=== PATIENT | female | born 1935 | race Caucasian/White ===

== ENCOUNTER → 2019-06-02 13:03 | Outpatient (CLI) | payer MEDICARE, BC, SELFPAY ==
--- NOTE | ~2019-06-02 | XR_ITS ---
EXAMINATION: XR chest 2V DATE: 06/02/2019 13:31 INDICATION: Dyspnea. TECHNIQUE: Frontal and lateral views of the chest were obtained. COMPARISON: Chest 2 views 09/28/2017 FINDINGS: The chest demonstrates clear lungs without pneumonia, pleural effusion, or pneumothorax. Th e heart size is normal. IMPRESSION: 1. No acute cardiopulmonary disease. Reviewed, dictated and finalized at location A. ENT ART CURATOR
== END ==
PROVIDERS: PCP Internal Medicine; Visit Provider Internal Medicine
DX: R06.02 Shortness of breath (principal)
CPT/HCPCS: 71046

== ENCOUNTER 2021-03-09 13:28 | Emergency (ER) | payer MEDICARE, BC, SELFPAY ==
--- NOTE | ~2021-03-09 | XR_ITS ---
EXAMINATION: XR ankle LT min 3V DATE: 03/09/2021 14:04 INDICATION: Lateral sided left ankle pain post injury TECHNIQUE: Anteroposterior, oblique, mortise, and lateral views of the left ankle were obtained. COMPARISON: None. FINDINGS: Alignment is normal. Tiny calcific densities along the dorsal head of the talus which could represent enthesopathic ossicles or potentially tiny capsular avulsion fracture fragments. No other lesions barry spicious for fracture identified. Prominent left ankle joint effusion. Achilles and plantar calcaneal spurs with prominent enthesopathic consultation/ossification at the distal Achilles tendon. Mild ost eoarthritis at the ankle, talonavicular, first metatarsophalangeal and a few tarsal metatarsal joints . IMPRESSION: 1. Possible tiny capsular avulsion fracture fragments at the dorsal talar rim of the talonavicular patricia int versus chronic enthesopathic ossicles. No other lesions for fracture identified. 2. Prominent chronic distal Achilles enthesopathy. 3. Left ankle joint effusion. Reviewed, dictated and finalized at location B. R PILOT IMPRESSION: 1. Possible tiny capsular avulsion fracture fragments at the dorsal talar rim o f the talonavicular joint versus chronic enthesopathic ossicles. No other lesio ns for fracture identified. 2. Prominent chronic distal Achilles enthesopathy. 3. Left ankle joint effusion.
[2021-03-09 13:30] VITALS: BP 181/82; PULSE 65; RESP 16; TEMP 36.3; O2SAT 95
--- NOTE | 2021-03-09 15:08 | ED.LOWEXIN ---
HPI - Extremity Injury (Lower) General Chief Complaint: Extremity Injury, Lower <Destinee Sepulveda PA-C - Last Filed: 03/09/21 15:38> Stated Complaint: ankle injury <NICHOLAS Rodriguez Last Filed: 03/09/21 15:38> Time Seen by Provider: 03/09/21 14:24 <Destinee Sepulveda PA-C - Last Filed: 03/09/21 15:38> Source: patient <NICHOLAS Rodriguez Last Filed: 03/09/21 15:38> Mode of arrival: wheelchair <NICHOLAS Rodriguez Last Filed: 03/09/21 15:38> Limitations: no limitations <NICHOLAS Rodriguez Last Filed: 03/09/21 15:38> History of Present Illness HPI Narrative: This is a 85 year old female that presents to the ER for left ankle pain after an injury last night. Reports she tripped over a rug and twisted her left ankle. Denies hitting her head or loss of consciousness. Denies any other injuries. Reports that she has had swelling and pain in the left ankle. Worse with movement and relieved with rest. Denies decreased range of motion or numbness. <Destinee Sepulveda PA-C - Last Filed: 03/09/21 15:38> Related Data Home Medications: Home Medications Medication Instructions Recorded Confirmed acetaminophen [Tylenol Extra 500 mg PO Q4H PRN 02/17/19 02/17/19 Strength] aspirin [Aspir-81] 81 mg PO DAILY 02/17/19 02/17/19 carvedilol 12.5 mg PO BID 02/17/19 02/17/19 lisinopril 20 mg PO DAILY 02/17/19 02/17/19 omeprazole 20 mg PO BID 02/17/19 02/17/19 rosuvastatin 20 mg PO DAILY 02/17/19 02/17/19 apixaban [Eliquis] 5 mg PO BID 03/09/21 citalopram 20 mg PO DAILY 03/09/21 melatonin 3 mg PO HS PRN 03/09/21 <NICHOLAS Rodriguez Last Filed: 03/09/21 15:38> Allergies/Adverse Reactions: Allergies Allergy/AdvReac Type Severity Reaction Status Date / Time No Known Drug Allergies Allergy Unknown Verified 03/09/21 13:33 <Destinee Sepulveda PA-C - Last Filed: 03/09/21 15:38> Review of Systems Review of Systems: CONSTITUTIONAL: Denies fever MUSCULOSKELETAL: Reports joint pain, and myalgia. NEUROLOGIC: Denies numbness, or weakness. <Destinee Sepulveda PA-C - Last Filed: 03/09/21 15:38> All systems reviewed & are unremarkable except as noted in HPI and below <Destinee Sepulveda PA-C - Last Filed: 03/09/21 15:38> PMFSH Past Medical History Medical History: Medical History (Updated 03/09/21 @ 15:38 by Destinee Sepulveda PA-C) Arthritis Depression GERD (gastroesophageal reflux disease) Hypertension <Destinee Sepulveda PA-C - Last Filed: 03/09/21 15:38> Surgical History Surgical History: Surgical History (Updated 02/17/19 @ 14:48 by Derrick Cortez) No history of previous surgery <Destinee Sepulveda PA-C - Last Filed: 03/09/21 15:38> Social History Social History: Social History (Updated 03/09/21 @ 15:11 by Destinee Sepulveda PA-C) Smoking status: Former smoker Gender identity (if verbalized by the patient): Female <Destinee Sepulveda PA-C - Last Filed: 03/09/21 15:38> Exam Narrative: GENERAL: Well-appearing, well-nourished, and in no acute distress. HEAD: Normocephalic, atraumatic. EYES: EOMI. CHEST: No respiratory distress. HEART: Regular rate EXTREMITIES: Normal range of motion. Mild edema about the left ankle. Normal DP pulses, normal sensation SKIN: Warm, dry, no rash. NEURO: No focal deficits. Alert and oriented x3. PSYCH: Normal mood and affect <Destinee Sepulveda PA-C - Last Filed: 03/09/21 15:38> Course BEHAVIORAL TECHNICIAN/PA Physician Supervision I did not see this patient nor was the care plan discussed with me. I was available for evaluation and consultation, I agree with the documentation <Derrick Jorgensen MD - Last Filed: 03/09/21 17:43> Consultations Consultation #1: Spoke with Dr. Marquez about patient and work-up. Patient will be placed in Surinder wrap and is to follow-up in clinic. Weightbearing as tolerated. <Destinee Sepulveda PA-C - Last Filed: 03/09/21 15:38> Date: 03/09/21 <Destinee Sepulveda PA-C - Last Filed:
[2021-03-09] MEDS: ACETAMINOPHEN 500 MG TABLET 1000 MG PO (15:18)
== END 2021-03-09 16:00 | disposition home or self-care (01) ==
PROVIDERS: Emergency Provider Emergency Medicine; PCP Internal Medicine
DX: S82.892A Other fracture of left lower leg, initial encounter for closed fracture (principal); I10 Essential (primary) hypertension; W01.0XXA Fall on same level from slipping, tripping and stumbling without subsequent striking against object, initial encounter
CPT/HCPCS: 73610; 99283; A9270

== ENCOUNTER 2021-09-21 14:17 | Outpatient (CLI) | payer MEDICARE, BC, SELFPAY ==
[2021-09-21 14:45] LABS: Basophils Percent Auto 0.4 % (0.2-1.2); Eosinophils Absolute Auto 0.1 K/mm3 (0-0.3); Eosinophils Percent Auto 1.2 % (0-4.4); Hematocrit 34.7 % (37.0-47.0); Hemoglobin 10.9 g/dL (12.0-15.0); Immature Granulocyte Absolute 0.06 K/mm3 (0.00-0.031); Immature Granulocyte Percent A 0.8 % (0-0.5); Lymphocytes Absolute Auto 1.13 K/mm3 (0.9-3.2); Lymphocytes Percent Auto 15.1 % (18.3-44.2); Mean Corpuscular HGB Conc 31.4 g/dl (32-36); Mean Corpuscular Hemoglobin 29.9 pg (26-34); Mean Corpuscular Volume 95.3 fl (80-100); Mean Platelet Volume 9.4 fl (7.4-10.4); Monocytes Absolute Auto 0.7 K/mm3 (0.1-0.6); Monocytes Percent Auto 9.5 % (2.6-8.5); Neutrophils Absolute Auto 5.5 K/mm3 (1.3-6.7); Platelet Count Result 206 k/mm3 (150-375); Red Blood Count 3.64 M/mm3 (4.2-5.4); Red Cell Distribution Width 13.2 % (11.5-14.5); White Blood Count 7.5 K/mm3 (4.5-10.0)
[2021-09-21 14:54] LABS: Alanine Aminotransferase 14 U/L (6-35); Albumin Level 3.7 g/dL (3.5-5.1); Alkaline Phosphatase 73 U/L (38-126); Anion Gap 8 mmol/L (8-16); Aspartate Amino Transferase 17 U/L (14-36); Bilirubin,Total 0.4 mg/dL (0.2-1.3); Blood Urea Nitrogen 17 mg/dL (7-17); Calcium 8.6 mg/dL (8.4-10.2); Carbon Dioxide 28 mmol/L (22-30); Chloride 102 mmol/L (98-107); Estimated Glomerular Filt Rate > 60; Glucose 119 mg/dL (65-110); Potassium 3.7 mmol/L (3.4-5.0); Sodium 138 mmol/L (137-145)
== END 2021-09-21 14:18 | disposition home or self-care (01) ==
LOC: ANHLAB 14:21
PROVIDERS: PCP Internal Medicine; Visit Provider Internal Medicine
DX: R19.7 Diarrhea, unspecified (principal)
CPT/HCPCS: 36415; 80053; 85025

== ENCOUNTER 2021-09-23 09:15 | Outpatient (NON) | payer MEDICARE, BC, SELFPAY ==
[2021-09-23 11:13] LABS: Toxigenic C. Diff NEGATIVE (NEGATIVE)
== END 2021-09-23 09:16 | disposition home or self-care (01) ==
PROVIDERS: PCP Internal Medicine; Visit Provider Internal Medicine
DX: R19.7 Diarrhea, unspecified (principal)
CPT/HCPCS: 87045; 87427; 87493

== ENCOUNTER 2022-03-29 17:29 | Emergency (ER) | payer MEDICARE, BC, SELFPAY ==
--- NOTE | ~2022-03-29 | XR_ITS ---
EXAMINATION: XR chest 2V Exam Date/Time: 03/29/2022 18:20 ACADEMIC COUNSELOR HISTORY: cough,crackling Comparison: 06/02/2019. RESULT: Lines, tubes, and devices: None. Lungs and pleura: Senescent change, otherwise clear. Cardiomediastinal silhouette: Stable. Other: No acute osseous or upper abdominal finding. Chronic mild lower thoracic compression fracture . IMPRESSION: No acute cardiopulmonary process. Reviewed, dictated and finalized at location K. EMIC COUNSELOR
[2022-03-29 17:41] VITALS: BP 148/57; PULSE 71; RESP 16; TEMP 36.4; O2SAT 98
[2022-03-29 17:45] VITALS: BP 148/57; PULSE 71; RESP 16; TEMP 36.4; O2SAT 98
--- NOTE | 2022-03-29 18:04 | ED.URI ---
HPI - URI/Sore Throat General Chief Complaint: Upper Respiratory Infection Stated Complaint: cough,congestion Time Seen by Provider: 03/29/22 18:04 Source: patient Mode of arrival: ambulatory Limitations: no limitations History of Present Illness HPI Narrative: 86-year-old female who presents to [facility] with complaints of cough since the March with nasal congestion drainage denies any fever. Patient reports she did have pneumonia the 03 of October time frame of this year was hospitalized, concerned she could be having symptoms related to her lungs. Patient did have a long history of tobacco use states she quit about 5-6 years ago when her daughter came to live with her. Patient denies any known fevers or any acute respiratory difficulty. Patient reports cough is worse at night not resting well. Patient has taken Tylenol for her symptoms has not taken any OTC cough medicines or any current decongestants. Patient denies any shortness of breath this time. Patient reports she has had COVID vaccinations and also has not flu shot. MD elicited complaint: cough, rhinorrhea and nasal congestion Onset (ago): day(s) (8) Able to tolerate fluids by mouth: Yes Treatments prior to arrival: acetaminophen Related Data Home Medications Medication Instructions Recorded Confirmed acetaminophen 500 mg tablet 500 mg PO Q4H PRN Pain 02/17/19 03/29/22 (Tylenol Extra Strength) aspirin 81 mg tablet,delayed 81 mg PO DAILY 02/17/19 03/29/22 release (Aspir-) carvedilol 12.5 mg tablet 12.5 mg PO BID 02/17/19 03/29/22 lisinopril 40 mg tablet 20 mg PO DAILY 02/17/19 03/29/22 rosuvastatin 20 mg tablet 20 mg PO DAILY 02/17/19 03/29/22 apixaban 5 mg tablet (Eliquis) 5 mg PO BID 03/09/21 03/29/22 citalopram 20 mg tablet 20 mg PO DAILY 03/09/21 03/29/22 melatonin 3 mg capsule 3 mg PO HS PRN Insomnia 03/09/21 03/29/22 amlodipine 5 mg tablet 5 mg PO DAILY 03/29/22 03/29/22 cyanocobalamin (vitamin B-12) 1,000 mcg PO DAILY 03/29/22 03/29/22 1,000 mcg tablet pantoprazole 40 mg tablet,delayed mg PO 03/29/22 03/29/22 release Allergies Allergy/AdvReac Type Severity Reaction Status Date / Time No Known Drug Allergies Allergy Unknown Verified 03/29/22 17:42 Review of Systems Review of Systems: CONSTITUTIONAL: Denies malaise, chills, sweats, or fever. EYES: Denies visual changes, redness, or discharge. ENT: Reports rhinorrhea, congestion, no sinus pain, no otalgia and no sore throat. CARDIOVASCULAR: Denies chest pain, palpitations, or edema. RESPIRATORY: Reports acute cough.? Denies dyspnea. GASTROINTESTINAL: Denies abdominal pain, nausea, vomiting, diarrhea SKIN: Denies rash or itching. MUSCULOSKELETAL: Denies myalgia. NEUROLOGIC: Denies headache. All systems reviewed & are unremarkable except as noted in HPI and below PMFSH Past Medical History Medical History (Updated 03/29/22 @ 18:48 by Jody Powers NP) Arthritis Depression GERD (gastroesophageal reflux disease) Hypertension Right knee DJD Right knee pain Surgical History Surgical History (Updated 02/09/22 @ 13:28 by ROMMEL Shore) H/O: hysterectomy [address] Link Hx of left knee surgery 2018 No history of previous surgery Social History Social History (Updated 02/09/22 @ 13:29 by ROMMEL Shore) Smoking packs per day: 1 Smoking cigarettes per day: 20.0 Years smoked: 40 Smoking pack-years: 40.00 Smoking status: Former smoker Alcohol intake: never Gender identity (if verbalized by the patient): Female Comments At time of signature, agree with nursing past medical, surgical, social and family history. There is no relevant family history pertinent to the presenting complaint Exam Narrative: GENERAL: Well-appearing, well-nourished, and in no acute distress. HEAD: Normocephalic EYES: PERRLA, conjunctivae clear ENT: Nares clear, turbinates edematous and erythematous, clear discharge. Mucous membr
== END 2022-03-29 19:02 | disposition home or self-care (01) ==
PROVIDERS: Emergency Provider Registered Nurse; PCP Internal Medicine
DX: J06.9 Acute upper respiratory infection, unspecified (principal); R05.1 Acute cough; Z87.891 Personal history of nicotine dependence; K21.9 Gastro-esophageal reflux disease without esophagitis; I10 Essential (primary) hypertension
CPT/HCPCS: 71046; 99213; G0463

== ENCOUNTER 2022-04-07 11:28 | Emergency (ER) | payer MEDICARE, BC, SELFPAY ==
--- NOTE | ~2022-04-07 | CT_ITS ---
EXAMINATION: CT brain wo con DATE: 04/07/2022 17:50 INDICATION: Syncope. Status post fall. Patient on blood thinners. TECHNIQUE: Computed tomography (CT) of the head was performed without intravenous contrast. The dose- length product was 605.33 mGy-cm. Automated exposure control and iterative reconstruction technique w ere employed. COMPARISON: CT dated 12/14/2021 FINDINGS: Generalized atrophy. There is a chronic infarction of the left temporal parietal lobe. Ther e are scattered moderate periventricular and subcortical white matter changes, most likely related to small vessel ischemic disease (microangiopathy). No ventriculomegaly or midline shift. Basilar ciste rns are patent. No acute intracranial hemorrhage, infarction, mass or mass effect. Paranasal sinuses are unremarkable. Mastoids are pneumatized. There is intracranial atherosclerosis. No depressed skull fractures. IMPRESSION: 1. No acute intracranial abnormality. 2: Chronic left temporal-parietal infarction. 3: Chronic age-related findings. Reviewed, dictated and finalized at location A. ER COMPOUNDER MIXER
--- NOTE | ~2022-04-07 | XR_ITS ---
XR chest 2V 04/07/2022 17:40 Indication: Syncope. Procedure: 2 view chest Comparison: 03/29/2022 Findings: Heart size normal. There is atherosclerosis of the aorta. No focal air space disease, pulmo nary edema, pleural effusion or suspected pneumothorax. Mild chronic wedge compression deformity of a lower thoracic vertebra. Mild lumbar spondylosis. The lungs are hyperinflated which is consistent wi th, but not diagnostic of chronic obstructive pulmonary disease. Impression: 1: No acute cardiopulmonary disease. Reviewed, dictated and finalized at location A. OCHLORIC ACID OPERATOR Impression: 1: No acute cardiopulmonary disease.
--- NOTE | 2022-04-07 11:53 | ECG_ITS ---
Measurements Intervals [place] Rate: 59 P: 75 AL: 225 QRS: 26 QRSD: 82 T: 38 QT: 433 QTc: 431 Interpretive Statements SINUS BRADYCARDIA WITH MARKED SINUS ARRHYTHMIA WITH FIRST DEGREE AV BLOCK BASELINE ARTIFACT- I, II, III, AVR, AVL, AVF BORDERLINE ECG NO PREVIOUS ECG AVAILABLE FOR COMPARISON Electronically Signed On 04-07-2022 12:04:36 FREIGHT ADJUSTER by Abran Arauz D.O.
[2022-04-07 12:00] VITALS: BP 129/50; PULSE 90; RESP 16; TEMP 36.3; O2SAT 96
[2022-04-07 12:23] LABS: Basophils Percent Auto 0.5 % (0.2-1.2); Eosinophils Absolute Auto 0.2 K/mm3 (0-0.3); Eosinophils Percent Auto 2.9 % (0-4.4); Hematocrit 36.1 % (37.0-47.0); Hemoglobin 11.4 g/dL (12.0-15.0); Immature Granulocyte Absolute 0.02 K/mm3 (0.00-0.031); Immature Granulocyte Percent A 0.4 % (0-0.5); Lymphocytes Absolute Auto 1.24 K/mm3 (0.9-3.2); Lymphocytes Percent Auto 22.5 % (18.3-44.2); Mean Corpuscular HGB Conc 31.6 g/dl (32-36); Mean Corpuscular Volume 98.1 fl (80-100); Mean Platelet Volume 9.4 fl (7.4-10.4); Monocytes Absolute Auto 0.5 K/mm3 (0.1-0.6); Monocytes Percent Auto 9.6 % (2.6-8.5); Neutrophils Absolute Auto 3.5 K/mm3 (1.3-6.7); Neutrophils Percent Auto 64.1 % (45.5-73.1); Platelet Count Result 216 k/mm3 (150-375); Red Blood Count 3.68 M/mm3 (4.2-5.4); Red Cell Distribution Width 13.3 % (11.5-14.5); White Blood Count 5.5 K/mm3 (4.5-10.0)
[2022-04-07 12:27] LABS: Alanine Aminotransferase 21 U/L (6-35); Albumin Level 3.8 g/dL (3.5-5.1); Alkaline Phosphatase 47 U/L (38-126); Anion Gap 5 mmol/L (8-16); Aspartate Amino Transferase 26 U/L (14-36); Bilirubin,Total 0.5 mg/dL (0.2-1.3); Blood Urea Nitrogen 30 mg/dL (7-17); Calcium 8.5 mg/dL (8.4-10.2); Carbon Dioxide 32 mmol/L (22-30); Chloride 101 mmol/L (98-107); Estimated CRCL calculation 34 ml/min; Estimated Glomerular Filt Rate 53; Glucose 160 mg/dL (65-110); Potassium 4.1 mmol/L (3.4-5.0); Sodium 138 mmol/L (137-145)
[2022-04-07 16:27] VITALS: BP 130/58; PULSE 67; TEMP 36.7; O2SAT 98
--- NOTE | 2022-04-07 17:24 | ED.GENADULT ---
HPI - General Adult General Chief complaint: Dizziness Stated complaint: syncope, nausea, dizzy Time Seen by Provider: 04/07/22 17:10 History of Present Illness HPI narrative: Patient is an 86-year-old female with a history of A. fib on Eliquis, hypertension, hyperlipidemia, CVA presenting with syncope. Patient states that she was at the orthopedic office earlier today to get an injection for her chronic right knee pain. Patient states that after the injection, she felt lightheaded and nauseated. States that the clinic had her sit down and her symptoms improved. She was able to walk outside to wait for her granddaughter to come pick her up. While waiting she again felt lightheaded and was noted to have a syncopal episode. She awoke and quickly returned to baseline after having several episodes of emesis. She denies any chest pain or shortness of breath. No palpitations. No headache, numbness or weakness, speech difficulties. No recent cough, abdominal pain, diarrhea, dysuria, leg swelling. Related Data Home Medications Medication Instructions Recorded Confirmed acetaminophen 500 mg tablet 500 mg PO Q4H PRN Pain 02/17/19 03/29/22 (Tylenol Extra Strength) aspirin 81 mg tablet,delayed 81 mg PO DAILY 02/17/19 03/29/22 release (Aspir-) carvedilol 12.5 mg tablet 12.5 mg PO BID 02/17/19 03/29/22 lisinopril 40 mg tablet 20 mg PO DAILY 02/17/19 03/29/22 rosuvastatin 20 mg tablet 20 mg PO DAILY 02/17/19 03/29/22 apixaban 5 mg tablet (Eliquis) 5 mg PO BID 03/09/21 03/29/22 citalopram 20 mg tablet 20 mg PO DAILY 03/09/21 03/29/22 melatonin 3 mg capsule 3 mg PO HS PRN Insomnia 03/09/21 03/29/22 amlodipine 5 mg tablet 5 mg PO DAILY 03/29/22 03/29/22 cyanocobalamin (vitamin B-12) 1,000 mcg PO DAILY 03/29/22 03/29/22 1,000 mcg tablet pantoprazole 40 mg tablet,delayed mg PO 03/29/22 03/29/22 release Allergies Allergy/AdvReac Type Severity Reaction Status Date / Time No Known Drug Allergies Allergy Unknown Verified 03/29/22 17:42 Review of Systems Review of Systems: All systems reviewed & are unremarkable except as noted in HPI and below PMFSH Past Medical History Medical History Arthritis Depression GERD (gastroesophageal reflux disease) Hypertension Right knee DJD Right knee pain Surgical History Surgical History H/O: hysterectomy [address] Link Hx of left knee surgery 2018 No history of previous surgery Social History Social History Smoking packs per day: 1 Smoking cigarettes per day: 20.0 Years smoked: 40 Smoking pack-years: 40.00 Smoking status: Former smoker Alcohol intake: never Gender identity (if verbalized by the patient): Female Exam Narrative: GENERAL: Well-appearing, well-nourished, and in no acute distress. HEAD: Normocephalic, atraumatic. EYES: PERRLA and EOMI. ENT: Nares clear, no rhinorrhea or epistaxis. Mucous membranes moist. NECK: Supple. CHEST: Clear to auscultation. No respiratory distress. HEART: Regular rate and rhythm. No murmur heard. Normal peripheral pulses. ABDOMEN: Soft, nontender, nondistended, normal active bowel sounds. EXTREMITIES: Normal range of motion. No edema. SKIN: Warm, dry, no rash. NEURO: No focal deficits. Alert and oriented x3. PSYCH: Normal mood and affect. Course Vital Signs Vital signs: Vital Signs Temperature 97.4 F L 04/07/22 12:00 Pulse Rate 90 04/07/22 12:00 Respiratory Rate 16 04/07/22 12:00 Blood Pressure 129/50 L 04/07/22 12:00 Pulse Oximetry 96 04/07/22 12:00 Oxygen Delivery Room Air 04/07/22 12:00 Temperature 98.0 F 04/07/22 16:27 Pulse Rate 65 04/07/22 19:05 Respiratory Rate 16 04/07/22 19:05 Blood Pressure 144/60 H 04/07/22 19:05 Pulse Oximetry 98 04/07/22 19:05 Oxygen Delivery Room Air 04/07/22 12:00
[2022-04-07] MEDS: SODIUM CHLORIDE 0.9% IV 1,000 ML 999 ML IV CONT (17:51)
[2022-04-07 17:55] VITALS: BP 133/55; PULSE 65
[2022-04-07 17:57] VITALS: BP 105/91; PULSE 67
[2022-04-07 17:59] VITALS: BP 125/61; PULSE 73
[2022-04-07 18:05] LABS: Troponin I < 0.012 ng/mL (0.000-0.034)
[2022-04-07 18:16] LABS: Add Urine Microscopic? YES; Appearance Urine Clear (Clear); Bilirubin Urine Negative (Negative); Blood Urine Trace-Intact (Negative); Color Urine Yellow (Yellow); Glucose Urine UA Negative (Negative); Ketones Urine Negative (Negative); Leukocyte Esterase Ur Trace LEU/UL (Negative); Nitrate Urine Negative (Negative); Protein Urine Negative (Negative); Specific Grav Ur 1.025 (1.001-1.035); Urobilinogen Urine 0.2 mg/dL (<2.0); pH Urine 5.5 (5.0-9.0)
[2022-04-07 18:21] LABS: Bacteria Urine Trace /hpf; Mucus Urine Rare /lpf; Squamous Epithelial Cell Urine Rare /hpf (Few)
[2022-04-07 18:37] LABS: Troponin I < 0.012 ng/mL (0.000-0.034)
[2022-04-07 19:05] VITALS: BP 144/60; PULSE 65; RESP 16; O2SAT 98
[2022-04-07] MEDS: CEPHALEXIN 500 MG CAPSULE PO (19:34)
== END 2022-04-07 19:42 | disposition home or self-care (01) ==
PROVIDERS: Emergency Medicine; Emergency Provider Emergency Medicine; PCP Internal Medicine
DX: N39.0 Urinary tract infection, site not specified (principal); R55 Syncope and collapse; I48.91 Unspecified atrial fibrillation; I10 Essential (primary) hypertension; E78.5 Hyperlipidemia, unspecified; K21.9 Gastro-esophageal reflux disease without esophagitis; M17.11 Unilateral primary osteoarthritis, right knee; F32.A Depression, unspecified; Z90.710 Acquired absence of both cervix and uterus; Z86.73 Personal history of transient ischemic attack (TIA), and cerebral infarction without residual deficits; Z87.891 Personal history of nicotine dependence; Z79.01 Long term (current) use of anticoagulants; Z79.82 Long term (current) use of aspirin
CPT/HCPCS: 36415; 70450; 71046; 80053; 81001; 84484; 85025; 93005; 96360; 96361; 99284; A9270; J7030

== ENCOUNTER 2023-02-26 12:58 | Emergency (ER) | payer MEDICARE, BC, SELFPAY ==
[2023-02-26] VITALS (10 sets, daily range): BP systolic 154–186; BP diastolic 54–82; PULSE 54–69; RESP 16–24; TEMP 36.4–36.6; O2SAT 96–98
--- NOTE | ~2023-02-26 | CT_ITS ---
EXAMINATION: CT cervical spine wo con DATE: 02/26/2023 16:35 INDICATION: Head injury. Syncope. TECHNIQUE: Computed tomography (CT) of the cervical spine was performed without intravenous contrast. Automated exposure control and iterative reconstruction technique were employed. The dose-length pro duct was 247.40 mGy-cm. COMPARISON: None FINDINGS: There is 4 degrees dextrocurvature of cervical spine. Vertebral body heights are normal. In tervertebral disc heights are normal. The following disc levels are specifically discussed: C2-C3: There is moderate left uncovertebral joint osteoarthritis. There is mild bilateral facet joint osteoarthritis. There is no neural foraminal stenosis. There is no central canal stenosis. C3-C4: There is mild bilateral uncovertebral joint osteoarthritis. There is moderate bilateral facet joint osteoarthritis. There is no neural foraminal stenosis. There is no central canal stenosis. C4-C5: There is no uncovertebral joint osteoarthritis. There is moderate bilateral facet joint osteoa rthritis. There is no neural foraminal stenosis. There is no central canal stenosis. C5-C6: There is no uncovertebral joint osteoarthritis. There is no facet joint osteoarthritis. There is no neural foraminal stenosis. There is no central canal stenosis. C6-C7: There is mild bilateral uncovertebral joint osteoarthritis. There is mild bilateral facet join t osteoarthritis. There is no neural foraminal stenosis. There is no central canal stenosis. C7-T1: There is no uncovertebral joint osteoarthritis. There is moderate right and severe left facet joint osteoarthritis. There is mild left neural foraminal stenosis. There is no central canal stenosi s. IMPRESSION: 1. No fracture. 2. Mild cervical spondylosis. Reviewed, dictated and finalized at location A. T SUPERINTENDENT CAUSTIC CRESYLATE
--- NOTE | ~2023-02-26 | CT_ITS ---
EXAMINATION: CT brain wo con DATE: 02/26/2023 16:33 INDICATION: Syncope. TECHNIQUE: Computed tomography (CT) of the head was performed without intravenous contrast. The mA wa s adjusted according to patient size. Iterative reconstruction technique was employed. The dose-lengt h product was 605.33 mGy-cm. COMPARISON: Head CT 04/07/22 FINDINGS: There are scattered areas of low attenuation in the cerebral white matter and bilateral bas al ganglia and thalami. There is an old infarct in left temporal lobe. There is no intracranial hemor rhage, acute infarction, or abnormal intracranial mass lesion. The ventricles are normal in size. The re is a frontal scalp hematoma. There are likely changes of ocular lens replacement surgeries. There is mild mucosal thickening in the paranasal sinuses. The mastoid air cells are normal. IMPRESSION: 1. 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 2. Stable extensive nonspecific cerebral white matter disease and disease of the bilateral deep martinez nuclei, which likely represents chronic small vessel ischemic disease. Reviewed, dictated and finalized at location A. ERING PLANT SUPERVISOR IMPRESSION: 1. 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 2. Stable extensive nonspecific cerebral white matter disease and disease of th e bilateral deep martinez nuclei, which likely represents chronic small vessel isch emic disease.
--- NOTE | 2023-02-26 16:19 | ECG_ITS ---
Measurements Intervals [place] Rate: 60 P: 55 SD: 211 QRS: 12 QRSD: 84 T: 35 QT: 419 QTc: 419 Interpretive Statements SINUS RHYTHM WITH SINUS ARRHYTHMIA WITH FIRST DEGREE AV BLOCK NONSPECIFIC ST-T WAVE ABNORMALITY- INF/LAT LEADS BASELINE ARTIFACT- I, II, III, AVR, AVL, AVF, V5 BORDERLINE ECG COMPARED TO ECG 04/07/2022 11:57:40 SINUS RHYTHM NOW PRESENT ST-T WAVE ABNORMALITY NOW PRESENT Electronically Signed On 02-26-2023 19:13:51 SENIOR SOFTWARE DEVELOPMENT ENGINEER by Abran Arauz D.O.
[2023-02-26 17:02] LABS: Basophils Percent Auto 0.3 % (0.2-1.2); Eosinophils Percent Auto 0.4 % (0-4.4); Hematocrit 38.6 % (37.0-47.0); Immature Granulocyte Absolute 0.01 K/mm3 (0.00-0.031); Immature Granulocyte Percent A 0.1 % (0-0.5); Lymphocytes Absolute Auto 0.87 K/mm3 (0.9-3.2); Lymphocytes Percent Auto 12.3 % (18.3-44.2); Mean Corpuscular HGB Conc 31.1 g/dl (32-36); Mean Corpuscular Hemoglobin 30.8 pg (26-34); Mean Platelet Volume 9.8 fl (7.4-10.4); Monocytes Absolute Auto 0.3 K/mm3 (0.1-0.6); Monocytes Percent Auto 4.8 % (2.6-8.5); Neutrophils Absolute Auto 5.8 K/mm3 (1.3-6.7); Neutrophils Percent Auto 82.1 % (45.5-73.1); Platelet Count Result 146 k/mm3 (150-375); Red Cell Distribution Width 12.7 % (11.5-14.5); White Blood Count 7.1 K/mm3 (4.5-10.0)
[2023-02-26 17:14] LABS: INR 1.4; Prothrombin Time 17.6 Seconds (11.1-14.7)
[2023-02-26 17:15] LABS: Partial Thromboplastin Time 30.3 SECONDS (22.3-36.8)
[2023-02-26 17:18] LABS: Alanine Aminotransferase 14 U/L (6-35); Albumin Level 4.5 g/dL (3.5-5.1); Alkaline Phosphatase 44 U/L (38-126); Anion Gap 10 mmol/L (8-16); Aspartate Amino Transferase 22 U/L (14-36); Bilirubin,Total 0.8 mg/dL (0.2-1.3); Blood Urea Nitrogen 20 mg/dL (7-17); Calcium 9.4 mg/dL (8.4-10.2); Carbon Dioxide 27 mmol/L (22-30); Chloride 100 mmol/L (98-107); Estimated CRCL calculation 42 ml/min; Estimated Glomerular Filt Rate > 60; Glucose 195 mg/dL (65-110); Magnesium 1.6 mg/dL (1.6-2.3); Potassium 3.8 mmol/L (3.4-5.0); Sodium 137 mmol/L (137-145)
[2023-02-26 17:38] LABS: Influenza A QL RT-PCR Negative (Negative); Influenza B QL RT-PCR Negative (Negative); RSV RNA, RT-PCR Negative (Negative); SARS-CoV-2 RNA PCR Negative (Negative)
[2023-02-26 17:56] LABS: Appearance Urine Clear (Clear); Bacteria Urine None Seen /hpf; Bilirubin Urine Negative (Negative); Blood Urine Negative (Negative); Color Urine Yellow (Yellow); Glucose Urine UA Negative (Negative); Ketones Urine Negative (Negative); Leukocyte Esterase Ur Negative LEU/UL (Negative); Nitrate Urine Negative (Negative); Non Pathogenic Casts 0-2; Protein Urine Trace mg/dL (Negative); Specific Grav Ur 1.025 (1.001-1.035); Squamous Epithelial Cell Urine None seen /hpf (Few); Urobilinogen Urine 0.2 mg/dL (<2.0); WBC Urine 0-5 /hpf
[2023-02-26 17:59] LABS: Troponin I < 0.012 ng/mL (0.000-0.034)
[2023-02-26] MEDS: SODIUM CHLORIDE 0.9% IV 1,000 ML 999 ML IV CONT (18:01)
[2023-02-26] MEDS: MAGNESIUM SULF 1 GM/D5W 100 ML 1 GM/100 ML BAG IVPB (18:01)
[2023-02-26 18:04] LABS: Add Urine Microscopic? YES
--- NOTE | 2023-02-26 18:09 | ED.SYNCOPE ---
HPI - Syncope General Chief Complaint: Syncope Stated Complaint: syncopy, struck her face Time Seen by Provider: 02/26/23 16:52 Source: patient Mode of arrival: EMS Limitations: no limitations History of Present Illness HPI narrative: Patient is an 87-year-old female who presents to the ED via EMS with report of syncope. Patient reports she had finished eating lunch today and was standing up filling up her [employer] when she began feeling lightheaded and nauseous. She felt like she needed to have a bowel movement. She went to the bathroom and had diarrhea at that time, then began vomiting. The next thing she knew she was being woken up on the floor by her granddaughter. She did fully lose consciousness. She hit her head and sustained a hematoma to her forehead. Had difficulty getting off the ground so EMS was called. She is on Eliquis. Patient denies any acute complaints upon my evaluation. Denies pain, headache, dizziness, lightheadedness, nausea, vomiting, vision changes, abdominal pain, current nausea, rectal bleeding, melena, chest pain, shortness of breath. Patient reports multiple previous vasovagal episodes. She states it is often related to dehydration. She has not been drinking as much the last couple of days. She states she fell yesterday as well, but did not injure herself. Related Data Home Medications Medication Instructions Recorded Confirmed acetaminophen 500 mg tablet 500 mg PO Q4H PRN Pain 02/17/19 04/28/22 (Tylenol Extra Strength) aspirin 81 mg tablet,delayed 81 mg PO DAILY 02/17/19 04/28/22 release (Aspir-) carvedilol 12.5 mg tablet 12.5 mg PO BID 02/17/19 04/28/22 lisinopril 40 mg tablet 20 mg PO DAILY 02/17/19 04/28/22 rosuvastatin 20 mg tablet 20 mg PO DAILY 02/17/19 04/28/22 apixaban 5 mg tablet (Eliquis) 5 mg PO BID 03/09/21 04/28/22 citalopram 20 mg tablet 20 mg PO DAILY 03/09/21 04/28/22 melatonin 3 mg capsule 3 mg PO HS PRN Insomnia 03/09/21 04/28/22 amlodipine 5 mg tablet 5 mg PO DAILY 03/29/22 04/28/22 cyanocobalamin (vitamin B-12) 1,000 mcg PO DAILY 03/29/22 04/28/22 1,000 mcg tablet pantoprazole 40 mg tablet,delayed mg PO 03/29/22 04/28/22 release Allergies Allergy/AdvReac Type Severity Reaction Status Date / Time No Known Drug Allergies Allergy Unknown Verified 02/26/23 13:28 Review of Systems Review of Systems: CONSTITUTIONAL: Denies fever, chills, or sweats. EENT: Denies vision changes, rhinorrhea, congestion, sore throat. CARDIOVASCULAR: Denies chest pain. RESPIRATORY: Denies dyspnea. GASTROINTESTINAL: See HPI. GENITOURINARY: Denies dysuria or hematuria. SKIN: Denies rash or itching. MUSCULOSKELETAL: Denies back pain, joint pain, or myalgia. NEUROLOGIC: See HPI. All systems reviewed & are unremarkable except as noted in HPI and below PMFSH Past Medical History Medical History Arthritis Depression GERD (gastroesophageal reflux disease) Hypertension Right knee DJD Right knee pain Surgical History Surgical History H/O: hysterectomy [address] Link Hx of left knee surgery 2018 No history of previous surgery Social History Social History Smoking packs per day: 1 Smoking cigarettes per day: 20.0 Years smoked: 40 Smoking pack-years: 40.00 Smoking status: Former smoker Alcohol intake: never Gender identity (if verbalized by the patient): Female Exam Narrative: GENERAL: Elderly, well-nourished, non-toxic, in no acute distress. HEAD: Normocephalic. Large hematoma to forehead with overlying ecchymosis, no wounds. EYES: PERRL/EOMI, conjunctivae clear bilaterally. No nystagmus. Ecchymosis to tone medial eyes and bridge of nose. NOSE: Normal, no drainage. No epistaxis. No septal hematoma. EARS: TMS clear, with good light reflex. No erythema or bulging.
--- NOTE | 2023-02-26 18:24 | PC.NURSE ---
Noted raised bruised area to forehead. Pt denies any c/o pain
--- NOTE | 2023-02-26 19:20 | PC.NURSE ---
Assumed care of pt at this time. Pt A&Ox4, able to ambulate with steady gait to restroom.
== END 2023-02-26 20:15 | disposition home or self-care (01) ==
PROVIDERS: Emergency Medicine; Emergency Provider Physician Assistant; PCP Internal Medicine
DX: I95.1 Orthostatic hypotension (principal); I10 Essential (primary) hypertension; S00.83XA Contusion of other part of head, initial encounter; Z20.822 Contact with and (suspected) exposure to COVID-19; K21.9 Gastro-esophageal reflux disease without esophagitis; M17.11 Unilateral primary osteoarthritis, right knee; Z87.891 Personal history of nicotine dependence; Z90.710 Acquired absence of both cervix and uterus; Z79.82 Long term (current) use of aspirin; M47.812 Spondylosis without myelopathy or radiculopathy, cervical region; R90.82 White matter disease, unspecified; R94.31 Abnormal electrocardiogram [ECG] [EKG]; W18.39XA Other fall on same level, initial encounter
CPT/HCPCS: 36415; 70450; 72125; 80053; 81001; 83735; 84484; 85025; 85610; 85730; 87637; 93005; 96361; 96365; 99284; J3475; J7030

== ENCOUNTER 2023-03-05 15:30 | Outpatient (CLI) | payer MEDICARE, BC, SELFPAY ==
--- NOTE | ~2023-03-05 | CT_ITS ---
EXAMINATION: CT brain wo con DATE: 03/05/2023 15:51 INDICATION: Head injury. TECHNIQUE: Computed tomography (CT) of the head was performed without intravenous contrast. The mA wa s adjusted according to patient size. Iterative reconstruction technique was employed. The dose-lengt h product was 605.33 mGy-cm. COMPARISON: Head CT 02/26/2023 FINDINGS: There is old infarct in left temporal lobe. There are scattered areas of low attenuation in the cerebral white matter and the bilateral deep martinez-white matter. There is no intracranial hemorrh age, acute infarction, or abnormal intracranial mass lesion. The ventricles are normal in size. There is a right frontal scalp hematoma. There is mild mucosal thickening in the ethmoid sinuses. There ar e likely changes of ocular lens replacement surgeries. The mastoid air cells are normal. IMPRESSION: 1. 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 2. Stable extensive nonspecific cerebral white matter disease and disease of bilateral deep martinez nucl ei, which likely represents chronic small vessel ischemic disease. Reviewed, dictated and finalized at location E. ORM CAP OPERATOR IMPRESSION: 1. 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 2. Stable extensive nonspecific cerebral white matter disease and disease of bi lateral deep martinez nuclei, which likely represents chronic small vessel ischemic disease.
== END 2023-03-05 15:31 | disposition home or self-care (01) ==
PROVIDERS: PCP Internal Medicine; Visit Provider Internal Medicine
DX: S00.83XA Contusion of other part of head, initial encounter (principal); R90.82 White matter disease, unspecified; Z86.73 Personal history of transient ischemic attack (TIA), and cerebral infarction without residual deficits
CPT/HCPCS: 70450

== ENCOUNTER 2023-06-16 12:29 | Outpatient (CLI) | payer MEDICARE, BC, SELFPAY ==
--- NOTE | ~2023-06-16 | CT_ITS ---
CT Scan of the Chest without Contrast: Clinical Indication: Solitary pulmonary nodule Technique: Contiguous sections were acquired throughout the chest without intravenous contrast. Dose reduction technique was used on this scan by utilizing automated exposure control and iterative recon struction technique. The dose-length product (DLP) was 60.69 mGy-cm. Findings: There is no evidence of any significant mediastinal, hilar or axillary lymphadenopathy. There are ext ensive atherosclerotic calcifications of the aorta and coronary arteries. There is no evidence of pleural or pericardial effusion. There is a 7 mm groundglass opacities in the right lower lobe (axial image 57). There is a 13 mm grou ndglass opacity in the left lower lobe (axial image 54). There is atelectasis or scarring at the ling orquidea. Images through the upper abdomen reveal also nodular contour of the liver, with pneumobilia. Mild com pression fracture of T11 noted. Impression: Focal bilateral lower lobe groundglass opacity/nodules, as detailed above. According to Fleischner [facility] criteria, one year follow-up advised. Possible cirrhotic change of the liver. Correlate clinically. Mild compression deformity of T11, likely chronic. Reviewed, dictated and finalized at location . Impression: Focal bilateral lower lobe groundglass opacity/nodules, as detailed above. Acco rding to Fleischner Society criteria, one year follow-up advised. Possible cirrhotic change of the liver. Correlate clinically. Mild compression deformity of T11, likely chronic.
== END 2023-06-16 12:30 | disposition home or self-care (01) ==
LOC: ANHIMG 12:39
PROVIDERS: PCP Internal Medicine; Visit Provider Internal Medicine
DX: S22.080A Wedge compression fracture of T11-T12 vertebra, initial encounter for closed fracture (principal); R91.8 Other nonspecific abnormal finding of lung field; Z12.31 Encounter for screening mammogram for malignant neoplasm of breast; X58.XXXA Exposure to other specified factors, initial encounter
CPT/HCPCS: 71250

== ENCOUNTER 2023-06-30 09:37 | Outpatient (CLI) | payer MEDICARE, BC, SELFPAY ==
--- NOTE | ~2023-06-30 | US_ITS ---
EXAMINATION: US right upper quadrant DATE: 06/30/2023 10:26 INDICATION: Cirrhosis of the liver. TECHNIQUE: Multiple grayscale and Doppler ultrasound images of the abdomen were obtained. COMPARISON: Ultrasound abdomen 02/10/2019 FINDINGS: The visualized portions of the head, body, and tail of the pancreas are normal. The liver i s normal without focal lesion. There is normal flow in main portal vein. The gallbladder is not visua lized. The common duct is normal and measures 3 mm . IMPRESSION: 1. Normal liver. 2. Gallbladder not visualized. Reviewed, dictated and finalized at location A.
== END 2023-06-30 09:38 | disposition home or self-care (01) ==
PROVIDERS: PCP Internal Medicine; Visit Provider Internal Medicine
DX: R91.1 Solitary pulmonary nodule (principal); S22.000A Wedge compression fracture of unspecified thoracic vertebra, initial encounter for closed fracture; K74.60 Unspecified cirrhosis of liver
CPT/HCPCS: 76705

== ENCOUNTER 2023-08-18 10:41 | Outpatient (CLI) | payer MEDICARE, BC, SELFPAY ==
--- NOTE | ~2023-08-18 | XR_ITS ---
EXAMINATION: XR thoracic spine 3V DATE: 08/18/2023 11:15 INDICATION: Compression fracture of thoracic spine. TECHNIQUE: 3 views of thoracic spine were obtained. COMPARISON: Chest 2 views 04/07/2022, chest CT 06/16/2023 FINDINGS: There is kyphosis and 4 degrees levocurvature of thoracic spine. There is a chronic burst f racture of T11 with 1/5 loss of height. There is moderately decreased disc height at T5-T6, severely decreased disc height at T6-T7 and T7-T8, moderately decreased disc height at T8-T9, and severely dec reased disc height at T9-T10. There is mildly decreased disc height at multiple levels. There is mult ilevel facet joint osteoarthritis. IMPRESSION: 1. Chronic T11 burst fracture, stable from 04/07/2022. 2. Severe thoracic spondylosis. 3. Thoracic kyphosis. Reviewed, dictated and finalized at location A.
== END 2023-08-18 10:42 | disposition home or self-care (01) ==
LOC: ANHIMG 10:44
PROVIDERS: PCP Internal Medicine; Visit Provider Internal Medicine
DX: S22.081D Stable burst fracture of T11-T12 vertebra, subsequent encounter for fracture with routine healing (principal); M40.294 Other kyphosis, thoracic region; M43.04 Spondylolysis, thoracic region; X58.XXXD Exposure to other specified factors, subsequent encounter
CPT/HCPCS: 72072

== ENCOUNTER 2023-11-12 15:34 | Emergency (ER) | payer MEDICARE, BC, SELFPAY ==
--- NOTE | ~2023-11-12 | XR_ITS ---
EXAM: XR ankle RT min 3V, XR foot RT min 3V DATE: 11/12/2023 16:07 HISTORY: right ankle swelling NO INJURY NO PAIN . COMPARISON: None available. FINDINGS: Decreased mineralization. Irregular trabecular pattern over the posterior calcaneus. No ly tic or blastic lesion. Mild scattered degenerative change in the ankle and foot. Achilles and plantar enthesopathy. No erosion or periosteal change. Scattered vascular calcification. IMPRESSION: Osteopenia. Irregular trabecular pattern over the posterior calcaneus as can be seen with stress fracture, correlate for pain/tenderness. Reviewed, dictated and finalized at location K. IMPRESSION: Osteopenia. Irregular trabecular pattern over the posterior calcane us as can be seen with stress fracture, correlate for pain/tenderness.
--- NOTE | 2023-11-12 15:37 | ED.EXTPRO ---
HPI - Extremity Problem General Chief complaint: Extremity Injury, Lower Stated complaint: Swollen Right Ankle Time Seen by Provider: 11/12/23 15:36 Source: patient Mode of arrival: ambulatory Limitations: no limitations History of Present Illness HPI Narrative: Martina is an 87-year-old female patient presenting to the clinic today with complaints of right ankle/foot swelling over the past day or 2. Has a small bruised area over the right lateral foot. She reports she has been doing a lot of walking. Pain radiates up into the medial knee. Is on Eliquis. Has pain with bearing weight. Related Data Home Medications Medication Instructions Recorded Confirmed acetaminophen 500 mg tablet 500 mg PO Q4H PRN Pain 02/17/19 04/28/22 (Tylenol Extra Strength) aspirin 81 mg tablet,delayed 81 mg PO DAILY 02/17/19 04/28/22 release (Aspir-) carvedilol 12.5 mg tablet 12.5 mg PO BID 02/17/19 04/28/22 lisinopril 40 mg tablet 20 mg PO DAILY 02/17/19 04/28/22 rosuvastatin 20 mg tablet 20 mg PO DAILY 02/17/19 04/28/22 apixaban 5 mg tablet (Eliquis) 5 mg PO BID 03/09/21 04/28/22 citalopram 20 mg tablet 20 mg PO DAILY 03/09/21 04/28/22 melatonin 3 mg capsule 3 mg PO HS PRN Insomnia 03/09/21 04/28/22 amlodipine 5 mg tablet 5 mg PO DAILY 03/29/22 04/28/22 cyanocobalamin (vitamin B-12) 1,000 mcg PO DAILY 03/29/22 04/28/22 1,000 mcg tablet pantoprazole 40 mg tablet,delayed mg PO 03/29/22 04/28/22 release Allergies Allergy/AdvReac Type Severity Reaction Status Date / Time No Known Drug Allergies Allergy Unknown Verified 11/12/23 15:47 Review of Systems Review of Systems: Pertinent positives per HPI. Patient denies any fever, chills, rash, headache, visual changes, dizziness, cough, runny nose, sore throat, shortness of breath, chest pain, palpitations, nausea, vomiting, diarrhea, constipation, abdominal pain, or any urinary issues. [facility] Past Medical History Medical History Arthritis Depression GERD (gastroesophageal reflux disease) Hypertension Right knee DJD Right knee pain Surgical History Surgical History H/O: hysterectomy [address] Link Hx of left knee surgery 2018 No history of previous surgery Social History Social History Smoking packs per day: 1 Smoking cigarettes per day: 20.0 Years smoked: 40 Smoking pack-years: 40.00 Smoking status: Former smoker Alcohol intake: never Gender identity (if verbalized by the patient): Female Comments At the time of my signature, I reviewed and agree with the nursing past medical, surgical, social, and family history. There is no relevant family history pertinent to the patient complaint. Exam Narrative: General: Well-developed, well nourished, in no apparent distress Head: Normocephalic, atraumatic. Cardio: Regular rate and rhythm, s1 and s2 normal, no murmur appreciated. Resp: Clear to auscultation bilaterally, no rhonchi, rales, wheezing or rubs. Musculoskeletal: No deformity, non-tender to palpation, mild pain to the medial ankle with vagus/varus testing, mild swelling, no erythema, grossly normal range of motion, muscle strength strong and equal, peripheral pulse strong, no edema, no cyanosis, normal gait and station Course Course Emergency Course: Portions of this record may have been created with voice recognition software. Level of Care: Express Care Visit Vital Signs Vital signs: Vital signs reviewed MDM - Extremity (Nontraumatic) MDM Narrative Medical decision making narrative: At the time of visit patient is resting comfortably on the exam table. Patient appears to be nontoxic. Diagnostics: X-ray of the right ankle and foot were performed and shows osteopenia and a possible stress fracture to the posterior calcaneus. Patient does not have any
[2023-11-12 15:55] VITALS: BP 160/68; PULSE 64; RESP 16; TEMP 36.2; O2SAT 98
== END 2023-11-12 16:52 | disposition home or self-care (01) ==
PROVIDERS: Emergency Provider Nurse Practitioner Family
DX: R22.41 Localized swelling, mass and lump, right lower limb (principal); Z87.891 Personal history of nicotine dependence; M19.90 Unspecified osteoarthritis, unspecified site; K21.9 Gastro-esophageal reflux disease without esophagitis; I10 Essential (primary) hypertension; M17.11 Unilateral primary osteoarthritis, right knee; Z79.82 Long term (current) use of aspirin
CPT/HCPCS: 73610; 73630; 99213; G0463

== ENCOUNTER 2024-02-16 10:50 | Outpatient (CLI) | payer MEDICARE, BC, SELFPAY ==
--- NOTE | ~2024-02-16 | XR_ITS ---
EXAM: XR thoracic spine 2V DATE: 02/16/2024 11:18 HISTORY: Compression fracture of thoracic spine, PAIN 2 + MONTHS NKI . COMPARISON: 08/18/2023. FINDINGS: Decreased mineralization. Vertebral body alignment intact. Mild scoliosis. Stable mild ant erior wedge deformity at T7. Stable mild burst fracture at T11. Exaggerated thoracic kyphosis. Multil evel moderate disc space narrowing and marginal osteophytosis. Multilevel facet hypertrophy and scler osis. No traumatic malalignment or fracture. Visualized lung parenchyma is clear. IMPRESSION: Osteopenia. No acute fracture or traumatic malalignment detected in the thoracic spine. M ultilevel moderate degenerative disc disease. Multilevel facet arthropathy Reviewed, dictated and finalized at location K. /R SERVICE TECHNICIAN IMPRESSION: Osteopenia. No acute fracture or traumatic malalignment detected in the thoracic spine. Multilevel moderate degenerative disc disease. Multilevel facet arthropathy
== END 2024-02-16 10:51 | disposition home or self-care (01) ==
PROVIDERS: PCP Internal Medicine; Visit Provider Internal Medicine
DX: S22.000A Wedge compression fracture of unspecified thoracic vertebra, initial encounter for closed fracture (principal); X58.XXXA Exposure to other specified factors, initial encounter; M85.88 Other specified disorders of bone density and structure, other site
CPT/HCPCS: 72070

== ENCOUNTER 2024-03-09 09:10 | Emergency (ER) | payer MEDICARE, BC, SELFPAY ==
--- NOTE | ~2024-03-09 | XR_ITS ---
EXAMINATION: XR chest 2V DATE: 03/09/2024 09:57 INDICATION: Cough. TECHNIQUE: Frontal and lateral views of the chest were obtained. COMPARISON: Chest 2 views 04/07/22 FINDINGS: Micha B-lines are noted, consistent with mild pulmonary edema. No pleural effusion or pneu mothorax. Cardiomegaly is noted. There is a closure device in the heart. There is a chronic compressi on fracture in lower thoracic spine. IMPRESSION: 1. Mild pulmonary edema. 2. Cardiomegaly. Reviewed, dictated and finalized at location A. NG UNIT FELTING MACHINE OPERATOR
[2024-03-09 09:22] VITALS: BP 123/67; PULSE 72; RESP 16; TEMP 36.4; O2SAT 97
--- NOTE | 2024-03-09 09:46 | ED.URI ---
HPI - URI/Sore Throat General Chief Complaint: Upper Respiratory Infection Stated Complaint: pneumonia Time Seen by Provider: 03/09/24 09:23 Source: patient and RN notes reviewed Mode of arrival: ambulatory (with walker) Limitations: no limitations History of Present Illness HPI Narrative: Patient presents today complaining of a 6 day history of cough that is occasionally productive, nasal congestion, rhinorrhea. Denies fever, sore throat, shortness of breath. States she did start to feel better yesterday. She has tried NyQuil and Tylenol. Denies history of asthma or COPD. She is a former smoker. Related Data Home Medications Medication Instructions Recorded Confirmed acetaminophen 500 mg tablet 500 mg PO Q4H PRN Pain 02/17/19 11/12/23 (Tylenol Extra Strength) carvedilol 12.5 mg tablet 12.5 mg PO BID 02/17/19 11/12/23 lisinopril 40 mg tablet 20 mg PO DAILY 02/17/19 11/12/23 rosuvastatin 20 mg tablet 20 mg PO DAILY 02/17/19 11/12/23 citalopram 20 mg tablet 20 mg PO DAILY 03/09/21 11/12/23 cyanocobalamin (vitamin B-12) 1,000 mcg PO DAILY 03/29/22 11/12/23 1,000 mcg tablet pantoprazole 40 mg tablet,delayed 40 mg PO DAILY 03/29/22 11/12/23 release albuterol sulfate 90 mcg/actuation 2 puff inhalation Q8H PRN 11/12/23 11/12/23 aerosol inhaler Shortness Of Breath Or Wheezing cholecalciferol (vitamin D3) 50 50 mcg PO DAILY 11/12/23 11/12/23 mcg (2,000 unit) capsule (Vitamin D3) nifedipine 30 mg tablet,extended 30 mg PO DAILY 11/12/23 11/12/23 release 24 hr polysaccharide iron complex 150 mg 150 mg PO USEASDIRECTD 11/12/23 11/12/23 iron capsule (Ferrex) aspirin 81 mg tablet,delayed mg 03/09/24 release (Adult Low Dose Aspirin) clopidogrel 75 mg tablet (Plavix) 75 mg PO DAILY 03/09/24 03/09/24 [id number] oil 120 cap PO 03/09/24 mg-180 mg-60 mg-1,[address] (Fish Oil) Allergies Allergy/AdvReac Type Severity Reaction Status Date / Time No Known Drug Allergies Allergy Unknown Verified 03/09/24 09:28 Review of Systems Review of Systems: CONSTITUTIONAL: Denies body aches, fever, chills, or sweats. EYES: Denies visual changes, redness, or discharge. ENT: Denies sore throat, or otalgia.+ congestion, rhinorrhea CARDIOVASCULAR: Denies chest pain, palpitations, or edema. RESPIRATORY: Denies dyspnea.+ cough GASTROINTESTINAL: Denies abdominal pain, nausea, vomiting, or diarrhea. GENITOURINARY: Denies dysuria or hematuria. SKIN: Denies rash, itching, or wounds. MUSCULOSKELETAL: Denies back pain, joint pain, or myalgia. NEUROLOGIC: Denies headache, numbness, tingling, or weakness. PSYCH: Denies depression or anxiety. [facility] Past Medical History Medical History (Reviewed 03/09/24 @ 09:47 by Deneen Lopez, [facility], ) Arthritis Depression GERD (gastroesophageal reflux disease) Hypertension Right knee DJD Right knee pain Surgical History Surgical History (Reviewed 03/09/24 @ 09:47 by Deneen Lopez, [facility], ) H/O: hysterectomy [address] Link Hx of left knee surgery 2018 No history of previous surgery Social History Social History (Reviewed 03/09/24 @ 09:47 by Deneen Lopez, [facility], ) Smoking packs per day: 1 Smoking cigarettes per day: 20.0 Years smoked: 40 Smoking pack-years: 40.00 Smoking status: Former smoker Alcohol intake: never Gender identity (if verbalized by the patient): Female Comments At time of signature, I have reviewed and agree with nursing past medical, surgical, social and family history unless otherwise noted. Please see nursing chart for further information. There is no relevant family history pertinent to the presenting complaint Exam Narrative: GENERAL: Well-appearing, well-nourished, and in no acute distress. HEAD: Normocephalic, atraumatic. EYES: EOMI. No redness or drainage. Conjunctivae normal. ENT: Mucous membranes pink and moist. Nares clear. No rhinorrhea. TMs normal bilaterally. Throat normal. Uvula midline. NECK: Normal AROM. Supple. No lymphadenopathy. CHEST: No respiratory distress. Clear to auscultation. HEART: Regular rate and rhythm. No murmur appreciated. EXTREMITIES: Normal range of motion. No edema. SKIN: Warm, dry, no rash. Capillary refill normal. Normal skin turgor. NEURO: No focal deficits. Alert and oriented x3. Gait steady. PSYCH: Normal affect. No signs of depression or anxiety. Course Course Level of Care: Express Care Visit Vital Signs Vital signs: Vital Signs Temperature 97.5 F L 03/09/24 09:22 Pulse Rate 72 03/09/24 09:22 Respiratory Rate 16 03/09/24 09:22 Blood Pressure 123/67 03/09/24 09:22 Pulse Oximetry 97 03/09/24 09:22 Oxygen Delivery Room Air 03/09/24 09:22 Temperature 97.5 F L 03/09/24 09:22 Pulse Rate 72 03/09/24 09:22 Respiratory Rate 16 03/09/24 09:22 Blood Pressure 123/67 03/09/24 09:22 Pulse Oximetry 97 03/09/24 09:22 Oxygen Delivery Room Air 03/09/24 09:22 Reviewed MDM - URI/Sore Throat MDM Narrative Medical decision making narrative: Chest x-ray shows mild pulmonary edema and cardiomegaly. Patient states she does have a history of pulmonary edema in the past and will follow-up with her primary. Recommend Mucinex as symptoms are likely viral. Anticipatory guidance given. ED precautions given. Differential Diagnosis Differential diagnosis: Likely upper respiratory infection, viral infection, bronchitis and other (Pneumonia) Imaging Data Radiologist's impression: ITS Impressions Chest X-Ray 03/09/24 10:13 IMPRESSION: 1. Mild pulmonary edema. 2. Cardiomegaly. Critical Care Time Critical Care Time Critical Care Time: No Discharge Plan Discharge Clinical Impression: Upper respiratory infection Qualifiers: URI type: unspecified URI Qualified Code(s): J06.9 - Acute upper respiratory infection, unspecified Patient Disposition: Home, Self-Care Condition: Stable Instructions: Upper Respiratory Infection (DC) Additional Instructions: Your chest x-ray is negative for pneumonia, however, it does show some mild pulmonary edema as discussed. Please follow-up with your PCP this week regarding this finding. Take Mucinex to help with your cough as it is likely due to a virus. Please go to the ER immediately if symptoms worsen to include shortness of breath, chest pain, or development of a new fever. Your blood pressure was elevated above 120/80 today at Urgent Care. This puts you above the threshold for follow up. Please schedule a followup visit with your personal physician as soon as possible, for further evaluation and treatment. Even blood pressure exceeding 120/80 may indicate pre-hypertension. Prescriptions: No Action cyanocobalamin (vitamin B-12) 1,000 mcg Tablet 1,000 mcg PO DAILY pantoprazole 40 mg tablet,delayed release (DR/EC) 40 mg PO DAILY clopidogrel [Plavix] 75 mg Tablet 75 mg PO DAILY aspirin [Adult Low Dose Aspirin] 81 mg Tablet,Delayed Release (Dr/Ec) Fish Oil 120 mg-180 mg- 60 mg-1,200 mg Capsule,Delayed Release(Dr/Ec) PO nifedipine 30 mg tablet extended release 24hr 30 mg PO DAILY polysaccharide iron complex [Ferrex 150] 150 mg iron Capsule 150 mg PO USEASDIRECTD albuterol sulfate 90 mcg/actuation HFA aerosol inhaler 2 puff INHALATION Q8H PRN (Reason: Shortness Of Breath Or Wheezing) cholecalciferol (vitamin D3) [Vitamin D3] 50 mcg (2,000 unit) Capsule 50 mcg PO DAILY carvedilol 12.5 mg Tablet 12.5 mg PO BID acetaminophen [Tylenol Extra Strength] 500 mg Tablet 500 mg PO Q4H PRN (Reason: Pain) lisinopril 40 mg Tablet 20 mg PO DAILY rosuvastatin 20 mg Tablet 20 mg PO DAILY citalopram 20 mg Tablet 20 mg PO DAILY Follow-up/Referrals: Indigo,MD Israel [Primary Care Provider] - Time of Disposition: 10:29
== END 2024-03-09 10:33 | disposition home or self-care (01) ==
PROVIDERS: Emergency Provider Nurse Practitioner; PCP Internal Medicine
DX: J06.9 Acute upper respiratory infection, unspecified (principal); Z87.891 Personal history of nicotine dependence; M19.90 Unspecified osteoarthritis, unspecified site; K21.9 Gastro-esophageal reflux disease without esophagitis; I10 Essential (primary) hypertension; M17.11 Unilateral primary osteoarthritis, right knee
CPT/HCPCS: 71046; 99213; G0463

== ENCOUNTER 2024-08-02 10:14 | Outpatient (CLI) | payer MEDICARE, BC, SELFPAY ==
--- NOTE | ~2024-08-02 | XR_ITS ---
XR abdomen/kub 1V 08/02/2024 10:40 Indication: Kidney stone Procedure: KUB Comparison: No prior studies for comparison. Findings: Bowel gas pattern nonobstructive. Moderate colonic fecal loading. No renal stones are ident ified. There are calcifications right upper abdomen, compatible with gallstones. There are pelvic phl eboliths. Severe lumbar spondylosis. Impression: 1: Cholelithiasis. Reviewed, dictated and finalized at location A. Impression: 1: Cholelithiasis.
--- NOTE | ~2024-08-02 | CT_ITS ---
CT Scan of the Chest without Contrast: Clinical Indication: Pulmonary nodule Technique: Contiguous sections were acquired throughout the chest without intravenous contrast. Dose reduction technique was used on this scan by utilizing automated exposure control and iterative recon struction technique. The dose-length product (DLP) was 131.53 mGy-cm. COMPARISON: 06/16/2023 Findings: There is no evidence of any significant mediastinal, hilar or axillary lymphadenopathy. There are ext ensive atherosclerotic calcifications of the aorta and coronary arteries. Left atrial appendage closu re device present.. There is no evidence of pleural or pericardial effusion. Stable focal scarring posterior right upper lobe. There is chronic scarring or atelectasis at the adenike gula/left upper lobe. Previously noted groundglass opacities are resolved. Images through the upper abdomen reveal probable nodular contour of liver with pneumobilia. Normal co ntracted gallbladder with gallstones. Impression: Previously noted groundglass opacities are resolved. Chronic scarring or atelectasis at the lingula. Suspected cirrhotic change of the liver. Reviewed, dictated and finalized at location . Impression: Previously noted groundglass opacities are resolved. Chronic scarring or atelectasis at the lingula. Suspected cirrhotic change of the liver.
--- OUTSIDE RECORDS SUMMARY | 2024-08-02 16:17 | XMS_ITS | Clinical Summary ---
Author Organization [facility] Address [address] [place] [address] Care Team Providers Care Audio Production Engineer Name Role Phone Israel Sood MD Primary Care Provider [phone] Allergies Active Allergy Reactions Criticality Noted Date Comments Gemfibrozil Joint Pain,Myalgias Medium 06/27/2018 Medications acetaminophen 500 MG tablet Take 1,000 mg by mouth every 6 (six) hours as needed for Pain. Active albuterol sulfate HFA 108 (90 Base) MCG/ACT inhaler Inhale 2 puffs into the lungs every 4 (four) hours as needed for Wheezing or Shortness of breath. Active Cholecalciferol (VITAMIN D) 50 MCG (2000 UT) Tab Take 2,000 Units by mouth 2 (two) times daily. Active citalopram 20 MG tablet Take 20 mg by mouth daily. Active Ferrous Fumarate 325 (106 Fe) MG Tab Take 325 mg by mouth every other day. Active lisinopril 40 MG tablet Take 40 mg by mouth daily. Active melatonin 3 MG tablet Take 3 mg by mouth nightly at bedtime. Active fish oil 1000 MG Cap capsule Take 1,000 mg by mouth 2 (two) times daily. Active Psyllium 95 % Powder Take 1 packet by mouth every other day. Active rosuvastatin 20 MG tablet Take 20 mg by mouth nightly. Active norethindrone 5 MG tablet 0 Active ondansetron 4 MG tablet 9 Active pantoprazole EC 40 MG tablet Take 1 tablet (40 mg total) by mouth daily. 30 tablet 1 0 Active ELIQUIS 5 MG tablet Take 5 mg by mouth 2 (two) times a day. 2 Active cholestyramine 4 G packet Take 4 g by mouth daily. 2 Active carvedilol 25 MG tablet Take 25 mg by mouth 2 (two) times daily with meals. 2 Active Melatonin-Pyrid oxine 5-10 MG Tab CR Take 5 mg by mouth nightly. Active amLODIPine 5 MG tablet Take 2 tablets (10 mg total) by mouth daily. 30 tablet 1 2 Active HYDROcodone-micki taminophen 5-325 MG tabletIndicatio ns:Acute Pain < 7 Day Supply Take 1 tablet by mouth every 4 (four) hours as needed. Indications: Acute Pain < 7 Day Supply 15 tablet 2 Active diclofenac sodium (VOLTAREN) 1 % gel Apply 4 g topically 4 (four) times daily. 150 g 3 Active Active Problems Problem Noted Date Diagnosed Date Atrial septal aneurysm 09/30/2021 Lung mass 09/28/2021 Hypomagnesemia 03/08/2021 Macrocytosis 03/03/2021 Choledocholithiasis 10/08/2019 Pulmonary hypertension ([facility]) 020 Syncope 10/05/2019 Elevated liver enzymes 09/10/2019 Endometrial cancer ([facility]) 09/03/2019 Overview (10/05/2019): Added automatically from request for surgery [id number] Osteopenia 09/02/2019 Carotid artery stenosis 09/02/2019 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 Ex-smoker 09/02/2019 Menopause present 09/02/2019 Osteoarthrosis 09/02/2019 Peripheral vascular disease 09/02/2019 Gallstone 02/11/2019 Anemia 12/27/2018 Left ventricular hypertrophy 06/27/2018 Overweight with body mass index (BMI) 25.0-29.9 06/27/2018 Paroxysmal atrial fibrillation ([facility]) 03/14/2018 Compression fracture of pelvis with routine heal ing 01/01/2018 History of transient ischemic attack 09/27/2016 Vitamin D deficiency 09/27/2016 Gastroesophageal reflux disease without esophagi tis 03/29/2016 Mixed anxiety and depressive disorder 03/29/2016 Two-vessel coronary artery disease 07/27/2015 Temporary cerebral vascular dysfunction 05/05/19 15 Knee pain 11/21/2013 Patent foramen ovale ([facility]) 07/30/2012 Essential hypertension 07/30/2012 Hyperlipidemia 07/30/2012 Hematuria 06/13/2012 Immunizations Immunization Administration Dates Next Due Fluzone High Dose - >Age 65 (Prefilled Syringe) 01/10/2019,01/27/2018 Pneumococcal (Pneumovax 23) 01/27/2018 Pneumococcal (Prevnar 13) 09/27/2015 Tdap (Boostrix) 01/07/2019,09/27/2015 Social History Tobacco Use Types Packs/Day Years Used Date Smoking Tobacco: Former Cigarettes 1 40 1 977 - 2017 Smokeless Tobacco: Never Tobacco Cessation:Counseling Given: Yes Alcohol Use Standard Drinks/Week Comments Not Currently 0 (1 standard drink = 0.6 oz pur e alcohol) AUDIT-C Answer Date Recorded Frequency of Alcohol Consumption Never 10/04/2019 Average Number of Drinks Not on file 020 Frequency of Binge Drinking Not on file 07/2019 PHQ-2 Answer Date Recorded Patient Health Questionnaire-2 Score 0 03/17/2022 Comments No Sex and Gender Information Value Date Recorded Sex Assigned at Not on file Legal Sex Female 9:08 PM CDT Gender Identity Not on file Sexual Orientation Not on file Last Filed Vital Signs Vital Sign Reading Time Taken Comments Blood Pressure 158/60 01/15/2024 11:12 PM CDT Pulse 62 01/15/2024 11:12 PM CDT Temperature 36.3 C (97.3 F) 01/15/2024 11:12 PM CDT Respiratory Rate 18 01/15/2024 11:12 PM CDT Oxygen Saturation 98% 01/15/2024 11:12 PM CDT Inhaled Oxygen Concentration - - Weight 68 kg (150 lb) 01/15/2024 6:35 PM CDT Height 157.5 cm (5' 2 ) 01/15/2024 6:35 PM CDT Body Mass Index 27.44 01/15/2024 6:35 PM CDT Plan of Treatment Health Maintenance Due Date Last Done Comments ASCVD LDL 1936 ASCVD Statin 1935 Zoster Vaccines (1 of 2) 1986 Annual Medicare Wellness Visit 2001 RSV Immunization or 60+ Years (1 - 1-dose 75+ series) 11/25/2011 COVID-19 Vaccine (2023-2 5 season) 2023 01/20/2021, 06/20/2020, 05/30/2020 PHQ-2 (Physician [place]) 04/02/2024 DTaP, Tdap and Td Vaccines ( 3 - Td or Tdap) 01/07/2029 01/07/2019, 09/27/2015 Pneumococcal Vaccine: 50+ Years Completed 03/27/2018, 01/27/2018, 09/27/2015 Meningococcal B Vaccine Aged Out No l onger eligible based on patient's age to complete this topic Meningococcal Vaccine Aged Out No zackary lelia eligible based on patient's age to complete this topic RSV Immunizations Under 20 Months Aged Out No longer eligible b ased on patient's age to complete this topic Goals Goal Patient Goal Type Associated Problems Recent Progress Patient-Stated? Author Patient will return to prior living situation and remain independent in ADLs upon discharge from hospital General No Deneen Minaya RN Insurance [place] [id number] MEDICARE [facility] MEDICARE [facility] Advance Directives * Full Code (Latest Code Status on File) Date Activated Date Inactivated Comments 09/28/2021 3:13 AM 10/05/2021 9:07 PM * Full Code Date Activated Date Inactivated Comments 10/05/2019 4:36 AM 10/08/2019 9:37 PM Care Teams Audio Production Engineer Relationship Specialty Start Date End Date Israel Sood MD PCP - General INTERNAL MEDICINE 10/04/19
--- OUTSIDE RECORDS SUMMARY | 2024-08-02 16:17 | XMS_ITS | Referral Summary ---
Author Organization [facility] Address [address] [place] [address] Care Team Providers Care Chain Mender Name Role Phone Israel Sood MD Primary Care Provider [phone] Britney Bolton MD Unavailable [phone] Aniket Link MD Unavailable [phone] Michele Link MD Unavailable [phone] Encounters Date Type Department Care Team Description 06/20/2024 Orders Only [facility] Mateusz Knight MD PhD 06/17/2024 Telephone [facility] [address] [facility] 8[address] [place] [address] [place] [address] Mateusz Knight MD PhD inquiry re: blood thinner 06/16/2024 11:45 AM CDT Office Visit [facility] [address] [facility] [address] [place] [address] Jim Costa MD Two-vessel coronary artery disease (Primary Dx) from Last 3 Months Allergies Active Allergy Reactions Criticality Noted Date Comments Amlodipine Dizziness Low 02/05/2024 Felodipine Dizziness Low 02/05/2024 Gemfibrozil Muscle pain,Joint pain Medium 06/27/2018 Magnesium Oxide Diarrhea Low 06/19/2023 Medications omega-3 fatty acids 1,000 mg capsule Take 1,000 mg by mouth 2 (two) times a day Active rosuvastatin (CRESTOR) 20 mg tablet Take 1 tablet (20 mg total) by mouth nightly Active cholecalciferol (VITAMIN D-3) 2,000 unit tablet Take 1 tablet (2,000 Units total) by mouth 2 (two) times a day Active citalopram (CeleXA) 20 mg tablet Take 1 tablet (20 mg total) by mouth nightly Active lisinopriL (PRINIVIL,ZESTR IL) 40 mg tablet Take 1 tablet (40 mg total) by mouth nightly Active pantoprazole DR (PROTONIX) 40 mg EC tablet Take 1 tablet (40 mg total) by mouth boat rental clerk before breakfast 1 Active cyanocobalamin (Vitamin B-12) 1,000 mcg sublingual tablet Take 1 tablet (1,000 mcg total) by mouth every 12 hours Active albuterol HFA (PROVENTIL HFA,VENTOLIN HFA,PROAIR HFA) 90 mcg/actuation inhaler Inhale 1 puff every 6 (six) hours as needed for wheezing or shortness of breath 4 Active carvediloL (COREG) 25 mg tablet TAKE 1 TABLET(25 MG) BY MOUTH TWICE DAILY WITH MEALS 180 tablet 3 4 Active meclizine (ANTIVERT) 25 mg tablet Take 1 tablet (25 mg total) by mouth 3 (three) times a day as needed for dizziness 4 Active polysaccharide iron complex (Ferrex 150) 150 mg iron capsule Take 1 capsule (150 mg total) by mouth every other day 4 Active clopidogreL (PLAVIX) 75 mg tabletIndicatio ns:coronary artery disease Take 1 tablet (75 mg total) by mouth daily 90 tablet 1 5 10/13/19 25 Active aspirin 81 mg chewable tabletIndicatio ns:coronary artery disease Take 1 tablet (81 mg total) by mouth daily 90 tablet 3 5 04/10/19 26 Active Active Problems Problem Noted Date Diagnosed Date Presence of Amulet left atrial appendage closure device 02/19/2024 Grade I hemorrhoids 12/01/2021 Kidney stone 10/14/2021 Lung mass 09/28/2021 Hypomagnesemia 03/08/2021 Macrocytosis 03/03/2021 Choledocholithiasis 10/08/2019 Pulmonary hypertension 10/06/2019 Elevated liver enzymes 09/10/2019 Endometrial cancer (CMS/HCC) 09/03/2019 Overview (11/03/2020): Added automatically from request for surgery [id number] Added automatically from request for surgery [id number] Menopause 09/02/2019 Atrial septal aneurysm 09/02/2019 Benign hypertension 09/02/2019 Carotid artery stenosis 09/02/2019 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 Ex-smoker 09/02/2019 Osteoarthritis 09/02/2019 Osteopenia 09/02/2019 Peripheral vascular disease 09/02/2019 Gallstone 02/11/2019 Anemia 12/27/2018 Body mass index (BMI) of 25.0 to 29.9 06/27/2018 Left ventricular hypertrophy 06/27/2018 Paroxysmal atrial fibrillation 03/14/2018 Compression fracture of pelvis with routine heal ing 01/01/2018 Blood glucose abnormal 03/29/2017 History of transient ischemic attack 09/27/2016 Vitamin D deficiency 09/27/2016 Gastroesophageal reflux disease without esophagi tis 03/29/2016 Mixed anxiety and depressive disorder 03/29/2016 Syncope 12/30/2015 Two-vessel coronary artery disease 07/27/2015 Temporary cerebral vascular dysfunction 05/05/19 15 Knee pain 11/21/2013 Arteriosclerotic vascular disease 09/25/2013 Chest pain, precordial 04/03/2013 Patent foramen ovale 07/30/2012 Essential hypertension 07/30/2012 Carotid bruit 07/30/2012 Hyperlipidemia 07/30/2012 Hematuria 06/13/2012 Immunizations Immunization Administration Dates Next Due Influenza, Quad, Adjuvantate d, Intramuscular 01/19/2021,01/15/2020 Influenza, Quadrivalent, Hig h Dose, Preservative Free, Intrr 01/10/2019,01/27/2018 Influenza, Quadrivalent, Spl it, Intramuscular 01/15/2020,01/10/2019,12/31/2017,12/25 Influenza, Trivalent, High D ose, Split, Preservative Free, Intramuscular 01/10/2019,01/27/2018 Influenza, Trivalent, IM (MDV) 12/29/2015 Influenza, Unspecified 03/02/2022 Pfizer SARS-CoV-2 Monovalent Vaccination (12+ Yrs) PURPLE 01/20/2021 Pneumococcal Conjugate PCV 13 09/28/2015, 016 Pneumococcal Polysaccharide PPV23 03/27/2018, Sars-CoV-2, Unspecified 06/20/2020,06/20,05/30/2020,05/30 Tdap 01/07/2019,09/28/2015,09/27/2015 Social History Tobacco Use Types Packs/Day Years Used Date Smoking Tobacco: Former Cigarettes 1 42 1 972 - 2014 Passive Smoke Exposure: Past Smokeless Tobacco: Never Tobacco Cessation:Counseling Given: Not Answered Alcohol Use Standard Drinks/Week Comments Never 0 (1 standard drink = 0.6 oz pur e alcohol) [facility] [employer] Answer Date Recorded In the past 12 months has e electric, gas, oil, or water company threatened to shut off services in your home? No 02/22/2024 Social Connection and Isolat ion Panel [NHANES] Answer Date Recorded In a typical week, how many times do you talk on the phone with family, friends, or neighbors? More than three times a week 02/22/2024 How often do you get togethe r with friends or relatives? More than three times a week 02/22/2024 How often do you attend chur ch or sikh services? More than 4 times per year 02/22/2024 Do you belong to any clubs o r organizations such as mandaeism groups, unions, fraternal or athletic groups, or school groups? No 02/22/2024 How often do you attend meet ings of the clubs or organizations you belong to? Never 02/22/2024 Are you , , di vorced, , never , or living with a partner? 02/22/2024 AUDIT-C Answer Date Recorded Q1: How often do you have a drink containing alcohol? Never 02/19/2024 Q2: How many drinks containi ng alcohol do you have on a typical day when you are drinking? Patient does not drink Q3: How often do you have si x or more drinks on one occasion? Never 02/19/2024 Overall Financial Resource Strain (CARDIA) Answe r Date Recorded How hard is it for you to pa y for the very basics like food, housing, medical care, and heating? Not hard at all 02/22/2024 Hunger Vital Sign Answer Date Recorded Within the past 12 months, y ou worried that your food would run out before you got the money to buy more. Never true 02/22/20 24 Within the past 12 months, t he food you bought just didn't last and you didn't have money to get more. Never true 02/22/2024 PRAPARE - Transportation Answer Date Re corded In the past 12 months, has l ack of transportation kept you from medical appointments or from getting medications? No 02/01 In the past 12 months, has l ack of transportation kept you from meetings, work, or from getting things needed for daily living? No 02/22/2024 Housing Stability Vital Sign Answer Domo e Recorded In the last 12 months, was t here a time when you were not able to pay the mortgage or rent on time? No 02/22/2024 In the past 12 months, how m any times have you moved where you were living? 0 02/22/2024 At any time in the past 12 m [facility], were you homeless or living in a intermediate (including now)? No 02/22/2024 Personal Safety Answer Date Recorded Have you ever been in or are you currently in a harmful physical or emotional relationship or is someone making you feel afraid or unsafe? 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7 06/16/2024 12:00 PM CDT Plan of Treatment Not on file Medical Devices Implanted Type Area Cattle Rancher Device Identifier Shelf Expiration Date Model / Serial / Lot [employer] Occluder Cvasc Cyndi Flexible Braided Amplatzer Amulet 25mm Nitinol [id number] - [id number] - [id number] Implanted:Qty: 1 on 02/19/2024 by Mateusz Knight MD PhD at [facility] Left Atrial Appendage Occluder N/A: Atrial Appendage [employer] 08/30/2028 [id number] / [id number] / [id number] [employer] System Closure Repair Femoral Artery Suture Mediated Perclose Prostyle 38852-69 - [id number] - [id number] Implanted:Qty: 1 on 02/19/2024 by Mateusz Knight MD PhD at [facility] Vascular Closure Device Right: Femoral Vein [employer] 11/30/2025 [id number] / [id number] / [id number] [employer] System Closure Repair Femoral Artery Suture Mediated Perclose Prostyle 25068-76 - [id number] - [id number] Implanted:Qty: 1 on 02/19/2024 by Mateusz Knight MD PhD at [facility] Vascular Closure Device Left: Femoral Vein [employer] 11/30/2025 [id number] / [id number] / [id number] L Knee Replacement Left: Knee Procedures Procedure Name Priority Date/Time Associated Diagnosis Comments CARDIOLOGY DOCUMENT SCAN 06/20/2024 3:17 PM CDT from Last 3 Months Results * Cardiology Document Scan (06/20/2024 3:17 PM CDT) Anatomical Region Laterality Modality Other Mateusz Knight MD PhD CV CARDIAC SERVICES CT OCEDURES Final Result from Last 3 Months Insurance MEDICARE [facility] [place] [address] MEDICARE [facility] MEDICARE [facility] MEDICARE [facility] * Guarantor: Cynthia Campa Account Type Relation to Patient Date of Phone Billing Address [employer] Liability Self [address] [place] [address] Advance Directives For more information, please contact: [phone] * Full Code (Latest Code Status on File) Date Activated Date Inactivated Comments 02/19/2024 3:13 PM 02/20/2024 9:18 PM * Full Code Date Activated Date Inactivated Comments 09/05/2017 4:09 PM 09/22/2019 5:42 AM Care Teams Chain Mender Relationship Specialty Start Date End Date Israel Sood MD [address] [place] [address] PCP - General 09/08/16 Britney Bolton MD [address] [place] [address] Dairy Helper Obstetrics and Gynecology 09/02/19 Aniket Link MD [address] [facility] [id number] [place] [address] Surgeon Colon and Rectal Surgery 12/01/21 Michele Link MD [address] [facility] [id number] [place] [address] Consulting Physician Gynecologic Oncology 12/01/21
--- OUTSIDE RECORDS SUMMARY | 2024-08-02 16:17 | XMS_ITS ---
Author Organization [facility] Address [address] [place] [address] Care Team Providers Care Advanced Nursing Professor Name Role Phone Israel Sood MD Primary Care Provider [phone] Britney Bolton MD Unavailable [phone] Aniket Link MD Unavailable [phone] Michele Link MD Unavailable [phone] Active Problems Problem Noted Date Diagnosed Date Presence of Amulet left atrial appendage closure device 02/19/2024 Grade I hemorrhoids 12/01/2021 Kidney stone 10/14/2021 Lung mass 09/28/2021 Hypomagnesemia 03/08/2021 Macrocytosis 03/03/2021 Choledocholithiasis 10/08/2019 Pulmonary hypertension 10/06/2019 Elevated liver enzymes 09/10/2019 Endometrial cancer (CMS/HCC) 09/03/2019 Overview (11/03/2020): Added automatically from request for surgery [id number] Added automatically from request for surgery [id number] Menopause 09/02/2019 Atrial septal aneurysm 09/02/2019 Benign [...] Carotid bruit 07/30/2012 Hyperlipidemia 07/30/2012 Hematuria 06/13/2012 Current Treatment and Therapy Plans No current plan information found. Past Treatment and Therapy Plans No past plan information found. Lifetime Dose Tracking * Chemical Lifetime Dose Automatic Entry Manual Entr y Air kerma at the reference point (Ka,r) 108 mGy 0 mGy 108 mGy DLP 1,611 mGycm 1,611 mGycm 0 mGycm
--- OUTSIDE RECORDS SUMMARY | 2024-08-02 16:17 | XMS_ITS | Encounter Summary ---
Author Organization [facility] Address [address] [place] [address] Phone Care Team Providers Care Account Development Executive Name Role Phone Israel Sood MD Primary Care Provider [phone] Britney Bolton MD Unavailable [phone] Aniket Link MD Unavailable [phone] Michele Link MD Unavailable [phone] Andreea Raphael RN Unavailable [phone] Encounter Details Date Type Department Care Team (Latest Contact Info) Description 05/17/2023 Orders Only [facility] Evon Calvillo, DINA [address] [facility] [address] [facility] [address] [place] [address] Social History Tobacco Use Types Packs/Day Years Used Date Smoking Tobacco: Former Cigarettes 1 42 1 972 - 2013 Smokeless Tobacco: Never Alcohol Use Standard Drinks/Week Comments Never 0 (1 standard drink = 0.6 oz pur e alcohol) AUDIT-C Answer Date Recorded Q1: How often do you have a drink containing alc ohol? 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 Gender Identity Not on file Sexual Orientation Not on file Occupation Industry Job Start Date Job End Date Retired Not on file Not on file Not on file documented as of this encounter Plan of Treatment Not on file documented as of this encounter Procedures Procedure Name Priority Date/Time Associated Diagnosis Comments SCAN - LABS 05/17/2023 documented in this encounter Results * SCAN - LABS (05/17/2023) us Evon Calvillo RN Final Result documented in this encounter Visit Diagnoses Not on filedocumented in this encounter Care Teams Account Development Executive Relationship Specialty Start Date End Date Israel Sood MD [address] [place] [address] PCP - General 09/08/16 Britney Bolton MD [address] [place] [address] Item Processing Clerk Obstetrics and Gynecology 09/02/19 Aniket Link MD [phone] [place] [address] Surgeon Colon and Rectal Surgery 12/01/21 Michele Link MD [id number] [place] [address] Consulting Physician Gynecologic Oncology 12/01/21 Andreea Raphael, RN [address] [place] [address] [facility] Outpatient Advanced Nursing Professor 02/21/24 03/19/24 documented as of this encounter
--- OUTSIDE RECORDS SUMMARY | 2024-08-02 16:17 | XMS_ITS | Encounter Summary ---
Author Organization [facility] Address [address] [place] [address] Phone Care Team Providers Care Sheet Rocker Name Role Phone Israel Sood MD Primary Care Provider [phone] Britney Bolton MD Unavailable [phone] Aniket Link MD Unavailable [phone] Michele Link MD Unavailable [phone] Andreea Raphael RN Unavailable [phone] Encounter Details Date Type Department Care Team (Latest Contact Info) Description 11/19/2019 Orders Only [facility] Scanning, Provider Social History Tobacco Use Types Packs/Day Years [...] of Binge Drinking Not on file 08/31 Comments No Sex and Gender Information Value Date Recorded Sex Assigned at Not on file Legal Sex Female 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 Gender Identity Not on file Sexual Orientation Not on file Occupation Industry Job Start Date Job End Date Retired Not on file Not on file Not on file documented as of this encounter Plan of Treatment Not on file documented as of this encounter Procedures Procedure Name Priority Date/Time Associated Diagnosis Comments CARDIOLOGY DOCUMENT SCAN 11/19/2019 documented in this encounter Results * SCAN - CARDIOLOGY (11/19/2019) Anatomical Region Laterality Modality Other us Provider Scanning [facility] CARDIAC SERVICES PROCEDURES Final Result documented in this encounter Visit Diagnoses Not on filedocumented in this encounter Care Teams Sheet Rocker Relationship Specialty Start Date End Date Israel Sood MD [address] [place] [address] PCP - General 09/08/16 Britney Bolton MD [address] [place] [address] Turpentine Farmer Obstetrics and Gynecology 09/02/19 Aniket Link MD [id number] [place] [address] Surgeon Colon and Rectal Surgery 12/01/21 Michele Link MD [id number] [place] [address] Consulting Physician Gynecologic Oncology 12/01/21 Andreea Raphael, RN [address] [facility] [facility] [address] [place] [address] SHOP Outpatient Satellite Manager 02/21/24 03/19/24 documented as of this encounter
--- OUTSIDE RECORDS SUMMARY | 2024-08-02 16:17 | XMS_ITS | Clinical Summary ---
Author Organization [facility] Address [address] [place] [address] Care Team Providers Care Laborer Vineyard Name Role Phone Israel Sood MD Primary Care Provider [phone] Britney Bolton MD Unavailable [phone] Aniket Link MD Unavailable [phone] Michele Link MD Unavailable [phone] Allergies Active Allergy Reactions Criticality Noted Date [...] 1 tablet (40 mg total) by mouth management and budget analyst before breakfast 1 Active cyanocobalamin (Vitamin B-12) [...] (11/03/2020): Added automatically from request for surgery [id number] Added automatically from request for surgery [id number] Menopause 09/02/2019 Atrial septal aneurysm 09/02/2019 Benign [...] Carotid bruit 07/30/2012 Hyperlipidemia 07/30/2012 Hematuria 06/13/2012 Encounters Date Type Department Care Team Description 06/20/2024 Orders Only [facility] Mateusz Knight MD PhD 06/17/2024 Telephone [facility] Cardiology [address] [place] [address] [place] [address] Mateusz Knight MD PhD inquiry re: blood thinner 06/16/2024 11:45 AM CDT Office Visit [facility] Cardiology [address] [place] [address] Jim Costa MD Two-vessel coronary artery disease (Primary Dx) from Last 3 Months Immunizations Immunization Administration Dates Next Due Influenza, [...] PPV23 03/27/2018, Sars-CoV-2, Unspecified 06/20/2020,06/20,05/30/2020,05/30 Tdap 01/07/2019,09/28/2015,09/27/2015 Surgical History Surgery Date Site/Laterality Comments TOTAL KNEE ARTHROPLASTY 08/29/2017 Left CARDIAC CATHETERIZATION 09/28/2013 [facility] 09/28/2013-- Mild two vessel coronary artery disease (25% LAD, 25-30% RCA) ENDOMETRIAL BIOPSY 09/01/2019 - 09/30/2019 Focal endometrioid adenocarcinoma, FIOG grade 1, arising in complex endometrial hyperplasia HYSTERECTOMY W/ BILATERAL SALPINGOOPHORECTOMY 09/22/2019 Bilateral US GUIDED THORACENTESIS 09/29/2021 N/A UPPER GASTROINTESTINAL ENDOSCOPY 12/14/2023 COLONOSCOPY Multiple-- Last 2016 ERCP 04/02/2019 - 04/01/2020 +Gallstones Medical History Medical History Date Comments Osteoarthritis Hypercholesteremia Treated with statin Hypertension DXD ~1999 Depression Gastric reflux PFO (patent foramen ovale) Anemia GERD (gastroesophageal reflux disease) Atrial fibrillation (HCC) TIA (transient ischemic attack) 2010 Constipation Colon polyp Atrial septal aneurysm Diverticulosis Macrocytosis History of endometrial cancer En dometrial CA dxd 09/2019 s/p hysterectomy Syncope Coronary artery disease [facility] 09/28-- Mild two vessel coronary artery disease (25% LAD, 25-30% RCA) Lung mass Cholelithiasis Peripheral vascular disease Carotid artery stenosis < 50% st enosis bilaterally; Right ICA/CCA ratio 1.7 and Left ICA/CCA ratio 1.9 per duplex 01/18/2016 Family History Medical History Relation Name Comments Diabetes Father Heart disease Father Family history of cardiac disorder - (Added by TW Conv) Mental illness Father Chronic menta l illness - (Added by TW Conv) Heart failure Mother Arthritis Paternal Grandfather Family history of arthritis - (Added by TW Conv) Hypertension Paternal Grandfather Family history of hypertension - (Added by TW Conv) Anesthesia problems Neg Hx Relation Name Status Comments Father (Age 80 y/o) Heart trouble--? type Mother Alive Paternal Grandfather Social History Tobacco Use Types Packs/Day Years Used Date Smoking Tobacco: Former Cigarettes 1 42 1 972 - 2014 Passive Smoke Exposure: Past Smokeless Tobacco: Never Tobacco Cessation:Counseling Given: Not Answered Alcohol Use Standard Drinks/Week Comments Never 0 (1 standard drink = 0.6 oz pur e alcohol) [facility] Utilities Answer Date Recorded In the past 12 [...] often do you attend chur ch or pentecostalism services? More than 4 times per year 02/22/2024 Do you belong to any clubs o r organizations such as gnosticist groups, unions, fraternal or athletic groups, or [...] any time in the past [address] [facility] [place], were you homeless or living in a chcf (including now)? No 02/22/2024 Personal Safety Answer Date Recorded Have you ever been in or are you currently in a harmful physical or emotional relationship or is someone making you feel afraid or unsafe? 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 Gender Identity Not on file Sexual Orientation Not on file Occupation Industry Job Start Date Job End Date Retired Not on file Not on file Not on file Obstetrics History Para Term AB IAB SAB Ectopic Multiple Livin g Live Births 6 5 5 5 Date Outcome GA Total Labor Labor/2nd/3rd Weight Sex Type Anes PTL Pascale A1 A5 Name Clin Term Term Term Term Term Comments S/p Menopause Last Filed Vital Signs Vital Sign Reading Time Taken Comments Blood Pressure 120/80 06/16/2024 12:00 PM CDT Pulse 72 06/16/2024 12:00 PM CDT Temperature 36.7 C (98.1 F) 06/16/2024 12:00 PM CDT Respiratory Rate 17 04/04/2024 11:55 AM MARKETING RECRUITER Oxygen Saturation 95% 06/16/2024 12:00 PM CDT Inhaled Oxygen Concentration - - Weight 66.2 kg (146 lb) 06/16/2024 12:00 PM CDT Height 157.5 cm (5' 2 ) 06/16/2024 12:00 PM CDT Body Mass Index 26.7 06/16/2024 12:00 PM CDT Plan of Treatment Health Maintenance Due Date Last Done Comments Depression Screening 1935 Hepatitis B Screening 1953 Zoster Vaccine (1 of 2) 1986 Well Visit 65+ 2001 Covid-19 Vaccine (6 - 2023-2 5 season) 2023 01/20/2021, 06/20/2020, 06/20/2020, Additional history exists Influenza Vaccine (Season Ended) 2024 12/31/2022, 03/02/2022, 01/19/2021, Additional history exists Fall Risk Assessment 04/04/2025 04/04/2024 DTaP/Tdap/Td Vaccine (4 - Td or Tdap) 01/07/2029 01/07/2019, 09/28/2015, 09/27/2015 Pneumococcal vaccine 65+ Completed 018, 01/27/2018, 09/28/2015, Additional history exists Medical Devices Implanted Type Area Edm Operator Device Identifier Shelf Expiration Date Model / Serial / Lot [employer] Occluder Cvasc Cyndi Flexible Braided Amplatzer Amulet 25mm Nitinol [id number] - [id number] - [id number] Implanted:Qty: 1 on 02/19/2024 by Mateusz Knight MD PhD at [facility] Left Atrial Appendage Occluder N/A: Atrial Appendage [employer] 08/30/2028 [id number] / [id number] / [id number] [employer] System Closure Repair Femoral Artery Suture Mediated Perclose Prostyle 38574-86 - [id number] - [id number] Implanted:Qty: 1 on 02/19/2024 by Mateusz Knight MD PhD at [facility] Vascular Closure Device Right: Femoral Vein [employer] 11/30/2025 75610-11 / [id number] / [id number] [employer] System Closure Repair Femoral Artery Suture Mediated Perclose Prostyle 59266-82 - [id number] - [id number] Implanted:Qty: 1 on 02/19/2024 by Mateusz Knight MD PhD at [facility] Vascular Closure Device Left: Femoral Vein [employer] 11/30/2025 [id number] / [id number] / [id number] Knee Replacement Left: Knee Procedures Procedure Name Priority Date/Time Associated Diagnosis Comments CARDIOLOGY DOCUMENT SCAN 06/20/2024 3:17 PM CDT from Last 3 Months Results * Cardiology Document Scan (06/20/2024 3:17 PM CDT) Anatomical Region Laterality Modality Other Mateusz Knight MD PhD [facility] CARDIAC SERVICES CO OCEDURES Final Result from Last 3 Months Insurance MEDICARE [facility] Address: [address] [place] [address] MEDICARE ANTHEM ACCESS MEDICARE ANTHEM ACCESS MEDICARE [facility] Address: [address] [place] [address] * Guarantor: Cynthia Campa Account Type Relation to Patient Date of Phone Billing Address Third Democrat Liability Self 1935 [address] [place] [address] [place] [address] Advance Directives For more information, please contact: [phone] * Full Code (Latest Code Status on File) Date Activated Date Inactivated Comments 02/19/2024 3:13 PM 02/20/2024 9:18 PM * Full Code Date Activated Date Inactivated Comments 09/05/2017 4:09 PM 09/22/2019 5:42 AM Care Teams Laborer Vineyard Relationship Specialty Start Date End Date Israel Sood MD [address] [place] [address] PCP - General 09/08/16 Britney Bolton MD [address] [place] [address] Glass Scullion Obstetrics and Gynecology 09/02/19 Aniket Link MD [address] [facility] [phone] [place] [address] Surgeon Colon and Rectal Surgery 12/01/21 Michele Link MD [phone] [place] [address] Consulting Physician Gynecologic Oncology 12/01/21
--- OUTSIDE RECORDS SUMMARY | 2024-08-02 16:17 | XMS_ITS | Clinical Summary ---
Author Organization [facility] Address [address], [facility] [address] [place] [address] Phone Care Team Providers Care Assembly Line Supervisor Name Role Phone Israel Sood MD Primary Care Provider [phone] Bharath Jones MD Unavailable [phone] Allergies Active Allergy Reactions Criticality Noted Date Comments Amlodipine Other (see Comments) Low 02/05/2024 Magnesium Oxide Diarrhea Low 06/19/2023 Medications albuterol 108 (90 Base) MCG/ACT Aerosol Solution take 1 Puff by inhalation. 4 Active aspirin 81 MG Chewable Tablet Take 81 mg by mouth daily. 5 026 Active carvedilol (COREG) 25 MG Tablet Take 25 mg by mouth 2 times daily. 2 Active cholestyramine (QUESTRAN) 4 GM Pack Take 4 g by mouth. 2 Active citalopram (CeleXA) 20 MG Tablet Take 20 mg by mouth nightly. Active clopidogrel (PLAVIX) 75 MG Tablet Take 75 mg by mouth daily. 5 025 Active Cyanocobalamin 1000 MCG SL Tablet Take 1,000 mcg by mouth every 12 hours. Active lisinopril (PRINIVIL, ZESTRIL) 40 MG Tablet Take 40 mg by mouth nightly. Active pantoprazole (PROTONIX) 40 MG Tablet Delayed Response Take 40 mg by mouth daily. 0 Active rosuvastatin (CRESTOR) 20 MG Tablet Take 20 mg by mouth nightly. Active iron polysaccharides (NIFEREX) 150 MG Capsule Take 150 mg by mouth every other day. 4 Active Cholecalciferol (Vitamin D) 2000 UNIT Tablet Take 2,000 Units by mouth 2 times daily. Active fluticasone (FLONASE) 50 MCG/ACT Suspension 1 [place] by Nasal route daily. Use in each nostril as directed. Active isosorbide mononitrate (IMDUR) 30 MG TABLET SR 24 HR Take 30 mg by mouth every morning. Active Multiple Vitamins-Minerals (Super C-Wvwm-Weqljbxr-Sewing Machine Operator Semiautomatic per) Tablet Take 1 Tablet by mouth daily. 30 Tablet 5 Active Copper Gluconate 2 MG TabletIndications:P ancytopenia,Iron deficiency anemia, unspecified iron deficiency anemia type,Anemia due to unknown mechanism Take 2 mg by mouth daily for 60 days. 60 Tablet 5 025 Active Copper Gluconate 2 MG Tablet Take 2 mg by mouth daily for 60 days. 60 Tablet 5 025 Discontin ued(Reord er) Active Problems Problem Noted Date Diagnosed Date Iron deficiency 07/15/2024 Iron adverse reaction 07/15/2024 Anemia due to unknown mechanism 06/23/2024 Pancytopenia 06/23/2024 Iron deficiency anemia, unspecified 06/23/2024 Encounters Date Type Department Care Team Description 07/18/2024 Telephone [facility] [address] [phone] Bharath Jones MD Canopy Call / Copper prescription; canopy call/copper prescription 07/17/2024 Telephone [facility] [address] [phone] Bharath Jones MD Canopy Call / black/ blood noted with stool 07/09/2024 Telephone [facility] [address] [phone] Bharath Jones MD Canopy Call / Copper script 07/07/2024 1:30 PM CDT Clinical Support [facility] [address] [phone] Nurse, [facility] Iron deficiency anemia, unspecified iron deficiency anemia type (Primary Dx) 07/07/2024 1:15 PM CDT Office Visit [facility] [address] [phone] Olinda Franco, ADVERTISING DISPATCH CLERKS SUPERVISOR, HOUSEHOLD MANAGER Pancytopenia (Primary Dx); Anemia due to unknown mechanism 07/07/2024 Travel 06/23/2024 1:35 PM CDT Lab [facility] [address] [phone] Lab, Cc [facility] Anemia due to unknown mechanism; Pancytopenia (HCC) 06/23/2024 1:00 PM CDT Office Visit [facility] [address] [phone] Bharath Jones MD Anemia due to unknown mechanism (Primary Dx); Pancytopenia (HCC) 06/23/2024 Results Follow-Up [facility] [address] [phone] Bharath Jones MD IRON W/ IRON BINDING CAPACITY [place], RETICULOCYTE COUNT (RETIC), LACTATE DEHYDROGENASE (LD), CMP (COMPREHENSIVE METABOLIC PANEL) 06/23/2024 Travel from Last 3 Months Family History Medical History Relation Name Comments Diabetes Child 1 Relation Name Status Comments Child 1 Alive Child 2 Alive Child 3 Alive Child 4 Alive Child 5 Alive Father Mother Sister Alive Social History Tobacco Use Types Packs/Day Years Used Date Smoking Tobacco: Former Cigarettes Smokeless Tobacco: Never Tobacco Cessation:Counseling Given: Not Answered Alcohol Use Standard Drinks/Week Comments Not Currently 0 (1 standard drink = 0.6 oz pur e alcohol) Comments Unknown Sex and Gender Information Value Date Recorded Sex Assigned at Not on file Legal Sex Female 2:53 PM CDT Gender Identity Not on file Sexual Orientation Not on file Last Filed Vital Signs Vital Sign Reading Time Taken Comments Blood Pressure 140/62 07/07/2024 12:51 PM CDT Pulse 66 07/07/2024 12:51 PM CDT Temperature 36.6 C (97.8 F) 07/07/2024 12:51 PM CDT Respiratory Rate 18 07/07/2024 12:51 PM CDT Oxygen Saturation 96% 07/07/2024 12:51 PM CDT Inhaled Oxygen Concentration - - Weight 65.5 kg (144 lb 6.4 oz) 07/07/2024 12:51 PM CDT Height 159.4 cm (5' 2.75 ) 07/07/2024 12:51 PM C DT Body Mass Index 25.78 07/07/2024 12:51 PM CDT Plan of Treatment Upcoming Encounters Date Type Department Care Team (Late st Contact Info) Description 08/04/2024 1:15 PM CDT Lab [facility] [address] [phone] Lab, Cc [facility] 08/04/2024 1:30 PM CDT Office Visit [facility] [address] [phone] Bharath Jones MD [facility] [place] [address] [place] [phone] Health Maintenance Due Date Last Done Comments Hepatitis C Virus (HCV) Screening 1935 Zoster Immunization (1 of 2) 1986 SARS-COV-2 Immunization ( season) 2023 01/20/2021, 06/20/2020, 05/30/2020 DEXA Bone Density 01/20/2026 01/21/2024 Pneumococcal Immunization (50+ years) Completed 03/27/2018, 01/27/2018, 09/27/2015 TdaP Immunization Completed 01/07/2019, , 09/27/2015 Respiratory Syncytial Virus (RSV) Immunization (Adult) Completed 02/18/2023 Influenza Immunization Completed , 02/18/2023, 03/04/2022, Additional history exists Hepatitis B Immunization Aged Out No longer eligible based on patient's age to complete this topic Human Papillomavirus (HPV) Immunization Aged Out No longer eligible based on patient's age to complete this topic Meningococcal Immunization (ACWY) Aged Out No longer eligible based on patient's age to complete this topic Rotavirus Immunization Aged Out No lo nger eligible based on patient's age to complete this topic Procedures Procedure Name Priority Date/Time Associated Diagnosis Comments SERUM FREE LIGHT CHAINS, [place] Routine 06/23/2024 1:36 PM CDT COMPLETE BLOOD COUNT (CBC) WITH DIFF Routine 06/23/2024 1:36 PM CDT Anemia due to unknown mechanism Pancytopenia (HCC) CMP (COMPREHENSIVE METABOLIC PANEL) Routine 06/23/2024 1:36 PM CDT Anemia due to unknown mechanism Pancytopenia (HCC) LACTATE DEHYDROGENASE (LD) Routine 06/23/2024 1:36 PM CDT Anemia due to unknown mechanism Pancytopenia (HCC) FOLIC ACID (FOLATE) Routine 06/23/2024 1 :36 PM CDT Anemia due to unknown mechanism Pancytopenia (HCC) FERRITIN Routine 06/23/2024 1:36 PM CDT Anemia due to unknown mechanism Pancytopenia (HCC) RETICULOCYTE COUNT (RETIC) Routine 06/23/2024 1:36 PM CDT Anemia due to unknown mechanism Pancytopenia (HCC) IRON W/ IRON BINDING CAPACITY [place] Routine 06/23/2024 1:36 PM CDT Anemia due to unknown mechanism Pancytopenia (HCC) VITAMIN B12 Routine 06/23/2024 1:36 PM CDT Anemia due to unknown mechanism Pancytopenia (HCC) HAPTOGLOBIN Routine 06/23/2024 1:36 PM CDT Anemia due to unknown mechanism Pancytopenia (HCC) ELECTROPHORESIS W/ TOTAL PROTEIN SERUM Routine 06/23/2024 1:36 PM CDT Anemia due to unknown mechanism Pancytopenia (HCC) IMMUNOGLOBULIN IGA, IGG & IGM QUANT Routine 06/23/2024 1:36 PM CDT Anemia due to unknown mechanism Pancytopenia (HCC) COPPER, SERUM [place] 1586 Routine 06/23/2024 1:36 PM CDT Anemia due to unknown mechanism Pancytopenia (HCC) from Last 3 Months Results * (ABNORMAL) SERUM FREE LIGHT CHAINS, [place] (06/23/2024 1:36 PM CDT) FREE KAPPA LT CHAINS 39.2(H) 2.9 - 20.7 mg/L [facility] FREE LAMBDA LT CHAINS 17.0 4.2 - 27.6 mg/L [facility] KAPPA/LAMBDA RATIO 2.31(H) 0.22 - 1.74 [facility] ORGANIC PREPARATION TECHNICIAN [facility] 06/23/2024 1:36 PM CDT Bharath Jones MD LAB SEND OUTS Final Result Performing Organization Address [facility] de Phone Number [facility] [place] [place] [address], [place] [phone] * (ABNORMAL) IRON W/ IRON BINDING CAPACITY [place] (06/23/2024 1:36 PM CDT) IRON 27(L) 50 - 212 ug/dL [facility] UIBC 400(H) 155 - 355 ug/dL [facility] TIBC 427 261 - 478 ug/dl [facility] % Saturation 6(L) 20 - 50 % [facility] 06/23/2024 1:36 PM CDT Narrative [facility] - 06/23/2024 2:22 PM CDT Release to patient->Immediate us Bharath Jones MD LAB SEND OUTS Final Result Performing Organization Address [facility] Co de Phone Number [facility] [place] [place] [address], [place] [phone] * (ABNORMAL) COPPER, SERUM [place] 1586 (06/23/2024 1:36 PM CDT) COPPER, SERUM 73(L) 80 - 158 UG/DL [facility] Comment:DETECTION LIMIT = 5 06/23/2024 1:36 PM CDT [facility] - 06/27/2024 3:06 AM CDT TESTING PERFORMED AT: [BN] LAB[address], [address], PHONE: [phone], SLUBBER MACHINE OPERATOR: FAREED WIGGINS MD TEST(S) [id number], SERUM OR PLASMA WAS DEVELOPED AND ITS PERFORMANCE CHARACTERISTICS DETERMINED BY [facility]. IT HAS NOT BEEN CLEARED OR APPROVED BY THE FOOD AND DRUG ADMINISTRATION. Release to patient->Immediate us Bharath Jones MD LAB SEND OUTS Final Result Performing Organization Address [facility]/ZIP Co de Phone Number [facility] [place] [place] [address], * VITAMIN B12 (06/23/2024 1:36 PM CDT) Pathologist [facility] Vitamin B12 >1,500 180 - 914 pg/mL [facility] Blood 06/23/2024 1:36 PM CDT [facility] - 06/26/2024 9:53 AM CDT Release to patient->Immediate us Bharath Jones MD CHEMISTRY ORDERABLES Final R esult Performing Organization Address City/[facility]/ZIP Co de Phone Number [facility] [place] [address], * (ABNORMAL) RETICULOCYTE COUNT (RETIC) (06/23/2024 1:36 PM CDT) Reticulocyte count 1.14 0.50 - 1.70 % [facility] RET-He 25.50(L) 28.20 - 36.60 pg [facility] ORGANIC PREPARATION TECHNICIAN [facility] Comment: RET-He is a direct assessment of incorporation of iron into erythrocyte hemoglobin. It provides an indirect measure of the iron available for new erythropoiesis over past 2-4 days. Blood 06/23/2024 1:36 PM CDT [facility] - 06/23/2024 1:59 PM CDT Release to patient->Immediate us Bharath Jones MD HEMATOLOGY ORDERABLES Final Result Performing Organization Address City/[facility] Co de Phone Number CANCER ORGANIC PREPARATION TECHNICIAN [facility] [place] [address], [place] [phone] * LACTATE DEHYDROGENASE (LD) (06/23/2024 1:36 PM CDT) LDH 144 140 - 271 U/L [facility] Blood 06/23/2024 1:36 PM CDT [facility] - 06/23/2024 2:22 PM CDT Release to patient->Immediate us Bharath Jones MD CHEMISTRY ORDERABLES Final R esult Performing Organization Address [facility] Co de Phone Number [facility] [place] [place] [address], [place] [phone] * IMMUNOGLOBULIN IGA, IGG & IGM QUANT (06/23/2024 1:36 PM CDT) IGG 1,099 635 - 1,741 mg/dL [facility] IGA 321 66 - 433 mg/dL [facility] IGM 78 45 - 281 mg/dL [facility] Blood 06/23/2024 1:36 PM CDT [facility] - 06/24/2024 2:14 PM CDT Release to patient->Immediate us Bharath Jones MD CHEMISTRY ORDERABLES Final R esult Performing Organization Address City/[facility]/ZIP Co de Phone Number [facility]ER ORGANIC PREPARATION TECHNICIAN [facility] [place] [address] [place] [address], * HAPTOGLOBIN (06/23/2024 1:36 PM CDT) HAPTO 121 44 - 215 mg/dL [facility] ORGANIC PREPARATION TECHNICIAN [facility] Blood 06/23/2024 1:36 PM CDT Narrative [facility] ORGANIC PREPARATION TECHNICIAN [facility] - 06/24/2024 2:14 PM CDT Release to patient->Immediate Bharath Jones MD CHEMISTRY ORDERABLES Final R esult Performing Organization Address City/[facility]/ZIP Co de Phone Number [facility] ORGANIC PREPARATION TECHNICIAN [facility] [address] [place] [address], [place] [phone] * FOLIC ACID (FOLATE) (06/23/2024 1:36 PM CDT) Folate >20.00 >=5.90 ng/mL [facility] ORGANIC PREPARATION TECHNICIAN [facility] Blood 06/23/2024 1:36 PM CDT [facility] - 06/26/2024 9:53 AM CDT Release to patient->Immediate IS THE PATIENT REQUIRED TO BE FASTING FOR 12 HOURS?->No Bharath Jones MD CHEMISTRY ORDERABLES Final R esult Performing Organization Address City/[facility]/ZIP Co de Phone Number CANCER ORGANIC PREPARATION TECHNICIAN [facility] [place] [address] [place] [address], [place] [phone] * FERRITIN (06/23/2024 1:36 PM CDT) Ferritin 25 11 - 307 ng/mL [facility] OR[facility]IC PREPARATION TECHNICIAN [facility] Blood 06/23/2024 1:36 PM CDT Narrative [facility] - 06/26/2024 9:53 AM CDT Release to patient->Immediate Bharath Jones MD CHEMISTRY ORDERABLES Final R esult [facility] ORGANIC PREPARATION TECHNICIAN [facility] [place] [address] [place] [address], [place] [phone] * ELECTROPHORESIS W/ TOTAL PROTEIN SERUM (06/23/2024 1:36 PM CDT) PROTEIN, TOTAL, SERUM 6.7 6.0 - 8.5 G/DL [facility] ORGANIC PREPARATION TECHNICIAN [facility] ALBUMIN 3.5 2.9 - 4.4 G/DL [facility] [id number] 0.3 0.0 - 0.4 G/DL [facility] [id number] 0.8 0.4 - 1.0 G/DL [facility] BETA GLOBULIN 1.0 0.7 - 1.3 G/DL [facility] GAMMA GLOBULIN 1.1 0.4 - 1.8 G/DL [facility] M-SPIKE NOT OBSERVED NOT OBSERVED G/DL [facility] ORGANIC PREPARATION TECHNICIAN [facility] GLOBULIN, TOTAL 3.2 2.2 - 3.9 G/DL [facility] A/G RATIO 1.1 0.7 - 1.7 [facility] PLEASE NOTE: COMMENT [facility] ORGANIC PREPARATION TECHNICIAN [facility] Comment: PROTEIN ELECTROPHORESIS SCAN WILL FOLLOW VIA COMPUTER, MAIL, OR JAVA ORACLE DEVELOPER DELIVERY. PDF . [facility] Blood 06/23/2024 1:36 PM CDT Narrative [facility] - 06/24/2024 3:08 PM CDT TESTING PERFORMED AT: [] [facility], [address] [place] [address], [place], [address], PHONE: [phone], SLUBBER MACHINE OPERATOR: CHRISTIE GARCIA, PHD Release to patient->Immediate Bharath Jones MD CHEMISTRY ORDERABLES Final R esult [facility] ORGANIC PREPARATION TECHNICIAN [facility] [place] [address] [address] [place], [place] [address] [phone] * (ABNORMAL) CMP (COMPREHENSIVE METABOLIC PANEL) (06/23/2024 1:36 PM CDT) Glucose 128(H) 70 - 105 mg/dL [facility] Blood Urea Nitrogen 20 7 - 25 mg/dL [facility] Creatinine 0.7 0.6 - 1.2 mg/dL [facility] Sodium 141 136 - 145 mEq/L [facility] Potassium 4.3 3.5 - 5.1 mEq/L [facility] Chloride 103 98 - 107 mEq/L [facility] Bicarbonate 31 21 - 31 mEq/L [facility] Total Bilirubin 0.4 0.3 - 1.0 mg/dL [facility] Alk. Phosphatase 40 34 - 104 U/L [facility] Aspartate Aminotransferase 13 13 - 39 U/L [facility] Alanine Aminotransferase 7 7 - 52 U/L [facility] Total Protein 6.6 6.4 - 8.9 g/dL [facility] Albumin 4.1 3.5 - 5.7 g/dL [facility] Calcium 9.3 8.6 - 10.3 mg/dL [facility] Anion Gap 11.3 7.0 - 15.0 mEq/L [facility] Globulin 2.5 2.0 - 3.5 g/dL [facility] EGFR 83 >60 ml/min/1. 73m2 [facility] Comment: This eGFR is calculated using 2020 CKD-EPI Creatinine equation without race modifier based on the NKF-ASN task force recommendations Equation: hNPU=806*min(SCr/k,1)a*max(SCr/k,1)-1.200*0.9938Age*1.012 (if female), where SCr is serum creatinine, k is 0.7 for females and 0.9 for males, and a is -0.241 for females and -0.302 for males Blood 06/23/2024 1:36 PM CDT [facility] - 06/23/2024 2:22 PM CDT Release to patient->Immediate IS THE PATIENT REQUIRED TO BE FASTING FOR 8 HOURS?->No us Bharath Jones MD CHEMISTRY ORDERABLES Final R esult [facility] ORGANIC PREPARATION TECHNICIAN [facility] [place] [address], [place] [phone] * (ABNORMAL) COMPLETE BLOOD COUNT (CBC) WITH DIFF (06/23/2024 1:36 PM CDT) WBC 2.4(L) 4.0 - 10.0 10*3/uL [facility] ORGANIC PREPARATION TECHNICIAN [facility] HGB 8.8(L) 11.2 - 15.7 g/dL [facility] ORGANIC PREPARATION TECHNICIAN [facility] HCT 30.0(L) 34.1 - 44.9 % [facility] ORGANIC PREPARATION TECHNICIAN [facility] PLT 119(L) 163 - 369 10*3/uL [facility] ORGANIC PREPARATION TECHNICIAN [facility] MPV 9.1(L) 9.4 - 12.4 fL [facility] ORGANIC PREPARATION TECHNICIAN [facility] RBC 3.58(L) 3.93 - 5.22 10*6/uL [facility] ORGANIC PREPARATION TECHNICIAN [facility] MCV 84 79 - 95 fL [facility] ORGANIC PREPARATION TECHNICIAN [facility] MCH 24.6(L) 25.6 - 32.2 pg [facility] ORGANIC PREPARATION TECHNICIAN [facility] MCHC 29.3(L) 32.2 - 36.5 g/dL [facility] ORGANIC PREPARATION TECHNICIAN [facility] RDW 16.5(H) 11.6 - 14.4 % [facility] ORGANIC PREPARATION TECHNICIAN [facility] Absolute Neutrophil Count 1,109 cells/uL [facility] Absolute Seg Count 1,109(L) 1,440 - 6,600 cells/uL [facility] ORGANIC PREPARATION TECHNICIAN [facility] Absolute Lymph Count 897 760 - 4,000 cells/uL [facility] ORGANIC PREPARATION TECHNICIAN [facility] Absolute [place] Count 236 160 - 1,200 cells/uL [facility] ORGANIC PREPARATION TECHNICIAN [facility] Absolute Eos Count 118 0 - 300 cells/uL [facility] ORGANIC PREPARATION TECHNICIAN [facility] Segmented Neutrophils 47 36 - 66 % [facility] ORGANIC PREPARATION TECHNICIAN [facility] Lymphocytes 38 19 - 40 % [facility] Monocytes 10 4 - 12 % [facility] RADU [facility] Eosinophils 5(H) 0 - 3 % [facility] C [facility] WBC Estimate Low [facility] ORGANIC PREPARATION TECHNICIAN [facility] Platelet Estimate Low CANCER ORGANIC PREPARATION TECHNICIAN OF [facility] RBC Morphology Abnormal CANCE R ORGANIC PREPARATION TECHNICIAN [facility] Anisocytosis 1+ CANCER ORGANIC PREPARATION TECHNICIAN OF [facility] Blood 06/23/2024 1:36 PM CDT Narrative CANCER ORGANIC PREPARATION TECHNICIAN OF [facility] - 06/23/2024 3:55 PM CDT Release to patient->Immediate Bharath Jones MD HEMATOLOGY ORDERABLES Final Result [facility]CER ORGANIC PREPARATION TECHNICIAN OF [facility] [place] [address], [place] [phone] from Last 3 Months Insurance MEDICARE [facility] Care Teams Assembly Line Supervisor Relationship Specialty Start Date End Date Israel Sood MD [address] [place] [id number] PCP - General Internal Medicine 06/13/24 Bharath Jones MD [address] [place] [id number] Consulting Physician Oncology 07/07/24
--- OUTSIDE RECORDS SUMMARY | 2024-08-02 16:17 | XMS_ITS | Encounter Summary ---
Author Organization [facility] Address [address] [place] [address] Phone Care Team Providers Care Char House Supervisor Name Role Phone Israel Sood MD Primary Care Provider [phone] Britney Bolton MD Unavailable [phone] Aniket Link MD Unavailable [phone] Michele Link MD Unavailable [phone] Andreea Raphael RN Unavailable [phone] Encounter Details Date Type Department Care Team (Latest Contact Info) Description 05/20/2023 Orders Only [facility] Evon Calvillo, DINA [address] [facility] [address] [facility] [address] [place] [address] Social History Tobacco Use Types [...] on file Legal 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 Gender Identity Not on file Sexual Orientation Not on file Occupation Industry Job Start Date Job End Date Retired Not on file Not on file Not on file documented as of this encounter Plan of Treatment Not on file documented as of this encounter Procedures Procedure Name Priority Date/Time Associated Diagnosis Comments SCAN - LABS 05/20/2023 documented in this encounter Results * SCAN - LABS (05/20/2023) us Evon Calvillo RN Final Result documented in this encounter Visit Diagnoses Not on filedocumented in this encounter Care Teams Char House Supervisor Relationship Specialty Start Date End Date Israel Sood MD [address] [place] [address] PCP - General 09/08/16 Britney Bolton MD [address] [place] [address] Yard Loader Operator Obstetrics and Gynecology 09/02/19 Aniket Link MD [phone] [place] [address] Surgeon Colon and Rectal Surgery 12/01/21 Michele Link MD [phone] [place] [address] Consulting Physician Gynecologic Oncology 12/01/21 Andreea Raphael, RN [address] [place] [address] [employer] Outpatient Construction Supervisor 02/21/24 03/19/24 documented as of this encounter
--- OUTSIDE RECORDS SUMMARY | 2024-08-02 16:17 | XMS_ITS | Data Portability ---
Author Organization [facility] Address [address] [place] [address] Assessment No assessment recorded. Plan of Treatment Reminders Order Date Submit Date Provider Last Modified By Organization Details Last Modified Time Details Appointments None record ed. Lab None record ed. Referral None record ed. Procedures None record ed. Surgeries None record ed. Imaging None record ed. Medication Orders None record ed. Patient TargetsNo targets recorded. Patient InstructionsNo instructions recorded. Reason for Referral None Reported. 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 Maeve mejia MD elect carmel gray zain d 08/12 08:05 AM Gross Descr iptio n: Recei [place] in forma adenike label ed Virgi ashutosh Bueck er, per requi sitio n endom etriu m are multi ple piece s of carrizales-b rown and hemor rhagi c tissu e with assoc iated mucoi d mater ial that in aggre gate are 3 x 1.3 x 0.3 cm. The speci men is filte red throu gh a teaba g and total ly submi tted in a singl e casse tte 1A, M/1. (HMR) (WG2, prc) Micro scopi c Descr iptio n: Micro scopi c evalu ation is perfo rmed. Proce dure: Endom etria l biops y Clini shantal Histo ry: Postm enopa usal bleed ing (N95. 0) Speci men List: Endom etria l biops y End of Repor t Techn ical servi deepa provi ded by [email or web address], d/b/a [facility], [address] [facility] , [place] [address] Derrick Pelletier MD, [facility]. Case revie wed and diagn osis rende red at [email or web address], d/b/a [facility], [address], [place] [address] Jus Luis MD, [facility]. CONFI DENTI AL Not Available [facility] ([facility]) [address], [place], [address], 08/13/2019 09:06:07 Result Notes None recorded. Problems Name Problem SNOMED Code Status Onset Date Resolution Date Notes Provider Name and Address Organization Details Recorded Time Postmenop ausal bleeding 47907426 Active 2019 Postmenopa usal bleeding;R ecorded Elsewhere: No Locatio n: [facility]any rce: EHR Chroni c: N Practice ID: [id number] Billa ble Time: 09:15:00 AM Not Available [facility] 0 18:46:33 Evaluatio n finding Active 2018 Hematuria, unspecifie d;Recorded Elsewhere: No Locatio n: [facility] rce: EHR Chroni c: N Practice ID: [id number] Billa ble Time: 03:30:00 PM Not Available [facility] 0 18:46:33 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 Procedures Surgical History Date Name Laterality Status Provider Name and Address Organization Details Recorded Time 0 Endometrial Biopsy completed S [facility] 08/11/2019 11:20:37 Imaging Results None recorded. Procedure Notes None recorded. Medical Equipment None Reported. Allergies No known drug allergies Medications Name Sig Start Date Stop Date Status Note LastModified by Organization Details LastModified Time carvedilo l 12.5 mg tablet active Not Available Not Available Not Available citalopra m 10 mg/5 mL oral solution take 10 millilit er by oral route every day active Prescrib ed Elsewher e: Yes Loca tion: [facility] odify By: macie jamil DateTime : 04/03/19 11:37:05 AM Not Available Not Available Not Available ondansetr on HCl 4 mg tablet active Not Available Not Available No t Available amlodipin e 2.5 mg tablet take 1 tablet by oral route every day active Prescrib ed Elsewher e: Yes Loca tion: [facility] odify By: macie jamil DateTime : 04/03/19 11:37:05 AM Not Available Not Available Not Available Aygestin 5 mg tablet take 2 tablet by oral route daily for 3 months 2019 active Prescrib ed Elsewher e: No Locat ion: [facility] odify By: vahid blackman DateTime : 05/05/19 08:15:00 AM Not Available Not Available Not Available sulfameth oxazole 800 mg-trimet hoprim 160 mg tablet active Not Available Not Available Not Available carvedilo l 3.125 mg tablet take 1 tablet by oral route 2 times every day with food active Prescrib ed Elsewher e: Yes Loca tion: [facility] odify By: macie Guido ter DateTime : 04/03/19 11:37:05 AM Not Available Not Available Not Available citalopra m 20 mg tablet active Not Available Not Available Not Available omeprazol e 10 mg capsule,d elayed release take 2 capsule by oral route every day before a meal active Prescrib ed Elsewher e: Yes Loca tion: [facility] odify By: macie Guido ter DateTime : 04/03/19 11:37:05 AM Not Available Not Available Not Available omeprazol e 20 mg capsule,d elayed release active Not Available Not Available Not Available aspirin 81 mg chewable tablet chew 1 tablet by oral route every day active Prescrib ed Elsewher e: Yes Loca tion: [facility] odify By: macie Guido ter DateTime : 04/03/19 11:37:05 AM Not Available Not Available Not Available lisinopri l 10 mg-hydroc hlorothia zide 12.5 mg tablet take 1 tablet by oral route every day active Prescrib ed Elsewher e: Yes Loca tion: [facility] odify By: macie Guido ter DateTime : 04/03/19 11:37:05 AM Not Available Not Available Not Available albuterol sulfate HFA 90 mcg/actua tion aerosol inhaler active Not Available Not Available Not Available lisinopri l 40 mg tablet active Not Available Not Available Not Available rosuvasta tin 20 mg tablet active Not Available Not Available Not Available nitrofura ntoin monohydra te/macroc rystals 100 mg capsule take 1 capsule by oral route every 12 hours with food 08/10 completed Not Available Not Available Not Available Boostrix Tdap 2.5 Lf unit-8 mcg-5 Lf/0.5 mL intramusc ular syringe active Not Available Not Available Not Available Organ-3 active Prescrib ed Elsewher e: Yes Loca tion: Jonathon luisa [facility] odify By: macie jamil DateTime : 04/03/19 11:37:05 AM Not Available Not Available Not Available Vitamin D3 10 mcg (400 unit) capsule active Prescrib ed Elsewher e: Yes [facility] By: macie Guido ter DateTime : 04/03/19 11:37:05 AM Not Available Not Available Not Available Eliquis 5 mg tablet active Not Available Not Available No t Available Eliquis 2.5 mg tablet take 1 tablet by oral route 2 times every day active Prescrib ed Elsewher e: Yes Loca tion: Mona moran [facility] odify By: macie Guido ter DateTime : 04/03/19 11:37:05 AM Not Available Not Available Not Available Tylenol 325 mg capsule take 2 capsule by oral route every 4 hours active Prescrib ed Elsewher e: Yes Loca tion: [facility] odify By: macie Guido ter DateTime : 04/03/19 11:37:05 AM Not Available Not Available Not Available Ezallor Sprinkle 5 mg capsule 04/14 completed Prescrib ed Elsewher e: Yes Loca tion: [facility] odify By: [email or web address] Encount er DateTime : 04/03/19 11:37:05 AM Not Available Not Available Not Available Fluzone High-Dose (PF) 180 mcg/0.5 mL intramusc ular syringe active Not Available Not Available Not Available Vitals Date Recorded Body weight Body mass index (BMI) Body height Systolic blood pressure Diastolic blood pressure Provider Name and Address Organization Details Last Updated DateTime 08/11/2019 26636.15 g 0.3 kg/m2 1645.92 cm 131 mm[Hg] 75 mm[Hg] Anayeli Jaquez [facility] 0 10:47:31 Social History None recorded. Functional Status None recorded. Mental Status None recorded. Family History Relationship Description Onset Age of this Age Resolved Age Notes LastModified by Organization Details LastModified Time Father Diabetes mellitus [email or web address] Not available 08/06 10:15:55 Sister Acute hepatitis [email or web address] Not available 08/06 10:17:55 Notes:Father: Diabetes sharda jesus Sister: Hepatitis Medical History Condition Response Anemia Y Hypertension Y High Cholesterol Y Gynecological HistoryNo gynecological history recorded. Obstetrics History GPAL:G 0 P 0 0 0 0 Past Encounters Encounter ID Performer Location Encounter Start Date Encounter Closed Date Diagnosis/Indication Diagnosis SNOMED-CT Code Diagnosis ICD10 Code Diagnosis Note [id number] Britney Bolton MD [place] [address] [address] 08/11/2019 10:38:50 08/11/2019 11:27:34 Postmenopausal bleeding 35148651 N95.0 Endoemtria l biopsy done. Endometria l hyperplasia 458775175 N85.00 If hyperplasi a not resolved, hysterecto my may be next step. If malignancy , will need referral to typewriter assembler oncology. If resolved, may watch and wait. We briefly discussed all those possibilit ies, and she agrees to be called with results. May resume blood thinner with next scheduled dose Health Concerns Section Related Observation LastModified by Organization Detai ls LastModified Time None Recorded Concern Status LastModified by Organization Details LastModified Time None Recorded Advance Directives Directive None Recorded Payers Encounter Date Sequence Insurance Name Policy Number Policy Healy Covered Member ID Healy Member ID Guarantor Name 08/11/2019 2 [employer] [employer] (PPO) [id number] Anai Campa [id number] 08/11/2019 1 [place] Martina Campa [id number] Notes Date Note Type Note Provider Name and Address Organization Details Recorded Time 08/11/2019 text/html She has been taking Aygestin the last 3 months. She had about 1 day of moderate bleeding per week and occasional spotting in between. No pain. No new complaints Clinton webber [place] [facility] 08/11/2019 12:36:49 OBGyn Episode No OBEpisode recorded.
--- OUTSIDE RECORDS SUMMARY | 2024-08-02 16:17 | XMS_ITS | Encounter Summary ---
Author Organization [facility] Address [address] [place] [address] Phone Care Team Providers Care Grip Assembler Name Role Phone Israel Sood MD Primary Care Provider [phone] Andreea Raphael RN Unavailable [phone] Britney Bolton MD Unavailable [phone] Aniket Link MD Unavailable [phone] Michele Link MD Unavailable [phone] Andreea Raphael RN Unavailable [phone] Encounter Details Date Type Department Care Team (Late st Contact Info) Description 05/15/2017 Orders Only [facility] [phone] Scanning, Provider Social History Tobacco Use Types Packs/Day Years Used Date Smoking Tobacco: Every Day Comments Unknown Sex and Gender Information Value Date Recorded Sex Assigned at Not on file Legal Sex Female 2:57 AM LEASE OUT MAN Gender Identity Not on file Sexual Orientation Not on file documented as of this encounter Plan of Treatment Not on file documented as of this encounter Procedures Procedure Name Priority Date/Time Associated Diagnosis Comments SCAN - RADIOLOGY/IMAGING 05/15/2017 documented in this encounter Results * SCAN - RADIOLOGY/IMAGING (05/15/2017) Anatomical Region Laterality Modality Other us Provider Scanning Final Result documented in this encounter Visit Diagnoses Not on filedocumented in this encounter Care Teams Grip Assembler Relationship Specialty Start Date End Date Israel Sood MD [address] [place] [address] PCP - General 09/08/16 Andreea Raphael RN [address] [place] [address] [facility] Outpatient Fried Cake Maker 09/06/17 11/28/17 Britney Bolton MD [address] [place] [address] Process Design Engineer Obstetrics and Gynecology 09/02/19 Aniket Link MD [phone] [place] [address] Surgeon Colon and Rectal Surgery 12/01/21 Michele Link MD [phone] [place] [address] Consulting Physician Gynecologic Oncology 12/01/21 Andreea Raphael RN [address] [place], [place] [id number] [facility] Outpatient Fried Cake Maker 02/21/24 03/19/24 documented as of this encounter
--- OUTSIDE RECORDS SUMMARY | 2024-08-02 16:18 | XMS_ITS | Data Portability ---
Author Organization [facility] [employer] [facility], [employer] Address [address] [address] Care Team Providers Care Senior Materials Planner Name Role Phone ISRAEL DODD Primary Care Provider ISAI HURTADO Superintendent Renting Managing [phone] SHAD NAPIER Fact Checker Assessment Encounter Date Assessment Date Assessment LastModified by Organization Details LastModified Time 04/25/2023 04/25/2023 Patient presented for follow up. Studies ordered as below. Discussed plan with patient/careg iver, who expressed understanding . Follow up as noted below. Not available 04/25/2023 18:59:39 08/03/2023 08/03/2023 Patient presented for follow up. Studies ordered as below. Discussed plan with patient/careg iver, who expressed understanding . Follow up as noted below. [email or web address] Not available 08/03/2023 12:01:42 11/07/2023 11/07/2023 Patient presented for follow up. Studies ordered as below. Discussed plan with patient/careg iver, who expressed understanding . Follow up as noted below. Not available 11/07/2023 14:43:46 02/04/2024 02/04/2024 Patient presented for follow up. Studies ordered as below. Discussed plan with patient/careg iver, who expressed understanding . Follow up as noted below. Not available 02/04/2024 16:48:38 06/11/2024 06/11/2024 Patient presented for follow up. Studies ordered as below. Discussed plan with patient/careg iver, who expressed understanding . Follow up as noted below. Not available 06/11/2024 17:11:46 Plan of Treatment Reminders Order Date Submit Date Provider Last Modified By Organization Details Last Modified Time Details Appointments ANNMARIE 2024 03:00P M US CAROTID ARTERY Not available Not available Not available US CAROTID ARTERY 2024 03:30P M US CAROTID ARTERY Not available Not available Not available ESTABLISH ED PATIENT 15 2024 03:00P M Israel Dodd MD Not available Not available Not available Lab magnesium , QN, serum or plasma 2024 025 [facility] [employer] [facility], [address], [place], [address], 06/11/2024 18:10:57 vitamin B12 + folate, serum or blood 2024 025 [facility] [employer] [facility], [address] [facility], [place], [address], 06/11/2024 18:10:57 CMP, serum or plasma 2024 025 [facility] [employer] [facility], [address], [place], [address], 06/12/2024 13:04:43 CBC w/ auto diff 2024 025 [facility] [employer] [facility], [address], [place], [address], 06/12/2024 13:04:42 lipid panel w/ direct LDL, serum 2024 025 [facility] [employer] [facility], [address], [place], [address], 07/01/2024 16:55:10 CMP, serum or plasma 2023 024 [facility] [employer] [facility], [address], [place], [address], 02/05/2024 13:00:07 CBC 2023 024 [facility] [employer] [facility], [address], [place], [address], 02/11/2024 04:03:36 hemoglobi n A1c, QN, blood 2023 024 [facility], [address] [facility], [place], [address], 02/11/2024 04:03:36 CBC w/ auto diff - 8 weeks from 11/07/232023 024 [facility], [address] [facility], [place], [address], 02/05/2024 13:00:06 iron panel, serum or plasma - 8 weeks 11/07/232023 024 [facility], [address] [facility], [place], [address], 02/05/2024 04:11:57 CMP, serum or plasma 2023 024 [facility], [address] [facility], [place], [address], 10/04/2023 10:36:11 CBC 2023 024 [facility], [address] [facility], [place], [address], 08/10/2023 04:13:34 lipid panel w/ direct LDL, serum 2023 024 [facility], [address] [facility], [place], [address], 08/10/2023 04:13:33 magnesium , QN, serum or plasma 2023 024 [facility] Not available 07/24/2023 04:06:26 vitamin B12 + folate, serum or blood 2023 024 [facility] Not available 07/24/2023 04:06:26 CMP, serum or plasma 2023 024 [facility] Not available 05/20/2023 15:09:43 CBC 2023 024 [facility] Not available 05/02/2023 04:13:28 hemoglobi n A1c, QN, blood 2023 024 [facility] Not available 05/02/2023 04:13:27 C-peptide , serum 2023 024 [facility] Not available 05/20/2023 15:09:45 vitamin D, 25-hydrox y, total, serum 2023 024 [facility] Not available 05/02/2023 04:13:[address] referral 2023 024 [facility]ier[facility], [address], [place], [address], 03/03/2024 04:07:[address] referral 2023 024 [facility], [address], [place], [address], 12/05/2023 04:11:[address] referral 2023 024 [facility], [address], [place], [address], 05/23/2023 04:11:54 Procedures None recorded. Surgeries None recorded. Imaging XR, kidney + ureter + bladder [facility], [address], [place], [address], 07/01/2024 15:49:53 US, duplex, carotid artery 2024 025 [facility], [facility], [address], [place], [address], 06/11/2024 20:29:28 CT, chest, w/o contrast 2024 025 [facility], [address], [place], [address], 07/01/2024 15:49:53 XR, thoracic spine, 2 view 2023 024 [facility], [address], [place], [address], 02/17/2024 13:49:29 electroca rdiogram 2023 024 [facility], [facility], [address], [place], [address], 11/07/2023 16:11:33 XR, thoracic spine, 4 or more view 2023 024 [facility], [address], [place], [address], 08/19/2023 13:06:45 bone density 2023 024 [facility], [address], [place], [address], 08/17/2023 04:03:54 MAMMO, screening , digital, bilateral 2023 024 [facility], [address], [place], [address], 05/02/2023 04:13:28 US, duplex, carotid artery 2023 024 [facility], [facility], [address], [place], [address], 04/25/2023 22:42:12 CT, chest, w/o contrast 2023 024 [facility], [address], [place], [address], 06/19/2023 10:10:09 Medication Orders ProAir HFA 90 mcg/actua tion aerosol inhaler 2023 024 [id number], [address] [facility], [place], [place], [id number], 08/03/2023 12:44:08 doxazosin 1 mg tablet 2023 024 [facility] #[id number], [address] [facility], [place], [place], [id number], 05/30/2023 19:50:53 buspirone 10 mg tablet 2023 024 [id number], [address] [facility], [place], [place], [id number], 04/25/2023 19:38:01 Patient TargetsNo targets recorded. Patient Instructions Encounter Date Encounter Id Patient Instructions Last Modified By Organization Details Last Modified Time 04/25/2023 [id number] Peripheral Arter ial Disease (PAD): Care Instructions mshenouda Not available 04/25/2023 19:37:52 (ANNMARIE) ankle brachial index* [facility] Not available 04/25/2023 22:42:06 mammogram: about this test mshenouda Not available 04/25/2023 19:37:52 arthritis: care instructions mshenouda Not available 04/25/2023 19:37:53 osteoarthritis: care instructions mshenouda Not available 04/25/2023 19:37:53 fainting: care instructions mshenouda Not available 04/25/2023 19:37:53 lightheadedness or faintness: care instructions mshenouda Not available 04/25/2023 19:37:52 kidney stone: ca re instructions mshenouda Not available 04/25/2023 19:37:52 learning about d iet for kidney stone prevention mshenouda Not available 04/25/2023 19:37:52 high cholesterol : care instructions mshenouda Not available 04/25/2023 19:37:53 carotid stenosis : care instructions mshenouda Not available 04/25/2023 19:37:52 learning about healthy weight mshenouda Not available 04/25/2023 19:37:52 living will mshenouda Not available 04/03 19:35:39 08/03/2023 [id number] Peripheral Arter ial Disease (PAD): Care Instructions mshenouda Not available 08/03/2023 12:38:06 mammogram: about this test mshenouda Not available 08/03/2023 12:38:06 spirometry testing* [facility] Not availa ble 08/06/2023 08:41:51 learning about healthy weight mshenouda Not available 08/03/2023 12:38:05 high cholesterol : care instructions mshenouda Not available 08/03/2023 12:38:06 carotid stenosis : care instructions mshenouda Not available 08/03/2023 12:38:05 11/07/2023 [id number] Peripheral Arter ial Disease (PAD): Care Instructions mshenouda Not available 11/07/2023 15:14:01 arthritis: care instructions mshenouda Not available 11/07/2023 15:14:01 mammogram: about this test mshenouda Not available 11/07/2023 15:14:00 cirrhosis: care instructions mshenouda Not available 11/07/2023 15:14:00 liver disease di et: care instructions mshenouda Not available 11/07/2023 15:14:00 anemia: care instructions mshenouda Not available 11/07/2023 15:14:01 high cholesterol : care instructions mshenouda Not available 11/07/2023 15:14:00 carotid stenosis : care instructions mshenouda Not available 11/07/2023 15:14:00 learning about healthy weight mshenouda Not available 11/07/2023 15:14:01 02/04/2024 [id number] Peripheral Arter ial Disease (PAD): Care Instructions mshenouda Not available 02/04/2024 17:21:11 06/11/2024 [id number] Peripheral Arter ial Disease (PAD): Care Instructions mshenouda Not available 06/11/2024 18:10:31 (ANNMARIE) ankle brachial index* [facility] Not available 06/11/2024 20:29:53 mammogram: about this test mshenouda Not available 06/11/2024 18:10:32 arthritis: care instructions mshenouda Not available 06/11/2024 18:10:31 diverticulosis: care instructions mshenouda Not available 06/11/2024 18:10:32 learning about diverticulosis and diverticulitis mshenouda Not available 06/11/2024 18:10:31 kidney stone: ca re instructions mshenouda Not available 06/11/2024 18:10:32 learning about d iet for kidney stone prevention mshenouda Not available 06/11/2024 18:10:32 cirrhosis: care instructions mshenouda Not available 06/11/2024 18:10:31 liver disease di et: care instructions mshenouda Not available 06/11/2024 18:10:31 high cholesterol : care instructions mshenouda Not available 06/11/2024 18:10:32 anemia: care instructions mshenouda Not available 06/11/2024 18:10:32 carotid stenosis : care instructions mshenouda Not available 06/11/2024 18:10:31 learning about healthy weight mshenouda Not available 06/11/2024 18:10:31 living will mshenouda Not available 05/31 18:10:45 Reason for Referral Bricklayer Tender Referral for Juanito ign hypertension Referring Physician: Israel Dodd, Internal Medicine, Encounter Date: 04/25/2023 Bricklayer Tender Referral for Juanito ign hypertension Referring Physician: Israel Dodd, Internal Medicine, Encounter Date: 11/07/2023 Bricklayer Tender Referral for Juanito ign hypertension Referring Physician: Israel Dodd, Internal Medicine, Encounter Date: 02/04/2024 Results Created Date Observation Date Name Description Value Unit Range Abnormal Flag Note LastModifiedBy Organization Detail LastModifiedTime 05/17/19 24 05/17/2023 HEMOG LOBIN A1C hemoglobin A1C 5.5 % 4.8-5. 6 ELISABETH L RANGE BASED ON CYNTHIA COL 2 (DCCT /NGSP ): Non-D iabet ic: < 5.7% Pre-D iabet es: 5.7 - 6.4% Diabe kana: => 6.5% GLYCE SOL CONTR OL: < 7.0% Not Available [facility] [address], [place], [address], 05/20/2023 15:09:42 05/17/19 24 05/17/2023 HEMOG LOBIN A1C estimated average glucose 112 Not Available [facility] [address], [place], [address], 05/20/2023 15:09:42 05/17/19 24 05/17/2023 CBC WITH AUTO- DIFFE RENTI AL WBC 3.2 10*3/ uL 3.4-10 .8 low Not Available [facility] [address], [place], [address], 05/20/2023 15:09:42 05/17/19 24 05/17/2023 CBC WITH AUTO- DIFFE RENTI AL RBC 3.68 10*6/ uL 3.80-5 .30 low Not Available [facility] [address] [facility] [address], [place], [address], 05/20/2023 15:09:42 05/17/19 24 05/17/2023 CBC WITH AUTO- DIFFE RENTI AL HGB 11.5 g/dL 11.1-1 5.9 Not Available [facility] [address], [place], [address], 05/20/2023 15:09:42 05/17/19 24 05/17/2023 CBC WITH AUTO- DIFFE RENTI AL HCT 35.4 % 34.0-4 6.6 Not Available [facility] [address], [place], [address], 05/20/2023 15:09:42 05/17/19 24 05/17/2023 CBC WITH AUTO- DIFFE RENTI AL MCV 96 fL 79-97 Not Available [facility] [address] [facility] [address], [place], [address], 05/20/2023 15:09:42 05/17/19 24 05/17/2023 CBC WITH AUTO- DIFFE RENTI AL MCH 31.3 pg 26.6-3 3.0 Not Available [facility] [address], [place], [address], 05/20/2023 15:09:42 05/17/19 24 05/17/2023 CBC WITH AUTO- DIFFE RENTI AL MCHC 32.5 g/dL 31.5-3 5.7 Not Available [facility] [address] [facility] [address], [place], [address], 05/20/2023 15:09:42 05/17/19 24 05/17/2023 CBC WITH AUTO- DIFFE RENTI AL RDW 13.2 % 11.5-1 4.5 Not Available [facility] [address] [facility] [address], [place], [address], 05/20/2023 15:09:42 05/17/19 24 05/17/2023 CBC WITH AUTO- DIFFE RENTI AL platelets 129 10*3/ uL 150-40 0 low sampl e check ed for clots Not Available [facility] [address] [facility] [address], [place], [address], 05/20/2023 15:09:42 05/17/19 24 05/17/2023 CBC WITH AUTO- DIFFE RENTI AL MPV 11 fL 9-13 Not Available [facility] [address] [facility] [address], [place], [address], 05/20/2023 15:09:42 05/17/19 24 05/17/2023 CBC WITH AUTO- DIFFE RENTI AL neutrophils 47.6 % 40.0-7 4.0 Not Available [facility] [address] [facility] [address], [place], [address], 05/20/2023 15:09:42 05/17/19 24 05/17/2023 CBC WITH AUTO- DIFFE RENTI AL absolute neutrophils 1.50 10*3/ uL 1.40-7 .00 Not Available [facility] [address] [facility] [address], [place], [address], 05/20/2023 15:09:42 05/17/19 24 05/17/2023 CBC WITH AUTO- DIFFE RENTI AL lymphocytes 33.2 % 14.0-4 6.0 Not Available [facility] [address] [facility] [address], [place], [address], 05/20/2023 15:09:42 05/17/19 24 05/17/2023 CBC WITH AUTO- DIFFE RENTI AL absolute lymphocytes 1.05 10*3/ uL 0.70-3 .10 Not Available [facility] [address] [facility] [address], [place], [address], 05/20/2023 15:09:42 05/17/19 24 05/17/2023 CBC WITH AUTO- DIFFE RENTI AL monocytes 14.2 % 4.0-12 .0 high Not Available [facility] [address] [facility] [address], [place], [address], 05/20/2023 15:09:42 05/17/19 24 05/17/2023 CBC WITH AUTO- DIFFE RENTI AL absolute monocytes 0.45 10*3/ uL 0.10-0 .90 Not Available [facility] [address] [facility] [address], [place], [address], 05/20/2023 15:09:42 05/17/19 24 05/17/2023 CBC WITH AUTO- DIFFE RENTI AL eosinophils 3.8 % 0.0-5. 0 Not Available [facility] [address] [facility] [address], [place], [address], 05/20/2023 15:09:42 05/17/19 24 05/17/2023 CBC WITH AUTO- DIFFE RENTI AL absolute eosinophils 0.12 10*3/ uL 0.00-0 .40 Not Available [facility] [address] [facility] [address], [place], [address], 05/20/2023 15:09:42 05/17/19 24 05/17/2023 CBC WITH AUTO- DIFFE RENTI AL basophils 0.9 % 0.0-3. 0 Not Available [facility] [address] [facility] [address], [place], [address], 05/20/2023 15:09:42 05/17/19 24 05/17/2023 CBC WITH AUTO- DIFFE RENTI AL absolute basophils 0.03 10*3/ uL 0.00-0 .20 Not Available [facility] [address] [facility] [address], [place], [address], 05/20/2023 15:09:42 05/17/19 24 05/17/2023 CBC WITH AUTO- DIFFE RENTI AL imm. gran. 0.3 % 0.0-2. 0 Not Available [facility] [address] [facility] [address], [place], [address], 05/20/2023 15:09:42 05/17/19 24 05/17/2023 CBC WITH AUTO- DIFFE RENTI AL abs. imm. gran. 0.01 10*3/ uL 0.00-0 .10 Not Available [facility] [address] [facility] [address], [place], [address], 05/20/2023 15:09:42 05/17/19 24 05/17/2023 COMPR EHENS JAMEEL METAB OLIC PANEL sodium 143 mmol/ L 134-14 4 Not Available [facility] [address] [facility] [address], [place], [address], 05/20/2023 15:09:42 05/17/19 24 05/17/2023 COMPR EHENS JAMEEL METAB OLIC PANEL potassium 4.4 mmol/ L 3.5-5. 2 Not Available [facility] [address] [facility] [address], [place], [address], 05/20/2023 15:09:42 05/17/19 24 05/17/2023 COMPR EHENS JAMEEL METAB OLIC PANEL chloride 105 mmol/ L 97-108 Not Available [facility] [address] [facility] [address], [place], [address], 05/20/2023 15:09:42 05/17/19 24 05/17/2023 COMPR EHENS JAMEEL METAB OLIC PANEL carbon dioxide (co2) 31.0 mmol/ L 18.0-2 9.0 high Not Available [facility] [address] [facility] [address], [place], [address], 05/20/2023 15:09:42 05/17/19 24 05/17/2023 COMPR EHENS JAMEEL METAB OLIC PANEL glucose 87 mg/dL 65-99 Elisabeth l Fasti ng: < 100 mg/dL Impai red Fasti n - 125 mg/dL Diagn ostic of Diabe kana: => 126 mg/dL Ameri can Diabe kana [facility] i[facility] n, 2008 Not Available [facility] [address] [facility] [address], [place], [address], 05/20/2023 15:09:42 05/17/19 24 05/17/2023 COMPR EHENS JAMEEL METAB OLIC PANEL urea nitrogen (BUN) 20 mg/dL 8-23 Not Available [facility] [address] [facility] [address], [place], [address], 05/20/2023 15:09:42 05/17/19 24 05/17/2023 COMPR EHENS JAMEEL METAB OLIC PANEL creatinine 1.03 mg/dL 0.57-1 .00 high Not Available [facility] [address] [facility] [address], [place], [address], 05/20/2023 15:09:42 05/17/19 24 05/17/2023 COMPR EHENS JAMEEL METAB OLIC PANEL eGFR for nonafrican AM 51 mL/mi nute/ 1.73_ m2 >59 low Not Available [facility] [address] [facility] [address], [place], [address], 05/20/2023 15:09:42 05/17/19 24 05/17/2023 COMPR EHENS JAMEEL METAB OLIC PANEL eGFR for AM 62 mL/mi nute/ 1.73_ m2 >59 MDRD Study Equat ion: The calcu lated GFR is NOT appli cable for pedia tric (< 18 years old) and > 70 year old patie nts and patie nts that are NOT of stead [place] . Not Available [facility] [address] [facility] [address], [place], [address], 05/20/2023 15:09:42 05/17/19 24 05/17/2023 COMPR EHENS JAMEEL METAB OLIC PANEL calcium 9.6 mg/dL 8.7-10 .3 Not Available [facility] [address] [facility] [address], [place], [address], 05/20/2023 15:09:42 05/17/19 24 05/17/2023 COMPR EHENS JAMEEL METAB OLIC PANEL protein, total 6.6 gm/dL 6.4-8. 3 Not Available [facility] [address] [facility] [address], [place], [address], 05/20/2023 15:09:42 05/17/19 24 05/17/2023 COMPR EHENS JAMEEL METAB OLIC PANEL albumin 4.3 gm/dL 3.5-5. 2 Not Available [facility] [address] [facility] [address], [place], [address], 05/20/2023 15:09:42 05/17/19 24 05/17/2023 COMPR EHENS JAMEEL METAB OLIC PANEL bilirubin, total 0.40 mg/dL 0.00-1 .20 Not Available [facility] [address] [facility] [address], [place], [address], 05/20/2023 15:09:42 05/17/19 24 05/17/2023 COMPR EHENS JAMEEL METAB OLIC PANEL alkaline phosphatase (ALP) 50 U/L 39-117 Not Available [facility] [address] [facility] [address], [place], [address], 05/20/2023 15:09:42 05/17/19 24 05/17/2023 COMPR EHENS JAMEEL METAB OLIC PANEL aspartate aminotransfe rase (AST) 14 U/L 0-32 Not Available [facility] [address] [facility] [address], [place], [address], 05/20/2023 15:09:42 05/17/19 24 05/17/2023 COMPR EHENS JAMEEL METAB OLIC PANEL alanine aminotransfe rase (ALT) 8 U/L 0-33 Not Available [facility] [address] [facility] [address], [place], [address], 05/20/2023 15:09:42 05/17/19 24 05/17/2023 COMPR EHENS JAMEEL METAB OLIC PANEL A/G ratio (calculated) 1.9 ratio 1.0-2. 7 Not Available [facility] [address] [facility] [address], [place], [address], 05/20/2023 15:09:42 05/17/19 24 05/17/2023 COMPR EHENS JAMEEL METAB OLIC PANEL globulin (calculated) 2.3 gm/dL 1.5-3. 8 Not Available [facility] [address] [facility] [address], [place], [address], 05/20/2023 15:09:42 05/17/19 24 05/17/2023 COMPR EHENS JAMEEL METAB OLIC PANEL BUN/creatini ne ratio (calculated) 19.4 ratio 8.0-20 .0 Not Available [facility] [address] [facility] [address], [place], [address], 05/20/2023 15:09:42 05/17/19 24 05/17/2023 COMPR EHENS JAMEEL METAB OLIC PANEL serum hemolysis index NORMAL index normal Not Available [facility] [address] [facility] [address], [place], [address], 05/20/2023 15:09:42 05/17/19 24 05/17/2023 FOLAT E, SERUM folate 20.0 NG/mL 20 REFER ENCE RANGE : Elisabeth l: > 3.0 ng/mL Inter media te: 2.2 - 3.0 ng/mL Defic ient: < 2.2 ng/mL Not Available [facility] [address] [facility] [address], [place], [address], 05/20/2023 15:09:43 05/17/19 24 05/17/2023 MAGNE SIUM magnesium 1.7 mg/dL 1.6-2. 6 Not Available [facility] [address] [facility] [address], [place], [address], 05/20/2023 15:09:44 05/17/19 24 05/17/2023 VITAM IN B12 vitamin B12 2000 pg/mL 232-12 45 high Not Available [facility] [address] [facility] [address], [place], [address], 05/20/2023 15:09:44 05/17/19 24 05/17/2023 VITAM IN D, 25-HY DROXY TOTAL vitamin D, total 50.0 NG/mL 30.0-1 00.0 The Vitam in D Assay formu latio n has been updat ed to offer direc t trace abili ty to ID-LC -MS/M S Refer ence Measu remen t Proce dure along with a reduc tion in bioti n inter feren ce. Defic ient: < 20 ng/mL Insuf ficie nt: 21 - 29 ng/mL Suffi cient : 30 - 100 ng/mL Poten tial Intox icati on: > 100 ng/mL Not Available [facility] [address] [facility] [address], [place], [address], 05/20/2023 15:09:44 05/17/19 24 05/20/2023 C-PEP TIDE SERUM C-peptide, serum 7.8 NG/mL 1.1-4. 4 high C-Pep tide refer ence inter horacio is for fasti ng patie nts. Not Available [facility] [address] [facility] [address], [place], [address], 05/20/2023 15:09:45 08/06/19 24 08/06/2023 toro metry testi ng* Spirometry Not Available [facility], [facility] [address], [place], [place], [id number], 08/03/2023 12:42:25 10/03/19 24 10/03/2023 CBC WITH AUTO- DIFFE RENTI AL WBC 2.8 10*3/ uL 3.4-10 .8 low Not Available [facility] [address], [place], [address], 10/04/2023 10:36:10 10/03/19 24 10/03/2023 CBC WITH AUTO- DIFFE RENTI AL RBC 3.11 10*6/ uL 3.80-5 .30 low Not Available [facility] [address] [facility] [address] [address], [place], [address], 10/04/2023 10:36:10 10/03/19 24 10/03/2023 CBC WITH AUTO- DIFFE RENTI AL HGB 9.6 g/dL 11.1-1 5.9 low Not Available [facility] [address] [facility] [address], [place], [address], 10/04/2023 10:36:10 10/03/19 24 10/03/2023 CBC WITH AUTO- DIFFE RENTI AL HCT 30.5 % 34.0-4 6.6 low Not Available [facility] [address] [facility] [address], [place], [address], 10/04/2023 10:36:10 10/03/19 24 10/03/2023 CBC WITH AUTO- DIFFE RENTI AL MCV 98 fL 79-97 high Not Available [facility] [address], [place], [address], 10/04/2023 10:36:10 10/03/19 24 10/03/2023 CBC WITH AUTO- DIFFE RENTI AL MCH 30.9 pg 26.6-3 3.0 Not Available [facility] [address], [place], [address], 10/04/2023 10:36:10 10/03/19 24 10/03/2023 CBC WITH AUTO- DIFFE RENTI AL MCHC 31.5 g/dL 31.5-3 5.7 Not Available [facility] [address], [place], [address], 10/04/2023 10:36:10 10/03/19 24 10/03/2023 CBC WITH AUTO- DIFFE RENTI AL RDW 13.0 % 11.5-1 4.5 Not Available [facility] [address], [place], [address], 10/04/2023 10:36:10 10/03/19 24 10/03/2023 CBC WITH AUTO- DIFFE RENTI AL platelets 142 10*3/ uL 150-40 0 low Not Available [facility] [address], [place], [address], 10/04/2023 10:36:10 10/03/19 24 10/03/2023 CBC WITH AUTO- DIFFE RENTI AL MPV 11 fL 9-13 Not Available [facility] [address], [place], [address], 10/04/2023 10:36:10 10/03/19 24 10/03/2023 CBC WITH AUTO- DIFFE RENTI AL neutrophils 52.9 % 40.0-7 4.0 Not Available [facility] [address] [facility] [address], [place], [address], 10/04/2023 10:36:10 10/03/19 24 10/03/2023 CBC WITH AUTO- DIFFE RENTI AL absolute neutrophils 1.48 10*3/ uL 1.40-7 .00 Not Available [facility] [address] [facility] [address], [place], [address], 10/04/2023 10:36:10 10/03/19 24 10/03/2023 CBC WITH AUTO- DIFFE RENTI AL lymphocytes 32.1 % 14.0-4 6.0 Not Available [facility] [address] [facility] [address], [place], [address], 10/04/2023 10:36:10 10/03/19 24 10/03/2023 CBC WITH AUTO- DIFFE RENTI AL absolute lymphocytes 0.90 10*3/ uL 0.70-3 .10 Not Available [facility] [address] [facility] [address], [place], [address], 10/04/2023 10:36:10 10/03/19 24 10/03/2023 CBC WITH AUTO- DIFFE RENTI AL monocytes 11.1 % 4.0-12 .0 Not Available [facility] [address] [facility] [address], [place], [address], 10/04/2023 10:36:10 10/03/19 24 10/03/2023 CBC WITH AUTO- DIFFE RENTI AL absolute monocytes 0.31 10*3/ uL 0.10-0 .90 Not Available [facility] [address] [facility] [address], [place], [address], 10/04/2023 10:36:10 10/03/19 24 10/03/2023 CBC WITH AUTO- DIFFE RENTI AL eosinophils 3.2 % 0.0-5. 0 Not Available [address], [place], [address], 10/04/2023 10:36:10 10/03/19 24 10/03/2023 CBC WITH AUTO- DIFFE RENTI AL absolute eosinophils 0.09 10*3/ uL 0.00-0 .40 Not Available [facility] [address] [facility] [address], [place], [address], 10/04/2023 10:36:10 10/03/19 24 10/03/2023 CBC WITH AUTO- DIFFE RENTI AL basophils 0.7 % 0.0-3. 0 Not Available [facility] [address] [facility] [address], [place], [address], 10/04/2023 10:36:10 10/03/19 24 10/03/2023 CBC WITH AUTO- DIFFE RENTI AL absolute basophils 0.02 10*3/ uL 0.00-0 .20 Not Available [facility] [address] [facility] [address], [place], [address], 10/04/2023 10:36:10 10/03/19 24 10/03/2023 CBC WITH AUTO- DIFFE RENTI AL imm. gran. 0.0 % 0.0-2. 0 Not Available [facility] [address] [facility] [address], [place], [address], 10/04/2023 10:36:10 10/03/19 24 10/03/2023 CBC WITH AUTO- DIFFE RENTI AL abs. imm. gran. 0.00 10*3/ uL 0.00-0 .10 Not Available [facility] [address] [facility] [address], [place], [address], 10/04/2023 10:36:10 10/03/19 24 10/03/2023 COMPR EHENS JAMEEL METAB OLIC PANEL sodium 141 mmol/ L 134-14 4 Not Available [facility] [address] [facility] [address], [place], [address], 10/04/2023 10:36:11 10/03/19 24 10/03/2023 COMPR EHENS JAMEEL METAB OLIC PANEL potassium 4.1 mmol/ L 3.5-5. 2 Not Available [facility] [address] [facility] [address], [place], [address], 10/04/2023 10:36:11 10/03/19 24 10/03/2023 COMPR EHENS JAMEEL METAB OLIC PANEL chloride 103 mmol/ L 97-108 Not Available [facility] [address] [facility] [address], [place], [address], 10/04/2023 10:36:11 10/03/19 24 10/03/2023 COMPR EHENS JAMEEL METAB OLIC PANEL carbon dioxide (co2) 27.0 mmol/ L 18.0-2 9.0 Not Available [facility] [address] [facility] [address], [place], [address], 10/04/2023 10:36:11 10/03/19 24 10/03/2023 COMPR EHENS JAMEEL METAB OLIC PANEL glucose 154 mg/dL 65-99 high Elisabeth l Fasti ng: < 100 mg/dL Impai red Fasti n - 125 mg/dL Diagn ostic of Diabe kana: => 126 mg/dL Ameri can [facility], 2007 Not Available [facility] [address] [facility] [address], [place], [address], 10/04/2023 10:36:11 10/03/19 24 10/03/2023 COMPR EHENS JAMEEL METAB OLIC PANEL urea nitrogen (BUN) 19 mg/dL 8-23 Not Available [facility] [address] [facility] [address], [place], [address], 10/04/2023 10:36:11 10/03/19 24 10/03/2023 COMPR EHENS JAMEEL METAB OLIC PANEL creatinine 0.89 mg/dL 0.57-1 .00 Not Available [facility] [address] [facility] [address], [place], [address], 10/04/2023 10:36:11 10/03/19 24 10/03/2023 COMPR EHENS JAMEEL METAB OLIC PANEL eGFR 63 mL/mi nute/ 1.73_ m2 >59 MDRD Study Equat ion: The calcu lated GFR is NOT appli cable for pedia tric (< 18 years old) and > 70 year old patie nts and patie nts that are NOT of [place] . Not Available [facility] [address] [facility] [address], [place], [address], 10/04/2023 10:36:11 10/03/19 24 10/03/2023 COMPR EHENS JAMEEL METAB OLIC PANEL calcium 9.1 mg/dL 8.7-10 .3 Not Available [facility] [address] [facility] [address], [place], [address], 10/04/2023 10:36:11 10/03/19 24 10/03/2023 COMPR EHENS JAMEEL METAB OLIC PANEL protein, total 6.3 gm/dL 6.4-8. 3 low Not Available [facility] [address] [facility] [address], [place], [address], 10/04/2023 10:36:11 10/03/19 24 10/03/2023 COMPR EHENS JAMEEL METAB OLIC PANEL albumin 4.2 gm/dL 3.5-5. 2 Not Available [facility] [address] [facility] [address], [place], [address], 10/04/2023 10:36:11 10/03/19 24 10/03/2023 COMPR EHENS JAMEEL METAB OLIC PANEL bilirubin, total 0.50 mg/dL 0.00-1 .20 Not Available [facility] [address] [facility] [address], [place], [address], 10/04/2023 10:36:11 10/03/19 24 10/03/2023 COMPR EHENS JAMEEL METAB OLIC PANEL alkaline phosphatase (ALP) 45 U/L 39-117 Not Available [facility] [address] [facility] [address], [place], [address], 10/04/2023 10:36:11 10/03/19 24 10/03/2023 COMPR EHENS JAMEEL METAB OLIC PANEL aspartate aminotransfe rase (AST) 13 U/L 0-32 Not Available [facility] [address] [facility] [address], [place], [address], 10/04/2023 10:36:11 10/03/19 24 10/03/2023 COMPR EHENS JAMEEL METAB OLIC PANEL alanine aminotransfe rase (ALT) 7 U/L 0-33 Not Available [facility] [address] [facility] [address], [place], [address], 10/04/2023 10:36:11 10/03/19 24 10/03/2023 COMPR EHENS JAMEEL METAB OLIC PANEL A/G ratio (calculated) 2.0 ratio 1.0-2. 7 Not Available [facility] [address] [facility] [address], [place], [address], 10/04/2023 10:36:11 10/03/19 24 10/03/2023 COMPR EHENS JAMEEL METAB OLIC PANEL globulin (calculated) 2.1 gm/dL 1.5-3. 8 Not Available [facility] [address] [facility] [address], [place], [address], 10/04/2023 10:36:11 10/03/19 24 10/03/2023 COMPR EHENS JAMEEL METAB OLIC PANEL BUN/creatini ne ratio (calculated) 21.3 ratio 8.0-20 .0 high Not Available [facility] [address] [facility] [address], [place], [address], 10/04/2023 10:36:11 10/03/19 24 10/03/2023 COMPR EHENS JAMEEL METAB OLIC PANEL serum hemolysis index NORMAL index normal Not Available [facility] [address], [place], [address], 10/04/2023 10:36:11 10/03/19 24 10/03/2023 LIPID PANEL W/ CALC. LDL cholesterol, total 106 mg/dL 100-19 9 Not Available [facility] [address] [facility] [address], [place], [address], 10/04/2023 10:36:12 10/03/19 24 10/03/2023 LIPID PANEL W/ CALC. LDL HDL cholesterol 59 mg/dL =>40 Not Available [facility] [address] [facility] [address], [place], [address], 10/04/2023 10:36:12 10/03/19 24 10/03/2023 LIPID PANEL W/ CALC. LDL LDL cholesterol (calculated) 31 mg/dL 0-99 Not Available [facility] [address] [facility] [address], [place], [address], 10/04/2023 10:36:12 10/03/19 24 10/03/2023 LIPID PANEL W/ CALC. LDL triglyceride s 80 mg/dL 50-149 Not Available [facility] [address] [facility] [address], [place], [address], 10/04/2023 10:36:12 10/03/19 24 10/03/2023 LIPID PANEL W/ CALC. LDL chol/HDL ratio (calculated) 1.80 ratio 0.00-5 .00 Not Available [facility] [address] [facility] [address], [place], [address], 10/04/2023 10:36:12 10/03/19 24 10/03/2023 LIPID PANEL W/ CALC. LDL VLDL cholesterol (calculated) 16 mg/dL 5-40 Not Available [facility] [address] [facility] [address], [place], [address], 10/04/2023 10:36:12 10/15/19 24 10/15/2023 IRON PANEL iron 30 mcg/d L 27-139 Not Available [facility] [address] [facility] [address], [place], [address], 10/16/2023 14:37:25 10/15/19 24 10/15/2023 IRON PANEL UIBC 327 ug/dL 111-34 3 Not Available [facility] [address] [facility] [address], [place], [address], 10/16/2023 14:37:25 10/15/19 24 10/15/2023 IRON PANEL total iron binding capacity 357.0 mcg/d L 250.0- 450.0 Not Available [facility] [address] [facility] [address], [place], [address], 10/16/2023 14:37:25 10/15/19 24 10/15/2023 IRON PANEL iron saturation (calculated) 8.4 % 15.0-5 5.0 low Not Available [facility] [address] [facility] [address], [place], [address], 10/16/2023 14:37:25 10/15/19 24 10/15/2023 VITAM IN B12 vitamin B12 2000 pg/mL 232-12 45 high Not Available [facility] [address] [facility] [address], [place], [address], 10/16/2023 14:37:26 10/23/19 24 10/23/2023 OCCUL T BLOOD , FECAL , IA occult blood POSITI VE negati ve abnormal Not Available [facility] [address] [facility] [address], [place], [address], 10/24/2023 15:08:12 01/15/20 24 01/15/2024 Magne sium [Mass /volu me] in Serum or Plasm a magnesium [mass/volume ] in serum or plasma 1.6 text: 1.8 - 2.4 mg/dL low MAGNE SIUM 1.6 (L) 1.8 - 2.4 MG/DL 01/14 8:33 PM CDT [facility] Not Available Not Available 07/17/2024 13:29:31 01/15/20 24 01/15/2024 Magne sium [Mass /volu me] in Serum or Plasm a interpretati on and review of laboratory results Abnorm al Not Available Not Available 13:29:31 01/15/20 24 01/15/2024 Natri ureti c pepti de.B proho rmone N-Ter abena [Mass /volu me] in Serum or Plasm a natriuretic peptide.B prohormone N-terminal [mass/volume ] in serum or plasma 774 pg/mL high: 450pg/ mL high PRO-B TYPE NATRI URETI C PEPTI DE 774 (H) <450 PG/ML 01/14 8:33 PM CDT [facility] Not Available Not Available 07/17/2024 13:29:30 01/15/20 24 01/15/2024 Natri ureti c pepti de.B proho rmone N-Ter abena [Mass /volu me] in Serum or Plasm a interpretati on and review of laboratory results Abnorm al Not Available Not Available 13:29:30 01/15/20 24 01/15/2024 Compr ehens jameel metab olic 1999 panel - Serum or Plasm a glucose [mass/volume ] in serum or plasma 86 text: 70 - 99 mg/dL GLUCO SE 86 70 - 99 MG/DL 01/14 8:33 PM CDT [facility] Not Available Not Available 07/17/2024 13:29:30 01/15/20 24 01/15/2024 Compr ehens jameel metab olic 1999 panel - Serum or Plasm a urea nitrogen [mass/volume ] in serum or plasma 18 text: 7 - 18 mg/dL BUN 18 7 - 18 MG/DL 01/14 8:33 PM CDT [facility] Not Available Not Available 07/17/2024 13:29:30 01/15/20 24 01/15/2024 Compr ehens jameel metab olic 1999 panel - Serum or Plasm a creatinine [mass/volume ] in serum or plasma 1.06 text: 0.55 - 1.02 mg/dL high CREAT ININE S/P/B 1.06 (H) 0.55 - 1.02 MG/DL 01/14 8:33 PM CDT [facility] Not Available Not Available 07/17/2024 13:29:30 01/15/20 24 01/15/2024 Compr ehens jameel metab olic 1999 panel - Serum or Plasm a sodium [moles/volum e] in serum or plasma 137 text: 136 - 145 mmol/L SODIU M S/P/B 137 136 - 145 MMOL/ L 01/14 8:33 PM CDT [facility] Not Available Not Available 07/17/2024 13:29:30 01/15/20 24 01/15/2024 Compr ehens jameel metab olic 2000 panel - Serum or Plasm a potassium [moles/volum e] in serum or plasma 4.2 text: 3.5 - 5.1 mmol/L POTAS SIUM S/P/B 4.2 3.5 - 5.1 MMOL/ L 01/14 8:33 PM CDT [facility] Not Available Not Available 07/17/2024 13:29:30 01/15/20 24 01/15/2024 Compr ehens jameel metab olic 2000 panel - Serum or Plasm a chloride [moles/volum e] in serum or plasma 103 text: 97 - 115 mmol/L CHLOR RENZO S/P/B 103 97 - 115 MMOL/ L 01/14 8:33 PM CDT [facility] Not Available Not Available 07/17/2024 13:29:30 01/15/20 24 01/15/2024 Compr ehens jameel metab olic 2000 panel - Serum or Plasm a carbon dioxide, total [moles/volum e] in serum or plasma 29.8 text: 21 - 32 mmol/L CO2 29.8 21 - 32 MMOL/ L 01/14 8:33 PM CDT [facility] Not Available Not Available 07/17/2024 13:29:30 01/15/20 24 01/15/2024 Compr ens jameel metab olic 1999 panel - Serum or Plasm a calcium [mass/volume ] in serum or plasma 8.9 text: 8.5 - 10.1 mg/dL CALCI UM S/P/B 8.9 8.5 - 10.1 MG/DL 01/14 8:33 PM CDT [facility] Not Available Not Available 07/17/2024 13:29:30 01/15/20 24 01/15/2024 Compr ehens jameel metab olic 2000 panel - Serum or Plasm a bilirubin.to chente [mass/volume ] in serum or plasma 0.4 text: 0.2 - 1.2 mg/dL BILIR UBIN TOTAL S/P/B 0.4 0.2 - 1.2 MG/DL 01/14 8:33 PM CDT [facility] Not Available Not Available 07/17/2024 13:29:30 01/15/20 24 01/15/2024 Compr ehens jameel metab olic 1999 panel - Serum or Plasm a protein [mass/volume ] in serum or plasma 7.4 text: 6.4 - 8.2 g/dL TOTAL PROTE IN S/P/B 7.4 6.4 - 8.2 G/DL 01/14 8:33 PM CDT [facility] Not Available Not Available 07/17/2024 13:29:30 01/15/20 24 01/15/2024 Compr ehens jameel metab olic 2000 panel - Serum or Plasm a albumin [mass/volume ] in serum or plasma 3.5 text: 3.4 - 5.0 g/dL ALBUM IN S/P/B 3.5 3.4 - 5.0 G/DL 01/14 8:33 PM CDT [facility] Not Available Not Available 07/17/2024 13:29:30 01/15/20 24 01/15/2024 Compr ehens jameel metab olic 1999 panel - Serum or Plasm a aspartate aminotransfe rase [enzymatic activity/vol ume] in serum or plasma 15 U/L low: 15U/Lh igh: 37U/L AST 15 15 - 37 U/L 01/14 8:33 PM CDT [facility] Not Available Not Available 07/17/2024 13:29:30 01/15/20 24 01/15/2024 Compr ehens jameel metab olic 1999 panel - Serum or Plasm a alanine aminotransfe rase [enzymatic activity/vol ume] in serum or plasma 15 U/L low: 14U/Lh igh: 55U/L ALT 15 14 - 55 U/L 01/14 8:33 PM CDT [facility] Not Available Not Available 07/17/2024 13:29:30 01/15/20 24 01/15/2024 Compr ehens jameel metab olic 2000 panel - Serum or Plasm a alkaline phosphatase [enzymatic activity/vol ume] in serum or plasma 50 U/L low: 50U/Lh igh: 136U/L ALKAL INE PHOSP HATAS E S/P/B 50 50 - 136 U/L 01/14 8:33 PM CDT [facility] Not Available Not Available 07/17/2024 13:29:30 01/15/20 24 01/15/2024 Compr ehens jameel metab olic 1999 panel - Serum or Plasm a anion gap in serum or plasma by calculation 4.2 text: 2 - 10 mmol/L ANION GAP 4.2 2 - 10 MMOL/ L 01/14 8:33 PM CDT [facility] Not Available Not Available 07/17/2024 13:29:30 01/15/20 24 01/15/2024 Compr ehens jameel metab olic 2000 panel - Serum or Plasm a urea nitrogen/cre atinine [mass ratio] in serum or plasma 17 low: 6high: 26 BUN CREAT ININE RATIO 17.0 6 - 26 01/14 8:33 PM CDT [facility] Not Available Not Available 07/17/2024 13:29:30 01/15/20 24 01/15/2024 Compr ens jameel metab olic 1999 panel - Serum or Plasm a albumin/glob ulin [mass ratio] in serum or plasma 0.9 text: 1.0 - 2.0 ratio low A/G RATIO 0.9 (L) 1.0 - 2.0 RATIO 01/14 8:33 PM CDT [facility] Not Available Not Available 07/17/2024 13:29:30 01/15/20 24 01/15/2024 Compr ehens jameel metab olic 1999 panel - Serum or Plasm a glomerular filtration rate [volume rate/area] in serum, plasma or blood by creatinine-b ased formula (CKD-epi 2020)/1.73 sq M 51 text: >90 mL/min /1.73 M2 low GFR ESTIM ATE 51 (L) >90 ML/AL N/1.7 3 M2 01/14 8:33 PM CDT [facility] Not Available Not Available 07/17/2024 13:29:30 01/15/20 24 01/15/2024 Compr ens jameel [employer] olic 2000 panel - Serum or Plasm a interpretati on and review of laboratory results Abnorm al Not Available Not Available 13:29:30 01/15/20 24 01/15/2024 Proth rombi n time (PT) prothrombin time (PT) 12.7 text: 10.2 - 12.9 sec PROTI ME 12.7 10.2 - 12.9 SEC 01/14 8:18 PM CDT [facility] Not Available Not Available 07/17/2024 13:29:30 01/15/20 24 01/15/2024 Proth rombi n time (PT) INR in platelet poor plasma by coagulation assay 1.1 INR 1.1 01/14 8:18 PM CDT [facility] Not Available Not Available 07/17/2024 13:29:30 01/15/20 24 01/15/2024 CBC W Auto Diffe renti al panel - Blood leukocytes [#/volume] in blood by automated count 3.73 text: 4.5 - 11.0 x10'3/ uL low WBC 3.73 (L) 4.5 - 11.0 x10'3 /uL 01/14 8:05 PM CDT [facility] Not Available Not Available 07/17/2024 13:29:30 01/15/20 24 01/15/2024 CBC W Auto Diffe renti al panel - Blood erythrocytes [#/volume] in blood by automated count 3.53 text: 4.20 - 5.40 x10'6/ uL low RBC 3.53 (L) 4.20 - 5.40 x10'6 /uL 01/14 8:05 PM CDT [facility] Not Available Not Available 07/17/2024 13:29:30 01/15/20 24 01/15/2024 CBC W Auto Diffe renti al panel - Blood hemoglobin [mass/volume ] in blood 8.6 text: 12.0 - 16.0 g/dL low HGB 8.6 (L) 12.0 - 16.0 G/DL 01/14 8:05 PM CDT [facility] Not Available Not Available 07/17/2024 13:29:30 01/15/20 24 01/15/2024 CBC W Auto Diffe renti al panel - Blood hematocrit [volume fraction] of blood by calculation 29.5 % low: 38%hig h: 48% low HCT 29.5 (L) 38.0 - 48.0 % 01/14 8:05 PM CDT [facility] Not Available Not Available 07/17/2024 13:29:30 01/15/20 24 01/15/2024 CBC W Auto Diffe renti al panel - Blood MCV [entitic mean volume] in red blood cells 83.6 text: 81.0 - 99.0 fL MCV 83.6 81.0 - 99.0 FL 01/14 8:05 PM CDT [facility] Not Available Not Available 07/17/2024 13:29:30 01/15/20 24 01/15/2024 CBC W Auto Diffe renti al panel - Blood MCH [entitic mass] 24.4 pg low: 27pghi gh: 31pg low MCH 24.4 (L) 27.0 - 31.0 PG 01/14 8:05 PM CDT [facility] Not Available Not Available 07/17/2024 13:29:30 01/15/20 24 01/15/2024 CBC W Auto Diffe renti al panel - Blood MCHC [entitic mass/volume] in red blood cells 29.2 text: 32.0 - 36.0 g/dL low MCHC 29.2 (L) 32.0 - 36.0 G/DL 01/14 8:05 PM CDT [facility] Not Available Not Available 07/17/2024 13:29:30 01/15/20 24 01/15/2024 CBC W Auto Diffe renti al panel - Blood RDW 14.4 % low: 11.5%h igh: 14.5% RDW 14.4 11.5 - 14.5 % 01/14 8:05 PM CDT [facility] Not Available Not Available 07/17/2024 13:29:30 01/15/20 24 01/15/2024 CBC W Auto Diffe renti al panel - Blood platelets [#/volume] in blood 157 text: 130 - 400 x10'3/ uL PLT 157 130 - 400 x10'3 /uL 01/14 8:05 PM CDT [facility] Not Available Not Available 07/17/2024 13:29:30 01/15/20 24 01/15/2024 CBC W Auto Diffe renti al panel - Blood platelet [entitic mean volume] in blood 10.5 text: 9.3 - 12.2 fL MPV 10.5 9.3 - 12.2 FL 01/14 8:05 PM CDT [facility] Not Available Not Available 07/17/2024 13:29:30 01/15/20 24 01/15/2024 CBC W Auto Diffe renti al panel - Blood differential cell count method - blood AUTOMA ARLETH DIFFER ENTIAL DIFFE RENTI AL TYPE AUTOM ATED DIFFE RENTI AL 01/14 8:05 PM CDT [facility] Not Available Not Available 07/17/2024 13:29:30 01/15/20 24 01/15/2024 CBC W Auto Diffe renti al panel - Blood neutrophils/ leukocytes in blood by automated count 47.7 % NEUTR OPHIL S % 47.7 % 01/14 8:05 PM CDT [facility] Not Available Not Available 07/17/2024 13:29:30 01/15/20 24 01/15/2024 CBC W Auto Diffe renti al panel - Blood lymphocytes/ leukocytes in blood by automated count 34.9 % LYMPH OCYTE S % 34.9 % 01/14 8:05 PM CDT [facility] Not Available Not Available 07/17/2024 13:29:30 01/15/20 24 01/15/2024 CBC W Auto Diffe renti al panel - Blood monocytes/le ukocytes in blood by automated count 13.1 % MONOC YTES % 13.1 % 01/14 8:05 PM CDT [facility] Not Available Not Available 07/17/2024 13:29:30 01/15/20 24 01/15/2024 CBC W Auto Diffe renti al panel - Blood eosinophils/ leukocytes in blood by automated count 3.2 % EOSIN OPHIL S 3.2 % 01/14 8:05 PM CDT [facility] Not Available Not Available 07/17/2024 13:29:30 01/15/20 24 01/15/2024 CBC W Auto Diffe renti al panel - Blood basophils/le ukocytes in blood by automated count 0.8 % BASOP HILS 0.8 % 01/14 8:05 PM CDT [facility] Not Available Not Available 07/17/2024 13:29:30 01/15/20 24 01/15/2024 CBC W Auto Diffe renti al panel - Blood immature granulocytes /leukocytes in blood by automated count 0.3 % IMMAT URE GRANS % 0.3 % 01/14 8:05 PM CDT [facility] Not Available Not Available 07/17/2024 13:29:30 01/15/20 24 01/15/2024 CBC W Auto Diffe renti al panel - Blood neutrophils [#/volume] in blood 1.78 text: 1.80 - 7.70 x10'3/ uL low ABS. NEUTR OPHIL S 1.78 (L) 1.80 - 7.70 x10'3 /uL 01/14 8:05 PM CDT [facility] Not Available Not Available 07/17/2024 13:29:30 01/15/20 24 01/15/2024 CBC W Auto Diffe renti al panel - Blood lymphocytes [#/volume] in blood 1.3 text: 1.00 - 4.80 x10'3/ uL ABS. LYMPH OCYTE S 1.30 1.00 - 4.80 x10'3 /uL 01/14 8:05 PM CDT [facility] Not Available Not Available 07/17/2024 13:29:30 01/15/20 24 01/15/2024 CBC W Auto Diffe renti al panel - Blood monocytes [#/volume] in blood 0.49 text: 0.24 - 0.86 x10'3/ uL ABS. MONOC YTES 0.49 0.24 - 0.86 x10'3 /uL 10/15 /2024 8:05 PM CDT [facility] Not Available Not Available 07/17/2024 13:29:30 01/15/20 24 01/15/2024 CBC W Auto Diffe renti al panel - Blood eosinophils [#/volume] in blood 0.12 text: 0.04 - 0.36 x10'3/ uL ABS. EOSIN OPHIL S 0.12 0.04 - 0.36 x10'3 /uL 01/14 8:05 PM CDT [facility] Not Available Not Available 07/17/2024 13:29:30 01/15/20 24 01/15/2024 CBC W Auto Diffe renti al panel - Blood basophils [#/volume] in blood 0.03 text: 0.01 - 0.08 x10'3/ uL ABS. BASOP HILS 0.03 0.01 - 0.08 x10'3 /uL 01/14 8:05 PM CDT [facility] Not Available Not Available 07/17/2024 13:29:30 01/15/20 24 01/15/2024 CBC W Auto Diffe renti al panel - Blood immature granulocytes [#/volume] in blood 0.01 text: 0.00 - 0.49 x10'3/ uL ABS. IMMAT URE GRANU LOCYT ES 0.01 0.00 - 0.49 x10'3 /uL 01/14 8:05 PM CDT [facility] Not Available Not Available 07/17/2024 13:29:30 01/15/20 24 01/15/2024 CBC W Auto Diffe renti al panel - Blood interpretati on and review of laboratory results Abnorm al Not Available Not Available 13:29:30 02/04/20 24 02/04/2024 HEMOG LOBIN A1C hemoglobin A1C 5.5 % 4.8-5. 6 ELISABETH L RANGE BASED ON CYNTHIA COL 2 (DCCT /NGSP ): Non-D iabet ic: < 5.7% Pre-D iabet es: 5.7 - 6.4% Diabe kana: => 6.5% GLYCE SOL CONTR OL: < 7.0% Not Available [facility] [address], [place], [address], 02/05/2024 13:00:05 02/04/20 24 02/04/2024 HEMOG LOBIN A1C estimated average glucose 110 Not Available [facility] [address], [place], [address], 02/05/2024 13:00:05 02/04/20 24 02/04/2024 CBC WITH AUTO- DIFFE RENTI AL WBC 3.1 10*3/ uL 3.4-10 .8 low Not Available [facility] [address], [place], [address], 02/05/2024 13:00:06 02/04/20 24 02/04/2024 CBC WITH AUTO- DIFFE RENTI AL RBC 3.46 10*6/ uL 3.80-5 .30 low Not Available [facility] [address], [place], [address], 02/05/2024 13:00:06 02/04/20 24 02/04/2024 CBC WITH AUTO- DIFFE RENTI AL HGB 8.3 g/dL 11.1-1 5.9 low Not Available [facility] [address] [facility] [address] [address], [place], [address], 02/05/2024 13:00:06 02/04/20 24 02/04/2024 CBC WITH AUTO- DIFFE RENTI AL HCT 28.4 % 34.0-4 6.6 low Not Available [facility] [address], [place], [address], 02/05/2024 13:00:06 02/04/20 24 02/04/2024 CBC WITH AUTO- DIFFE RENTI AL MCV 82 fL 79-97 Not Available [facility] [address], [place], [address], 02/05/2024 13:00:06 02/04/20 24 02/04/2024 CBC WITH AUTO- DIFFE RENTI AL MCH 24.0 pg 26.6-3 3.0 low Not Available [facility] [address] [facility] [address], [place], [address], 02/05/2024 13:00:06 02/04/20 24 02/04/2024 CBC WITH AUTO- DIFFE RENTI AL MCHC 29.2 g/dL 31.5-3 5.7 low Not Available [facility] [address], [place], [address], 02/05/2024 13:00:06 02/04/20 24 02/04/2024 CBC WITH AUTO- DIFFE RENTI AL RDW 15.5 % 11.5-1 4.5 high Not Available [facility] [address], [place], [address], 02/05/2024 13:00:06 02/04/20 24 02/04/2024 CBC WITH AUTO- DIFFE RENTI AL platelets 148 10*3/ uL 150-40 0 low Not Available [facility] [address], [place], [address], 02/05/2024 13:00:06 02/04/20 24 02/04/2024 CBC WITH AUTO- DIFFE RENTI AL MPV 11 fL 9-13 Not Available [facility] [address], [place], [address], 02/05/2024 13:00:06 02/04/20 24 02/04/2024 CBC WITH AUTO- DIFFE RENTI AL neutrophils 44.6 % 40.0-7 4.0 Not Available [facility] [address], [place], [address], 02/05/2024 13:00:06 11/04/20 24 02/04/2024 CBC WITH AUTO- DIFFE RENTI AL absolute neutrophils 1.40 10*3/ uL 1.40-7 .00 Not Available [facility] [address] [facility], [place], [address], 02/05/2024 13:00:06 02/04/20 24 02/04/2024 CBC WITH AUTO- DIFFE RENTI AL lymphocytes 38.5 % 14.0-4 6.0 Not Available [facility] [address] [facility] [address], [place], [address], 02/05/2024 13:00:06 02/04/2002/04/2024 CBC WITH AUTO- DIFFE RENTI AL absolute lymphocytes 1.21 10*3/ uL 0.70-3 .10 Not Available [facility] [address] [facility] [address], [place], [address], 02/05/2024 13:00:06 02/04/2002/04/2024 CBC WITH AUTO- DIFFE RENTI AL monocytes 12.1 % 4.0-12 .0 high Not Available [facility] [address] [facility] [address], [place], [address], 02/05/2024 13:00:06 02/04/20 24 02/04/2024 CBC WITH AUTO- DIFFE RENTI AL absolute monocytes 0.38 10*3/ uL 0.10-0 .90 Not Available [facility] [address] [facility] [address], [place], [address], 02/05/2024 13:00:06 02/04/20 24 02/04/2024 CBC WITH AUTO- DIFFE RENTI AL eosinophils 3.5 % 0.0-5. 0 Not Available [facility] [address] [facility] [address], [place], [address], 02/05/2024 13:00:06 02/04/20 24 02/04/2024 CBC WITH AUTO- DIFFE RENTI AL absolute eosinophils 0.11 10*3/ uL 0.00-0 .40 Not Available [facility] [address] [facility] [address], [place], [address], 02/05/2024 13:00:06 02/04/20 24 02/04/2024 CBC WITH AUTO- DIFFE RENTI AL basophils 1.0 % 0.0-3. 0 Not Available [facility] [address] [facility] [address], [place], [address], 02/05/2024 13:00:06 02/04/20 24 02/04/2024 CBC WITH AUTO- DIFFE RENTI AL absolute basophils 0.03 10*3/ uL 0.00-0 .20 Not Available [facility] [address] [facility] [address], [place], [address], 02/05/2024 13:00:06 02/04/20 24 02/04/2024 CBC WITH AUTO- DIFFE RENTI AL imm. gran. 0.3 % 0.0-2. 0 Not Available [facility] [address] [facility] [address], [place], [address], 02/05/2024 13:00:06 02/04/20 24 02/04/2024 CBC WITH AUTO- DIFFE RENTI AL abs. imm. gran. 0.01 10*3/ uL 0.00-0 .10 Not Available [facility] [address] [facility] [address], [place], [address], 02/05/2024 13:00:06 02/04/20 24 02/04/2024 COMPR EHENS JAMEEL METAB OLIC PANEL sodium 141 mmol/ L 134-14 4 Not Available [facility] [address] [facility] [address], [place], [address], 02/05/2024 13:00:07 02/04/20 24 02/04/2024 COMPR EHENS JAMEEL METAB OLIC PANEL potassium 4.4 mmol/ L 3.5-5. 2 Not Available [facility] [address] [facility] [address], [place], [address], 02/05/2024 13:00:07 02/04/20 24 02/04/2024 COMPR EHENS JAMEEL METAB OLIC PANEL chloride 103 mmol/ L 98-107 Not Available [facility] [address] [facility] [address], [place], [address], 02/05/2024 13:00:07 02/04/20 24 02/04/2024 COMPR EHENS JAMEEL METAB OLIC PANEL carbon dioxide (co2) 27.0 mmol/ L 18.0-2 9.0 Not Available [facility] [address] [facility] [address], [place], [address], 02/05/2024 13:00:07 02/04/20 24 02/04/2024 COMPR EHENS JAMEEL METAB OLIC PANEL glucose 106 mg/dL 65-99 high Elisabeth l Fasti n - 99 mg/dL Impai red Fasti n - 125 mg/dL Diagn ostic of Diabe kana: => 126 mg/dL Ameri can [facility] kana [employer] iatio n, 2007 Not Available [facility] [address] [facility] [address], [place], [address], 02/05/2024 13:00:07 02/04/20 24 02/04/2024 COMPR EHENS JAMEEL METAB OLIC PANEL urea nitrogen (BUN) 17 mg/dL 8-23 Not Available [facility] [address] [facility] [address], [place], [address], 02/05/2024 13:00:07 02/04/20 24 02/04/2024 COMPR EHENS JAMEEL METAB OLIC PANEL creatinine 0.83 mg/dL 0.57-1 .00 Not Available [facility] [address] [facility] [address], [place], [address], 02/05/2024 13:00:07 02/04/20 24 02/04/2024 COMPR EHENS JAMEEL METAB OLIC PANEL eGFR 68 mL/mi nute/ 1.73_ m2 >59 MDRD Study Equat ion: The calcu lated GFR is NOT appli cable for pedia tric (< 18 years old) and > 70 year old patie nts and patie nts that are NOT of [place] . Not Available [facility] [address] [facility] [address], [place], [address], 02/05/2024 13:00:07 02/04/20 24 02/04/2024 COMPR EHENS JAMEEL METAB OLIC PANEL calcium 8.9 mg/dL 8.7-10 .3 Not Available [facility] [address] [facility] [address], [place], [address], 02/05/2024 13:00:07 02/04/20 24 02/04/2024 COMPR EHENS JAMEEL METAB OLIC PANEL protein, total 6.6 gm/dL 6.4-8. 3 Not Available [facility] [address] [facility] [address], [place], [address], 02/05/2024 13:00:07 02/04/20 24 02/04/2024 COMPR EHENS JAMEEL METAB OLIC PANEL albumin 4.1 gm/dL 3.5-5. 2 Not Available [facility] [address] [facility] [address], [place], [address], 02/05/2024 13:00:07 02/04/20 24 02/04/2024 COMPR EHENS JAMEEL METAB OLIC PANEL bilirubin, total 0.30 mg/dL 0.00-1 .20 Not Available [facility] [address] [facility] [address], [place], [address], 02/05/2024 13:00:07 02/04/20 24 02/04/2024 COMPR EHENS JAMEEL METAB OLIC PANEL alkaline phosphatase (ALP) 48 U/L 39-117 Not Available [facility] [address] [facility] [address], [place], [address], 02/05/2024 13:00:07 02/04/20 24 02/04/2024 COMPR EHENS JAMEEL METAB OLIC PANEL aspartate aminotransfe rase (AST) 13 U/L 0-32 Not Available [facility] [address] [facility] [address], [place], [address], 02/05/2024 13:00:07 02/04/20 24 02/04/2024 COMPR EHENS JAMEEL METAB OLIC PANEL alanine aminotransfe rase (ALT) 6 U/L 0-33 Not Available [facility] [address] [facility] [address], [place], [address], 02/05/2024 13:00:07 02/04/20 24 02/04/2024 COMPR EHENS JAMEEL METAB OLIC PANEL A/G ratio (calculated) 1.6 ratio 1.0-2. 7 Not Available [facility] [address] [facility] [address], [place], [address], 02/05/2024 13:00:07 02/04/20 24 02/04/2024 COMPR EHENS JAMEEL METAB OLIC PANEL globulin (calculated) 2.5 gm/dL 1.5-3. 8 Not Available [facility] [address] [facility] [address], [place], [address], 02/05/2024 13:00:07 02/04/20 24 02/04/2024 COMPR EHENS JAMEEL METAB OLIC PANEL BUN/creatini ne ratio (calculated) 20.5 ratio 8.0-20 .0 high Not Available [facility] [address] [facility] [address], [place], [address], 02/05/2024 13:00:07 02/04/20 24 02/04/2024 COMPR EHENS JAMEEL METAB OLIC PANEL serum hemolysis index NORMAL index normal Not Available [facility] [address], [place], [address], 02/05/2024 13:00:07 06/12/19 25 06/11/2024 CBC WITH AUTO- DIFFE RENTI AL WBC 3.1 10*3/ uL 3.4-10 .8 low Not Available [facility] [address] [facility] [address], [place], [address], 06/12/2024 13:04:42 06/12/19 25 06/11/2024 CBC WITH AUTO- DIFFE RENTI AL RBC 3.53 10*6/ uL 3.80-5 .30 low Not Available [facility] [address], [place], [address], 06/12/2024 13:04:42 06/12/19 25 06/11/2024 CBC WITH AUTO- DIFFE RENTI AL HGB 8.7 g/dL 11.1-1 5.9 low Not Available [facility] [address] [facility], [place], [address], 06/12/2024 13:04:42 06/12/19 25 06/11/2024 CBC WITH AUTO- DIFFE RENTI AL HCT 29.3 % 34.0-4 6.6 low Not Available [facility] [address] [facility] [address], [place], [address], 06/12/2024 13:04:42 06/12/19 25 06/11/2024 CBC WITH AUTO- DIFFE RENTI AL MCV 83 fL 79-97 Not Available [facility] [address] [facility], [place], [address], 06/12/2024 13:04:42 06/12/19 25 06/11/2024 CBC WITH AUTO- DIFFE RENTI AL MCH 24.6 pg 26.6-3 3.0 low Not Available [facility] [address] [facility], [place], [address], 06/12/2024 13:04:42 06/12/19 25 06/11/2024 CBC WITH AUTO- DIFFE RENTI AL MCHC 29.7 g/dL 31.5-3 5.7 low Not Available [facility] [address], [place], [address], 06/12/2024 13:04:42 06/12/19 25 06/11/2024 CBC WITH AUTO- DIFFE RENTI AL RDW 16.8 % 11.5-1 4.5 high Not Available [facility] [address] [facility] [address], [place], [address], 06/12/2024 13:04:42 06/12/19 25 06/11/2024 CBC WITH AUTO- DIFFE RENTI AL platelets 136 10*3/ uL 150-40 0 low Not Available [facility] [address] [facility], [place], [address], 06/12/2024 13:04:42 06/12/19 25 06/11/2024 CBC WITH AUTO- DIFFE RENTI AL MPV 11 fL 9-13 Not Available [facility] [address] [facility] [address], [place], [address], 06/12/2024 13:04:42 06/12/19 25 06/11/2024 CBC WITH AUTO- DIFFE RENTI AL neutrophils 43.2 % 40.0-7 4.0 Not Available [facility] [address] [facility], [place], [address], 06/12/2024 13:04:42 06/12/19 25 06/11/2024 CBC WITH AUTO- DIFFE RENTI AL absolute neutrophils 1.33 10*3/ uL 1.40-7 .00 low Not Available [facility] [address] [facility], [place], [address], 06/12/2024 13:04:42 06/12/19 25 06/11/2024 CBC WITH AUTO- DIFFE RENTI AL lymphocytes 36.4 % 14.0-4 6.0 Not Available [facility] [address] [facility] [address], [place], [address], 06/12/2024 13:04:42 06/12/19 25 06/11/2024 CBC WITH AUTO- DIFFE RENTI AL absolute lymphocytes 1.12 10*3/ uL 0.70-3 .10 Not Available [facility] [address] [facility] [address], [place], [address], 06/12/2024 13:04:42 06/12/19 25 06/11/2024 CBC WITH AUTO- DIFFE RENTI AL monocytes 14.9 % 4.0-12 .0 high Not Available [facility] [address] [facility] [address], [place], [address], 06/12/2024 13:04:42 06/12/19 25 06/11/2024 CBC WITH AUTO- DIFFE RENTI AL absolute monocytes 0.46 10*3/ uL 0.10-0 .90 Not Available [facility] [address] [facility] [address], [place], [address], 06/12/2024 13:04:42 06/12/19 25 06/11/2024 CBC WITH AUTO- DIFFE RENTI AL eosinophils 4.2 % 0.0-5. 0 Not Available [facility] [address] [facility] [address], [place], [address], 06/12/2024 13:04:42 06/12/19 25 06/11/2024 CBC WITH AUTO- DIFFE RENTI AL absolute eosinophils 0.13 10*3/ uL 0.00-0 .40 Not Available [facility] [address] [facility] [address], [place], [address], 06/12/2024 13:04:42 06/12/19 25 06/11/2024 CBC WITH AUTO- DIFFE RENTI AL basophils 1.0 % 0.0-3. 0 Not Available [facility] [address] [facility] [address], [place], [address], 06/12/2024 13:04:42 06/12/19 25 06/11/2024 CBC WITH AUTO- DIFFE RENTI AL absolute basophils 0.03 10*3/ uL 0.00-0 .20 Not Available [facility] [address] [facility] [address], [place], [address], 06/12/2024 13:04:42 06/12/19 25 06/11/2024 CBC WITH AUTO- DIFFE RENTI AL imm. gran. 0.3 % 0.0-2. 0 Not Available [facility] [address] [facility] [address], [place], [address], 06/12/2024 13:04:42 06/12/19 25 06/11/2024 CBC WITH AUTO- DIFFE RENTI AL abs. imm. gran. 0.01 10*3/ uL 0.00-0 .10 Not Available [facility] [address] [facility] [address], [place], [address], 06/12/2024 13:04:42 06/12/19 25 06/11/2024 COMPR EHENS JAMEEL METAB OLIC PANEL sodium 140 mmol/ L 134-14 4 Not Available [facility] [address] [facility] [address], [place], [address], 06/12/2024 13:04:43 06/12/19 25 06/11/2024 COMPR EHENS JAMEEL METAB OLIC PANEL potassium 4.2 mmol/ L 3.5-5. 2 Not Available [facility] [address] [facility] [address], [place], [address], 06/12/2024 13:04:43 06/12/19 25 06/11/2024 COMPR EHENS JAMEEL METAB OLIC PANEL chloride 101 mmol/ L 98-107 Not Available [facility] [address] [facility] [address], [place], [address], 06/12/2024 13:04:43 06/12/19 25 06/11/2024 COMPR EHENS JAMEEL METAB OLIC PANEL carbon dioxide (co2) 31.0 mmol/ L 18.0-2 9.0 high Not Available [facility] [address] [facility] [address], [place], [address], 06/12/2024 13:04:43 06/12/19 25 06/11/2024 COMPR EHENS JAMEEL METAB OLIC PANEL glucose 117 mg/dL 65-99 high Elisabeth l Fasti n - 99 mg/dL Impai red Fasti n - 125 mg/dL Diagn ostic of Diabe kana: => 126 mg/dL Ameri can [employer] kana [employer] iatio n, 2007 Not Available [facility] [address] [facility] [address], [place], [address], 06/12/2024 13:04:43 06/12/19 25 06/11/2024 COMPR EHENS JAMEEL METAB OLIC PANEL urea nitrogen (BUN) 24 mg/dL 8-23 high Not Available [facility] [address] [facility] [address], [place], [address], 06/12/2024 13:04:43 06/12/19 25 06/11/2024 COMPR EHENS JAMEEL METAB OLIC PANEL creatinine 0.89 mg/dL 0.57-1 .00 Not Available [facility] [address] [facility] [address], [place], [address], 06/12/2024 13:04:43 06/12/19 25 06/11/2024 COMPR EHENS JAMEEL METAB OLIC PANEL eGFR 62 mL/mi nute/ 1.73_ m2 >59 MDRD Study Equat ion: The calcu lated GFR is NOT appli cable for pedia tric (< 18 years old) and > 70 year old patie nts and patie nts that are NOT of [place] . Not Available [facility] [address] [facility] [address], [place], [address], 06/12/2024 13:04:43 06/12/19 25 06/11/2024 COMPR EHENS JAMEEL METAB OLIC PANEL calcium 8.7 mg/dL 8.7-10 .3 Not Available [facility] [address] [facility] [address], [place], [address], 06/12/2024 13:04:43 06/12/19 25 06/11/2024 COMPR EHENS JAMEEL METAB OLIC PANEL protein, total 6.9 gm/dL 6.4-8. 3 Not Available [facility] [address] [facility] [address], [place], [address], 06/12/2024 13:04:43 06/12/19 25 06/11/2024 COMPR EHENS JAMEEL METAB OLIC PANEL albumin 4.2 gm/dL 3.5-5. 2 Not Available [facility] [address] [facility] [address], [place], [address], 06/12/2024 13:04:43 06/12/19 25 06/11/2024 COMPR EHENS JAMEEL METAB OLIC PANEL bilirubin, total 0.30 mg/dL 0.00-1 .20 Not Available [facility] [address] [facility] [address], [place], [address], 06/12/2024 13:04:43 06/12/19 25 06/11/2024 COMPR EHENS JAMEEL METAB OLIC PANEL alkaline phosphatase (ALP) 48 U/L 39-117 Not Available [facility] [address] [facility] [address], [place], [address], 06/12/2024 13:04:43 06/12/19 25 06/11/2024 COMPR EHENS JAMEEL METAB OLIC PANEL aspartate aminotransfe rase (AST) 13 U/L 0-32 Not Available [facility] [address] [facility] [address], [place], [address], 06/12/2024 13:04:43 06/12/19 25 06/11/2024 COMPR EHENS JAMEEL METAB OLIC PANEL alanine aminotransfe rase (ALT) 6 U/L 0-33 Not Available [facility] [address] [facility] [address], [place], [address], 06/12/2024 13:04:43 06/12/19 25 06/11/2024 COMPR EHENS JAMEEL METAB OLIC PANEL A/G ratio (calculated) 1.6 ratio 1.0-2. 7 Not Available [facility] [address] [facility] [address], [place], [address], 06/12/2024 13:04:43 06/12/19 25 06/11/2024 COMPR EHENS JAMEEL METAB OLIC PANEL globulin (calculated) 2.7 gm/dL 1.5-3. 8 Not Available [facility] [address] [facility] [address], [place], [address], 06/12/2024 13:04:43 06/12/19 25 06/11/2024 COMPR EHENS JAMEEL METAB OLIC PANEL BUN/creatini ne ratio (calculated) 27.0 ratio 8.0-20 .0 high Not Available [facility] [address] [facility] [address], [place], [address], 06/12/2024 13:04:43 06/12/19 25 06/11/2024 COMPR EHENS JAMEEL METAB OLIC PANEL serum index hemolysis Normal index normal Not Available [facility] [address] [facility] [address], [place], [address], 06/12/2024 13:04:43 06/12/19 25 06/11/2024 FOLAT E, SERUM folate 20.0 NG/mL 3.1-20 .0 REFER ENCE RANGE : Elisabeth l: > 3.0 ng/mL Inter media te: 2.2 - 3.0 ng/mL Defic ient: < 2.2 ng/mL Not Available [facility] [address] [facility] [address], [place], [address], 06/12/2024 13:04:43 06/12/19 25 06/11/2024 LIPID PANEL W/ LDL MARIBELL STERO L DIREC T cholesterol, total 111 mg/dL 100-19 9 Not Available [facility] [address] [facility] [address], [place], [address], 06/12/2024 13:04:44 06/12/19 25 06/11/2024 LIPID PANEL W/ LDL MARIBELL STERO L DIREC T HDL cholesterol 63 mg/dL =>40 Not Available [facility] [address] [facility] [address], [place], [address], 06/12/2024 13:04:44 06/12/19 25 06/11/2024 LIPID PANEL W/ LDL MARIBELL STERO L DIREC T LDL cholesterol (direct) 33 mg/dL 0-99 Not Available [facility] [address] [facility] [address], [place], [address], 06/12/2024 13:04:44 06/12/19 25 06/11/2024 LIPID PANEL W/ LDL MARIBELL STERO L DIREC T triglyceride s 86 mg/dL 50-149 Not Available [facility] [address] [facility] [address], [place], [address], 06/12/2024 13:04:44 06/12/19 25 06/11/2024 LIPID PANEL W/ LDL MARIBELL STERO L DIREC T VLDL cholesterol (calculated) 17 mg/dL 5-40 Not Available [facility] [address], [place], [address], 06/12/2024 13:04:44 06/12/19 25 06/11/2024 LIPID PANEL W/ LDL [facility] T chol/HDL ratio (calculated) 1.76 ratio 0.00-5 .00 Not Available [facility] [address], [place], [address], 06/12/2024 13:04:44 06/12/19 25 06/11/2024 LIPID PANEL W/ LDL [facility] T LDL/HDL ratio (calculated) 0.52 ratio 0.00-3 .60 LDL/H DL Ratio Male Femal e 1/2 Avg. Risk 1.0 1.5 Avg. Risk 3.6 3.2 2x Avg. Risk 6.2 5.0 3x Avg. Risk 8.0 6.1 Not Available [facility] [facility] [address], [place], [address], 06/12/2024 13:04:44 06/12/19 25 06/11/2024 MAGNE SIUM magnesium 1.6 mg/dL 1.6-2. 6 Not Available [facility] [address] [address], [place], [address], 06/12/2024 13:04:44 06/12/19 25 06/11/2024 VITAM IN B12 vitamin B12 >2000 pg/mL 232-12 45 high Not Available [facility] [address], [place], [address], 06/12/2024 13:04:45 04/25/19 24 04/25/2023 US, nelda sharma, marcot id arter y No observ ation record ed. [email or web address] [facility], [facility] [address], [place], [address], 08/03/2023 12:30:36 06/14/19 24 05/17/2023 US, nelda sharma carot id arter y No observ ation record ed. [email or web address] [facility], [facility] [address], [place], [address], 07/29/2024 16:50:48 06/19/19 24 06/16/2023 CT, chest , w/o contr ast No observ ation record ed. [address], [place], [address], 08/03/2023 12:30:35 07/03/19 24 06/30/2023 US, liver No observ ation record ed. [address], [place], [address], 08/03/2023 12:31:14 07/06/19 24 06/30/2023 US, liver No observ ation record ed. [address], [place], [address], 07/29/2024 16:48:46 07/09/19 24 05/17/2023 (ANNMARIE) ankle brach ial index * No observ ation record ed. [address], [facility] [address], [place], [address], 07/29/2024 16:48:11 08/06/19 24 08/03/2023 toro metry testi ng* No observ ation record ed. [facility], [facility] [address], [place], [address], 11/07/2023 15:02:05 08/06/19 24 07/09/2023 US, echoc ardio gram No observ ation record ed. [facility] [address], [place], [address], 11/07/2023 15:02:05 08/19/19 24 08/18/2023 XR, thora cic spine , 4 or more view No observ ation record ed. [address], [place], [address], 11/07/2023 15:02:04 11/07/19 24 11/07/2023 elect laura duarte am No observ ation record ed. [facility], [facility] [address], [place], [address], 02/04/2024 17:04:22 11/07/19 24 11/07/2023 nuvia duarte am No observ ation record ed. [facility], [facility] [address], [place], [address], 02/04/2024 17:04:22 01/15/20 24 XR, [facility] [place] [address] Orderi ng Provid er: YESENIA [facility] [place] [address] [facility] [address] [place] [address] Examin ation: Chest 1 view portab le Histor y: Dizzin ess DATE/T ADRIA: 2023 7:22 PM Compar danielle: September 27, 2021 Techni que: AP uprigh t portab le view of the chest was obtain ed. Findin gs: Heart size, medias tinal contou rs and pulmon jayesh vascul ature are within normal limits . No pulmon jayesh consol idatio n, pleura l effusi on or pneumo thorax . Bilate ral neck calcif icatio ns, probab ly caroti d athero sclero tic diseas e. No acute osseou s abnorm ality. Impres rosalia: No acute findin gs. Referr ed By: Electr onical ly Signed By: Bruce Weber MD on 2023 7:37 PM Interp reted By: Bruce Weber MD, 2023 7:[address] [facility] [address] [facility], [place], [address], 02/04/2024 17:04:22 01/21/20 24 bone densi ty/de xa [facility] [address] [place] [address] Orderi ng Provid er: ISRAEL WORRELL DA [facility] [facility] [place] [address] [phone] EXAMIN ATION: Bone Densit y Axial ACCESS ION: [id number] EXAM DATE/T ADRIA: 2023 12:48 PM REASON FOR EXAM: Postme nopaus al status COMPAR DANIELLE: None FINDIN GS: DEXA bone densit ometry The bone minera l densit y (BMD) was determ ined by dual-e nergy x-ray absorp tiomet ry, the result s are as follow s: AP Lumbar Spine L1 throug h L4 BMD Patien t (GM/SQ CM): 1.303 T-Scor e (Stand edson deviat ions from young adult peak bone densit y): 2.3 and a Z-Scor e of 5.2. Scolio sis and osteoa rthrit is may falsel y increa se bone minera l densit y measur ed in the lumbar spine. Left femora l neck: BMD Patien t (GM/SQ CM): 0.585 T-Scor e (Stand edson deviat ions from young adult peak bone densit y): -2.4 and a Z-Scor e of 0.1. Total left hip: BMD Patien t (GM/SQ CM): 0.829 T-Scor e (Stand edson deviat ions from young adult peak bone densit y): -0.9 and a Z-Scor e of 1.4. 10 year fractu re risk using FRAX, fractu re risk assess ment tool: Major osteop orotic fractu re: 16 % Hip fractu re: 5.6 % ===== IMPRES ROSALIA:= ==== The patien t bone minera l densit y is osteop enic accord ing to the World Health Organi zation (WHO) criter ia. Recomm endati ons: All patien ts should ensure an adequa te intake of dietar y calciu m and vitami n D. The NOF recomm end adults under the age of 50 need 1000 mg of calciu m and 400-80 0 IU of vitami n D daily. Effect jameel therap y for the preven tion and treatm ent of osteop orosis includ e biphos phonat es. Follow -up: People with diagno sed cases of osteop orosis or at high risk for fractu re should have regula r bone minera l densit y test. For patien ts eligib le for Medica re, routin e testin g is allowe d once every 2 years. Testin g freque ncy can be increa sed to one year for patien ts who have rapidl y progre ssing diseas e, those who are receiv ing or discon tinuin g medica l therap y to restor e bone mass, or have additi onal risk factor s. Referr ed By: ISRAEL FRANCIS Electr onical ly Signed By: Christina Hilario MD on 2023 9:19 PM Interp reted By: Christina Hilario MD, 2023 9:17 PM [email or web address] [facility] 1 [place], [address], 07/23/2024 11:49:17 01/21/20 24 01/21/2024 bone densi ty No observ ation record ed. [facility] 1 [facility], [place], [address], 02/04/2024 17:04:22 01/25/20 24 bone densi ty/de xa [facility] [place] [place] [address] Orderi ng Provid er: ISRAEL WORRELL DA Addend by: CHRISTINA HILARIO on SunJan 25, 2024 6:00:3 8 PM CDT [facility] [place] [address] [id number] Due to increa sed densit y in the lumbar spine, x-ray is recomm ended to assess for possib le etiolo gies of osteoa rthrit is. Referr ed By: ISRAEL FRANCIS Electr onical ly Signed By: Christina Hilario MD on 2023 5:59 PM Interp reted By: Christina Hilario MD, 2023 5:59 PM [facility] [facility] [place] [address] [phone]- EXAMIN ATION: Bone Densit y Axial ACCESS ION: [id number] EXAM DATE/T ADRIA: 2023 12:48 PM REASON FOR EXAM: Postme nopaus al status COMPAR DANIELLE: None FINDIN GS: DEXA bone densit ometry The bone minera l densit y (BMD) was determ ined by dual-e nergy x-ray absorp tiomet ry, the result s are as follow s: AP Lumbar Spine L1 throug h L4 BMD Patien t (GM/SQ CM): 1.303 T-Scor e (Stand edson deviat ions from young adult peak bone densit y): 2.3 and a Z-Scor e of 5.2. Scolio sis and osteoa rthrit is may falsel y increa se bone minera l densit y measur ed in the lumbar spine. Left femora l neck: BMD Patien t (GM/SQ CM): 0.585 T-Scor e (Stand edson deviat ions from young adult peak bone densit y): -2.4 and a Z-Scor e of 0.1. Total left hip: BMD Patien t (GM/SQ CM): 0.829 T-Scor e (Stand edson deviat ions from young adult peak bone densit y): -0.9 and a Z-Scor e of 1.4. 10 year fractu re risk using FRAX, fractu re risk assess ment tool: Major osteop orotic fractu re: 16 % Hip fractu re: 5.6 % ===== IMPRES ROSALIA:= ==== The patien t bone minera l densit y is osteop enic accord ing to the World Health Organi zation (WHO) criter ia. Recomm endati ons: All patien ts should ensure an adequa te intake of dietar y calciu m and vitami n D. The NOF recomm end adults under the age of 50 need 1000 mg of calciu m and 400-80 0 IU of vitami n D daily. Effect jameel therap y for the preven tion and treatm ent of osteop orosis includ e biphos phonat es. Follow -up: People with diagno sed cases of osteop orosis or at high risk for fractu re should have regula r bone minera l densit y test. For patien ts eligib le for Medica re, routin e testin g is allowe d once every 2 years. Testin g freque ncy can be increa sed to one year for patien ts who have rapidl y progre ssing diseas e, those who are receiv ing or discon tinuin g medica l therap y to restor e bone mass, or have additi onal risk factor s. Referr ed By: ISRAEL WORRELL DA Electr onical ly Signed By: Christina Hilario MD on 2023 9:19 PM Interp reted By: Christina Hilario MD, 2023 9:[address] [facility] 1 [place], [address], 02/04/2024 17:04:21 01/25/20 24 01/21/2024 bone densi ty No observ ation record ed. [address] Scheduling 1 [place], [address], 07/23/2024 11:48:05 02/17/20 24 02/16/2024 XR, thora cic spine , 2 view No observ ation record ed. [address], [place], [address], 07/23/2024 11:45:28 03/10/20 24 03/09/2024 XR, chest No observ ation record ed. [facility] [address], [place], [address], 06/11/2024 17:59:10 03/12/20 24 03/09/2024 XR, chest , 2 view No observ ation record ed. [facility] [address], [place], [address], 06/11/2024 17:59:10 06/12/19 25 06/11/2024 US, duple x, carot id arter y No observ ation record ed. [facility], [facility] [address], [place], [address], 06/11/2024 20:29:28 Result Notes None recorded. Problems Name Problem SNOMED Code Status Onset Date Resolution Date Notes Provider Name and Address Organization Details Recorded Time Iron deficien cy anemia 98810174 Active 2023 Israel Dodd MD [address], [place], [address] , [facility] 4 21:46:24 Long-ter m drug therapy Active 2023 Israel Dodd MD [address], [place], [address] , [facility] 4 17:10:25 Atrial septal aneurysm 45880103 Active Not Available [facility] 13:59:13 Carotid artery stenosis 48727510 Active Not Available [facility] 13:59:13 Divertic ular disease of colon 654378195 Active Not Available [facility] 13:59:13 Depressi ve disorder 90671995 Completed 03/02/2020 Israel Dodd MD [address], [place], [address] , [facility] 0 16:09:53 Benign hyperten rosalia 79445439 Active Not Available [facility] 13:59:13 Ex-smoke r 4183313 Active Not Available [facility] 13:59:13 Gastroes ophageal reflux disease 707876833 Completed 12/28/2016 Israel Dodd MD [address], [place], [address] , [facility] 7 10:03:00 Hyperlip idemia 76505299 Active Not Available [facility] 13:59:13 Osteoart hritis 833304893 Active Not Available [facility] 13:59:13 Osteopen ia 731295000 Active Not Available [facility] 13:59:13 Peripher al vascular disease 403296211 Active Not Available [facility] 13:59:13 Menopaus e Active Not Available [facility] 13:59:13 Mixed anxiety and depressi ve disorder 141884810 Active 2015 Not Available [facility] 13:59:13 Gastroes ophageal reflux disease without esophagi tis 521844948 Active 2015 Not Available [facility] 13:59:13 History of transien t ischemic attack 599358236 Active 2016 Not Available [facility] 13:59:13 Vitamin D deficien cy 34728242 Active 2016 Not Available [facility] 1 13:59:13 Blood glucose outside referenc e range 436015128 Active 2016 glucose intol 12/2016 Not Available [facility] 1 13:59:13 Compress ion fracture Active 2017 T12 , on X ray 12/31/17 Not Available [facility] 13:59:13 Paroxysm al atrial fibrilla tion 689889080 Active 2017 per cardiolo gy note 03/19/17 Had Watchman implanta tion 02/19/20 24 Israel Dodd MD [address], [place], [address] , [place] [facility] 4 19:08:17 Body mass index 25-29 - overweig ht 747178089 Active 2018 Not Available [facility] 1 13:59:13 Left ventricu lar hypertro phy 81501691 Active 2018 Not Available [facility] 13:59:13 Anemia 282841352 Active 2018 Not Available [facility] 13:59:13 Gallnayeli e 198935430 Completed 201803/02/2020 Israel Dodd MD [address], [place], [address] , [facility] 0 16:09:56 Liver enzymes level above referenc e range 042214257 Active 2019 Not Available [facility] 13:59:13 Pulmonar y hyperten rosalia 92249859 Active 2019 on ECHO 10/06/19 Not Available [facility] 1 13:59:13 Cholelit hiasis without obstruct ion 19796270 Active 2019 Not Available [facility] 1 13:59:13 Macrocyt osis 136239618 Active 2020 Israel Dodd MD [address], [place], [address] , [facility] 1 14:29:46 Hypomagn esemia 747398377 Active 2020 Israel Dodd MD [address], [place], [address] , [facility] 1 19:10:38 Kidney stone 04981225 Active 2021 Israel Dodd MD [address], [place], [address] , [place] [facility] 2 11:30:02 Pneumoni a 091217052 Active 2021 Israel Dodd MD [address], [place], [address] , [facility] 2 22:44:15 Solitary nodule of lung 321204801 [address] chest 03/13/22 Israel Dodd MD [address], [place], [address] , [place] [facility] 2 23:05:44 Diarrhea 21469192 Active 2022 Israel Dodd MD [address], [place], [address] , [place] [facility] 3 15:23:52 Compress ion fracture of thoracic spine 398325330 Active 2023 Israel Dodd MD [address], [place], [address] , [place] [facility] 4 21:28:54 Cirrhosi s of liver 09241646 Active 2023 Israel Dodd MD [address], [place], [address] , [facility] 4 21:29:12 Restrict jameel lung disease 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 Procedures Surgical History Date Name Laterality Status Provider Name and Address Organization Details Recorded Time 0 Most Recent Bone Density completed BRYCE PATINO [facility] 05/31/2020 16:02:06 9 Date of Last Colonoscopy completed BRYCE PATINO [facility] 05/31/2020 16:02:19 9 Colonoscopy completed Israel Dodd MD [address], [place], [address], [place] [facility] 11/07/2018 12:45:27 8 Colonoscopy completed Renetta Blandon [facility] 09/28/2015 08:33:36 Orthopedic Surgery completed Israel Dodd MD [address], [place], [address], [facility] 09/27/2017 12:02:59 Imaging Results Imaging Date Name Status LastModified by Organization Details LastModified Time 04/25/2023 US, duplex, carotid artery completed [facility], [facility] [address], [place], [address], 08/03/2023 12:30:36 05/17/2023 US, duplex, carotid artery completed [address], [facility] [address], [place], [address], 07/29/2024 16:50:48 06/16/2023 CT, chest, w/o contrast completed [address] [place] [address], [address], 08/03/2023 12:30:35 06/30/2023 US, liver active [address], [address], 08/03/2023 12:31:14 06/30/2023 US, liver completed [address], [address], 07/29/2024 16:48:46 05/17/2023 (ANNMARIE) ankle brachial index* completed [address], [facility] [address], [place], [address], 07/29/2024 16:48:11 08/03/2023 spirometry testing* completed [facility], [facility] [address], [place], [address], 11/07/2023 15:02:05 07/09/2023 US, echocardiogram completed [facility] [address], [place], [address], 11/07/2023 15:02:05 08/18/2023 XR, thoracic spine, 4 or more view completed [address] [place] [address], [address], 11/07/2023 15:02:04 11/07/2023 electrocardiogram completed [facility], [facility] [address], [place], [address], 02/04/2024 17:04:22 11/07/2023 electrocardiogram completed [facility] [address], [place], [address], 02/04/2024 17:04:22 01/15/2024 XR, chest completed [address], [address], 02/04/2024 17:04:22 01/21/2024 bone density/dexa completed [address], [address], 07/23/2024 11:49:17 01/21/2024 bone density completed [address], [address], 02/04/2024 17:04:22 01/25/2024 bone density/dexa completed [address], [address], 02/04/2024 17:04:21 01/21/2024 bone density completed [address], [address], 07/23/2024 11:48:05 02/16/2024 XR, thoracic spine, 2 view completed [address], [place], [address], 07/23/2024 11:45:28 03/09/2024 XR, chest completed [facility] [address], [place], [address], 06/11/2024 17:59:10 03/09/2024 XR, chest, 2 view completed [facility] [address], [place], [address], 06/11/2024 17:59:10 06/11/2024 US, duplex, carotid artery completed [facility], [facility] [address], [place], [address], 06/11/2024 20:29:28 Procedure Notes None recorded. Medical Equipment None Reported. Allergies Allergen ID Allergen Name Allergen Category Reaction Reaction Severity Criticality Documentation Date Start Date Code Code System Note Provider Name and Address Organization Details Recorded Time 09573 amlodipin e medicatio n dizziness Not available Not available 04/12/2023 60771 RxNorm Israel Dodd MD [address], [place], [address], [facility] 4 16:43:23 49299 felodipin e medicatio n dizziness Not available Not available 04/25/2023 4316 RxNorm Israel Dodd MD [address], [place], [address], [facility] 4 19:20:54 2560 Lopid medicatio n Not available Not available Not available 09/28/2015 12653 9 RxNorm Renetta Blandon [facility] 6 08:32:29 Medications Name Sig Start Date Stop Date Status Note LastModified by Organization Details LastModified Time nifedipin e ER 30 mg tablet,ex tended release 24 hr active Not Available Not Available Not Available amoxicill in 500 mg capsule 03/29 completed Not Available Not Available Not Available carvedilo l 25 mg tablet TAKE 1 TABLET BY MOUTH TWICE DAILY 2024 active Not Available Not Available Not Avai lable prednison e 10 mg tablet 07/03 completed Not Available Not Available Not Available doxycycli ne hyclate 100 mg capsule Take 1 capsule twice a day by oral route. 06/11 completed Not Available Not Available Not Available carvedilo l 12.5 mg tablet TAKE 1 TABLET BY MOUTH TWICE DAILY active Not Available Not Available No t Available clindamyc in HCl 300 mg capsule 09/27 completed prescrib ed by dentist for periodon chente disease Not Available Not Available Not Available Normal Saline Flush 0.9 % injection syringe 12/07 completed Not Available Not Available Not Available felodipin e ER 2.5 mg tablet,ex tended release 24 hr TAKE 1 TABLET BY MOUTH EVERY DAY IN THE MORNING active Not Available Not Available No t Available doxazosin 1 mg tablet Take 1 tablet every day by oral route at bedtime. 05/30 completed Not Available Not Available Not Available azithromy kimberley 250 mg tablet TAKE 2 TABLETS (500 MG) BY ORAL ROUTE ONCE DAILY FOR 1 DAY THEN 1 TABLET (250 MG) BY ORAL ROUTE ONCE DAILY FOR 4 DAYS 02/20 completed Not Available Not Available Not Available ofloxacin 0.3 % eye drops 03/03 completed Not Available Not Available Not Available benzonata te 200 mg capsule 07/03 completed Not Available Not Available Not Available hydrocodo ne 5 mg-acetam inophen 325 mg tablet 12/07 completed Not Available Not Available Not Available ondansetr on HCl 4 mg tablet 12/27 completed Not Available Not Available Not Available isosorbid e mononitra te ER 30 mg tablet,ex tended release 24 hr TAKE 1 TABLET BY MOUTH EVERY DAY IN THE MORNING 2023 active Not Available Not Available Not Avai lable Ferrex 150 mg iron capsule Take 1 capsule every other day by oral route. 2023 active Not Available Not Available Not Avai lable warfarin 2.5 mg tablet TAKE 1 TABLET BY MOUTH EVERY DAY DIRECTED 03/29 completed Not Available Not Available Not Available meclizine 12.5 mg tablet Take 1 tablet 3 times a day by oral route. 03/05 completed Not Available Not Available Not Available amlodipin e 2.5 mg tablet TAKE 1 TABLET BY MOUTH EVERY MORNING active Not Available Not Available No t Available Zyrtec 10 mg tablet Take 1 tablet every day by oral route at bedtime. 07/04 completed Not Available Not Available Not Available melatonin 3 mg tablet Take 1 tablet every day by oral route at bedtime. 08/24 completed Not Available Not Available Not Available acetamino phen 300 mg-codein e 30 mg tablet 12/28 completed Not Available Not Available Not Available clopidogr el 75 mg tablet 1 tab PO QD active Not Available Not Available No t Available amlodipin e 5 mg tablet TAKE 1 TABLET BY MOUTH EVERY DAY IN THE MORNING active Not Available Not Available No t Available sulfameth oxazole 800 mg-trimet hoprim 160 mg tablet Take 1 tablet every 12 hours by oral route for 4 days. 05/28 completed Not Available Not Available Not Available aspirin 81 mg tablet,de layed release TAKE 1 TABLET BY MOUTH EVERY DAY 2017 active Not Available Not Available Not Avai lable tramadol 50 mg tablet 03/05 completed Not Available Not Available Not Available warfarin 3 mg tablet TAKE 1 TABLET BY MOUTH EVERY DAY DIRECTED 03/29 completed Not Available Not Available Not Available ketorolac 0.5 % eye drops 06/16 completed Not Available Not Available Not Available oxycodone -acetamin ophen 5 mg-325 mg tablet 09/27 completed Not Available Not Available Not Available amoxicill in 875 mg tablet 09/27 completed Not Available Not Available Not Available citalopra m 20 mg tablet TAKE 1 TABLET BY MOUTH EVERY NIGHT AT BEDTIME 2024 active Not Available Not Available Not Avai lable magnesium oxide 400 mg (241.3 mg magnesium ) tablet Take 1 tablet every day by oral route. 2022 active Not Available Not Available Not Avai lable meclizine 25 mg tablet 06/11 completed Not Available Not Available Not Available benzonata te 100 mg capsule Take 1 capsule 3 times a day by oral route. 07/24 completed Not Available Not Available Not Available cephalexi n 500 mg capsule 05/21 completed Not Available Not Available Not Available paroxetin e 30 mg tablet TAKE 1 TABLET BY MOUTH EVERY NIGHT AT BEDTIME 12/16 completed Not Available Not Available Not Available pantopraz ole 40 mg tablet,de layed release TAKE 1 TABLET BY MOUTH DAILY IN THE MORNING 2024 active Not Available Not Available Not Avai lable ranitidin e 150 mg tablet 09/27 completed Not Available Not Available Not Available buspirone 10 mg tablet Take 1 tablet 3 times a day by oral route as needed. active Not Available Not Available No t Available oxycodone 5 mg capsule 11/30 completed Not Available Not Available Not Available omeprazol e 20 mg capsule,d elayed release TAKE 1 CAPSULE BY MOUTH EVERY DAY NEEDED active Not Available Not Available No t Available cyanocoba jerri (vit B-12) 1,000 mcg sublingua l tablet Place 1 tablet twice a day by sublingu al route. 2021 active Not Available Not Available Not Avai lable pravastat in 20 mg tablet TAKE 1 TABLET BY MOUTH EVERY DAY AT BEDTIME 10/03 completed Not Available Not Available Not Available mupirocin 2 % topical ointment 09/27 completed Not Available Not Available Not Available norethind zuri acetate 5 mg tablet 2 qd 08/31 completed Not Available Not Available Not Available warfarin 1 mg tablet TAKE 1 TABLET BY MOUTH EVERY DAY DIRECTED 03/29 completed Not Available Not Available Not Available albuterol sulfate HFA 90 mcg/actua tion aerosol inhaler Inhale 2 puffs every 8 hours by inhalati on route as needed. active Not Available Not Available No t Available celecoxib 100 mg capsule 09/27 completed Not Available Not Available Not Available ceftriaxo ne 10 gram solution for injection 10/14 completed Not Available Not Available Not Available lisinopri l 40 mg tablet TAKE 1 TABLET BY MOUTH EVERY DAY 2024 active Not Available Not Available Not Avai lable fluticaso ne propionat e 50 mcg/actua tion nasal spray,vashti pension [place] 1 spray every day by intranas al route. 2024 active Not Available Not Available Not Avai lable metoclopr amide 10 mg tablet 08/31 completed Not Available Not Available Not Available ceftriaxo ne 2 gram solution for injection 11/23 completed Not Available Not Available Not Available Tylenol Extra Strength 500 mg tablet Take 1 tablet every 8 hours by oral route around the clock. 2019 active Not Available Not Available Not Avai lable neomycin 3.5 mg/g-poly myxin B 10,000 unit/g-de xameth 0.1 % eye oint APPLY A SMALL AMOUNT IN AFFECTED EYE(S) BY OPHTHALM IC ROUTE 3 TIMES PER DAY 08/31 completed Not Available Not Available Not Available Pneumovax -23 25 mcg/0.5 mL injection syringe 03/27 completed Not Available Not Available Not Available cholestyr amine (with sugar) 4 gram powder for susp in a packet MIX AND DRINK 1 PACKET BY MOUTH EVERY DAY NEEDED active Not Available Not Available No t Available rosuvasta tin 10 mg tablet Take 1 tablet every day by oral route. 12/28 completed Not Available Not Available Not Available rosuvasta tin 20 mg tablet TAKE 1 TABLET BY MOUTH EVERY DAY 2024 active Not Available Not Available Not Avai lable nitrofura ntoin monohydra te/macroc rystals 100 mg capsule 05/28 completed Not Available Not Available Not Available Mucinex DM 30 mg-600 mg tablet,ex tended release 12 hr Take 1 tablet every 12 hours by oral route. 06/11 completed Not Available Not Available Not Available omega-3 acid ethyl esters 1 gram capsule Take 1 capsule twice a day by oral route. 06/27 completed Not Available Not Available Not Available Boostrix Tdap 2.5 Lf unit-8 mcg-5 Lf/0.5 mL intramusc ular syringe 02/25 completed Not Available Not Available Not Available Reclast 5 mg/100 mL intraveno us piggyback as directed once a year 03/03 completed Not Available Not Available Not Available FeroSul 325 mg (65 mg iron) tablet TAKE 1 TABLET BY MOUTH EVERY OTHER DAY 06/16 completed Not Available Not Available Not Available Vitamin D3 50 mcg (2,000 unit) tablet TAKE 2 TABLETS BY MOUTH EVERY DAY 2020 active Not Available Not Available Not Avai lable blood pressure test kit-large cuff 12/02 completed Not Available Not Available Not Available Prevnar 13 (PF) 0.5 mL intramusc ular syringe 03/29 completed Not Available Not Available Not Available Eliquis 5 mg tablet TAKE 1 TABLET BY MOUTH TWICE DAILY 06/11 completed Not Available Not Available Not Available Caltrate plus D 600 mg (carbonat e)-20 mcg (800 unit) chewable tablet Take 1 tablet twice a day by oral route. 03/29 completed Not Available Not Available Not Available Supartz FX 10 mg/mL intra-art icular syringe 04/11 completed Not Available Not Available Not Available melatonin ER 5 mg tablet,im mediate and extended release Take 1 tablet every day by oral route at bedtime. 07/04 completed Not Available Not Available Not Available Fluzone High-Dose 6718-2792 (PF) 180 mcg/0.5 mL intramusc ular syringe 03/29 completed Not Available Not Available Not Available Fluzone High-Dose 2018- (PF) 180 mcg/0.5 mL intramusc ular syringe 03/17 completed Not Available Not Available Not Available Fluad Quad 4177-5977 (65yr up)(PF) 60 mcg (15 mcg x 4)/0.5mL IM syringe 03/02 completed Not Available Not Available Not Available Vitals Date Recorded Body height Body mass index (BMI) Body weight Body temperature Respiratory rate Heart rate Systolic blood pressure Diastolic blood pressure Provider Name and Address Organization Details Last Updated DateTime 4 162.56 cm 26.4 kg/m2 44419.2 2 g 97.6 [degF] 18 /min 64 /min 161 mm[Hg] 74 mm[Hg] Corinna Ibarra [facility] 4 18:59:33 Date Recorded Body height Heart rate Respiratory rate Body temperature Body mass index (BMI) Body weight Systolic blood pressure Diastolic blood pressure Provider Name and Address Organization Details Last Updated DateTime 4 162.56 cm 61 /min 18 /min 97.7 [degF] 25.7 kg/m2 46029.8 6 g 139 mm[Hg] 74 mm[Hg] Umesh Mclaughlin [facility] 4 12:06:47 Date Recorded Body height Body temperature Heart rate Respiratory rate Body mass index (BMI) Body weight Provider Name and Address Organization Details Last Updated DateTime 4 162.56 cm 97.8 [degF] 64 /min 18 /min 26.1 kg/m2 64192.0 4 g Corinna Stacey [facility] 14:45:59 Date Recorded Systolic blood pressure Diastolic blood pressure Provider Name and Address Organization Details Last Updated DateTime 11/07/2023 135 mm[Hg] 59 mm[Hg] Israel Dodd MD [address], [place], [address] 11/07/2023 15:10:15 Date Recorded Body height Body temperature Respiratory rate Heart rate Body mass index (BMI) Body weight Provider Name and Address Organization Details Last Updated DateTime 162.56 cm 97.5 [degF] 18 /min 75 /min 25.4 kg/m2 40861.6 7 g Corinna Ibarra [facility] 16:50:44 Date Recorded Systolic blood pressure Diastolic blood pressure Provider Name and Address Organization Details Last Updated DateTime 02/04/2024 133 mm[Hg] 71 mm[Hg] Israel Dodd MD [address], [place], [address] 02/04/2024 17:13:10 Date Recorded Body height Respiratory rate Body mass index (BMI) Body weight Heart rate Body temperature Provider Name and Address Organization Details Last Updated DateTime 162.56 cm 18 /min 24.5 kg/m2 64992.7 1 g 64 /min 97.6 [degF] Corinna Ibarra [facility] 17:16:03 Date Recorded Systolic blood pressure Diastolic blood pressure Provider Name and Address Organization Details Last Updated DateTime 06/11/2024 133 mm[Hg] 65 mm[Hg] Israel Dodd MD [address], [place], [address], [facility] 06/11/2024 18:07:57 Social History Question Answer Notes LastModified by Organizat ion Details LastModified Time Tobacco Smoking Status Former Smoker Israel Dodd MD [address], [place], [address], [facility] 12/27/2018 11:39:17 Do You Have An Advance Directive? No [email or web address] Information not available 09/27/2017 What Is Your Level Of Alcohol Consumption? None [email or web address] Information not available 09/28/2015 Are You Currently Employed? No Information not available 12/27/2018 Live Alone Or With Others? With Others With Douganibaler Information not available 12/27/2018 Marital Status Informatio n not available 12/27/2018 What Was The Date Of Your Most Recent Tobacco Screening? 06/16/2021 Information not available 06/16/2021 Sex: Unknown Functional Status Question Answer Note LastModified by Organization D etails LastModified Time Are you able to care for yourself? Yes Information n ot available 12/27/2018 Mental Status None recorded. Family History Relationship Description Onset Age of this Age Resolved Age Notes LastModified by Organization Details LastModified Time Father Coronary arterioscler [email or web address] Not available 2015 08:35:22 Father Myocardial infarction [email or web address] Not available 09/27 08:35:32 Medical History Condition Response Coronary Artery Disease N Other N Gout N Kidney Stones N Blood Diseases N Hyperthyroidism N Breast Cancer N Blood Transfusion N Hypothyroidism N Depression N COPD N Lung Disease N Defects or Inherited Disease N Developmental or Behavioral Disorders N Breast Problem N Difficulty Swallowing N Anesthesia Complications N Meniere's disease N Anxiety Disorder N Muscle, Joint, or Bone Problems N Obesity N Vision or Eye Problems N Arthritis N Polyps N Infertility N Mental Disorder N Cancer N Varicosities N Stroke N Endometriosis N Bladder or Kidney Problems N High Cholesterol N Liver Disease N Headaches N Fibromyalgia N Kidney Disease N Allergies/Hayfever N Heart Problems N Ear or Hearing Problems N Hospitalizations N Thyroid Problems N GI Problems N ADD/ADHD N Skin Problems N Eating Disorder N Anemia N MRSA exposure N Constipation N Mental Illness N Ovarian Cancer N Diabetes N Bedwetting N Seizures/Epilepsy N Tuberculosis N AIDS/HIV N Congestive Heart Failure (CHF) N Eczema N Diverticulitis N Abuse/Domestic Violence N Asthma N Reflux/GERD N Hepatitis N Heart Disease N Pulmonary Embolism N Chronic Ear Infections N Pre-Eclampsia N Hypertension N Chicken Pox N Autism Spectrum Disorder (ASD) N Osteoporosis N Thrombophilias N Gynecological History Statement/Question Response Date of Last Colonoscopy 11/04/2018 Most Recent Bone Density 03/08/2020 Obstetrics History GPAL:G 0 P 0 0 0 0 Immunizations Vaccine Type Date Status Note Provider Name and Address Organization Details Recorded Time Influenza, split virus, quadrivalent, preservative 018 completed Israel Dodd MD [address], [place], [address], [facility] 01/24/2021 12:44:05 pneumococcal polysaccharide PPV23 018 completed Israel Dodd MD [address], [place], [address], [facility] 01/24/2021 12:44:05 Influenza, split virus, quadrivalent, preservative 015 completed Israel Dodd MD [address], [place], [address], [facility] 01/24/2021 12:44:05 Pneumococcal conjugate PCV 13 016 completed Israel Dodd MD [address], [place], [address], [facility] 01/24/2021 12:44:05 Tdap 016 completed Israel Dodd MD [address], [place], [address], [facility] 01/24/2021 12:44:05 Influenza, split virus, quadrivalent, preservative 019 completed Israel Dodd MD [address], [place], [address], [facility] 01/24/2021 12:44:05 Influenza, split virus, quadrivalent, preservative 020 completed Israel Dodd MD [address], [place], [address], [facility] 01/24/2021 12:44:05 SARS-COV-2 (COVID-19) vaccine, UNSPECIFIED 021 completed Israel Dodd MD [address], [place], [address], [facility] 01/24/2021 12:44:05 SARS-COV-2 (COVID-19) vaccine, UNSPECIFIED 021 completed Israel Dodd MD [address], [place], [address], [facility] 01/24/2021 12:44:05 COVID-19, mRNA, LNP-S, PF, 30 mcg/0.3 mL dose 021 completed Israel Dodd MD [address], [place], [address], [facility] 01/24/2021 12:44:05 Influenza, adjuvanted, quadrivalent, PF 021 completed Israel Dodd MD [address], [place], [address], [facility] 01/24/2021 12:44:05 influenza, unspecified formulation 022 completed Israel Dodd MD [address], [place], [address], [facility] 03/09/2022 13:15:35 Influenza, split virus, trivalent, preservative 016 completed Not Available [facility] 04/19/2019 02:27:20 influenza, unspecified formulation 023 completed Israel Dodd MD [address], [place], [address], [facility] 04/25/2023 19:35:06 Respiratory syncytial virus (RSV) MAB, unspecified 023 completed Israel Dodd MD [address], [place], [address], [facility] 04/25/2023 19:35:25 zoster recombinant 019 cancelled patient objection Not Available [facility] 04/19/2019 02:28:11 zoster recombinant 020 cancelled patient objection Israel Dodd MD [address], [place], [address], [facility] 05/28/2019 17:44:58 zoster recombinant 020 cancelled patient objection Israel Dodd MD [address], [place], [address], [facility] 09/01/2019 16:53:46 Past Encounters Encounter ID Performer Location Encounter Start Date Encounter Closed Date Diagnosis/Indication Diagnosis SNOMED-CT Code Diagnosis ICD10 Code Diagnosis Note [id number] Israel Dodd MD [facility], [facility] [address] [place] [address] 08/05/2015 08:50:01 08/19/2015 12:39:43 [id number] Israel Dodd MD [facility], [facility] [address] [place] [address] 09/28/2015 09:28:01 09/28/2015 10:22:39 Gastroesophageal reflux disease without esophagitis 011049785 K21.9 pt [address] symptomes on ranitidine Benign hypertension 1072 5009 I10 Osteopenia 004535011 M85 .80 Hyperlipidemia 61261194 E78.5 Carotid ar nicolás stenosis 88019438 I65.29 Peripheral vascular disease 091972120 I73.9 Active or passive immunization 335260900 Z23 [id number] Israel Dodd MD [facility], [facility] [address] [place] [address] 12/29/2015 09:11:28 12/29/2015 10:24:33 Seizure 92199298 R56.9 [address] Gastroesop hageal reflux disease without esophagitis 582855289 K21.9 pt still ave symptomes on ranitidine Hyperlipidemia 26425946 E78.5 Osteopenia 964061136 M85 .80 Atrial sep chente aneurysm 08849705 I25.3 Carotid ar nicolás stenosis 61261078 I65.29 Active or passive immunization 061403683 Z23 [id number] Israel Dodd MD [facility], [facility] [address] [place] [address] 03/29/2016 09:28:39 03/29/2016 10:03:23 Benign hypertension 45504185 I10 Osteoarthritis 277917606 M19.90 Hyperlipidemia 14451021 E78.5 Peripheral vascular disease 489602654 I73.9 Atrial sep chente aneurysm 05038981 I25.3 Mixed anxi ety and depressive disorder 543536346 F41.8 Gastroesop hageal reflux disease without esophagitis 495309108 K21.9 pt still ave symptomes on ranitidine [id number] Israel Dodd MD [place] [facility], [facility] [address] [place] [address] 06/27/2016 09:31:34 06/27/2016 10:26:18 Benign hypertension 19817063 I10 Mixed anxi ety and depressive disorder 043563430 F41.8 Gastroesop hageal reflux disease without esophagitis 585808167 K21.9 pt still ave symptomes on ranitidine but better on omeprazole Osteopenia 610170780 M85 .80 Peripheral vascular disease 375733056 I73.9 Hyperlipidemia 42133962 E78.5 Carotid ar nicolás stenosis 42267175 I65.29 Atrial sep chente aneurysm 31149238 I25.3 Active or passive immunization 864134311 Z23 refuse zoster Screening for malignant neoplasm of colon 609300886 Z12.11 [id number] Israel Dodd MD [place] [employer], [facility] [address] [place] [address] 09/27/2016 09:47:20 09/27/2016 10:35:26 Benign hypertension 15515827 I10 Hyperlipidemia 09699546 E78.5 Atrial sep chente aneurysm 93514560 I25.3 Carotid ar nicolás stenosis 00298886 I65.29 Osteoarthritis 214623257 M19.90 Coronary arteriosclerosis 95041263 I25.10 Vitamin D deficiency 347 09029 E55.9 Screening mammography 24 791122 Z12.31 [id number] Israel Dodd MD [place] [employer] [facility], [facility] [address] [place] [address] 12/28/2016 09:28:58 12/28/2016 10:16:20 Benign hypertension 99129497 I10 Mixed anxi ety and depressive disorder 119067267 F41.8 Gastroesop hageal reflux disease without esophagitis 915814570 K21.9 pt still ave symptomes on ranitidine but better on omeprazole Hyperlipidemia 61405537 E78.5 last LDL not @ goal ., will increase rosuva to 20 Atrial sep chente aneurysm 25935779 I25.3 Osteopenia 698705707 M85 .80 last DEXA 06/28/15 Carotid ar nicolás stenosis 29368450 I65.29 Restrictiv e lung disease 95218679 J98.4 Ex-smoker 4696911 Z87.89 1 education Screening mammography 24 255229 Z12.31 Pt refuse Osteoarthritis 281214563 M19.90 [id number] Israel Dodd MD [place] [employer], [facility] [address] [place] [address] 03/29/2017 09:46:44 03/29/2017 10:28:49 Benign hypertension 59170600 I10 good control Blood gluc ose outside reference range 130745848 R73.09 Vitamin D deficiency 347 11517 E55.9 Osteopenia 425065055 M85 .80 last DEXA 06/28/15 Peripheral vascular disease 757149604 I73.9 Hyperlipidemia 22408181 E78.5 last LDL not @ goal ., will increase rosuva to 20 [id number] Israel Dodd MD [place] [employer] [facility], [facility] [address] [place] [address] 06/27/2017 10:36:38 06/27/2017 11:25:46 Diarrhea 35976818 R19.7 Benign hypertension 1072 5009 I10 good control Osteopenia 036593798 M85 .80 last DEXA 06/28/15 Hyperlipidemia 21690881 E78.5 last LDL 04/23/17 @ goal Screening mammography 24 105975 Z12.31 Pt refuse Screening for malignant neoplasm of colon 890825056 Z12.11 pt refuse [id number] Israel Dodd MD [place] [employer] [facility], [facility] [address] [place] [address] 09/27/2017 11:05:11 09/27/2017 12:06:11 Adult health examination 626957509 Z00.01 Benign hypertension 1072 5009 I10 good control Vitamin D deficiency 347 16363 E55.9 will recheck Menopause 282017251 Z78. 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 F41.8 No SI, No HI , sleeping Gastroesop hageal reflux disease without esophagitis 409351093 K21.9 pt still have symptomes on ranitidine but better on omeprazole Osteopenia 052229004 M85 .80 last DEXA 06/28/15 History of transient ischemic attack 965861698 Z86.73 last carotid U/S 01/30/17 Osteoarthritis 316784302 M19.90 just had Lt TKR Diverticul ar disease of colon 497707209 K57.30 asymptomat ic , No bleeding Peripheral vascular disease 467683927 I73.9 Hyperlipidemia 26275283 E78.5 last LDL 04/23/17 @ goal Carotid ar nicolás stenosis 81107470 I65.29 last U/S 01/12/17 Ex-smoker 6869753 Z87.89 1 education Atrial sep chente aneurysm 95359102 I25.3 Restrictiv e lung disease 91129298 J98.4 on PFT 12/28/16 Screening mammography 24 335265 Z12.31 Pt refuse Screening for malignant neoplasm of cervix 248614835 Z12.4 pt refuse Screening for malignant neoplasm of colon 347490360 Z12.11 pt refuse Active or passive immunization 791409235 Z23 refuse zoster [id number] Israel Dodd MD [employer] [address] [place] [address] 12/28/2017 11:09:23 12/28/2017 11:58:52 Benign hypertension 95939527 I10 good control Mixed anxi ety and depressive disorder 716000982 F41.8 No SI, No HI , sleeping OK Osteopenia 744958745 M85 .80 last DEXA 06/28/15 Peripheral vascular disease 422502180 I73.9 last ANNMARIE 04/2017 Hyperlipidemia 02731875 E78.5 last LDL 04/23/17 @ goal Carotid ar nicolás stenosis 98770580 I65.29 last U/S 01/12/17 Lumbar radiculopathy 128 380243 M54.16 Active or passive immunization 676742213 Z23 refuse zoster [id number] Israel Dodd MD [employer] [employer] [address] [place] [address] 03/29/2018 11:54:57 03/29/2018 13:02:48 Paroxysmal atrial fibrillation 079236177 I48.0 stopped blood ozing from kneerestar t eliquis Anemia 011124999 D64.9 Benign hypertension 1072 5009 I10 on the lower side today , will decrease lisinopril to 20 , BP 3 weeks Compression fracture 219 21862 T14.8XXD T12 , on 12/31/16 , with osteopenia on last DEXA 12/2017 Osteopenia 306128190 M85 .80 last DEXA 12/2017 Active or passive immunization 740377485 Z23 refuse zoster Screening for malignant neoplasm of colon 838250558 Z12.11 pt refuse C scope [id number] Israel Dodd MD [place] [employer], [employer] [address] [place] [address] 06/27/2018 11:21:58 06/27/2018 12:11:48 Benign hypertension 68282447 I10 good control , BP 3 weeks Hyperlipidemia 24058369 E78.5 last LDL 04/23/17 @ goal Peripheral vascular disease 143510843 I73.9 last ANNMARIE 04/2017 Osteopenia 400475566 M85 .80 with compressio n Fx T spine , on reclastlas t DEXA 12/2017 , Mixed anxi ety and depressive disorder 046558976 F41.8 No SI, No HI , sleeping OK Blood gluc ose outside reference range 199599898 R73.09 Left ventr icular hypertrophy 66703628 I51.7 concentric , mod , on ECHO 01/11/17 Active or passive immunization 494619787 Z23 refuse zoster Paroxysmal atrial fibrillation 832756010 I48.0 stopped blood ozing from kneerestar t eliquis [id number] Israel Dodd MD [employer] [employer] [address] [place] [address] 09/26/2018 10:25:17 09/26/2018 11:37:48 Benign hypertension 17465316 I10 good control , BP 3 weeks Mixed anxi ety and depressive disorder 681598921 F41.8 No SI, No HI , sleeping OK Osteopenia 869211480 M85 .80 with compressio n Fx T spine , on reclastlas t DEXA 12/2017 , Peripheral vascular disease 744451771 I73.9 mild on ANNMARIE 07/2018 Hyperlipidemia 15773810 E78.5 last LDL 04/23/17 @ goal Carotid ar nicolás stenosis 14910353 I65.29 last U/S 01/12/17 Insomnia 957421155 G47.0 0 Screening mammography 24 838058 Z12.31 Pt refuse Screening for malignant neoplasm of colon 954301656 Z12.11 pt refuse C scope Active or passive immunization 349843813 Z23 refuse zoster [id number] Israel Dodd MD [place] [employer], [employer] [address] [place] [address] 12/27/2018 10:48:06 12/27/2018 11:53:44 Adult health examination 787545106 Z00.01 Benign hypertension 1072 5009 I10 good control , BP 3 weeks Mixed anxi ety and depressive disorder 130338869 F41.8 No SI, No HI , sleeping OK Gastroesop hageal reflux disease without esophagitis 852531763 K21.9 pt still have symptomes on ranitidine but better on omeprazole Osteopenia 091249391 M85 .80 with compressio n Fx T spine , on reclastlas t DEXA 12/2017 , Osteoarthritis 609868671 M19.90 just had Lt TKR Diverticul ar disease of colon 773938418 K57.30 asymptomat ic , No bleeding Peripheral vascular disease 504099387 I73.9 mild on ANNMARIE 07/2018 Hyperlipidemia 31424712 E78.5 last LDL 07/03/18 @ goal Carotid ar nicolás stenosis 84887624 I65.29 last U/S 01/12/17 was good Atrial sep chente aneurysm 82868990 I25.3 last ECHO 09/04/18 Ex-smoker 4209039 Z87.89 1 education Menopause 813898380 Z78. 0 asymptomat ic Vitamin D deficiency 347 07720 E55.9 will recheck History of transient ischemic attack 006331493 Z86.73 last carotid U/S 01/30/17 Blood gluc ose outside reference range 764907679 R73.09 Compression fracture 219 24730 T14.8XXD T12 , on 12/31/16 , with osteopenia on last DEXA 12/2017 Paroxysmal atrial fibrillation 172055813 I48.0 on eliquis Left ventr icular hypertrophy 51834106 I51.7 concentric , mod , on ECHO 08/2018 Body mass index 25-29 - overweight 532853084 Z68.28 education Restrictiv e lung disease 63179952 J98.4 on PFT 12/28/16 Screening mammography 24 850253 Z12.31 Pt refuse Screening for malignant neoplasm of cervix 992886068 Z12.4 pt refuse Screening for malignant neoplasm of colon 510891534 Z12.11 pt refuse C scope Active or passive immunization 430905934 Z23 refuse zoster Anemia 700795580 D64.9 Fecal occu lt blood: positive 478563920 R19.5 seen GI , had C scope [id number] TUYET STEVE [employer] [employer], [facility] [address] [place] [address] 03/03/2019 10:40:46 03/03/2019 11:52:20 Influenza-like illness 97198000 B34.9 resolved Acute urin jayesh tract infection 091005032 N39.0 treated with macrobid - Screening for malignant neoplasm of cervix 299143446 Z12.4 occasional labial bleeding with wiping -on and off x 1 yearno pain - Hypokalemia 80977209 E87 .6 Anemia 721977824 D64.9 stable Benign hypertension 1072 5009 I10 Carotid ar nicolás stenosis 83321962 I65.29 last 12/2016 -- last US Hyperlipidemia 14723121 E78.5 LDL 46 Liver enzy mes level above reference range 651010384 R74.[address] Powers -LIver US complete -- need ov note Screening for malignant neoplasm of colon 685675967 Z12.11 11/04/18 -- C scope completed -- normal Screening mammography 24 219227 Z12.31 Osteopenia 560410147 M85 .80 Compressio n fracture [id number] not covered - Microscopic hematuria 19 1241193 R31.21 [id number] Israel Dodd MD [employer], [facility] [address] [place] [address] 05/28/2019 16:51:07 05/28/2019 17:50:13 Benign hypertension 94823821 I10 good control , BP 3 weeks Carotid ar nicolás stenosis 87264809 I65.29 last U/S 03/14/19 was good Anemia 200600147 D64.9 recheck CBC Hyperlipidemia 26326970 E78.5 last LDL 01/24/19 @ goal Mixed anxi ety and depressive disorder 331504818 F41.8 No SI, No HI , sleeping OK Osteopenia 670316864 M85 .80 with compressio n Fx T spine , on reclastlas t DEXA 12/2017 , Paroxysmal atrial fibrillation 036010853 I48.0 on eliquis Peripheral vascular disease 888457321 I73.9 mild on ANNMARIE 07/2018 Vitamin D deficiency 347 53142 E55.9 last level 12/27/18 Dyspnea 937987753 R06.02 Screening mammography 24 531922 Z12.31 Pt refuse Screening for malignant neoplasm of cervix 634524196 Z12.4 pt refuse Screening for malignant neoplasm of colon 536500615 Z12.11 pt refuse C scope Active or passive immunization 485479446 Z23 refuse zoster [id number] Israel Dodd MD [facility], [employer] [address] [place] [address] 09/01/2019 16:36:50 09/01/2019 16:56:27 Benign hypertension 75621896 I10 good control , BP 3 weeks Blood gluc ose outside reference range 322227861 R73.09 Body mass index 25-29 - overweight 769282102 Z68.28 education Carotid ar nicolás stenosis 03845785 I65.29 last U/S 03/14/19 was good Hyperlipidemia 63246320 E78.5 last LDL 01/24/19 @ goal Osteopenia 168207513 M85 .80 with compressio n Fx T spine , on reclastlas t DEXA 12/2017 , Paroxysmal atrial fibrillation 366692492 I48.0 on eliquis Vitamin D deficiency 347 47491 E55.9 last level 12/27/18 Peripheral vascular disease 251839064 I73.9 mild on ANNMARIE 07/2018 Screening mammography 24 761212 Z12.31 Pt refuse Active or passive immunization 101501484 Z23 refuse zoster Mixed anxi ety and depressive disorder 332455497 F41.8 No SI, No HI , sleeping OK Gastroesop hageal reflux disease without esophagitis 945204394 K21.9 pt still have symptomes on ranitidine but better on omeprazole Anemia 365611703 D64.9 recheck CBC Osteoarthritis 684365801 M19.90 just had Lt TKR [id number] Israel Dodd MD [facility], [facility] [address] [place] [address] 10/13/2019 13:53:36 10/13/2019 15:10:33 Cholelithiasis without obstruction 79565401 K80.20 took the stone out of CBD with ERCP Syncope 543709534 R55 Benign hypertension 1072 5009 I10 on the lower side , stop amlodipine , BP 3 weeks Gastroesop hageal reflux disease without esophagitis 256211921 K21.9 omeprazole changed to pantoprazo le 40 [id number] Israel Dodd MD [facility], [facility] [address] [place] [address] 12/01/2019 16:26:45 12/01/2019 17:37:49 Anemia 994571023 D64.9 recheck CBC Mixed anxi ety and depressive disorder 303047803 F41.8 No SI, No HI , sleeping OK Benign hypertension 1072 5009 I10 , BP 3 weeks Carotid ar nicolás stenosis 93567392 I65.29 last U/S 10/06/19 less than 50% Hyperlipidemia 25577278 E78.5 last LDL 01/24/19 @ goal Paroxysmal atrial fibrillation 145179758 I48.0 on eliquis Active or passive immunization 724890129 Z23 refuse zoster Screening mammography 24 817013 Z12.31 Pt refuse Screening for malignant neoplasm of cervix 908045705 Z12.4 pt refuse [id number] Israel Dodd MD [facility], [facility] [address] [place] [address] 03/02/2020 15:39:55 03/02/2020 16:30:00 Adult health examination 357801232 Z00.01 Benign hypertension 1072 5009 I10 , BP 3 weekslast EKG 10/06/19 Atrial sep chente aneurysm 11134779 I25.3 last ECHO 10/06/19 Body mass index 25-29 - overweight 530409360 Z68.28 education Carotid ar nicolás stenosis 86399773 I65.29 last U/S 10/06/19 less than 50% Cholelithi asis without obstruction 20504512 K80.20 took the stone out of CBD with ERCP 10/07/19 Compression fracture 219 44509 T14.8XXD T12 , on 12/31/16 , with osteopenia on last DEXA 12/2017 Diverticul ar disease of colon 772151587 K57.30 asymptomat ic , No bleeding Ex-smoker 2535018 Z87.89 1 education Gastroesop hageal reflux disease without esophagitis 416251498 K21.9 omeprazole changed to pantoprazo le 40 Hyperlipidemia 36782323 E78.5 last LDL 01/01/20 @ goal Blood gluc ose outside reference range 405325980 R73.09 last A1c 09/04/19 Anemia 088088640 D64.9 last CBC 01/01/20 was better Left ventr icular hypertrophy 43440594 I51.7 concentric , mod , on ECHO 10/06/19 Mixed anxi ety and depressive disorder 309266091 F41.8 No SI, No HI , sleeping OK Osteoarthritis 829144297 M19.90 had Lt TKR Osteopenia 702490824 M85 .80 with compressio n Fx T spine , on reclastlas t DEXA 12/2017 , Paroxysmal atrial fibrillation 501799698 I48.0 on eliquis Pulmonary hypertension 75123045 I27.20 Vitamin D deficiency 347 97898 E55.9 last level 09/04/19 Peripheral vascular disease 886813637 I73.9 mild on ANNMARIE 09/04/19 Screening mammography 24 497984 Z12.31 Pt refuse Screening for malignant neoplasm of cervix 935199393 Z12.4 pt refuseseen BOX OFFICE AGENT for pelvic ex 02/11/20 Screening for malignant neoplasm of colon 559994477 Z12.11 pt refuse C scope Active or passive immunization 663811442 Z23 refuse zoster [id number] Israel Dodd MD [facility] [address] [place] [address] 05/31/2020 15:33:45 05/31/2020 16:35:02 Benign hypertension 95290404 I10 , BP 3 weekslast EKG 10/06/19 Body mass index 25-29 - overweight 852262181 Z68.28 education Carotid ar nicolás stenosis 27647360 I65.29 last U/S 10/06/19 less than 50% Gastroesop hageal reflux disease without esophagitis 974638145 K21.9 omeprazole changed to pantoprazo le 40 Hyperlipidemia 43077881 E78.5 last LDL 01/01/20 @ goal Paroxysmal atrial fibrillation 906167182 I48.0 on eliquis Peripheral vascular disease 524337450 I73.9 mild on ANNMARIE 09/04/19 Vitamin D deficiency 347 97285 E55.9 last level 09/04/19 Osteopenia 810066998 M85 .80 with compressio n Fx T spine , on reclastlas t DEXA 03/08/20 Screening mammography 24 034254 Z12.31 Pt refuse Screening for malignant neoplasm of cervix 625773502 Z12.4 pt refuseseen BOX OFFICE AGENT for pelvic ex 02/11/20 Screening for malignant neoplasm of colon 111103668 Z12.11 pt refuse C scope Active or passive immunization 222402656 Z23 refuse zoster [id number] Israel Dodd MD [facility] [address] [place] [address] 08/31/2020 15:21:38 08/31/2020 16:21:27 Benign hypertension 84209555 I10 , BP 3 weekslast EKG 10/06/19 Atrial sep chente aneurysm 72608562 I25.3 last ECHO 10/06/19 Body mass index 25-29 - overweight 110400119 Z68.28 education Carotid ar nicolás stenosis 46324265 I65.29 last U/S 10/06/19 less than 50% Mixed anxi ety and depressive disorder 488565377 F41.8 No SI, No HI , sleeping OK Screening mammography 24 211732 Z12.31 Pt refuse Screening for malignant neoplasm of cervix 131565893 Z12.4 pt refuse seen BOX OFFICE AGENT for pelvic ex 07/2020 Screening for malignant neoplasm of colon 680543747 Z12.11 pt refuse C scope Active or passive immunization 958462260 Z23 refuse zoster Hyperlipidemia 96267936 E78.5 last LDL 01/01/20 @ goal [id number] Israel Dodd MD [facility], [facility] [address] [place] [address] 12/02/2020 15:13:25 12/02/2020 15:47:15 Benign hypertension 75525836 I10 , BP 3 weekslast EKG 10/06/19 Body mass index 25-29 - overweight 700441465 Z68.28 educationl ost 6 lbs on diet Carotid ar nicolás stenosis 05794555 I65.29 last U/S 10/06/19 less than 50% Hyperlipidemia 49492776 E78.5 last LDL 10/18/20 @ goal Mixed anxi ety and depressive disorder 248604066 F41.8 No SI, No HI , sleeping OK Osteopenia 561827770 M85 .80 with compressio n Fx T spine , on reclastlas t DEXA 03/08/20 Paroxysmal atrial fibrillation 752413940 I48.0 on eliquis Peripheral vascular disease 725486311 I73.9 mild on ANNMARIE 09/04/19 Vitamin D deficiency 347 32051 E55.9 last level 05/31/20 Gastroesop hageal reflux disease without esophagitis 659460752 K21.9 had symptoms with stopping trial of pantoprazo le 40 Screening mammography 24 018779 Z12.31 Pt refuse Screening for malignant neoplasm of cervix 889498352 Z12.4 pt refuse seen BOX OFFICE AGENT for pelvic ex 07/2020 Screening for malignant neoplasm of colon 983316543 Z12.11 pt refuse C scope Active or passive immunization 532371204 Z23 refuse zoster Diarrhea 67989953 R19.7 [id number] Israel Dodd MD [facility] [employer] [facility], [facility] [address] [place] [address] 03/03/2021 13:53:14 03/03/2021 14:56:27 Adult health examination 708821201 Z00.01 Benign hypertension 1072 5009 I10 , BP 3 weekslast EKG 12/03/20 Atrial sep chente aneurysm 97898386 I25.3 last ECHO 10/06/19 Anemia 718518676 D64.9 last CBC 01/01/20 was better Blood gluc ose outside reference range 323303389 R73.09 last A1c 09/04/19 Body mass index 25-29 - overweight 666759369 Z68.28 education Carotid ar nicolás stenosis 38253904 I65.29 last U/S 12/09/20 less than 50% Cholelithi asis without obstruction 28241195 K80.20 took the stone out of CBD with ERCP 10/07/19 Compression fracture 219 01646 T14.8XXD T12 , on 12/31/16 , with osteopenia on last DEXA 03/08/20 Diverticul ar disease of colon 020698306 K57.30 asymptomat ic , No bleeding Ex-smoker 4693102 Z87.89 1 education Gastroesop hageal reflux disease without esophagitis 261582684 K21.9 had symptoms with stopping trial of pantoprazo le 40 History of transient ischemic attack 258098301 Z86.73 last carotid U/S 01/30/17 Hyperlipidemia 27165948 E78.5 last LDL 10/18/20 @ goal Left ventr icular hypertrophy 26793840 I51.7 concentric , mod , on ECHO 10/06/19 Menopause 867205113 Z78. 0 asymptomat ic Mixed anxi ety and depressive disorder 376143856 F41.8 No SI, No HI , sleeping OK Osteoarthritis 103726084 M19.90 had Lt TKR Osteopenia 020594071 M85 .80 with compressio n Fx T spine , on reclastlas t DEXA 03/08/20 Paroxysmal atrial fibrillation 074225703 I48.0 on eliquis Peripheral vascular disease 690007709 I73.9 mild on ANNMARIE 09/04/19 Pulmonary hypertension 53310017 I27.20 Vitamin D deficiency 347 88178 E55.9 last level 05/31/20 Screening mammography 24 268202 Z12.31 Pt refuse Screening for malignant neoplasm of cervix 221395263 Z12.4 pt refuse seen BOX OFFICE AGENT for pelvic ex 07/2020 Screening for malignant neoplasm of colon 406577956 Z12.11 pt refuse C scope Active or passive immunization 978488296 Z23 refuse zoster Macrocytosis 996676285 D 75.89 [id number] Israel Dodd MD [facility] [address] [place] [address] 06/16/2021 09:36:15 06/16/2021 10:17:53 Hyperlipidemia 09266112 E78.5 last LDL 10/18/20 @ goal Mixed anxi ety and depressive disorder 099081777 F41.8 No SI, No HI , sleeping OK Paroxysmal atrial fibrillation 560961134 I48.0 on eliquis Peripheral vascular disease 524276051 I73.9 mild on ANNMARIE 09/04/19 Vitamin D deficiency 347 90982 E55.9 last level 03/07/21 Hypomagnesemia 071930425 E83.42 not taking mag on reg basis Carotid ar nicolás stenosis 78514095 I65.29 last U/S 12/09/20 less than 50% Body mass index 25-29 - overweight 782014136 Z68.28 education Benign hypertension 1072 5009 I10 , BP 3 weekslast EKG 12/03/20per pt had ophth 01/2021 Neuropathy 182268828 G62 .9 Screening mammography 24 918213 Z12.31 Pt refuse Screening for malignant neoplasm of cervix 027103063 Z12.4 seen BOX OFFICE AGENT for pelvic ex 06/08/21 Screening for malignant neoplasm of colon 057544647 Z12.11 pt refuse C scope Active or passive immunization 476268774 Z23 refuse zoster Advance di rective discussed with patient 143990429 Z71.89 education [id number] Israel Dodd MD [facility], [facility] [address] [facility] [address] [place] [address] 08/24/2021 15:31:50 08/24/2021 16:48:59 Benign hypertension 23269744 I10 , BP 3 weekslast EKG 12/03/20per pt had ophth 01/2021 Blood gluc ose outside reference range 760815275 R73.09 last A1c 06/16/21 Body mass index 25-29 - overweight 281397258 Z68.28 education Gastroesop hageal reflux disease without esophagitis 228407783 K21.9 had symptoms with stopping trial of pantoprazo le 40 History of transient ischemic attack 088182562 Z86.73 last carotid U/S 12/09/20 Paroxysmal atrial fibrillation 757243138 I48.0 on eliquis Peripheral vascular disease 196543161 I73.9 mild on ANNMARIE 09/04/19 Vitamin D deficiency 347 42691 E55.9 last level 03/07/21 Pulmonary hypertension 13955572 I27.20 stable Osteopenia 500663102 M85 .80 with compressio n Fx T spine , on reclastlas t DEXA 03/08/20 Hypomagnesemia 170581009 E83.42 last level 06/16/21 Hyperlipidemia 33848027 E78.5 last LDL 06/16/21 @ goal Screening mammography 24 981170 Z12.31 Pt refuse Screening for malignant neoplasm of cervix 688089888 Z12.4 seen BOX OFFICE AGENT for pelvic ex 06/08/21 Screening for malignant neoplasm of colon 040348961 Z12.11 pt refuse C scope Active or passive immunization 062500826 Z23 refuse zoster Insomnia 349062249 G47.0 0 [id number] Israel Dodd MD [facility] [employer], [facility] [address] [place] [address] 09/21/2021 13:58:20 09/21/2021 14:41:25 Diarrhea 21175870 R19.7 increase fluids Nausea and vomiting 1692 1999 R11.2 resolved Paroxysmal atrial fibrillation 833972977 I48.0 on [facility] cardiology next week for stress test [id number] Israel Dodd MD [employer], [facility] [address] [place] [address] 10/14/2021 10:27:24 10/14/2021 11:44:04 Pneumonia 545268739 J18.9 on ABx Pleural effusion 7311337 8 J90 thoracente sis done , result not in chart , seen pulmF/U with pulm and repeat CT 12/2021 Nausea and vomiting 1692 1999 R11.2 resolved Kidney stone 21741675 N2 0.[address] abd 09/28/21 Se E Benign hypertension 1072 5009 I10 decrease amlodipine to 5 QAM ,BP 2-3 weekslast EKG 12/03/20per pt had ophth 01/2021 Anemia 543902492 D64.9 last CBC 09/21/21 [id number] Israel Dodd MD [facility], [facility] [address] [place] [address] 12/07/2021 11:04:58 12/07/2021 12:51:56 Anemia 009115257 D64.9 last CBC 11/02/21 Pneumonia 810443159 J18. 9 with pleural effusion , better on CT 11/04/21 , on ABxneed another CT for documentat ion of resolution 3 months from 11/04/21 Benign hypertension 1072 5009 I10 decrease amlodipine to 5 QAM ,BP 2-3 weekslast EKG 12/03/20per pt had ophth 01/2021 Body mass index 25-29 - overweight 094645741 Z68.28 education Carotid ar nicolás stenosis 32952578 I65.29 last U/S 12/09/20 less than 50% Hyperlipidemia 82183907 E78.5 last LDL 06/16/21 @ goal Hypomagnesemia 288781613 E83.42 last level 06/16/21 Paroxysmal atrial fibrillation 318380891 [facility] test Peripheral vascular disease 182627023 I73.9 mild on ANNMARIE 09/04/19 Vitamin D deficiency 347 18182 E55.9 last level 08/24/21 Screening mammography 24 714454 Z12.31 Pt refuse Screening for malignant neoplasm of cervix 311480348 Z12.4 seen BOX OFFICE AGENT for pelvic ex 06/08/21 Screening for malignant neoplasm of colon 284287680 Z12.11 pt refuse C scope Active or passive immunization 358446077 Z23 refuse zoster [id number] Israel Dodd MD [facility], [facility] [address] [place] [address] 03/09/2022 12:05:50 03/09/2022 13:31:18 Adult health examination 616624162 Z00.01 Benign hypertension 1072 5009 I10 , BP 3 weekslast EKG 09/28/21 Atrial sep chente aneurysm 63206891 I25.3 last ECHO 10/06/19 Anemia 827663643 D64.9 last CBC 12/07/21 was better Blood gluc ose outside reference range 334083689 R73.09 last A1c 06/16/21 Body mass index 25-29 - overweight 527375123 Z68.28 education Carotid ar nicolás stenosis 64512637 I65.29 last U/S 02/02/22 Cholelithi asis without obstruction 63210465 K80.20 took the stone out of CBD with ERCP 10/07/19 Compression fracture 219 39511 T14.8XXD T12 , on 12/31/16 , with osteopenia on last DEXA 03/08/20 Diverticul ar disease of colon 955335614 K57.30 asymptomat ic , No bleeding Ex-smoker 2239359 Z87.89 1 education Gastroesop hageal reflux disease without esophagitis 928370652 K21.9 had symptoms with stopping trial of pantoprazo le 40 History of transient ischemic attack 176527510 Z86.73 last carotid U/S 02/02/22 Hyperlipidemia 51972312 E78.5 last LDL 06/16/21 @ goal Left ventr icular hypertrophy 99740709 I51.7 concentric , mod , on ECHO 10/06/19 Menopause 478706244 Z78. 0 asymptomat ic Mixed anxi ety and depressive disorder 059280639 F41.8 No SI, No HI , sleeping OK Osteoarthritis 647626190 M19.90 had Lt TKR Osteopenia 533771573 M85 .80 with compressio n Fx T spine , on reclastlas t DEXA 03/08/20 Paroxysmal atrial fibrillation 761684922 I48.0 on eliquis Peripheral vascular disease 588649777 I73.9 mild on ANNMARIE 02/02/22 Pulmonary hypertension 24315543 I27.20 stable Macrocytosis 761546458 D 75.89 Vitamin D deficiency 347 59935 E55.9 last level 08/24/21 Screening mammography 24 102830 Z12.31 Pt refuse Screening for malignant neoplasm of cervix 673949198 Z12.4 pt refuse seen BOX OFFICE AGENT for pelvic ex 07/2020 Screening for malignant neoplasm of colon 972491021 Z12.11 pt refuse C scope Active or passive immunization 685283593 Z23 refuse zoster Pneumonia 843879397 J18. 9 with pleural effusion , better on CT 11/04/21 , on ABxneed another CT for documentat ion of resolution 3 months from 11/04/21 , had it yesterday [id number] Israel Dodd MD [facility] [employer] [facility] [address] [place] [address] 07/03/2022 10:15:20 07/03/2022 11:20:32 Benign hypertension 21477343 I10 good controldec reased amlodipine , BP 3 weekslast EKG 09/28/21 Benign par oxysmal positional vertigo 515745119 H81.10 Accidental fall 66175859 2 W19.XXXA Carotid ar nicolás stenosis 76401756 I65.29 last U/S 02/02/22 Hyperlipidemia 64322409 E78.5 last LDL 06/16/21 @ goal Paroxysmal atrial fibrillation 057757882 I48.0 on eliquis Peripheral vascular disease 976327215 I73.9 mild on ANNMARIE 02/02/22 Solitary n odule of lung 825610364 R91.[address] 03/13/22 Active or passive immunization 932370234 Z23 refuse zoster [id number] Israel Dodd MD [employer], [employer] [address] [place] [address] 10/02/2022 10:59:10 10/02/2022 11:53:40 Paroxysmal atrial fibrillation 123130459 I48.0 on eliquisant icoagulati on safty education Peripheral vascular disease 501338072 I73.9 mild on ANNMARIE 02/02/22 Solitary n odule of lung 210991361 R91.[address] 03/13/22 Carotid ar nicolás stenosis 27217210 I65.29 last U/S 02/02/22 Body mass index 25-29 - overweight 994543551 Z68.28 education Benign hypertension 1072 5009 I10 on the low side , stop amlodipine , BP 3 weekslast EKG 09/28/21 Screening mammography 24 017974 Z12.31 Pt refuse Screening for malignant neoplasm of cervix 590544653 Z12.4 pt refuse seen BOX OFFICE AGENT for pelvic ex 07/2020 Screening for malignant neoplasm of colon 266941016 Z12.11 pt refuse C scope Active or passive immunization 285112581 Z23 refuse zoster Pain of bi lateral hip joints 3830440918 2671432 M25.551 [id number] Israel Dodd MD [employer], [employer] [address] [place] [address] 01/17/2023 17:47:46 01/17/2023 19:47:50 Congestion of nasal sinus 63465177 R09.81 Benign hypertension 1072 5009 I10 cardiology increased coreg, BP 3 weekslast EKG 09/28/21 Carotid ar nicolás stenosis 69217078 I65.29 last U/S 02/02/22 Hyperlipidemia 00232056 E78.5 last LDL 06/16/21 @ goal Mixed anxi ety and depressive disorder 297032153 F41.8 No SI, No HI , sleeping OK Screening mammography 24 842041 Z12.31 Pt refuse Active or passive immunization 547147574 Z23 refuse zoster [id number] Israel Dodd MD [facility] [address] [place] [address] 03/05/2023 14:53:31 03/05/2023 15:41:26 Syncope 456690550 R55 ER if any [place] OR vision problemNo driving Contusion of face 860808 004 S00.83XA better Diarrhea 81893594 R19.7 increase fluids Benign hypertension 1072 5009 I10 cardiology increased coreg, BP 1 weeklast EKG 10/02/22 [id number] Israel Dodd MD [facility] [address] [place] [address] 04/25/2023 18:41:48 04/25/2023 19:51:38 Benign hypertension 73696019 I10 Pt stopped felodipine 2ry to dizzinessa dd doxazosine 1 mg qhsBP 1 weeklast EKG 10/02/22 Syncope 492506293 R55 ER if any [place] OR vision problemNo drivingwen t to ER 01/2023had cardiac monitorF/U with cardiology Adult [facility] th examination 587713382 Z00.01 Blood gluc ose outside reference range 199746061 R73.09 last A1c 06/16/21 Body mass index 25-29 - overweight 133780891 Z68.28 education Carotid ar nicolás stenosis 02371278 I65.29 last U/S 02/02/22 Cholelithi asis without obstruction 55680064 K80.20 took the stone out of CBD with ERCP 10/07/19 Compression fracture 219 94782 T14.8XXD T12 , on 12/31/16 , with osteopenia on last DEXA 03/08/20 Gastroesop hageal reflux disease without esophagitis 685373309 K21.9 had symptoms with stopping trial of pantoprazo le 40 Ex-smoker 8962647 Z87.89 1 education History of transient ischemic attack 647016597 Z86.73 last carotid U/S 02/02/22 Hyperlipidemia 35693261 E78.5 last LDL 01/22/23 @ goal Hypomagnesemia 404637030 E83.42 last level 06/16/21 Kidney stone 10003688 N2 0.[address] abd 09/28/21 Se E Macrocytosis 329398454 D 75.89 Mixed anxi ety and depressive disorder 340409749 F41.8 No SI, No HI , sleeping OK Osteoarthritis 254375207 M19.90 had Lt TKR Paroxysmal atrial fibrillation 848047390 I48.0 on eliquisant icoagulati on safty education Peripheral vascular disease 945217727 I73.9 mild on ANNMARIE 02/02/22 Pulmonary hypertension 72824492 I27.20 stable Solitary n odule of lung 276056214 R91.[address] 03/13/22 Vitamin D deficiency 347 30575 E55.9 last level 08/24/21 Screening mammography 24 877721 Z12.31 Pt refuse Screening for malignant neoplasm of cervix 455780334 Z12.4 pt refuse seen BOX OFFICE AGENT for pelvic ex 07/2020 Screening for malignant neoplasm of colon 250108981 Z12.11 pt refuse C scope Active or passive immunization 722811251 Z23 refuse zoster Advance di rective discussed with patient 644182528 Z71.89 education [id number] Israel Dodd MD [facility], [facility] [address] [place] [address] 08/03/2023 11:58:19 08/03/2023 13:18:52 Benign hypertension 93001352 I10 Pt stopped felodipine 2ry to dizzinessw ill try isosorbide BP 1 weeklast EKG 10/02/22 Body mass index 25-29 - overweight 531546358 Z68.28 education Compression fracture 219 27848 T14.8XXD T12 and T11, with osteopenia on last DEXA 03/08/20 Carotid ar nicolás stenosis 18367083 I65.29 last U/S 05/17/23 Hyperlipidemia 94074639 E78.5 last LDL 01/22/23 @ goal Paroxysmal atrial fibrillation 274992610 I48.0 on eliquisant icoagulati on safty education Peripheral vascular disease 195138887 I73.9 mild on ANNMARIE 02/02/22 Solitary n odule of lung 686526547 R91.[address] 06/16/23 Screening mammography 24 391790 Z12.31 Pt refuse Screening for malignant neoplasm of cervix 264962914 Z12.4 pt refuse seen BOX OFFICE AGENT for pelvic ex 07/2020 Screening for malignant neoplasm of colon 601520324 Z12.11 pt refuse C scope Active or passive immunization 051423585 Z23 refuse zoster Restrictiv e lung disease 13992081 J98.4 on PFT 12/28/16 [id number] Israel Dodd MD [facility] [address] [place] [address] 11/07/2023 14:28:15 11/07/2023 15:42:37 Anemia 723024588 D64.9 last CBC 10/03/23 , seen GI , having EGD ,will recheck 8 weeks Benign hypertension 1072 5009 I10 Pt stopped felodipine 2ry to dizzinessw ill try isosorbide BP 1 weeklast EKG 10/02/22 Body mass index 25-29 - overweight 439406202 Z68.28 education Carotid ar nicolás stenosis 95738934 I65.29 last U/S 05/17/23 Cirrhosis of liver 20694 007 K74.60 last liver US 06/30/23 Compressio n fracture of thoracic spine 674328999 S22.000A stable Hyperlipidemia 45086411 E78.5 last LDL 10/03/23 @ goal Hypomagnesemia 618148682 E83.42 last level 05/17/23 Macrocytosis 965787777 D 75.89 last B12 10/15/23 Mixed anxi ety and depressive disorder 704551961 F41.8 No SI, No HI , sleeping OK Osteoarthritis 761207508 M19.90 had Lt TKR Peripheral vascular disease 801003864 I73.9 mild on ANNMARIE 05/17/23 Paroxysmal atrial fibrillation 246731375 I48.0 on eliquisant icoagulati on safty education Solitary n odule of lung 245752913 R91.[address] 06/16/23 Screening mammography 24 693525 Z12.31 Pt refuse Screening for malignant neoplasm of cervix 016343758 Z12.4 pt refuse seen BOX OFFICE AGENT for pelvic ex 07/2020 Screening for malignant neoplasm of colon 802260682 Z12.11 pt refuse C scope Active or passive immunization 216805384 Z23 refuse zoster [id number] Israel Dodd MD [place] [employer] [facility], [employer] [address] [place] [address] 02/04/2024 16:28:19 02/04/2024 17:28:08 Compression fracture of thoracic spine 887644435 S22.000A stable Benign hypertension 1072 5009 I10 Pt stopped felodipine 2ry to dizzinessw ill try isosorbide BP 1 weeklast EKG 11/07/23 Paroxysmal atrial fibrillation 312710128 I48.0 on eliquisant icoagulati on safty educations een cardiology , workup for watchman procedure on progress Solitary n odule of lung 129405328 R91.[address] 06/16/23 Peripheral vascular disease 773947967 I73.9 mild on ANNMARIE 05/17/23 Long-term drug therapy 962749010 Z79.891 statin Active or passive immunization 098892694 Z23 refuse zoster [id number] Israel Dodd MD [employer], [employer] [address] [place] [address] 06/11/2024 16:45:20 06/11/2024 18:26:13 Adult health examination 423785371 Z00.01 Benign hypertension 1072 5009 I10 better controlBP 1 weeklast EKG 11/07/23 Body mass index 25-29 - overweight 316223199 Z68.28 education Atrial sep chente aneurysm 71657744 I25.3 last ECHO 10/06/19 Carotid ar nicolás stenosis 26743792 I65.29 last U/S 05/17/23 Cholelithi asis without obstruction 64353707 K80.20 took the stone out of CBD with ERCP 10/07/19 Cirrhosis of liver 39546 007 K74.60 last liver US 06/30/23 Compressio n fracture of thoracic spine 047705835 S22.000A stable Diverticul ar disease of colon 203380231 K57.30 asymptomat ic , No bleeding Gastroesop hageal reflux disease without esophagitis 705592897 K21.9 had symptoms with stopping trial of pantoprazo le 40 History of transient ischemic attack 319395612 Z86.73 last carotid U/S 02/02/22 Hyperlipidemia 36857466 E78.5 last LDL 10/03/23 @ goal Hypomagnesemia 230427381 E83.42 last level 05/17/23 Anemia 887376670 D64.9 last CBC 10/03/23 , seen GI , having EGD ,will recheck 8 weeks Ex-smoker 3092508 Z87.89 1 education Kidney stone 97151271 N2 0.[address] abd 09/28/21 Se E Long-term drug therapy 438819654 Z79.891 statin , last A1c 02/04/24 Macrocytosis 775203643 D 75.89 last B12 10/15/23 Menopause 282881396 Z78. 0 asymptomat ic,last DEXA 01/25/24 Mixed anxi ety and depressive disorder 996718140 F41.8 No SI, No HI , sleeping OK Osteoarthritis 222816491 M19.90 had Lt TKR Paroxysmal atrial fibrillation 585567800 I48.0 on eliquisant icoagulati on safty educations een cardiology ,had watchman procedure 02/2024 Peripheral vascular disease 436906927 I73.9 mild on ANNMARIE 05/17/23 Solitary n odule of lung 544517303 R91.[address] 06/16/23 Vitamin D deficiency 347 82691 E55.9 last level 08/24/21 Restrictiv e lung disease 95141665 J98.4 on PFT 12/28/16 ,last 08/03/23 Screening mammography 24 648010 Z12.31 Pt refuse Screening for malignant neoplasm of cervix 572461304 Z12.4 pt refuse seen BOX OFFICE AGENT for pelvic ex 07/2020 Screening for malignant neoplasm of colon 933629046 Z12.11 pt refuse C scope Active or passive immunization 956383575 Z23 refuse zoster Advance di rective discussed with patient 024966014 Z71.89 education Health Concerns Section Related Observation LastModified by Organization Detai ls LastModified Time None Recorded Concern Status LastModified by Organization Details LastModified Time None Recorded Advance Directives Directive N: Payers Encounter Date Sequence Insurance Name Policy Number Policy Healy Covered Member ID Healy Member ID Guarantor Name 04/25/2023 1 [place] Martina Campa [id number] Martian Garveyaugustus 04/25/2023 2 [place] 104 Martina Wilfrido Villarrealsukumar [id number] Martina Wilfrido Mareaugustus 08/03/2023 1 [place] Mart[place] Campa [id number] Martina Wilfrido Villarrealeckaugustus 08/03/2023 2 [place] 104 Martina Wilfrido Campa [id number] Martina Wilfrido Villarreale[place]augustus 11/07/2023 1 [place] Mart[place] Wilfrido Garveyaugustus [id number] Martina Wilfrido Campa 11/07/2023 2 [place] 104 Martina Wilfrido Campa [id number] Martina Wilfrido Villarrealeckaugustus 02/04/2024 1 [place] Mart[place] Campa [id number] [place] Wilfrido Phileckaugustus 02/04/2024 2 [place] 104 [place] Wilfrido Philsukumar [id number] Martina Wilfrido Villarrealeckaugustus 06/11/2024 1 [place] Martina Anna Mareaugustus [id number] 34 [place] Wilfrido Villarrealeckaugustus 06/11/2024 2 [place] 104 Martina Wilfrido Campa [id number] Martina Campa Notes Date Note Type Note Provider Name and Address Organization Details Recorded Time 04/25/2023 text/html Hypertension F/UReported bypatient.Medications: taking medications as directed; no side effects from medication Lifestyle:regular exercise; limiting/avoiding salt; compliant with low salt diet Associated Symptoms:no dizziness; no lightheadedness; no chest pain; no shortness of breath; no palpitations; no edema; no calf pain with exertion; no headacheMedicare Annual Wellness VisitReported bypatient.Diet and Nutrition:healthy diet Fracture Risk:no history of fractures; no recent explained fracture; no sudden unexplained fractures; no previous musculoskeletal injuries Physical Activity:recent increase in physical activity; good physical condition; discussed exercise habits Depression Risk:never feels sad, empty, or tearful; no loss of interest in activities; no significant changes in weight; no sleep disturbances or insomnia; no agitation; no loss of energy; no feelings of worthlessness or guilt; no thoughts of suicide; no history of depression; no history of mood disorders Orientation:no disorientation to time; no disorientation to date; no disorientation to place Concentration and Memory:no decreased concentrating ability; no memory lapses or loss; does not forget words Speech/Motor difficulties:no speech difficulties; no difficulty expressing formulated concepts; no difficulty with fine manipulative tasks; no difficulty writing/copying; no slowed reaction time; does not knock things over when trying to pick them up Hearing:no loss of hearing Vision:no vision problems Activities of Daily Living:able to bathe with limited or no assistance; able to contol urination and bowels; able to dress with limited or no assistance; able to feed self with limited or no assistance; able to get out of chair or bed with limited or no assistance; able to groom with limited or no assistance; able to toilet with limited or no assistance Instrumental Activities of Daily Living:able to do house work with limited or no assistance; able to grocery shop with limited or no assistance; able to manage medications with limited or no assistance; able to manage money with limited or no assistance; able to prepare meals with limited or no assistance; able to use the phone with limited or no assistance Falls Risk Assessment:no frequent falls while walking; no fall in the past year; no fall since last visit (1 time); no dizziness/vertigo Home Safety:use of seatbelts Israel Dodd MD [address] [place] [address], [place], [address], [facility] 04/25/2023 19:38:11 08/03/2023 text/html Hypertension F/UReported bypatient.Medications: taking medications as directed; no side effects from medication Lifestyle:regular exercise; limiting/avoiding salt; compliant with low salt diet Associated Symptoms:no dizziness; no lightheadedness; no chest pain; no shortness of breath; no palpitations; no edema; no calf pain with exertion; no headacheMedicare Annual Wellness VisitReported bypatient.Falls Risk Assessment:no frequent falls while walking; no fall in the past year; no fall since last visit; no dizziness/vertigo Israel Dodd MD [address], [place], [place], [address] [place] [address], [facility] 08/03/2023 12:44:40 11/07/2023 text/html Hypertension F/UReported bypatient.Medications: taking medications as directed; no side effects from medication Lifestyle:regular exercise; limiting/avoiding salt; compliant with low salt diet Associated Symptoms:no dizziness; no lightheadedness; no chest pain; no shortness of breath; no palpitations; no edema; no calf pain with exertion; no headache [facility] [address], [place], [place], [address] [place] [address], [facility] 11/07/2023 15:14:19 02/04/2024 text/html Hypertension F/UReported bypatient.Medications: taking medications as directed; no side effects from medication Lifestyle:regular exercise; limiting/avoiding salt; compliant with low salt diet Associated Symptoms:no dizziness; no lightheadedness; no chest pain; no shortness of breath; no palpitations; no edema; no calf pain with exertion; no headache Israel Dodd MD [address], [place], [place], [address] [place] [address], [facility] 02/04/2024 17:23:42 06/11/2024 text/html Hypertension F/UReported bypatient.Medications: taking medications as directed; no side effects from medication Lifestyle:regular exercise; limiting/avoiding salt; compliant with low salt diet Associated Symptoms:no dizziness; no lightheadedness; no chest pain; no shortness of breath; no palpitations; no edema; no calf pain with exertion; no headacheMedicare Annual Wellness VisitReported bypatient.Diet and Nutrition:healthy diet Fracture Risk:no history of fractures; no recent explained fracture; no sudden unexplained fractures; no previous musculoskeletal injuries Physical Activity:recent increase in physical activity; good physical condition; discussed exercise habits Depression Risk:never feels sad, empty, or tearful; no loss of interest in activities; no significant changes in weight; no sleep disturbances or insomnia; no agitation; no loss of energy; no feelings of worthlessness or guilt; no thoughts of suicide; no history of depression; no history of mood disorders Orientation:no disorientation to time; no disorientation to date; no disorientation to place Concentration and Memory:no decreased concentrating ability; no memory lapses or loss; does not forget words Speech/Motor difficulties:no speech difficulties; no difficulty expressing formulated concepts; no difficulty with fine manipulative tasks; no difficulty writing/copying; no slowed reaction time; does not knock things over when trying to pick them up Hearing:no loss of hearing Vision:no vision problems Activities of Daily Living:able to bathe with limited or no assistance; able to contol urination and bowels; able to dress with limited or no assistance; able to feed self with limited or no assistance; able to get out of chair or bed with limited or no assistance; able to groom with limited or no assistance; able to toilet with limited or no assistance Instrumental Activities of Daily Living:able to do house work with limited or no assistance; able to grocery shop with limited or no assistance; able to manage medications with limited or no assistance; able to manage money with limited or no assistance; able to prepare meals with limited or no assistance; able to use the phone with limited or no assistance Falls Risk Assessment:no frequent falls while walking; no fall in the past year; no fall since last visit; no dizziness/vertigo Home Safety:use of seatbelts; no vision or hearing loss while driving Israel Dodd MD [address] [place] [address], [place], [address], [facility] 06/11/2024 18:11:27 OBGyn Episode No OBEpisode recorded.
--- OUTSIDE RECORDS SUMMARY | 2024-08-02 16:19 | XMS_ITS | Continuity of Care Document ---
Author Organization [facility] Address [id number] [place] [address] [address] [place] [address] Phone Care Team Providers Care Boiler Water Tester Name Role Phone Monika Felder Unavailable Unavailable Advance Directives Directive Yes / No Effective Date File Name No Information Encounters Encounter Description Practice Location Reason(s) For Visit Diagnoses Date Provider Providers Copied on Encounter [facility], [id number] [place] [address] [address], [place], [place], [id number], [place] tel:[phone] [facility] No Information 6[address] Emerita Frank. [address] , [address], [place], [address], [place]. tel:[phone] Family History Family Member Type Diagnosis Age At Onset No Information Payers Payer name Insurance type Covered democrat ID Authoriza tion(s) Medicare [facility] [id number] Social History Type Description Quantity Date Captured [...]
== END 2024-08-02 10:15 | disposition home or self-care (01) ==
PROVIDERS: PCP Internal Medicine; Visit Provider Internal Medicine
DX: N20.0 Calculus of kidney (principal); R91.1 Solitary pulmonary nodule
CPT/HCPCS: 71250; 74018

== ENCOUNTER 2024-10-18 10:15 | Outpatient (CLI) | payer MEDICARE, BC, SELFPAY ==
--- OUTSIDE RECORDS SUMMARY | 2024-10-18 10:19 | XMS_ITS | Encounter Summary ---
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 Gender Identity Not on file Sexual Orientation [...] on filedocumented in this encounter Care Teams Esol Teacher Assistant Relationship Specialty Start Date End Date Israel Sood MD [address] [place] [address] PCP - General 09/08/16 Britney Bolton MD [address] [place] [address] Chemical Equipment Sales Engineer Obstetrics and Gynecology 09/02/19 Aniket Link MD [id number] [place] [address] Surgeon Colon and Rectal Surgery 12/01/21 Michele Link MD [phone] [place] [address] Consulting Physician Gynecologic Oncology 12/01/21 Andreea Raphael, RN [address] [facility] [address] [place] [address] SHOP Outpatient Accordion Maker 02/21/24 03/19/24 documented as of this encounter
--- OUTSIDE RECORDS SUMMARY | 2024-10-18 10:19 | XMS_ITS | Clinical Summary ---
Author Organization [facility] Address [address] [place] [address] Care Team Providers Care Meat Molder Name Role Phone Israel Sood MD Primary Care Provider [phone] Allergies Active Allergy Reactions Criticality Noted Date [...] 03/08/2021 Macrocytosis 03/03/2021 Choledocholithiasis 10/08/2019 Pulmonary hypertension ([facility]) 020 Syncope 10/05/2019 Elevated liver enzymes 09/10/2019 Endometrial cancer ([facility]) 09/03/2019 Overview (10/05/2019): Added automatically from request for surgery [id number] Osteopenia 09/02/2019 Carotid artery stenosis 09/02/2019 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 Ex-smoker 09/02/2019 Menopause present 09/02/2019 Osteoarthrosis 09/02/2019 Peripheral vascular disease 09/02/2019 Gallstone 02/11/2019 Anemia 12/27/2018 Left ventricular hypertrophy 06/27/2018 Overweight with body mass index (BMI) 25.0-29.9 06/27/2018 Paroxysmal atrial fibrillation ([facility]) 03/14/2018 Compression fracture of pelvis with routine heal ing 01/01/2018 History of transient ischemic attack 09/27/2016 Vitamin D deficiency 09/27/2016 Gastroesophageal reflux disease without esophagi tis 03/29/2016 Mixed anxiety and depressive disorder 03/29/2016 Two-vessel coronary artery disease 07/27/2015 Temporary cerebral vascular dysfunction 05/05/19 15 Knee pain 11/21/2013 Patent foramen ovale ([facility]) 07/30/2012 Essential hypertension 07/30/2012 Hyperlipidemia 07/30/2012 Hematuria 06/13/2012 Encounters Date Type Department Care Team Description 09/02/2024 7:50 AM CDT - 09/02/2024 11:59 PM CDT Hospital Encounter [facility] [place] [address] Bharath Jones MD Discharge Disposition: Home or Self Care (Routine Discharge) 09/02/2024 Travel from Last 3 Months Immunizations Immunization Administration Dates Next Due Fluzone [...] 6:35 PM CDT Height 157.5 cm (5' 2) 01/15/2024 6:35 PM CDT Body Mass Index 27.44 01/15/2024 6:35 PM CDT Plan of Treatment Health Maintenance Due Date Last Done Comments ASCVD LDL 1936 ASCVD Statin 1936 Zoster Vaccines (1 of 2) 1986 Annual Medicare Wellness Visit 2001 RSV Immunization or 60+ Years (1 - 1-dose 75+ series) 11/25/2011 COVID-19 Vaccine (4 - 2023-2 5 season) 2023 01/20/2021, 06/20/2020, 05/30/2020 PHQ-2 (Physician Beyer) 04/02/2024 DTaP, Tdap and Td Vaccines ( [...] independent in ADLs upon discharge from hospital [facility] 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 No hepatosplenomegaly. Ordered By: BHARATH JONES Interpreted By: Marlo Graf MD, 09/02/2024 8:33 AM Narrative 09/02/2024 8:34 AM CDT [place] [address] US ABD LIMITED INDICATION: Iron iron deficiency anemia appear TECHNIQUE: Limited grayscale and color/spectral Doppler ultrasound performed of the liver and spleen. COMPARISON: None FINDINGS: The liver demonstrates normal echogenicity measuring 15.5 cm. Patent flow within the main portal vein in the appropriate direction. No focal lesion identified. The spleen appears normal measuring 8.2 x 3.6 x 2.4 cm. No focal lesion. Procedure Note Marlo Graf MD - 09/02/2024 [place] [address] [place] ABD LIMITED INDICATION: Iron iron deficiency anemia appear TECHNIQUE: Limited grayscale and color/spectral Doppler ultrasoundperformed of the liver and spleen. COMPARISON: None FINDINGS: The liver demonstrates normal echogenicity measuring 15.5 cm. Patent flowwithin the main portal vein in the appropriate direction. No focal lesionidentified. The spleen appears normal measuring 8.2 x 3.6 x 2.4 cm. Nofocal lesion. IMPRESSION: Unremarkable sonographic appearance of the liver and spleen. Nohepatosplenomegaly. Ordered By: BHARATH JONES Interpreted By: Marlo Graf MD, 09/02/2024 8:33 AM us Bharath Jones MD ULTRASOUND Final Result from Last [address] [place] [address] [place] [address] MEDICARE Advance Directives * Full Code (Latest Code Status on File) Date Activated Date Inactivated Comments 09/28/2021 3:13 AM 10/05/2021 9:07 PM * Full Code Date Activated Date Inactivated Comments 10/05/2019 4:36 AM 10/08/2019 9:37 PM Care Teams Meat Molder Relationship Specialty Start Date End Date Israel Sood MD PCP - General INTERNAL MEDICINE 10/04/19
--- OUTSIDE RECORDS SUMMARY | 2024-10-18 10:19 | XMS_ITS | Data Portability ---
Author Organization [facility] Address [address] [place] [address] Assessment No assessment recorded. Plan of Treatment [...] carci noma. Maeve mejia MD elect carmel morse 08/12 08:05 AM Gross Descr iptio n: [...] provi ded by [facility], GIVTED, d/b/a Path[facility] loi, [address] [place] [address] Derrick Pelletier MD, Labor atory Dire tor. Case revie wed and diagn osis rende red at [facility] [employer], GIVTED, d/b/a [facility] loi, [address], [place] [address] Jus Luis MD, Formerly [facility] atory Dire tor. CONFI DENTI AL Not Available [facility] ([facility]) [address], [place], [address], 08/13/2019 09:06:07 Result Notes None recorded. Problems Name Problem SNOMED Code Status Onset Date Resolution Date Notes Provider Name and Address Organization Details Recorded Time Evaluatio n finding Active 2018 Hematuria, unspecifie d;Recorded Elsewhere: No Locatio n: [facility] rce: EHR Chroni c: N Practice ID: 0001 Billa ble Time: 03:30:00 PM Not Available [facility] 0 18:46:[address] Concept Active 2018 Encntr for undergraduate advisor exam (general) (routine) w/o abn findings;P ractice ID: 0001 Not Available [facility] 0 18:46:33 Postmenop ausal bleeding 71816787 Active 2019 Postmenopa usal bleeding;R ecorded Elsewhere: No Locatio n: [facility] rce: EHR Chroni c: N Practice ID: 0001 Billa ble Time: 09:15:00 AM Not Available [facility] 0 18:46:33 Endometri al intraepit helial neoplasia 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 Procedures Surgical History Date Name Laterality Status Provider Name and Address Organization Details Recorded Time 0 Endometrial Biopsy completed [facility] 08/11/2019 11:20:37 Imaging Results None recorded. [...] Prescrib ed Elsewher e: Yes Loca tion: [facility] [address] odify By: macie jamil DateTime : 04/03/19 11:37:05 AM Not Available Not Available Not Available ondansetr on HCl 4 mg tablet active Not Available Not Available No t Available amlodipin e 2.5 mg tablet take 1 tablet by oral route every day active Prescrib ed Elsewher e: Yes Loca tion: [facility] [address] odify By: macie Guido ter DateTime : 04/03/19 11:37:05 AM Not Available Not Available Not Available Aygestin 5 mg tablet take 2 tablet by oral route daily for 3 months 2019 active Prescrib ed Elsewher e: No Locat ion: [facility] [address] odify By: vahid blackman DateTime : 05/05/19 08:15:00 AM Not Available Not Available Not Available sulfameth oxazole 800 mg-trimet hoprim 160 mg tablet active Not Available Not Available Not Available carvedilo l 3.125 mg tablet take 1 tablet by oral route 2 times every day with food active Prescrib ed Elsewher e: Yes Loca tion: [facility] odify By: macie Guido ter DateTime : 04/03/19 11:37:05 AM Not Available Not Available Not Available citalopra m 20 mg tablet active Not Available Not Available Not Available omeprazol e 10 mg capsule,d elayed release take 2 capsule by oral route every day before a meal active Prescrib ed Elsewher e: Yes [facility] odify By: macie Guido ter DateTime : 04/03/19 11:37:05 AM Not Available Not Available Not Available omeprazol e 20 mg capsule,d elayed release active Not Available Not Available Not Available aspirin 81 mg chewable tablet chew 1 tablet by oral route every day active Prescrib ed Elsewher e: Yes [facility] By: macie Guido ter DateTime : 04/03/19 11:37:05 AM Not Available Not Available Not Available lisinopri l 10 mg-hydroc hlorothia zide 12.5 mg tablet take 1 tablet by oral route every day active Prescrib ed Elsewher e: Yes Loca tion: [facility] [address] odify By: macie Guido ter DateTime : [...] active Not Available Not Available Not Available [place]-3 active Prescrib ed Elsewher e: Yes [facility] odify By: macie Guido ter DateTime : 04/03/19 11:37:05 AM Not Available Not Available Not Available Vitamin D3 10 mcg (400 unit) capsule active Prescrib ed Elsewher e: Yes [facility] odify By: macie Guido ter DateTime : 04/03/19 11:37:05 AM Not Available Not Available Not Available Eliquis 5 mg tablet active Not Available Not Available No t Available Eliquis 2.5 mg tablet take 1 tablet by oral route 2 times every day active Prescrib ed Elsewher e: Yes [facility] odify By: macie Guido ter DateTime : 04/03/19 11:37:05 AM Not Available Not Available Not Available Tylenol 325 mg capsule take 2 capsule by oral route every 4 hours active Prescrib ed Elsewher e: Yes Loca tion: [facility] [address] odify By: macie Guido ter DateTime : 04/03/19 11:37:05 AM Not Available Not Available Not Available Ezallor Sprinkle 5 mg capsule 04/14 completed Prescrib ed Elsewher e: Yes Loca tion: [facility] [address] odify By: [email or web address] Encount er DateTime : 04/03/19 11:37:05 AM Not Available Not Available Not Available Fluzone High-Dose (PF) 180 mcg/0.5 mL intramusc ular syringe active Not Available Not Available Not Available Vitals Date Recorded Body weight Body mass index (BMI) Body height Systolic And Diastolic Provider Name and Address Organization Details Last Updated DateTime 08/11/2019 91530.15 g 0.3 kg/m2 1645.92 cm 131/75 mm[Hg] Anayeli Jaquez [facility] 08/11/2019 10:47:31 Social History None recorded. Functional Status [...] Code Diagnosis Note 3694 Britney Bolton MD [place] [address] [address] 08/11/2019 10:38:50 08/11/2019 11:27:34 Postmenopausal bleeding 49441311 N95.0 Endoemtria l biopsy done. Endometria l hyperplasia 680153000 N85.00 If hyperplasi a not resolved, hysterecto my may be next step. If malignancy , will need referral to undergraduate advisor oncology. If resolved, may watch and wait. We briefly discussed all those possibilit ies, and she agrees to be called with results. May resume blood thinner with next scheduled dose Health Concerns Section Related Observation LastModified by Organization Detai ls LastModified Time None Recorded Concern Status LastModified by Organization Details LastModified Time None Recorded Advance Directives Directive None Recorded Payers Insurance Date Sequence Insurance Name Policy Number Policy Healy Covered Member ID Healy Member ID Guarantor Name 08/11/2019 2 [place] [address] Wilfrido Lokesh [id number] 12/11/2019 1 [place] Martina Campa [id number] 4 Notes Date Note Type Note Provider Name and Address Organization Details Recorded Time 08/11/2019 text/html She has been taking Aygestin the last 3 months. She had about 1 day of moderate bleeding per week and occasional spotting in between. No pain. No new complaints Clinton webber MA - [facility] 08/11/2019 12:36:49 OBGyn Episode No OBEpisode recorded.
--- OUTSIDE RECORDS SUMMARY | 2024-10-18 10:19 | XMS_ITS | Continuity of Care Document ---
Author Organization [facility] Address [id number] [place] [address] [address] [place] [address] Phone Care Team Providers Care Window Shade Ring Coverer Name Role Phone Monika Felder Unavailable Unavailable Advance Directives Directive Yes / No Effective Date File Name No Information Encounters Encounter Description Practice Location Reason(s) For Visit Diagnoses Date Provider Providers Copied on Encounter [facility], [id number] [place] [address] [address], [place], [place], [id number], [place] tel:[phone] [facility] No Information 6-200 6 Emerita Frank. [address] , [address], [place], [address], [place]. tel:[phone] Family History Family Member Type Diagnosis Age At Onset No Information Payers Payer name Insurance type Covered democrat ID Authoriza tion(s) Medicare [facility] [id number] Social History Type Description Quantity Date Captured [...]
--- OUTSIDE RECORDS SUMMARY | 2024-10-18 10:19 | XMS_ITS | Encounter Summary ---
Author Organization [facility] Address [address] [place] [address] Phone Care Team Providers Care Automobile Mechanic Motor Name Role Phone Israel Sood MD Primary Care Provider [phone] Andreea Raphael RN Unavailable [phone] Britney Bolton MD Unavailable [phone] Aniket Link MD Unavailable [phone] Michele Link MD Unavailable [phone] Andreea Raphael RN Unavailable [phone] Encounter Details Date Type Department Care Team (Late st Contact Info) Description 05/15/2017 Orders Only [facility] [phone] Scanning, Provider Social History Tobacco Use Types Packs/Day Years Used Date Smoking Tobacco: Every Day Comments Unknown Sex and Gender Information Value Date Recorded Sex Assigned at Not on file Legal 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 Gender Identity Not on file Sexual Orientation [...] on filedocumented in this encounter Care Teams Automobile Mechanic Motor Relationship Specialty Start Date End Date Israel Sood MD [address] [place] [address] PCP - General 09/08/16 Andreea Raphael RN [address] [place] [address] CJR Outpatient Customer Services Coordinator 09/06/17 11/28/17 Britney Bolton MD [address] [place] [address] Surveillance Camera Technician Obstetrics and Gynecology 09/02/19 Aniket Link MD [phone] [place] [address] Surgeon Colon and Rectal Surgery 12/01/21 Michele Link MD [phone] [place] [address] Consulting Physician Gynecologic Oncology 12/01/21 Andreea Raphael RN [address] [place], [place] [id number] SHOP Outpatient Customer Services Coordinator 02/21/24 03/19/24 documented as of this encounter
--- OUTSIDE RECORDS SUMMARY | 2024-10-18 10:19 | XMS_ITS | Encounter Summary ---
Author Organization [facility] Address [address] [place] [address] Phone Care Team Providers Care Rough Carpenter Name Role Phone Israel Sood MD Primary Care Provider [phone] Britney Bolton MD Unavailable [phone] Aniket Link MD Unavailable [phone] Michele Link MD Unavailable [phone] Andreea Raphael RN Unavailable [phone] Encounter Details Date Type Department Care Team (Latest Contact Info) Description 05/20/2023 Orders Only [facility] Evon Calvillo, DINA [address] [facility] [address] [facility] [address] [place] [address] Social History Tobacco Use Types [...] on file Legal 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 Gender Identity Not on file Sexual Orientation [...] on filedocumented in this encounter Care Teams Rough Carpenter Relationship Specialty Start Date End Date Israel Sood MD [address] [place] [address] PCP - General 09/08/16 Britney Bolton MD [address] [place] [address] Building Pressure Washer Obstetrics and Gynecology 09/02/19 Aniket Link MD [phone] [place] [address] Surgeon Colon and Rectal Surgery 12/01/21 Michele Link MD [phone] [place] [address] Consulting Physician Gynecologic Oncology 12/01/21 Andreea Raphael, RN [address] [place] [address] SHOP Outpatient Senior Ui Ux Developer 02/21/24 03/19/24 documented as of this encounter
--- OUTSIDE RECORDS SUMMARY | 2024-10-18 10:19 | XMS_ITS | Clinical Summary ---
Author Organization [facility] Address [address], [facility] [address] [place] [address] Phone Care Team Providers Care Die Holder Name Role Phone Israel Sood MD Primary Care Provider Bharath Jones MD Unavailable [phone] Allergies Active Allergy Reactions Criticality Noted Date Comments Amlodipine Other (see Comments) Low 02/05/2024 Felodipine Other (see Comments) Low 02/05/2024 Gemfibrozil Other (see Comments) Medium 06/27/2018 Magnesium Oxide Diarrhea Low 06/19/2023 Medications aspirin 81 MG Chewable Tablet Take 81 mg by mouth daily. 5 04/10/19 26 Active carvedilol (COREG) 25 MG Tablet Take 25 mg by mouth 2 times daily. 2 Active cholestyramine (QUESTRAN) 4 GM Pack Take 4 g by mouth. 2 Active citalopram (CeleXA) 20 MG Tablet Take 20 mg by mouth nightly. Active Cyanocobalamin 1000 MCG SL Tablet Take [...] 150 mg by mouth every other day. Active Cholecalciferol (Vitamin D) 2000 UNIT Tablet Take 2,000 Units by mouth 2 times daily. Active fluticasone (FLONASE) 50 MCG/ACT Suspension 1 [place] by Nasal route daily. Use in each nostril as directed. Active isosorbide mononitrate (IMDUR) 30 MG TABLET SR 24 HR Take 30 mg by mouth every morning. Active Multiple Vitamins-Minerals (Super W-Cqkt-Kpdjfszm-Safia er) Tablet Take 1 Tablet by mouth daily. 30 Tablet Active Copper Gluconate 2 MG Tablet Take 2 mg by mouth daily. 14 Tablet Active Active Problems Problem Noted Date Diagnosed Date Iron deficiency 07/15/2024 Iron adverse reaction 07/15/2024 Anemia due to unknown mechanism 06/23/2024 Pancytopenia 06/23/2024 Iron deficiency anemia, unspecified 06/23/2024 Encounters Date Type Department Care Team Description 09/24/2024 Results Follow-Up [facility] [address], [facility] [address] [place] [address] Bharath Jones MD [place], [place] [address], FERRITIN, IRON W/ IRON BINDING CAPACITY [place], COMPLETE BLOOD COUNT (CBC) WITH DIFF 09/04/2024 9:00 AM CDT Office Visit [facility] [address] [phone] Bharath Jones MD Pancytopenia (Primary Dx); Iron deficiency anemia due to chronic blood loss; Anemia due to unknown mechanism 09/04/2024 8:45 AM CDT Lab [facility] [address] [phone] Lab, Cc [facility] Iron deficiency anemia due to chronic blood loss; Pancytopenia 09/04/2024 Travel 08/04/2024 1:30 PM CDT Office Visit [facility] [address] [phone] Bharath Jones MD Iron deficiency anemia due to chronic blood loss (Primary Dx); Pancytopenia 08/04/2024 1:15 PM CDT Lab [facility] [address] [phone] Lab, Cc [place] Pancytopenia 08/04/2024 Travel from Last 3 Months Family History Medical History Relation Name Comments Diabetes Child 1 Relation Name Status Comments Child 1 Alive Child 2 Alive Child 3 Alive Child 4 Alive Child 5 Alive Father Mother Sister Alive Social History Tobacco Use Types Packs/Day Years Used Date Smoking Tobacco: Former Cigarettes Q uit: 2016 Smokeless Tobacco: Never Alcohol Use Standard Drinks/Week Comments Not Currently 0 (1 standard drink = 0.6 oz pur e alcohol) Comments Unknown Sex and Gender Information Value Date Recorded Sex Assigned at Not on file Legal Sex Female 2:53 PM CDT Gender Identity Not on file Sexual Orientation Not on file Last Filed Vital Signs Vital Sign Reading Time Taken Comments Blood Pressure 140/70 09/04/2024 8:55 AM CDT Pulse 70 09/04/2024 8:55 AM CDT Temperature 36.3 C (97.3 F) 09/04/2024 8:55 AM CDT Respiratory Rate 18 09/04/2024 8:55 AM CDT Oxygen Saturation 95% 09/04/2024 8:55 AM CDT Inhaled Oxygen Concentration - - Weight 66.8 kg (147 lb 4.8 oz) 09/04/2024 8:55 A M CDT Height 159.4 cm (5' 2.75) 09/04/2024 8:55 AM CD T Body Mass Index 26.3 09/04/2024 8:55 AM CDT Plan of Treatment Upcoming Encounters Date Type Department Care Team (Late st Contact Info) Description 11/06/2024 11:05 AM CDT Lab [facility] [address] [phone] Lab, Cc [place] 11/06/2024 11:15 AM CDT Office Visit [facility] [address] [phone] Bharath Jones MD [address] [place] [address] Health Maintenance Due Date Last Done Comments Hepatitis C Virus (HCV) Screening 1935 Zoster Immunization (1 of 2) 1986 SARS-COV-2 Immunization ( season) 2023 01/20/2021, 06/20/2020, 05/30/2020 Influenza Immunization (#1) 2024 1205/2023, 02/18/2023, 03/04/2022, Additional history exists DEXA Bone Density 01/20/2026 01/21/2024 Pneumococcal Immunization (50+ years) Completed 03/27/2018, 01/27/2018, 09/27/2015 TdaP Immunization Completed 01/07/2019, , 09/27/2015 Respiratory Syncytial Virus (RSV) Immunization (Adult) Completed 02/18/2023 Hepatitis B Immunization Aged Out No longer [...] Procedure Name Priority Date/Time Associated Diagnosis Comments COMPLETE BLOOD COUNT (CBC) WITH DIFF Routine 09/04/2024 8:40 AM CDT Iron deficiency anemia due to chronic blood loss Pancytopenia IRON W/ IRON BINDING CAPACITY [place] Routine 09/04/2024 8:40 AM CDT Iron deficiency anemia due to chronic blood loss Pancytopenia FERRITIN Routine 09/04/2024 8:40 AM CDT Iron deficiency anemia due to chronic blood loss Pancytopenia [place], [place] [address] Routine 09/04/2024 8:40 AM CDT Iron deficiency anemia due to chronic blood loss Pancytopenia COMPLETE BLOOD COUNT (CBC) WITH DIFF Routine 08/04/2024 1:10 PM CDT Pancytopenia LACTATE DEHYDROGENASE (LD) Routine 08/04/2024 1:10 PM CDT Pancytopenia from Last 3 Months Results * (ABNORMAL) IRON W/ IRON BINDING CAPACITY [place] (09/04/2024 8:40 AM CDT) IRON 53 50 - 212 ug/dL [facility] UIBC 234 155 - 355 ug/dL [facility] TIBC 287 261 - 478 ug/dl [facility] % Saturation 18(L) 20 - 50 % [facility] Blood 09/04/2024 8:40 AM CDT Narrative [facility] - 09/04/2024 9:30 AM CDT Release to patient->Immediate us Bharath Jones MD LAB SEND OUTS Final Result Performing Organization Address [facility] Co de Phone Number [facility] Cancer [address] [place] [address], [place] [phone] * (ABNORMAL) [place] [address] (09/04/2024 8:40 AM CDT) [place], [place] 68(L) 80 - 158 UG/DL [facility] Comment:DETECTION LIMIT = 5 09/04/2024 8:40 AM CDT Narrative [facility] - 09/09/2024 3:08 PM CDT TESTING PERFORMED AT: [BN] [address], [address], PHONE: [phone], SIDE GLUER: FAREED WIGGINS MD TEST(S) [id number], SERUM OR PLASMA WAS DEVELOPED AND ITS PERFORMANCE CHARACTERISTICS DETERMINED BY [employer]. IT HAS NOT BEEN CLEARED OR APPROVED BY THE FOOD AND DRUG [facility]MINISTRATION. Release to patient->Immediate us Bharath Jones MD LAB SEND OUTS Final Result Performing Organization Address [facility]/ZIP Co de Phone Number [facility] Cancer [address] [place] [address], [place] [phone] * FERRITIN (09/04/2024 8:40 AM CDT) Pathologist [facility] Ferritin 49 11 - 307 ng/mL [facility] Blood 09/04/2024 8:40 AM CDT Narrative [facility] - 09/04/2024 2:32 PM CDT Release to patient->Immediate us Bharath Jones MD CHEMISTRY ORDERABLES Final R esult [facility] [place] [address], * (ABNORMAL) COMPLETE BLOOD COUNT (CBC) WITH DIFF (09/04/2024 8:40 AM CDT) Only the most recent of2 resultswithin the time period is included. Pathologist [facility] WBC 2.7(L) 4.0 - 10.0 10*3/uL [facility] HGB 11.6 11.2 - 15.7 g/dL [facility] HCT 35.9 34.1 - 44.9 % [facility] PLT 103(L) 163 - 369 10*3/uL [facility] MPV 9.5 9.4 - 12.4 fL [facility] RBC 3.83(L) 3.93 - 5.22 10*6/uL [facility] MCV 94 79 - 95 fL [facility] MCH 30.3 25.6 - 32.2 pg [facility] MCHC 32.3 32.2 - 36.5 g/dL [facility] RDW 20.1(H) 11.6 - 14.4 % [facility] Absolute Neutrophil Count 1,543 cells/uL [facility] SPECIALISTS [facility] Absolute Seg Count 1,543 1,440 - 6,600 cells/uL [facility] CL[facility] Absolute Lymph Count 904 760 - 4,000 cells/uL [facility]ALLY CL[facility] Absolute [place] Count 160 160 - 1,200 cells/uL [facility] Absolute Eos Count 53 0 - 300 cells/uL [facility] Segmented Neutrophils 58 36 - 66 % [facility] Lymphocytes 34 19 - 40 % [facility] C [facility]TER [facility] Monocytes 6 4 - 12 % [facility] RADU [facility] Eosinophils 2 0 - 3 % [facility] WBC Estimate Low [facility] Platelet Estimate Low CA NCER WHARF TALLY CLERK [facility] RBC Morphology Abnormal CANCE R [facility]ARF TALLY CLERK [facility] Anisocytosis 2+ [facility]ALLY CL[facility] Poikilocytosis 1+ C[facility] R [facility]ALLY [facility] Ovalocytes 1+ [facility] CE NTER [facility] Blood 09/04/2024 8:40 AM CDT Narrative [facility] - 09/04/2024 9:38 AM CDT Release to patient->Immediate Bharath Jones MD HEMATOLOGY ORDERABLES Final Result [facility] [address] [place] [address], [place] [phone] * LACTATE DEHYDROGENASE (LD) (08/04/2024 1:10 PM CDT) LDH 142 140 - 271 U/L [facility] Blood 08/04/2024 1:10 PM CDT Narrative [facility] - 08/04/2024 1:46 PM CDT Release to patient->Immediate Olinda Franco LAP HAND TOOL, TOOL LAPPER HAND CHEMISTRY ORDERABLES Final Result [facility] [address] [place] [address], [place] [phone] from Last 3 Months Insurance MEDICARE [facility] Care Teams Die Holder Relationship Specialty Start Date End Date Israel Sood MD [address] [place] [address] PCP - General Internal Medicine 06/13/24 Bharath Jones MD [address] [place] [phone] Consulting Physician Oncology 07/07/24
--- OUTSIDE RECORDS SUMMARY | 2024-10-18 10:19 | XMS_ITS | Encounter Summary ---
Author Organization [facility] Address [address] [place] [address] Phone Care Team Providers Care Air Quality Specialist Name Role Phone Israel Sood MD Primary Care Provider [phone] Britney Bolton MD Unavailable [phone] Aniket Link MD Unavailable [phone] Michele Link MD Unavailable [phone] Andreea Raphael RN Unavailable [phone] Encounter Details Date Type Department Care Team (Latest Contact Info) Description 05/17/2023 Orders Only [facility] Evon Calvillo, DINA [address] [facility] [address] [facility] [address] [place] [address] Social History Tobacco Use Types [...] on file Legal Sex Female 2:57 AM DIRECTOR OF CATERING SALES Gender Identity Not on file Sexual Orientation [...] on filedocumented in this encounter Care Teams Air Quality Specialist Relationship Specialty Start Date End Date Israel Sood MD [address] [place] [address] PCP - General 09/08/16 Britney Bolton MD [address] [place] [address] Block Press Operator Obstetrics and Gynecology 09/02/19 Aniket Link MD [phone] [place] [address] Surgeon Colon and Rectal Surgery 12/01/21 Michele Link MD [phone] [place] [address] Consulting Physician Gynecologic Oncology 12/01/21 Andreea Raphael, RN [address] [place] [address] SHOP Outpatient Svp Marketing 02/21/24 03/19/24 documented as of this encounter
--- OUTSIDE RECORDS SUMMARY | 2024-10-18 10:20 | XMS_ITS ---
Author Organization [facility] Address [address] [place] [address] Care Team Providers Care It Applications Analyst Name Role Phone Israel Sood MD Primary Care Provider [phone] Britney Bolton MD Unavailable [phone] Aniket Link MD Unavailable [phone] Michele Link MD Unavailable [phone] Active Problems Problem Noted Date Diagnosed Date Presence of Amulet left atrial appendage closure device 02/19/2024 Grade I hemorrhoids 12/01/2021 Kidney stone 10/14/2021 Lung mass 09/28/2021 Hypomagnesemia 03/08/2021 Macrocytosis 03/03/2021 Choledocholithiasis 10/08/2019 Pulmonary hypertension 10/06/2019 Elevated liver enzymes 09/10/2019 Endometrial cancer (CMS/HCC) 09/03/2019 Overview (11/03/2020): Added automatically from request for surgery [id number] Added automatically from request for surgery [id number] Menopause 09/02/2019 Atrial septal aneurysm 09/02/2019 Benign hypertension 09/02/2019 Carotid artery stenosis 09/02/2019 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 Continue ASA, she is no longer on DAPT. Isabel in 6 months. Compression fracture of pelvis with routine heal [...]
--- OUTSIDE RECORDS SUMMARY | 2024-10-18 10:20 | XMS_ITS | Referral Summary ---
Author Organization [facility] Address [address] [place] [address] Care Team Providers Care Advertising Sales Manager Name Role Phone Israel Sood MD Primary Care Provider [phone] Britney Bolton MD Unavailable [phone] Aniket Link MD Unavailable [phone] Michele Link MD Unavailable [phone] Encounters Date Type Department Care Team Description 09/04/2024 11:30 AM CDT Office Visit [facility] Cardiology [address] 8th [place] [address] [place] [phone] Isabel Gamez NP Paroxysmal atrial fibrillation (HCC) (Primary Dx); Presence of Amulet left atrial appendage closure device from Last 3 Months Allergies Active Allergy [...] 1 tablet (40 mg total) by mouth jewelry drilling machine operator before breakfast 1 Active cyanocobalamin (Vitamin B-12) [...] by mouth daily 90 tablet 1 5 Active aspirin 81 mg chewable tabletIndicatio ns:coronary [...] (11/03/2020): Added automatically from request for surgery [id number] Added automatically from request for surgery [id number] Menopause 09/02/2019 Atrial septal aneurysm 09/02/2019 Benign [...] drink = 0.6 oz pur e alcohol) [facility] [employer] Softwareities Answer Date Recorded In the past 12 months has th e electric, gas, oil, or water company [...] often do you attend chur ch or congregation services? More than 4 times per year 02/22/2024 Do you belong to any clubs o r organizations such as zoroastrian groups, unions, fraternal or athletic groups, or [...] any time in the past 12 m [facility], were you homeless or living in a half-way (including now)? No 02/22/2024 Personal Safety Answer Date Recorded Have you ever been in or are you currently in a harmful physical or emotional relationship or is someone making you feel afraid or unsafe? Denies 04/04/2024 Comments No Sex and Gender Information Value Date Recorded Sex Assigned at Not on file Legal Sex Female 2:57 AM SENIOR IT ENGINEER Gender Identity Not on file Sexual Orientation Not on file Occupation Industry Job Start Date Job End Date Retired Not on file Not on file Not on file Last Filed Vital Signs Vital Sign Reading Time Taken Comments Blood Pressure 176/82 09/04/2024 11:44 AM CDT Pulse 59 09/04/2024 11:44 AM CDT Temperature 36.7 C (98.1 F) 06/16/2024 12:00 PM CDT Respiratory Rate 17 04/04/2024 11:55 AM SENIOR IT ENGINEER Oxygen Saturation 98% 09/04/2024 11:44 AM CDT Inhaled Oxygen Concentration - - Weight 66.9 kg (147 lb 6.4 oz) 09/04/2024 11:44 AM CDT Height 158.8 cm (5' 2.5) 09/04/2024 11:44 AM CD T Body Mass Index 26.53 09/04/2024 11:44 AM CDT Plan of Treatment Not on file Medical Devices Implanted Type Area Director Of Product Marketing Device Identifier Shelf Expiration Date Model / Serial / Lot Simons Vascular Occluder Cvasc Cyndi Flexible Braided Amplatzer Amulet 25mm Nitinol [id number] - [id number] - [id number] Implanted:Qty: 1 on 02/19/2024 by Mateusz Knight MD PhD at [facility] Left Atrial Appendage Occluder N/A: Atrial Appendage [employer] 08/30/2028 9-ACP2-0 10-025 / [id number] / [id number] Simons Vascular System Closure Repair Femoral Artery Suture Mediated Perclose Prostyle 25940-91 - [id number] - [id number] Implanted:Qty: 1 on 02/19/2024 by Mateusz Knight MD PhD at [facility] Vascular Closure Device Right: Femoral Vein [employer] 11/30/2025 21904-15 / [id number] / [id number] Simons Vascular System Closure Repair Femoral Artery Suture Mediated Perclose Prostyle 38675-22 - [id number] - [id number] Implanted:Qty: 1 on 02/19/2024 by Mateusz Knight MD PhD at [facility] Vascular Closure Device Left: Femoral Vein [employer] 11/30/2025 45949-17 / [id number] / [id number] Knee Replacement Left: Knee Insurance MEDICARE [facility] FEDERAL MEDICARE [facility] MEDICARE [facility] [place] [address] MEDICARE [facility] FEDERAL * Guarantor: Cynthia Campa Account Type Relation to Patient Date of Phone Billing Address Third Green Party Liability Self [address] [place] [address] Advance Directives For more information, please contact: [phone] * Full Code (Latest Code Status on File) Date Activated Date Inactivated Comments 02/19/2024 3:13 PM 02/20/2024 9:18 PM * Full Code Date Activated Date Inactivated Comments 09/05/2017 4:09 PM 09/22/2019 5:42 AM Care Teams Advertising Sales Manager Relationship Specialty Start Date End Date Israel Sood MD [address] [place] [address] PCP - General 09/08/16 Britney Bolton MD [address] [place] [address] Facing Machine Operator Obstetrics and Gynecology 09/02/19 Aniket Link MD [phone] [place] [address] Surgeon Colon and Rectal Surgery 12/01/21 Michele Link MD [phone] [place] [address] Consulting Physician Gynecologic Oncology 12/01/21
--- OUTSIDE RECORDS SUMMARY | 2024-10-18 10:20 | XMS_ITS | Encounter Summary ---
Author Organization [facility] Address [address] [place] [address] Phone Care Team Providers Care Automated Cutting Machine Operator Name Role Phone Israel oSod MD Primary Care Provider Bharath Jones MD Unavailable [phone] Encounter Details Date Type Department Care Team (Latest Contact Info) Description 09/24/2024 Results Follow-Up [facility] [address], [address] [phone] Bharath Jones MD [facility] [address] [place], [place] [address], FERRITIN, IRON W/ IRON BINDING CAPACITY [place], COMPLETE BLOOD COUNT (CBC) WITH DIFF Social History Tobacco Use Types Packs/Day Years [...] on file documented as of this encounter Miscellaneous Notes * Telephone Encounter - Lacie Garcia RN - 09/24/2024 12:25 PM CDT Copper script pending e-scribe. Please verify dose and send in if appropriate. documented in this encounter Plan of Treatment Upcoming Encounters Date Type Department Care Team (Late st Contact Info) Description 11/06/2024 11:05 AM CDT Lab [facility] [address] [phone] Lab, [facility] 11/06/2024 11:15 AM CDT Office Visit [facility] [address] [phone] Bharath Jones MD [facility] [phone] documented as of this encounter Visit Diagnoses Not on filedocumented in this encounter Care Teams Automated Cutting Machine Operator Relationship Specialty Start Date End Date Israel Sood MD [address] [place] [address] PCP - General Internal Medicine 06/13/24 Bharath Jones MD [address] [place] [phone] Consulting Physician Oncology 07/07/24 documented as of this encounter
--- OUTSIDE RECORDS SUMMARY | 2024-10-18 10:20 | XMS_ITS | Clinical Summary ---
Author Organization [facility] Address [address] [place] [address] Care Team Providers Care Agency Manager Name Role Phone Israel Sood MD Primary Care Provider [phone] Britney Bolton MD Unavailable [phone] Aniket Link MD Unavailable [phone] Michele Link MD Unavailable [phone] Allergies Active Allergy Reactions Criticality Noted [...] 1 tablet (40 mg total) by mouth director of outreach before breakfast 1 Active cyanocobalamin (Vitamin B-12) [...] (11/03/2020): Added automatically from request for surgery [id number] Added automatically from request for surgery [id number] Menopause 09/02/2019 Atrial septal aneurysm 09/02/2019 Benign [...] Description 09/04/2024 11:30 AM CDT Office Visit [facility] Cardiology [address] [facility] [address] [place] [address] [place] [address] Isabel Gamez, ENRIQUE Paroxysmal atrial fibrillation (HCC) (Primary Dx); Presence of Amulet left atrial appendage closure device from Last 3 Months Immunizations Immunization Administration [...] KNEE ARTHROPLASTY 08/29/2017 Left CARDIAC CATHETERIZATION 09/28/2013 [facility] 09/28/2013-- Mild two vessel coronary artery [...] 09/2019 s/p hysterectomy Syncope Coronary artery disease [facility] 09/28-- Mild two vessel coronary artery [...] drink = 0.6 oz pur e alcohol) [facility] Utilities Answer Date Recorded In the past [...] often do you attend chur ch or judaism services? More than 4 times per year 02/22/2024 Do you belong to any clubs o r organizations such as jew groups, unions, fraternal or athletic groups, or [...] any time in the past 12 m [facility], were you homeless or living in a senior care (including now)? No 02/22/2024 Personal Safety Answer Date Recorded Have you ever been in or are you currently in a harmful physical or emotional relationship or is someone making you feel afraid or unsafe? Denies 04/04/2024 Comments No Sex and Gender Information Value Date Recorded Sex Assigned at Not on file Legal Sex Female 2:57 AM MANAGER PARKING Gender Identity Not on file Sexual Orientation [...] CDT Respiratory Rate 17 04/04/2024 11:55 AM MANAGER PARKING Oxygen Saturation 98% 09/04/2024 11:44 AM CDT Inhaled Oxygen Concentration - - Weight 66.9 kg (147 lb 6.4 oz) 09/04/2024 11:44 AM CDT Height 158.8 cm (5' 2.5) 09/04/2024 11:44 AM CD T Body Mass Index 26.53 09/04/2024 11:44 AM CDT Plan of Treatment Health Maintenance Due Date Last Done Comments Depression Screening 1935 Hepatitis B Screening 1953 Zoster Vaccine (1 of 2) 1986 Well Visit 65+ 2001 Covid-19 Vaccine (6 2023-2 5 season) 2023 01/20/2021, 06/20/2020, 06/20/2020, Additional history exists Influenza Vaccine (Season Ended) 2024 12/31/2022, 03/02/2022, 01/19/2021, Additional history exists Fall Risk Assessment 04/04/2025 04/04/2024 Osteoporosis Screening-Bone Density Scan 01/20/2026 01/21/2024, 03/02/2020, 12/28/2017, Additional history exists DTaP/Tdap/Td Vaccine (4 - Td or Tdap) 01/07/2029 01/07/2019, 09/28/2015, 09/27/2015 Pneumococcal vaccine 65+ Completed 018, 01/27/2018, 09/28/2015, Additional history exists Medical Devices Implanted Type Area Trolley Coach Driver Device Identifier Shelf Expiration Date Model / Serial / Lot Simons Vascular Occluder Cvasc Cyndi Flexible Braided Amplatzer Amulet 25mm Nitinol [id number] - [id number] - [id number] Implanted:Qty: 1 on 02/19/2024 by Mateusz Knight MD PhD at [facility] Left Atrial Appendage Occluder N/A: Atrial Appendage [employer] 08/30/2028 9-ACP2-0 10025 / [id number] / [id number] Simons Vascular System Closure Repair Femoral Artery Suture Mediated Perclose Prostyle 34144-35 - [id number] - [id number] Implanted:Qty: 1 on 02/19/2024 by Mateusz Knight MD PhD at [facility] Vascular Closure Device Right: Femoral Vein [employer] 11/30/2025 22000-84 / [id number] / [id number] Simons Vascular System Closure Repair Femoral Artery Suture Mediated Perclose Prostyle 16502-45 - [id number] - [id number] Implanted:Qty: 1 on 02/19/2024 by Mateusz Knight MD PhD at [facility] Vascular Closure Device Left: Femoral Vein [employer] 11/30/2025 [id number] / [id number] / [id number] Knee Replacement Left: Knee Insurance MEDICARE [facility] MEDICARE [facility] MEDICARE [facility] MEDICARE [facility] * Guarantor: Cynthia Campa Account Type Relation to Patient Date of Phone Billing Address Third Alliance Party Liability Self 1935 [address] [facility] [place] [address] Advance Directives For more information, please contact: [phone] * Full Code (Latest Code Status on File) Date Activated Date Inactivated Comments 02/19/2024 3:13 PM 02/20/2024 9:18 PM * Full Code Date Activated Date Inactivated Comments 09/05/2017 4:09 PM 09/22/2019 5:42 AM Care Teams Agency Manager Relationship Specialty Start Date End Date Israel Sood MD [address] [place] [address] PCP - General 09/08/16 Britney Bolton MD [address] [place] [address] Preparation Supervisor Canning Obstetrics and Gynecology 09/02/19 Aniket Link MD [phone] [place] [address] Surgeon Colon and Rectal Surgery 12/01/21 Michele Link MD [phone] [place] [address] Consulting Physician Gynecologic Oncology 12/01/21
--- OUTSIDE RECORDS SUMMARY | 2024-10-18 10:21 | XMS_ITS | Data Portability ---
Author Organization [facility], [employer] Address [address] [address] Care Team Providers Care Junior Web Developer Name Role Phone ISRAEL DODD Primary Care Provider ISAI HURTADO Furnace Checker HSAD NAPIER Nuclear Physician Assessment Encounter Date Assessment Date Assessment LastModified by Organization Details LastModified Time 08/03/2023 08/03/2023 Patient presented for follow up. Studies ordered as below. Discussed plan with patient/careg iver, who expressed understanding . Follow up as noted below. [email or web address] Not available 08/03/2023 12:01:42 11/07/2023 11/07/2023 Patient [...] as noted below. Not available 06/11/2024 17:11:46 10/13/2024 10/13/2024 Patient presented for follow up. Studies ordered as below. Discussed plan with patient/careg iver, who expressed understanding . Follow up as noted below. Not available 10/13/2024 11:55:30 Plan of Treatment Reminders Order Date Submit Date Provider Last Modified By Organization Details Last Modified Time Details Appointments ESTABLISH ED PATIENT 15 2024 10:30A Lacey Dodd MD Not available Not available Not available Lab CMP, serum or plasma 2024 025 [facility], [address], [place], [address], 10/13/2024 12:18:32 CBC w/ auto diff 2024 025 [facility], [address], [place], [address], 10/13/2024 12:18:32 C-peptide , serum 2024 025 [facility], [address], [place], [address], 10/13/2024 12:18:33 hemoglobi n A1c, QN, blood 2024 025 [facility], [address], [place], [address], 10/13/2024 12:18:34 lipid panel w/ direct LDL, serum 2024 025 [facility], [address], [place], [address], 10/13/2024 12:18:33 TSH, serum or plasma 2024 025 [facility], [address], [place], [address], 10/13/2024 12:18:33 magnesium , QN, serum or plasma 2024 025 [facility], [address], [place], [address], 10/13/2024 12:18:32 magnesium , QN, serum or plasma 03/12/ 2025 03/12/2 025 [facility], [address] [facility], [place], [address], 09/09/2024 04:04:12 vitamin B12 + folate, serum or blood 2024 025 [facility], [address] [facility], [place], [address], 09/09/2024 04:04:13 CMP, serum or plasma 2024 025 [facility], [address] [facility], [place], [address], 06/12/2024 13:04:43 CBC w/ auto diff 2024 025 [facility], [address] [facility], [place], [address], 06/12/2024 13:04:42 lipid panel w/ direct LDL, serum 2024 025 [facility], [address] [facility], [place], [address], 07/01/2024 16:55:10 CMP, serum or plasma 2023 024 [facility], [address] [facility], [place], [address], 02/05/2024 13:00:07 CBC 2023 024 [facility], [address] [facility], [place], [address], 02/11/2024 04:03:36 hemoglobi n A1c, QN, blood 2023 024 [facility], [address] [facility], [place], [address], 02/11/2024 04:03:36 CBC w/ auto diff - 8 weeks from 11/07/232023 024 [facility], [address], [place], [address], 02/05/2024 13:00:06 iron panel, serum or plasma - 8 weeks 11/07/232023 024 [facility], [address], [place], [address], 02/05/2024 04:11:57 CMP, serum or plasma 2023 024 [facility], [address], [place], [address], 10/04/2023 10:36:11 CBC 2023 024 [facility], [address], [place], [address], 08/10/2023 04:13:34 lipid panel w/ direct LDL, serum 2023 024 [facility], [address], [place], [address], 08/10/2023 04:13:[address] referral 2023 024 KIRSTEN Gutierrez, [address], [place], [address], 09/29/2024 13:51:[address] referral 2023 024 CAMDEN Matt, [address], [place], [address], 12/05/2023 04:11:07 Procedures None recorded. Surgeries None recorded. Imaging US, duplex, arterial, lower extremity [address] [facility], [address], [address] [address], [place], [address], 10/13/2024 12:25:01 US, liver [address] [facility], [address], [address], [place], [address], 10/13/2024 12:25:01 US, carotid artery 2024 025 [email or web address], [address], [address], [place], [address], 10/13/2024 12:25:01 XR, kidney + ureter + bladder 2024 025 [facility], [address], [address], [place], [address], 07/01/2024 15:49:53 US, duplex, carotid artery 2024 025 [facility], [facility], [address], [place], [address], 06/11/2024 20:29:28 CT, chest, w/o contrast 2024 025 [facility], [address], [address], [place], [address], 07/01/2024 15:49:53 XR, thoracic spine, 2 view 2023 024 [facility], [address], [address], [place], [address], 02/17/2024 13:49:29 electroca rdiogram 2023 024 [facility] [employer] [facility], [facility], [address], [place], [address], 11/07/2023 16:11:33 XR, thoracic spine, 4 or more view 2023 024 [facility], [address], [address], [place], [address], 08/19/2023 13:06:45 bone density 2023 024 [facility] , [address], [address] [address], [place], [address], 08/17/2023 04:03:54 Medication Orders aspirin 81 mg tablet,de layed release 2024 025 [id number], [address] [facility], [place], [place], [id number], 10/13/2024 12:17:45 ProAir HFA 90 mcg/actua tion aerosol inhaler 2023 024 [facility] #[id number], [address] [facility], [place], [place], [id number], 08/03/2023 12:44:08 Patient TargetsNo targets recorded. Patient Instructions Encounter Date Encounter Id Patient Instructions Last Modified By Organization Details Last Modified Time 08/03/2023 [id number] Peripheral Arterial Disease (PAD): Care Instructions mshenouda Not available 08/03/2023 12:38:06 mammogram: about this test mshenouda Not available 08/03/2023 12:38:06 spirometry testing* KIRSTEN Not available 08/06/2023 08:41:51 learning about healthy weight mshenouda Not available 08/03/2023 12:38:05 high cholesterol : care instructions mshenouda Not available 08/03/2023 12:38:06 carotid stenosis : care instructions mshenouda Not available 08/03/2023 12:38:05 11/07/2023 [id number] Peripheral Arterial Disease (PAD): Care Instructions mshenouda Not available 11/07/2023 15:14:01 arthritis: care instructions mshenouda Not available 11/07/2023 15:14:01 mammogram: about this test mshenouda Not available 11/07/2023 15:14:00 cirrhosis: care instructions mshenouda Not available 11/07/2023 15:14:00 liver disease diet: care instructions mshenouda Not available 11/07/2023 15:14:00 anemia: care instructions mshenouda Not available 11/07/2023 15:14:01 high cholesterol : care instructions mshenouda Not available 11/07/2023 15:14:00 carotid stenosis : care instructions mshenouda Not available 11/07/2023 15:14:00 learning about healthy weight mshenouda Not available 11/07/2023 15:14:01 02/04/2024 [id number] Peripheral Arterial Disease (PAD): Care Instructions mshenouda Not available 02/04/2024 17:21:11 06/11/2024 [id number] Peripheral Arterial Disease (PAD): Care Instructions mshenouda Not available 06/11/2024 18:10:31 (ANNMARIE) ankle brachial index* KIRSTEN Not available 06/11/2024 20:29:53 mammogram: about this test mshenouda Not available 06/11/2024 18:10:32 arthritis: care instructions mshenouda Not available 06/11/2024 18:10:31 diverticulosis: care instructions mshenouda Not available 06/11/2024 18:10:32 learning about diverticulosis and diverticulitis mshenouda Not available 06/11/2024 18:10:31 kidney stone: ca re instructions mshenouda Not available 06/11/2024 18:10:32 learning about diet for kidney stone prevention mshenouda Not available 06/11/2024 18:10:32 cirrhosis: care instructions mshenouda Not available 06/11/2024 18:10:31 liver disease diet: care instructions mshenouda Not available 06/11/2024 18:10:31 high cholesterol : care instructions mshenouda Not available 06/11/2024 18:10:32 anemia: care instructions mshenouda Not available 06/11/2024 18:10:32 carotid stenosis : care instructions mshenouda Not available 06/11/2024 18:10:31 learning about healthy weight mshenouda Not available 06/11/2024 18:10:31 living will mshenouda Not available 05/31 18:10:45 10/13/2024 [id number] Peripheral Arterial Disease (PAD): Care Instructions mshenouda Not available 10/13/2024 12:17:32 mammogram: about this test mshenouda Not available 10/13/2024 12:17:32 cirrhosis: care instructions mshenouda Not available 10/13/2024 12:17:32 liver disease diet: care instructions mshenouda Not available 10/13/2024 12:17:32 high cholesterol : care instructions mshenouda Not available 10/13/2024 12:17:32 carotid stenosis : care instructions mshenouda Not available 10/13/2024 12:17:33 Reason for Referral Investigator Fraud Referral for Juanito ign hypertension Referring Physician: Israel Dodd, Internal Medicine, Encounter Date: 11/07/2023 Investigator Fraud Referral for Juanito ign hypertension Referring Physician: Israel Dodd, Internal Medicine, Encounter Date: 02/04/2024 Results Created Date Observation Date Name Description Value Unit Range Abnormal Flag Note LastModifiedBy Organization Detail LastModifiedTime 08/06/19 24 08/06/2023 toro metry testi ng* Spirometry Not Available [employer] [facility], [facility] [address], [place], [address], 08/03/2023 12:42:25 10/03/19 24 10/03/2023 CBC WITH AUTO- DIFFE RENTI AL WBC 2.8 10*3/ uL 3.4-10 .8 low Not Available [facility] [address], [place], [address], 10/04/2023 10:36:10 10/03/19 24 10/03/2023 CBC WITH AUTO- DIFFE RENTI AL RBC 3.11 10*6/ uL 3.80-5 .30 low Not Available [facility] [address], [place], [address], 10/04/2023 10:36:10 10/03/19 24 10/03/2023 CBC WITH AUTO- DIFFE RENTI AL HGB 9.6 g/dL 11.1-1 5.9 low Not Available [facility] [address] [facility] [address], [place], [address], 10/04/2023 10:36:10 10/03/19 24 10/03/2023 CBC WITH AUTO- DIFFE RENTI AL HCT 30.5 % 34.0-4 6.6 low Not Available [facility] [address], [place], [address], 10/04/2023 10:36:10 10/03/19 24 10/03/2023 CBC WITH AUTO- DIFFE RENTI AL MCV 98 fL 79-97 high Not Available [facility] [address], [place], [address], 10/04/2023 10:36:10 10/03/19 24 10/03/2023 CBC WITH AUTO- DIFFE RENTI AL MCH 30.9 pg 26.6-3 3.0 Not Available [facility] [address] [facility], [place], [address], 10/04/2023 10:36:10 10/03/19 24 10/03/2023 CBC WITH AUTO- DIFFE RENTI AL MCHC 31.5 g/dL 31.5-3 5.7 Not Available [facility] [address] [facility] [facility] [address], [place], [address], 10/04/2023 10:36:10 10/03/19 24 10/03/2023 CBC WITH AUTO- DIFFE RENTI AL RDW 13.0 % 11.5-1 4.5 Not Available [facility] [address], [place], [address], 10/04/2023 10:36:10 10/03/19 24 10/03/2023 CBC WITH AUTO- DIFFE RENTI AL platelets 142 10*3/ uL 150-40 0 low Not Available [facility] [address] [facility] [address], [place], [address], 10/04/2023 10:36:10 10/03/19 24 10/03/2023 CBC WITH AUTO- DIFFE RENTI AL MPV 11 fL 9-13 Not Available [facility] [address] [facility] [address], [place], [address], 10/04/2023 10:36:10 10/03/19 24 10/03/2023 CBC WITH AUTO- DIFFE RENTI AL neutrophils 52.9 % 40.0-7 4.0 Not Available [facility] [address] [facility] [address], [place], [address], 10/04/2023 10:36:10 10/03/19 24 10/03/2023 CBC WITH AUTO- DIFFE RENTI AL absolute neutrophils 1.48 10*3/ uL 1.40-7 .00 Not Available [facility] [address] [facility] [address], [place], [address], 10/04/2023 10:36:10 10/03/19 24 10/03/2023 CBC WITH AUTO- DIFFE RENTI AL lymphocytes 32.1 % 14.0-4 6.0 Not Available [facility] [address] [facility] [address], [place], [address], 10/04/2023 10:36:10 10/03/19 24 10/03/2023 CBC WITH AUTO- DIFFE RENTI AL absolute lymphocytes 0.90 10*3/ uL 0.70-3 .10 Not Available [facility] [address] [facility] [address], [place], [address], 10/04/2023 10:36:10 10/03/19 24 10/03/2023 CBC WITH AUTO- DIFFE RENTI AL monocytes 11.1 % 4.0-12 .0 Not Available [facility] [address] [facility] [address], [place], [address], 10/04/2023 10:36:10 10/03/19 24 10/03/2023 CBC WITH AUTO- DIFFE RENTI AL absolute monocytes 0.31 10*3/ uL 0.10-0 .90 Not Available [facility] [address] [facility] [address], [place], [address], 10/04/2023 10:36:10 10/03/19 24 10/03/2023 CBC WITH AUTO- DIFFE RENTI AL eosinophils 3.2 % 0.0-5. 0 Not Available [facility] [address] [facility] [address], [place], [address], 10/04/2023 10:36:10 10/03/19 24 10/03/2023 CBC WITH AUTO- DIFFE RENTI AL absolute eosinophils 0.09 10*3/ uL 0.00-0 .40 Not Available [facility] [address] [facility] [address], [place], [address], 10/04/2023 10:36:10 10/03/19 24 10/03/2023 CBC WITH AUTO- DIFFE RENTI AL basophils 0.7 % 0.0-3. 0 Not Available [facility] [address] [facility] [address], [place], [address], 10/04/2023 10:36:10 10/03/19 24 10/03/2023 CBC WITH AUTO- DIFFE RENTI AL absolute basophils 0.02 10*3/ uL 0.00-0 .20 Not Available [facility] [address] [facility] [address], [place], [address], 10/04/2023 10:36:10 10/03/19 24 10/03/2023 CBC WITH AUTO- DIFFE RENTI AL imm. gran. 0.0 % 0.0-2. 0 Not Available [facility] [address] [facility] [address], [place], [address], 10/04/2023 10:36:10 10/03/19 24 10/03/2023 CBC WITH AUTO- DIFFE RENTI AL abs. imm. gran. 0.00 10*3/ uL 0.00-0 .10 Not Available [facility] [address] [facility] [address], [place], [address], 10/04/2023 10:36:10 10/03/19 24 10/03/2023 COMPR EHENS JAMEEL METAB OLIC PANEL sodium 141 mmol/ L 134-14 4 Not Available [facility] [address] [facility] [address], [place], [address], 10/04/2023 10:36:11 10/03/19 24 10/03/2023 COMPR EHENS JAMEEL METAB OLIC PANEL potassium 4.1 mmol/ L 3.5-5. 2 Not Available [facility] [address] [facility] [address], [place], [address], 10/04/2023 10:36:11 10/03/19 24 10/03/2023 COMPR EHENS JAMEEL METAB OLIC PANEL chloride 103 mmol/ L 97-108 Not Available [facility] [address] [facility] [address], [place], [address], 10/04/2023 10:36:11 10/03/19 24 10/03/2023 COMPR EHENS JAMEEL METAB OLIC PANEL carbon dioxide (co2) 27.0 mmol/ L 18.0-2 9.0 Not Available [facility] [address] [facility] [address], [place], [address], 10/04/2023 10:36:11 10/03/19 24 10/03/2023 COMPR EHENS JAMEEL METAB OLIC PANEL glucose 154 mg/dL 65-99 high Elisabeth l Fasti ng: < 100 mg/dL Impai red Fasti n - 125 mg/dL Diagn ostic of Diabe kana: => 126 mg/dL Ameri can [facility], 2008 Not Available [facility] [address] [facility] [address], [place], [address], 10/04/2023 10:36:11 10/03/19 24 10/03/2023 COMPR EHENS JAMEEL METAB OLIC PANEL urea nitrogen (BUN) 19 mg/dL 8-23 Not Available [facility] [address], [place], [address], 10/04/2023 10:36:11 10/03/19 24 10/03/2023 COMPR EHENS JAMEEL METAB OLIC PANEL creatinine 0.89 mg/dL 0.57-1 .00 Not Available [facility] [address] [facility] [address], [place], [address], 10/04/2023 10:36:11 10/03/19 24 10/03/2023 COMPR EHENS JAMEEL METAB OLIC PANEL eGFR 63 mL/mi nute/ 1.73_ m2 >59 MDRD Study Equat ion: The calcu lated GFR is NOT appli cable for pedia tric (< 18 years old) and > 70 year old patie nts and patie nts that are NOT of stead [place] . Not Available [facility] [address] [facility] [address], [place], [address], 10/04/2023 10:36:11 10/03/19 24 10/03/2023 COMPR EHENS JAMEEL METAB OLIC PANEL calcium 9.1 mg/dL 8.7-10 .3 Not Available [facility] [address] [facility] [address], [place], [address], 10/04/2023 10:36:11 10/03/19 24 10/03/2023 COMPR EHENS JAMEEL METAB OLIC PANEL protein, total 6.3 gm/dL 6.4-8. 3 low Not Available [facility] [address] [facility] [address], [place], [address], 10/04/2023 10:36:11 10/03/19 24 10/03/2023 COMPR EHENS JAMEEL METAB OLIC PANEL albumin 4.2 gm/dL 3.5-5. 2 Not Available [facility] [address] [facility] [address], [place], [address], 10/04/2023 10:36:11 10/03/19 24 10/03/2023 COMPR EHENS JAMEEL METAB OLIC PANEL bilirubin, total 0.50 mg/dL 0.00-1 .20 Not Available [facility] [address] [facility] [address], [place], [address], 10/04/2023 10:36:11 10/03/19 24 10/03/2023 COMPR EHENS JAMEEL METAB OLIC PANEL alkaline phosphatase (ALP) 45 U/L 39-117 Not Available [facility] [address] [facility] [address], [place], [address], 10/04/2023 10:36:11 10/03/19 24 10/03/2023 COMPR EHENS JAMEEL METAB OLIC PANEL aspartate aminotransfe rase (AST) 13 U/L 0-32 Not Available [facility] [address] [facility] [address], [place], [address], 10/04/2023 10:36:11 10/03/19 24 10/03/2023 COMPR EHENS JAMEEL METAB OLIC PANEL alanine aminotransfe rase (ALT) 7 U/L 0-33 Not Available [facility] [address] [facility] [address], [place], [address], 10/04/2023 10:36:11 10/03/19 24 10/03/2023 COMPR EHENS JAMEEL METAB OLIC PANEL A/G ratio (calculated) 2.0 ratio 1.0-2. 7 Not Available [facility] [address] [facility] [address], [place], [address], 10/04/2023 10:36:11 10/03/19 24 10/03/2023 COMPR EHENS JAMEEL METAB OLIC PANEL globulin (calculated) 2.1 gm/dL 1.5-3. 8 Not Available [facility] [address] [facility] [address], [place], [address], 10/04/2023 10:36:11 10/03/19 24 10/03/2023 COMPR EHENS JAMEEL METAB OLIC PANEL BUN/creatini ne ratio (calculated) 21.3 ratio 8.0-20 .0 high Not Available [facility] [address] [facility] [address], [place], [address], 10/04/2023 10:36:11 10/03/19 24 10/03/2023 COMPR EHENS JAMEEL METAB OLIC PANEL serum hemolysis index NORMAL index normal Not Available [facility] [address] [facility] [address], [place], [address], 10/04/2023 10:36:11 10/03/19 24 10/03/2023 LIPID PANEL W/ CALC. LDL cholesterol, total 106 mg/dL 100-19 9 Not Available [facility] [address] [facility] [address], [place], [address], 10/04/2023 10:36:12 10/03/19 24 10/03/2023 LIPID PANEL W/ CALC. LDL HDL cholesterol 59 mg/dL =>40 Not Available [facility] [address] [facility] [address], [place], [address], 10/04/2023 10:36:12 10/03/19 24 10/03/2023 LIPID PANEL W/ CALC. LDL LDL cholesterol (calculated) 31 mg/dL 0-99 Not Available [facility] [address] [facility] [address], [place], [address], 10/04/2023 10:36:12 10/03/19 24 10/03/2023 LIPID PANEL W/ CALC. LDL triglyceride s 80 mg/dL 50-149 Not Available [facility] [address] [facility] [address], [place], [address], 10/04/2023 10:36:12 10/03/19 24 10/03/2023 LIPID PANEL W/ CALC. LDL chol/HDL ratio (calculated) 1.80 ratio 0.00-5 .00 Not Available [facility] [address] [facility] [address], [place], [address], 10/04/2023 10:36:12 10/03/19 24 10/03/2023 LIPID PANEL W/ CALC. LDL VLDL cholesterol (calculated) 16 mg/dL 5-40 Not Available [facility] [address], [place], [address], 10/04/2023 10:36:12 10/15/19 24 10/15/2023 IRON PANEL iron 30 mcg/d L 27-139 Not Available [facility] [address] [facility] [address], [place], [address], 10/16/2023 14:37:25 10/15/19 24 10/15/2023 IRON PANEL UIBC 327 ug/dL 111-34 3 Not Available [facility] [address] [facility] [address], [place], [address], 10/16/2023 14:37:25 10/15/19 24 10/15/2023 IRON PANEL total iron binding capacity 357.0 mcg/d L 250.0- 450.0 Not Available [facility] [address] [facility] [address], [place], [address], 10/16/2023 14:37:25 10/15/19 24 10/15/2023 IRON PANEL iron saturation (calculated) 8.4 % 15.0-5 5.0 low Not Available [facility] [address] [facility] [address], [place], [address], 10/16/2023 14:37:25 10/15/19 24 10/15/2023 VITAM IN B12 vitamin B12 2000 pg/mL 232-12 45 high Not Available [facility] [address] [facility] [address], [place], [address], 10/16/2023 14:37:26 10/23/19 24 10/23/2023 OCCUL T BLOOD , FECAL , IA occult blood POSITI VE negati ve abnormal Not Available [facility] [address] [facility], [place], [address], 10/24/2023 15:08:12 01/15/2001/15/2024 Magne sium [Mass /volu me] in Serum or Plasm a magnesium [mass/volume ] in serum or plasma 1.6 text: 1.8 - 2.4 mg/dL low MAGNE SIUM 1.6 (L) 1.8 - 2.4 MG/DL 01/14 8:33 PM CDT [facility] Not Available Not Available 07/17/2024 13:29:31 01/15/2001/15/2024 Magne sium [Mass /volu me] in Serum or Plasm a interpretati on and review of laboratory results ABNORM AL Not Available Not Available 13:29:31 01/15/20 24 01/15/2024 Natri ureti c pepti de.B proho rmone N-Ter abena [Mass /volu me] in Serum or Plasm a natriuretic peptide.B prohormone N-terminal [mass/volume ] in serum or plasma 774 pg/mL high: 450pg/ mL high PRO-B TYPE NATRI URETI C PEPTI DE 774 (H) <450 PG/ML 01/14 8:33 PM CDT [facility] Not Available Not Available 07/17/2024 13:29:30 01/15/20 24 01/15/2024 Natri ureti c pepti de.B proho rmone N-Ter abena [Mass /volu me] in Serum or Plasm a interpretati on and review of laboratory results ABNORM AL Not Available Not Available 13:29:30 01/15/20 24 01/15/2024 Compr ehens jameel metab olic 2000 panel - Serum or Plasm a glucose [mass/volume ] in serum or plasma 86 text: 70 - 99 mg/dL GLUCO SE 86 70 - 99 MG/DL 01/14 8:33 PM CDT [facility] Not Available Not Available 07/17/2024 13:29:30 01/15/20 24 01/15/2024 Compr ehens jameel metab olic 1999 panel - Serum or Plasm a urea nitrogen [mass/volume ] in serum or plasma 18 text: 7 - 18 mg/dL BUN 18 7 - 18 MG/DL 01/14 8:33 PM CDT [facility] Not Available Not Available 07/17/2024 13:29:30 01/15/20 24 01/15/2024 Compr ehens jameel metab olic 1999 panel - Serum or Plasm a creatinine [mass/volume ] in serum or plasma 1.06 text: 0.55 - 1.02 mg/dL high CREAT ININE S/P/B 1.06 (H) 0.55 - 1.02 MG/DL 01/14 8:33 PM CDT [facility] Not Available Not Available 07/17/2024 13:29:30 01/15/20 24 01/15/2024 Compr ehens jameel metab olic 1999 panel - Serum or Plasm a sodium [moles/volum e] in serum or plasma 137 text: 136 - 145 mmol/L SODIU M S/P/B 137 136 - 145 MMOL/ L 01/14 8:33 PM CDT [facility] Not Available Not Available 07/17/2024 13:29:30 01/15/20 24 01/15/2024 Compr ehens jameel metab olic 1999 panel - Serum or Plasm a potassium [moles/volum e] in serum or plasma 4.2 text: 3.5 - 5.1 mmol/L POTAS SIUM S/P/B 4.2 3.5 - 5.1 MMOL/ L 01/14 8:33 PM CDT [facility] Not Available Not Available 07/17/2024 13:29:30 01/15/20 24 01/15/2024 Compr ehens jameel metab olic 2000 panel - Serum or Plasm a chloride [moles/volum e] in serum or plasma 103 text: 97 - 115 mmol/L CHLOR RENZO S/P/B 103 97 - 115 MMOL/ L 10/15 /2024 8:33 PM CDT [facility] Not Available Not Available 07/17/2024 13:29:30 01/15/20 24 01/15/2024 Compr ehens jameel metab olic 2000 panel - Serum or Plasm a carbon dioxide, total [moles/volum e] in serum or plasma 29.8 text: 21 - 32 mmol/L CO2 29.8 21 - 32 MMOL/ L 01/14 8:33 PM CDT [facility] Not Available Not Available 07/17/2024 13:29:30 01/15/20 24 01/15/2024 Compr ehens jameel metab olic 2000 panel - Serum or Plasm a calcium [mass/volume ] in serum or plasma 8.9 text: 8.5 - 10.1 mg/dL CALCI UM S/P/B 8.9 8.5 - 10.1 MG/DL 01/14 8:33 PM CDT [facility] Not Available Not Available 07/17/2024 13:29:30 01/15/20 24 01/15/2024 Compr ehens jameel metab olic 2000 panel - Serum or Plasm a bilirubin.to chente [mass/volume ] in serum or plasma 0.4 text: 0.2 - 1.2 mg/dL BILIR UBIN TOTAL S/P/B 0.4 0.2 - 1.2 MG/DL 01/14 8:[address] [facility] Not Available Not Available 07/17/2024 13:29:30 01/15/20 24 01/15/2024 Compr ehens jameel metab olic 2000 panel - Serum or Plasm a protein [mass/volume ] in serum or plasma 7.4 text: 6.4 - 8.2 g/dL TOTAL PROTE IN S/P/B 7.4 6.4 - 8.2 G/DL 01/14 8:33 PM CDT [facility] Not Available Not Available 07/17/2024 13:29:30 01/15/20 24 01/15/2024 Compr ehens jameel metab olic 1999 panel - Serum or Plasm a albumin [mass/volume ] in serum or plasma 3.5 text: 3.4 - 5.0 g/dL ALBUM IN S/P/B 3.5 3.4 - 5.0 G/DL 01/14 8:33 PM CDT [facility] Not Available Not Available 07/17/2024 13:29:30 01/15/20 24 01/15/2024 Compr ens jameel metab olic 1999 panel - Serum or Plasm a aspartate aminotransfe rase [enzymatic activity/vol ume] in serum or plasma 15 U/L low: 15U/Lh igh: 37U/L AST 15 15 - 37 U/L 01/14 8:33 PM CDT [facility] Not Available Not Available 07/17/2024 13:29:30 01/15/20 24 01/15/2024 Compr ens jameel metab olic 1999 panel - Serum or Plasm a alanine aminotransfe rase [enzymatic activity/vol ume] in serum or plasma 15 U/L low: 14U/Lh igh: 55U/L ALT 15 14 - 55 U/L 01/14 8:33 PM CDT [facility] Not Available Not Available 07/17/2024 13:29:30 01/15/20 24 01/15/2024 Compr ens jameel metab olic 1999 panel - Serum or Plasm a alkaline phosphatase [enzymatic activity/vol ume] in serum or plasma 50 U/L low: 50U/Lh igh: 136U/L ALKAL INE PHOSP HATAS E S/P/B 50 50 - 136 U/L 01/14 8:33 PM CDT [facility] Not Available Not Available 07/17/2024 13:29:30 01/15/20 24 01/15/2024 Compr ens jameel metab olic 2000 panel - Serum or Plasm a anion gap in serum or plasma by calculation 4.2 text: 2 - 10 mmol/L ANION GAP 4.2 2 - 10 MMOL/ L 10/15 /2024 8:33 PM CDT [facility] Not Available Not Available 07/17/2024 13:29:30 01/15/20 24 01/15/2024 Compr ehens jameel metab olic 1999 panel - Serum or Plasm a urea nitrogen/cre atinine [mass ratio] in serum or plasma 17 low: 6high: 26 BUN CREAT ININE RATIO 17.0 6 - 26 01/14 8:33 PM CDT [facility] Not Available Not Available 07/17/2024 13:29:30 01/15/20 24 01/15/2024 Compr ehens jameel metab olic 1999 panel - Serum or Plasm a albumin/glob ulin [mass ratio] in serum or plasma 0.9 text: 1.0 - 2.0 ratio low A/G RATIO 0.9 (L) 1.0 - 2.0 RATIO 01/14 8:33 PM CDT [facility] Not Available Not Available 07/17/2024 13:29:30 01/15/20 24 01/15/2024 Compr ehens jameel metab olic 2000 panel - Serum or Plasm a glomerular filtration rate [volume rate/area] in serum, plasma or blood by creatinine-b ased formula (CKD-epi 2020)/1.73 sq M 51 text: >90 mL/min /1.73 M2 low GFR ESTIM ATE 51 (L) >90 ML/KS N/1.7 3 M2 01/14 8:33 PM CDT [facility] Not Available Not Available 07/17/2024 13:29:30 01/15/20 24 01/15/2024 Compr ehens jameel metab olic 2000 panel - Serum or Plasm a interpretati on and review of laboratory results ABNORM AL Not Available Not Available 13:29:30 01/15/20 24 01/15/2024 Proth rombi n time (PT) prothrombin time (PT) 12.7 text: 10.2 - 12.9 sec PROTI ME 12.7 10.2 - 12.9 SEC 01/14 8:18 PM CDT [facility] Not Available Not Available 07/17/2024 13:29:30 01/15/20 24 01/15/2024 Proth rombi n time (PT) INR in platelet poor plasma by coagulation assay 1.1 INR 1.1 01/14 8:18 PM CDT [facility] Not Available Not Available 07/17/2024 13:29:30 01/15/20 24 01/15/2024 CBC W Auto Diffe renti al panel - Blood leukocytes [#/volume] in blood by automated count 3.73 text: 4.5 - 11.0 x10'3/ uL low WBC 3.73 (L) 4.5 - 11.0 x10'3 /uL 01/14 8:05 PM CDT [facility] Not Available Not Available 07/17/2024 13:29:30 01/15/20 24 01/15/2024 CBC W Auto Diffe renti al panel - Blood erythrocytes [#/volume] in blood by automated count 3.53 text: 4.20 - 5.40 x10'6/ uL low RBC 3.53 (L) 4.20 - 5.40 x10'6 /uL 01/14 8:05 PM CDT [facility] Not Available Not Available 07/17/2024 13:29:30 01/15/20 24 01/15/2024 CBC W Auto Diffe renti al panel - Blood hemoglobin [mass/volume ] in blood 8.6 text: 12.0 - 16.0 g/dL low HGB 8.6 (L) 12.0 - 16.0 G/DL 01/14 8:05 PM CDT [facility] Not Available Not Available 07/17/2024 13:29:30 01/15/20 24 01/15/2024 CBC W Auto Diffe renti al panel - Blood hematocrit [volume fraction] of blood by calculation 29.5 % low: 38%hig h: 48% low HCT 29.5 (L) 38.0 - 48.0 % 01/14 8:05 PM CDT [facility] Not Available Not Available 07/17/2024 13:29:30 01/15/20 24 01/15/2024 CBC W Auto Diffe renti al panel - Blood MCV [entitic mean volume] in red blood cells 83.6 text: 81.0 - 99.0 fL MCV 83.6 81.0 - 99.0 FL 01/14 8:05 PM CDT [facility] Not Available Not Available 07/17/2024 13:29:30 01/15/20 24 01/15/2024 CBC W Auto Diffe renti al panel - Blood MCH [entitic mass] 24.4 pg low: 27pghi gh: 31pg low MCH 24.4 (L) 27.0 - 31.0 PG 01/14 8:05 PM CDT [facility] Not Available Not Available 07/17/2024 13:29:30 01/15/20 24 01/15/2024 CBC W Auto Diffe renti al panel - Blood MCHC [entitic mass/volume] in red blood cells 29.2 text: 32.0 - 36.0 g/dL low MCHC 29.2 (L) 32.0 - 36.0 G/DL 01/14 8:05 PM CDT [facility] Not Available Not Available 07/17/2024 13:29:30 01/15/20 24 01/15/2024 CBC W Auto Diffe renti al panel - Blood RDW 14.4 % low: 11.5%h igh: 14.5% RDW 14.4 11.5 - 14.5 % 01/14 8:05 PM CDT [facility] Not Available Not Available 07/17/2024 13:29:30 01/15/20 24 01/15/2024 CBC W Auto Diffe renti al panel - Blood platelets [#/volume] in blood 157 text: 130 - 400 x10'3/ uL PLT 157 130 - 400 x10'3 /uL 01/14 8:05 PM CDT [facility] Not Available Not Available 07/17/2024 13:29:30 01/15/20 24 01/15/2024 CBC W Auto Diffe renti al panel - Blood platelet [entitic mean volume] in blood 10.5 text: 9.3 - 12.2 fL MPV 10.5 9.3 - 12.2 FL 01/14 8:05 PM CDT [facility] Not Available Not Available 07/17/2024 13:29:30 01/15/20 24 01/15/2024 CBC W Auto Diffe renti al panel - Blood differential cell count method - blood AUTOMA ARLETH DIFFER ENTIAL DIFFE RENTI AL TYPE AUTOM ATED DIFFE RENTI AL 01/14 8:05 PM CDT [facility] Not Available Not Available 07/17/2024 13:29:30 01/15/20 24 01/15/2024 CBC W Auto Diffe renti al panel - Blood neutrophils/ leukocytes in blood by automated count 47.7 % NEUTR OPHIL S % 47.7 % 01/14 8:05 PM CDT [facility] Not Available Not Available 07/17/2024 13:29:30 01/15/20 24 01/15/2024 CBC W Auto Diffe renti al panel - Blood lymphocytes/ leukocytes in blood by automated count 34.9 % LYMPH OCYTE S % 34.9 % 01/14 8:05 PM CDT [facility] Not Available Not Available 07/17/2024 13:29:30 01/15/20 24 01/15/2024 CBC W Auto Diffe renti al panel - Blood monocytes/le ukocytes in blood by automated count 13.1 % MONOC YTES % 13.1 % 01/14 8:05 PM CDT [facility] Not Available Not Available 07/17/2024 13:29:30 01/15/20 24 01/15/2024 CBC W Auto Diffe renti al panel - Blood eosinophils/ leukocytes in blood by automated count 3.2 % EOSIN OPHIL S 3.2 % 01/14 8:05 PM CDT [facility] Not Available Not Available 07/17/2024 13:29:30 01/15/20 24 01/15/2024 CBC W Auto Diffe renti al panel - Blood basophils/le ukocytes in blood by automated count 0.8 % BASOP HILS 0.8 % 01/14 8:05 PM CDT [facility] Not Available Not Available 07/17/2024 13:29:30 01/15/20 24 01/15/2024 CBC W Auto Diffe renti al panel - Blood immature granulocytes /leukocytes in blood by automated count 0.3 % IMMAT URE GRANS % 0.3 % 01/14 8:05 PM CDT [facility] Not Available Not Available 07/17/2024 13:29:30 01/15/20 24 01/15/2024 CBC W Auto Diffe renti al panel - Blood neutrophils [#/volume] in blood 1.78 text: 1.80 - 7.70 x10'3/ uL low ABS. NEUTR OPHIL S 1.78 (L) 1.80 - 7.70 x10'3 /uL 01/14 8:05 PM CDT [facility] Not Available Not Available 07/17/2024 13:29:30 01/15/20 24 01/15/2024 CBC W Auto Diffe renti al panel - Blood lymphocytes [#/volume] in blood 1.3 text: 1.00 - 4.80 x10'3/ uL ABS. LYMPH OCYTE S 1.30 1.00 - 4.80 x10'3 /uL 01/14 8:05 PM CDT [facility] Not Available Not Available 07/17/2024 13:29:30 01/15/20 24 01/15/2024 CBC W Auto Diffe renti al panel - Blood monocytes [#/volume] in blood 0.49 text: 0.24 - 0.86 x10'3/ uL ABS. MONOC YTES 0.49 0.24 - 0.86 x10'3 /uL 01/14 8:05 PM CDT [facility] Not Available Not Available 07/17/2024 13:29:30 01/15/20 24 01/15/2024 CBC W Auto Diffe renti al panel - Blood eosinophils [#/volume] in blood 0.12 text: 0.04 - 0.36 x10'3/ uL ABS. EOSIN OPHIL S 0.12 0.04 - 0.36 x10'3 /uL 01/14 8:05 PM CDT [facility] Not Available Not Available 07/17/2024 13:29:30 01/15/20 24 01/15/2024 CBC W Auto Diffe renti al panel - Blood basophils [#/volume] in blood 0.03 text: 0.01 - 0.08 x10'3/ uL ABS. BASOP HILS 0.03 0.01 - 0.08 x10'3 /uL 01/14 8:05 PM CDT [facility] Not Available Not Available 07/17/2024 13:29:30 01/15/20 24 01/15/2024 CBC W Auto Diffe renti al panel - Blood immature granulocytes [#/volume] in blood 0.01 text: 0.00 - 0.49 x10'3/ uL ABS. IMMAT URE GRANU LOCYT ES 0.01 0.00 - 0.49 x10'3 /uL 01/14 8:05 PM CDT [facility] Not Available Not Available 07/17/2024 13:29:30 01/15/20 24 01/15/2024 CBC W Auto Diffe renti al panel - Blood interpretati on and review of laboratory results ABNORM AL Not Available Not Available 13:29:30 02/04/20 24 02/04/2024 HEMOG LOBIN A1C hemoglobin A1C 5.5 % 4.8-5. 6 ELISABETH L RANGE BASED ON CYNTHIA COL 2 (DCCT /NGSP ): Non-D iabet ic: < 5.7% Pre-D iabet es: 5.7 - 6.4% Diabe kana: => 6.5% GLYCE SOL CONTR OL: < 7.0% Not Available [facility] [address] [facility] [address], [place], [address], 02/05/2024 13:00:05 02/04/20 24 02/04/2024 HEMOG LOBIN A1C estimated average glucose 110 Not Available [facility] [address] [facility] [address], [place], [address], 02/05/2024 13:00:05 02/04/20 24 02/04/2024 CBC WITH AUTO- DIFFE RENTI AL WBC 3.1 10*3/ uL 3.4-10 .8 low Not Available [facility] [address] [facility] [address], [place], [address], 02/05/2024 13:00:06 02/04/20 24 02/04/2024 CBC WITH AUTO- DIFFE RENTI AL RBC 3.46 10*6/ uL 3.80-5 .30 low Not Available [facility] [address] [facility] [address], [place], [address], 02/05/2024 13:00:06 02/04/20 24 02/04/2024 CBC WITH AUTO- DIFFE RENTI AL HGB 8.3 g/dL 11.1-1 5.9 low Not Available [facility] [address], [place], [address], 02/05/2024 13:00:06 02/04/20 24 02/04/2024 CBC WITH AUTO- DIFFE RENTI AL HCT 28.4 % 34.0-4 6.6 low Not Available [facility] [address] [facility] [address], [place], [address], 02/05/2024 13:00:06 02/04/20 24 02/04/2024 CBC WITH AUTO- DIFFE RENTI AL MCV 82 fL 79-97 Not Available [facility] [address], [place], [address], 02/05/2024 13:00:06 02/04/20 24 02/04/2024 CBC WITH AUTO- DIFFE RENTI AL MCH 24.0 pg 26.6-3 3.0 low Not Available [facility] [address], [place], [address], 02/05/2024 13:00:06 02/04/20 24 02/04/2024 CBC WITH AUTO- DIFFE RENTI AL MCHC 29.2 g/dL 31.5-3 5.7 low Not Available [facility] [address] [facility] [address], [place], [address], 02/05/2024 13:00:06 02/04/20 24 02/04/2024 CBC WITH AUTO- DIFFE RENTI AL RDW 15.5 % 11.5-1 4.5 high Not Available [facility] [address] [facility], [place], [address], 02/05/2024 13:00:06 02/04/20 24 02/04/2024 CBC WITH AUTO- DIFFE RENTI AL platelets 148 10*3/ uL 150-40 0 low Not Available [facility] [address], [place], [address], 02/05/2024 13:00:06 02/04/20 24 02/04/2024 CBC WITH AUTO- DIFFE RENTI AL MPV 11 fL 9-13 Not Available [facility] [address], [place], [address], 02/05/2024 13:00:06 11/04/02/04/2024 CBC WITH AUTO- DIFFE RENTI AL neutrophils 44.6 % 40.0-7 4.0 Not Available [facility] [address] [facility] [address], [place], [address], 02/05/2024 13:00:06 02/04/20 24 02/04/2024 CBC WITH AUTO- DIFFE RENTI AL absolute neutrophils 1.40 10*3/ uL 1.40-7 .00 Not Available [facility] [address] [facility] [address], [place], [address], 02/05/2024 13:00:06 02/04/2002/04/2024 CBC WITH AUTO- DIFFE RENTI AL lymphocytes 38.5 % 14.0-4 6.0 Not Available [facility] [address] [facility] [address], [place], [address], 02/05/2024 13:00:06 02/04/20 24 02/04/2024 CBC WITH AUTO- DIFFE RENTI AL absolute lymphocytes 1.21 10*3/ uL 0.70-3 .10 Not Available [facility] [address] [facility] [address], [place], [address], 02/05/2024 13:00:06 02/04/20 24 02/04/2024 CBC WITH AUTO- DIFFE RENTI AL monocytes 12.1 % 4.0-12 .0 high Not Available [facility] [address] [facility] [address], [place], [address], 02/05/2024 13:00:06 02/04/20 24 02/04/2024 CBC WITH AUTO- DIFFE RENTI AL absolute monocytes 0.38 10*3/ uL 0.10-0 .90 Not Available [facility] [address] [facility] [address], [place], [address], 02/05/2024 13:00:06 02/04/20 24 02/04/2024 CBC WITH AUTO- DIFFE RENTI AL eosinophils 3.5 % 0.0-5. 0 Not Available [facility] [address] [facility] [address], [place], [address], 02/05/2024 13:00:06 02/04/20 24 02/04/2024 CBC WITH AUTO- DIFFE RENTI AL absolute eosinophils 0.11 10*3/ uL 0.00-0 .40 Not Available [facility] [address] [facility] [address], [place], [address], 02/05/2024 13:00:06 02/04/20 24 02/04/2024 CBC WITH AUTO- DIFFE RENTI AL basophils 1.0 % 0.0-3. 0 Not Available [facility] [address] [facility] [address], [place], [address], 02/05/2024 13:00:06 02/04/20 24 02/04/2024 CBC WITH AUTO- DIFFE RENTI AL absolute basophils 0.03 10*3/ uL 0.00-0 .20 Not Available [facility] [address] [facility] [address], [place], [address], 02/05/2024 13:00:06 02/04/20 24 02/04/2024 CBC WITH AUTO- DIFFE RENTI AL imm. gran. 0.3 % 0.0-2. 0 Not Available [facility] [address] [facility] [address], [place], [address], 02/05/2024 13:00:06 02/04/20 24 02/04/2024 CBC WITH AUTO- DIFFE RENTI AL abs. imm. gran. 0.01 10*3/ uL 0.00-0 .10 Not Available [facility] [address] [facility] [address], [place], [address], 02/05/2024 13:00:06 02/04/20 24 02/04/2024 COMPR EHENS JAMEEL METAB OLIC PANEL sodium 141 mmol/ L 134-14 4 Not Available [facility] [address] [facility] [address], [place], [address], 02/05/2024 13:00:07 02/04/20 24 02/04/2024 COMPR EHENS JAMEEL METAB OLIC PANEL potassium 4.4 mmol/ L 3.5-5. 2 Not Available [facility] [address] [facility] [address], [place], [address], 02/05/2024 13:00:07 02/04/20 24 02/04/2024 COMPR EHENS JAMEEL METAB OLIC PANEL chloride 103 mmol/ L 98-107 Not Available [facility] [address] [facility] [address], [place], [address], 02/05/2024 13:00:07 02/04/20 24 02/04/2024 COMPR EHENS JAMEEL METAB OLIC PANEL carbon dioxide (co2) 27.0 mmol/ L 18.0-2 9.0 Not Available [facility] [address] [facility] [address], [place], [address], 02/05/2024 13:00:07 02/04/20 24 02/04/2024 COMPR EHENS JAMEEL METAB OLIC PANEL glucose 106 mg/dL 65-99 high Elisabeth l Fasti n - 99 mg/dL Impai red Fasti n - 125 mg/dL Diagn ostic of Diabe kana: => 126 mg/dL Ameri can [facility], 2008 Not Available [facility] [address] [facility] [address], [place], [address], 02/05/2024 13:00:07 02/04/20 24 02/04/2024 COMPR EHENS JAMEEL METAB OLIC PANEL urea nitrogen (BUN) 17 mg/dL 8-23 Not Available [facility] [address] [facility] [address], [place], [address], 02/05/2024 13:00:07 02/04/20 24 02/04/2024 COMPR EHENS JAMEEL METAB OLIC PANEL creatinine 0.83 mg/dL 0.57-1 .00 Not Available [facility] [address] [facility] [address] [place], [address], 02/05/2024 13:00:07 02/04/20 24 02/04/2024 COMPR EHENS JAMEEL METAB OLIC PANEL eGFR 68 mL/mi nute/ 1.73_ m2 >59 MDRD Study Equat ion: The calcu lated GFR is NOT appli cable for pedia tric (< 18 years old) and > 70 year old patie nts and patie nts that are NOT of [place] . Not Available [facility] [address] [facility] [address], [place], [address], 02/05/2024 13:00:07 02/04/20 24 02/04/2024 COMPR EHENS JAMEEL METAB OLIC PANEL calcium 8.9 mg/dL 8.7-10 .3 Not Available [facility] [address] [facility] [address], [place], [address], 02/05/2024 13:00:07 02/04/20 24 02/04/2024 COMPR EHENS JAMEEL METAB OLIC PANEL protein, total 6.6 gm/dL 6.4-8. 3 Not Available [facility] [address] [facility] [address], [place], [address], 02/05/2024 13:00:07 02/04/20 24 02/04/2024 COMPR EHENS JAMEEL METAB OLIC PANEL albumin 4.1 gm/dL 3.5-5. 2 Not Available [facility] [address] [facility] [address], [place], [address], 02/05/2024 13:00:07 02/04/20 24 02/04/2024 COMPR EHENS JAMEEL METAB OLIC PANEL bilirubin, total 0.30 mg/dL 0.00-1 .20 Not Available [facility] [address] [facility] [address], [place], [address], 02/05/2024 13:00:07 02/04/20 24 02/04/2024 COMPR EHENS JAMEEL METAB OLIC PANEL alkaline phosphatase (ALP) 48 U/L 39-117 Not Available [facility] [address] [facility] [address], [place], [address], 02/05/2024 13:00:07 02/04/20 24 02/04/2024 COMPR EHENS JAMEEL METAB OLIC PANEL aspartate aminotransfe rase (AST) 13 U/L 0-32 Not Available [facility] [address] [facility] [address], [place], [address], 02/05/2024 13:00:07 02/04/20 24 02/04/2024 COMPR EHENS JAMEEL METAB OLIC PANEL alanine aminotransfe rase (ALT) 6 U/L 0-33 Not Available [facility] [address] [facility] [address], [place], [address], 02/05/2024 13:00:07 02/04/20 24 02/04/2024 COMPR EHENS JAMEEL METAB OLIC PANEL A/G ratio (calculated) 1.6 ratio 1.0-2. 7 Not Available [facility] [address] [facility] [address], [place], [address], 02/05/2024 13:00:07 02/04/20 24 02/04/2024 COMPR EHENS JAMEEL METAB OLIC PANEL globulin (calculated) 2.5 gm/dL 1.5-3. 8 Not Available [address], [place], [address], 02/05/2024 13:00:07 02/04/20 24 02/04/2024 COMPR EHENS JAMEEL METAB OLIC PANEL BUN/creatini ne ratio (calculated) 20.5 ratio 8.0-20 .0 high Not Available [place] [id number] [facility] [address], [place], [address], 02/05/2024 13:00:07 02/04/20 24 02/04/2024 COMPR EHENS JAMEEL METAB OLIC PANEL serum hemolysis index NORMAL index normal Not Available [facility] [address], [place], [address], 02/05/2024 13:00:07 06/12/19 25 06/11/2024 CBC WITH AUTO- DIFFE RENTI AL WBC 3.1 10*3/ uL 3.4-10 .8 low Not Available [facility] [address], [place], [address], 06/12/2024 13:04:42 06/12/19 25 06/11/2024 CBC WITH AUTO- DIFFE RENTI AL RBC 3.53 10*6/ uL 3.80-5 .30 low Not Available [facility] [address], [place], [address], 06/12/2024 13:04:42 06/12/19 25 06/11/2024 CBC WITH AUTO- DIFFE RENTI AL HGB 8.7 g/dL 11.1-1 5.9 low Not Available [facility] [address], [place], [address], 06/12/2024 13:04:42 06/12/19 25 06/11/2024 CBC WITH AUTO- DIFFE RENTI AL HCT 29.3 % 34.0-4 6.6 low Not Available [facility] [address], [place], [address], 06/12/2024 13:04:42 06/12/19 25 06/11/2024 CBC WITH AUTO- DIFFE RENTI AL MCV 83 fL 79-97 Not Available [facility] [address], [place], [address], 06/12/2024 13:04:42 06/12/19 25 06/11/2024 CBC WITH AUTO- DIFFE RENTI AL MCH 24.6 pg 26.6-3 3.0 low Not Available [facility] [address], [place], [address], 06/12/2024 13:04:42 06/12/19 25 06/11/2024 CBC WITH AUTO- DIFFE RENTI AL MCHC 29.7 g/dL 31.5-3 5.7 low Not Available [facility] [address], [place], [address], 06/12/2024 13:04:42 06/12/19 25 06/11/2024 CBC WITH AUTO- DIFFE RENTI AL RDW 16.8 % 11.5-1 4.5 high Not Available [facility] [address], [place], [address], 06/12/2024 13:04:42 06/12/19 25 06/11/2024 CBC WITH AUTO- DIFFE RENTI AL platelets 136 10*3/ uL 150-40 0 low Not Available [facility] [address] [facility] [address], [place], [address], 06/12/2024 13:04:42 06/12/19 25 06/11/2024 CBC WITH AUTO- DIFFE RENTI AL MPV 11 fL 9-13 Not Available [facility] [address] [facility] [address], [place], [address], 06/12/2024 13:04:42 06/12/19 25 06/11/2024 CBC WITH AUTO- DIFFE RENTI AL neutrophils 43.2 % 40.0-7 4.0 Not Available [facility] [address] [facility] [address], [place], [address], 06/12/2024 13:04:42 06/12/19 25 06/11/2024 CBC WITH AUTO- DIFFE RENTI AL absolute neutrophils 1.33 10*3/ uL 1.40-7 .00 low Not Available [facility] [address] [facility] [address], [place], [address], 06/12/2024 13:04:42 06/12/19 25 06/11/2024 CBC WITH AUTO- DIFFE RENTI AL lymphocytes 36.4 % 14.0-4 6.0 Not Available [facility] [address] [facility] [address], [place], [address], 06/12/2024 13:04:42 06/12/19 25 06/11/2024 CBC WITH AUTO- DIFFE RENTI AL absolute lymphocytes 1.12 10*3/ uL 0.70-3 .10 Not Available [facility] [address] [facility] [address], [place], [address], 06/12/2024 13:04:42 06/12/19 25 06/11/2024 CBC WITH AUTO- DIFFE RENTI AL monocytes 14.9 % 4.0-12 .0 high Not Available [facility] [address] [facility] [address], [place], [address], 06/12/2024 13:04:42 06/12/19 25 06/11/2024 CBC WITH AUTO- DIFFE RENTI AL absolute monocytes 0.46 10*3/ uL 0.10-0 .90 Not Available [facility] [address] [facility] [address], [place], [address], 06/12/2024 13:04:42 06/12/19 25 06/11/2024 CBC WITH AUTO- DIFFE RENTI AL eosinophils 4.2 % 0.0-5. 0 Not Available [facility] [address] [facility] [address], [place], [address], 06/12/2024 13:04:42 06/12/19 25 06/11/2024 CBC WITH AUTO- DIFFE RENTI AL absolute eosinophils 0.13 10*3/ uL 0.00-0 .40 Not Available [address], [place], [address], 06/12/2024 13:04:42 06/12/19 25 06/11/2024 CBC WITH AUTO- DIFFE RENTI AL basophils 1.0 % 0.0-3. 0 Not Available [facility] [address] [facility] [address], [place], [address], 06/12/2024 13:04:42 06/12/19 25 06/11/2024 CBC WITH AUTO- DIFFE RENTI AL absolute basophils 0.03 10*3/ uL 0.00-0 .20 Not Available [facility] [address] [facility] [address], [place], [address], 06/12/2024 13:04:42 06/12/19 25 06/11/2024 CBC WITH AUTO- DIFFE RENTI AL imm. gran. 0.3 % 0.0-2. 0 Not Available [facility] [address] [facility] [address], [place], [address], 06/12/2024 13:04:42 06/12/19 25 06/11/2024 CBC WITH AUTO- DIFFE RENTI AL abs. imm. gran. 0.01 10*3/ uL 0.00-0 .10 Not Available [facility] [address] [facility] [address], [place], [address], 06/12/2024 13:04:42 06/12/19 25 06/11/2024 COMPR EHENS JAMEEL METAB OLIC PANEL sodium 140 mmol/ L 134-14 4 Not Available [facility] [address] [place] [address] [address], [place], [address], 06/12/2024 13:04:43 06/12/19 25 06/11/2024 COMPR EHENS JAMEEL METAB OLIC PANEL potassium 4.2 mmol/ L 3.5-5. 2 Not Available [facility] [address] [facility] [address], [place], [address], 06/12/2024 13:04:43 06/12/19 25 06/11/2024 COMPR EHENS JAMEEL METAB OLIC PANEL chloride 101 mmol/ L 98-107 Not Available [facility] [address], [place], [address], 06/12/2024 13:04:43 06/12/19 25 06/11/2024 COMPR EHENS JAMEEL METAB OLIC PANEL carbon dioxide (co2) 31.0 mmol/ L 18.0-2 9.0 high Not Available [facility] [address] [facility] [address], [place], [address], 06/12/2024 13:04:43 06/12/19 25 06/11/2024 COMPR EHENS JAMEEL METAB OLIC PANEL glucose 117 mg/dL 65-99 high Elisabeth l Fasti n - 99 mg/dL Impai red Fasti n - 125 mg/dL Diagn ostic of Diabe kana: => 126 mg/dL Ameri can [facility], 2008 Not Available [facility] [address] [address], [place], [address], 06/12/2024 13:04:43 06/12/19 25 06/11/2024 COMPR EHENS JAMEEL METAB OLIC PANEL urea nitrogen (BUN) 24 mg/dL 8-23 high Not Available [facility] [address] [facility] [address], [place], [address], 06/12/2024 13:04:43 06/12/19 25 06/11/2024 COMPR EHENS JAMEEL METAB OLIC PANEL creatinine 0.89 mg/dL 0.57-1 .00 Not Available [facility] [address] [facility] [address], [place], [address], 06/12/2024 13:04:43 06/12/19 25 06/11/2024 COMPR EHENS JAMEEL METAB OLIC PANEL eGFR 62 mL/mi nute/ 1.73_ m2 >59 MDRD Study Equat ion: The calcu lated GFR is NOT appli cable for pedia tric (< 18 years old) and > 70 year old patie nts and patie nts that are NOT of stead [place] . Not Available [facility] [address] [facility] [address], [place], [address], 06/12/2024 13:04:43 06/12/19 25 06/11/2024 COMPR EHENS JAMEEL METAB OLIC PANEL calcium 8.7 mg/dL 8.7-10 .3 Not Available [facility] [address] [facility] [address], [place], [address], 06/12/2024 13:04:43 06/12/19 25 06/11/2024 COMPR EHENS JAMEEL METAB OLIC PANEL protein, total 6.9 gm/dL 6.4-8. 3 Not Available [facility] [address] [facility] [address], [place], [address], 06/12/2024 13:04:43 06/12/19 25 06/11/2024 COMPR EHENS JAMEEL METAB OLIC PANEL albumin 4.2 gm/dL 3.5-5. 2 Not Available [facility] [address] [facility] [address], [place], [address], 06/12/2024 13:04:43 06/12/19 25 06/11/2024 COMPR EHENS JAMEEL METAB OLIC PANEL bilirubin, total 0.30 mg/dL 0.00-1 .20 Not Available [facility] [address] [facility] [address], [place], [address], 06/12/2024 13:04:43 06/12/19 25 06/11/2024 COMPR EHENS JAMEEL METAB OLIC PANEL alkaline phosphatase (ALP) 48 U/L 39-117 Not Available [facility] [address] [facility] [address], [place], [address], 06/12/2024 13:04:43 06/12/19 25 06/11/2024 COMPR EHENS JAMEEL METAB OLIC PANEL aspartate aminotransfe rase (AST) 13 U/L 0-32 Not Available [facility] [address] [facility] [address], [place], [address], 06/12/2024 13:04:43 06/12/19 25 06/11/2024 COMPR EHENS JAMEEL METAB OLIC PANEL alanine aminotransfe rase (ALT) 6 U/L 0-33 Not Available [facility] [address] [facility] [address], [place], [address], 06/12/2024 13:04:43 06/12/19 25 06/11/2024 COMPR EHENS JAMEEL METAB OLIC PANEL A/G ratio (calculated) 1.6 ratio 1.0-2. 7 Not Available [facility] [address] [facility] [address], [place], [address], 06/12/2024 13:04:43 06/12/19 25 06/11/2024 COMPR EHENS JAMEEL METAB OLIC PANEL globulin (calculated) 2.7 gm/dL 1.5-3. 8 Not Available [facility] [address] [facility] [address], [place], [address], 06/12/2024 13:04:43 06/12/19 25 06/11/2024 COMPR EHENS JAMEEL METAB OLIC PANEL BUN/creatini ne ratio (calculated) 27.0 ratio 8.0-20 .0 high Not Available [facility] [address] [facility] [address], [place], [address], 06/12/2024 13:04:43 06/12/19 25 06/11/2024 COMPR EHENS JAMEEL METAB OLIC PANEL serum index hemolysis NORMAL index normal Not Available [facility] [address] [facility] [address], [place], [address], 06/12/2024 13:04:43 06/12/19 25 06/11/2024 FOLAT E, SERUM folate 20.0 NG/mL 3.1-20 .0 REFER ENCE RANGE : Elisabeth l: > 3.0 ng/mL Inter media te: 2.2 - 3.0 ng/mL Defic ient: < 2.2 ng/mL Not Available [facility] [address] [facility] [address], [place], [address], 06/12/2024 13:04:43 06/12/19 25 06/11/2024 LIPID PANEL W/ LDL MARIBELL STERO L DIREC T cholesterol, total 111 mg/dL 100-19 9 Not Available [facility] [address] [facility] [address], [place], [address], 06/12/2024 13:04:44 06/12/19 25 06/11/2024 LIPID PANEL W/ LDL MARIBELL STERO L DIREC T HDL cholesterol 63 mg/dL =>[address] [facility] [address] [facility] [address], [place], [address], 06/12/2024 13:04:44 06/12/19 25 06/11/2024 LIPID PANEL W/ LDL MARIBELL STERO L DIREC T LDL cholesterol (direct) 33 mg/dL 0-99 Not Available [facility] [address] [facility] [address], [place], [address], 06/12/2024 13:04:44 06/12/19 25 06/11/2024 LIPID PANEL W/ LDL MARIBELL STERO L DIREC T triglyceride s 86 mg/dL 50-149 Not Available [facility] [address] [facility] [address], [place], [address], 06/12/2024 13:04:44 06/12/19 25 06/11/2024 LIPID PANEL W/ LDL MARIBELL STERO L DIREC T VLDL cholesterol (calculated) 17 mg/dL 5-40 Not Available [facility] [address] [facility] [address], [place], [address], 06/12/2024 13:04:44 06/12/19 25 06/11/2024 LIPID PANEL W/ LDL MARIBELL STERO L DIREC T chol/HDL ratio (calculated) 1.76 ratio 0.00-5 .00 Not Available [facility] [address], [place], [address], 06/12/2024 13:04:44 06/12/19 25 06/11/2024 LIPID PANEL W/ LDL MARIBELL STERO L DIREC T LDL/HDL ratio (calculated) 0.52 ratio 0.00-3 .60 LDL/H DL Ratio Male Femal e 1/2 Avg. Risk 1.0 1.5 Avg. Risk 3.6 3.2 2x Avg. Risk 6.2 5.0 3x Avg. Risk 8.0 6.1 Not Available [facility] [address] [address], [place], [address], 06/12/2024 13:04:44 06/12/19 25 06/11/2024 MAGNE SIUM magnesium 1.6 mg/dL 1.6-2. 6 Not Available [facility] [address], [place], [address], 06/12/2024 13:04:44 06/12/19 25 06/11/2024 VITAM IN B12 vitamin B12 >2000 pg/mL 232-12 45 high Not Available [facility] [address] [facility] [address], [place], [address], 06/12/2024 13:04:45 06/24/19 25 06/24/2024 Immun oglob ulin light chain s.myron e panel - Serum kappa light chains.free [mass/volume ] in serum 39.2 mg/L low: 2.9mg/ Lhigh: 20.7mg /L high Not Available Not Available 09/11/2024 11:58:08 06/24/19 25 06/24/2024 Immun oglob ulin light chain s.myron e panel - Serum lambda light chains.free [mass/volume ] in serum or plasma 17 mg/L low: 4.2mg/ Lhigh: 27.6mg /L Not Available Not Available 09/11/2024 11:58:08 06/24/19 25 06/24/2024 Immun oglob ulin light chain s.myron e panel - Serum kappa light chains.free/ lambda light chains.free [mass ratio] in serum 2.31 low: 0.22hi gh: 1.74 high Not Available Not Available 09/11/2024 11:58:08 06/24/19 25 06/24/2024 Immun oglob ulin light chain s.myron e panel - Serum interpretati on and review of laboratory results ABNORM AL Not Available Not Available 11:58:08 06/24/19 25 06/26/2024 Cobal beverly (Yoko min B12) [Mass /volu me] in Serum or Plasm a cobalamin (vitamin B12) [mass/volume ] in serum or plasma low: 180pg/ mLhigh : 914pg/ mL Not Available Not Available 09/11/2024 11:58:08 06/24/19 25 06/26/2024 Cobal beverly (Yoko min B12) [Mass /volu me] in Serum or Plasm a Unknown Analyte RELEAS E TO PATIEN T->IMM EDIATE Not Available Not Available 11:58:08 06/24/19 25 06/23/2024 Retic ulocy kana/E rythr ocyte s in Blood by Autom ated count reticulocyte s/erythrocyt es in blood by automated count 1.14 % low: 0.5%hi gh: 1.7% Not Available Not Available 09/11/2024 11:58:08 06/24/19 25 06/23/2024 Retic ulocy kana/E rythr ocyte s in Blood by Autom ated count hemoglobin [entitic mass] in reticulocyte s by automated count 25.5 pg low: 28.2pg high: 36.6pg low RET-H e is a direc t asses sment of incor porat ion of iron into eryth rocyt e hemog lobin . It provi manuela an indir ect measu re of the iron avail able for new eryth ropoi esis over past 2-4 days. Not Available Not Available 09/11/2024 11:58:08 06/24/19 25 06/23/2024 Retic ulocy kana/E rythr ocyte s in Blood by Autom ated count Unknown Analyte RELEAS E TO PATIEN T->IMM EDIATE Not Available Not Available 11:58:08 06/24/19 25 06/23/2024 Retic ulocy kana/E rythr ocyte s in Blood by Autom ated count interpretati on and review of laboratory results ABNORM AL Not Available Not Available 11:58:08 06/24/19 25 06/24/2024 Immun oglob ulin panel [Mass /volu me] - Serum IgG [mass/volume ] in serum or plasma 1099 mg/dL low: 635mg/ dLhigh : 1741mg /dL Not Available Not Available 09/11/2024 11:58:08 06/24/19 25 06/24/2024 Immun oglob ulin panel [Mass /volu me] - Serum IgA [mass/volume ] in serum or plasma 321 mg/dL low: 66mg/d Lhigh: 433mg/ dL Not Available Not Available 09/11/2024 11:58:08 06/24/19 25 06/24/2024 Immun oglob ulin panel [Mass /volu me] - Serum IgM [mass/volume ] in serum or plasma 78 mg/dL low: 45mg/d Lhigh: 281mg/ dL Not Available Not Available 09/11/2024 11:58:08 06/24/19 25 06/24/2024 Immun oglob ulin panel [Mass /volu me] - Serum Unknown Analyte RELEAS E TO PATIEN T->IMM EDIATE Not Available Not Available 11:58:08 06/24/19 25 06/24/2024 Hapto globi n [Mass /volu me] in Serum or Plasm a hapto 121 mg/dL low: 44mg/d Lhigh: 215mg/ dL Not Available Not Available 09/11/2024 11:58:08 06/24/19 25 06/24/2024 Hapto globi n [Mass /volu me] in Serum or Plasm a Unknown Analyte RELEAS E TO PATIEN T->IMM EDIATE Not Available Not Available 11:58:08 06/24/19 25 06/26/2024 Folat e [Mass /volu me] in Serum or Plasm a folate [mass/volume ] in serum or plasma low: 5.9NG/ mL Not Available Not Available 09/11/2024 11:58:08 06/24/19 25 06/26/2024 Folat e [Mass /volu me] in Serum or Plasm a Unknown Analyte RELEAS E TO PATIEN T->IMM EDIATE IS THE PATIEN T REQUIR ED TO BE FASTIN G FOR 12 HOURS? ->NO Not Available Not Available 11:58:08 06/24/19 25 06/23/2024 Compr [email or web address] jameel [employer] olic 1999 panel - Serum or Plasm a glucose [mass/volume ] in serum or plasma 128 mg/dL low: 70mg/d Lhigh: 105mg/ dL high Not Available Not Available 09/11/2024 11:58:08 06/24/19 25 06/23/2024 Compr [email or web address] jameel [employer] olic 1999 panel - Serum or Plasm a urea nitrogen [mass/volume ] in serum or plasma 20 mg/dL low: 7mg/dL high: 25mg/d L Not Available Not Available 09/11/2024 11:58:08 06/24/19 25 06/23/2024 Compr [email or web address] jameel [employer] olic 2000 panel - Serum or Plasm a creatinine [mass/volume ] in serum or plasma 0.7 mg/dL low: 0.6mg/ dLhigh : 1.2mg/ dL Not Available Not Available 09/11/2024 11:58:08 06/24/19 25 06/23/2024 Compr [employer] jameel [employer] olic 1999 panel - Serum or Plasm a sodium [moles/volum e] in serum or plasma 141 text: 136 - 145 mEq/L Not Available Not Available 09/11/2024 11:58:08 06/24/19 25 06/23/2024 Compr [email or web address] jameel metab olic 2000 panel - Serum or Plasm a potassium [moles/volum e] in serum or plasma 4.3 text: 3.5 - 5.1 mEq/L Not Available Not Available 09/11/2024 11:58:08 06/24/19 25 06/23/[address] [facility] [email or web address] jame[employer] [facility] 1999 panel - Serum or Plasm a chloride [moles/volum e] in serum or plasma 103 text: 98 - 107 mEq/L Not Available Not Available 09/11/2024 11:58:08 06/24/19 25 06/23/2024 [email or web address] [employer] [facility] 1999 panel - Serum or Plasm a bicarbonate [moles/volum e] in serum or plasma 31 text: 21 - 31 mEq/L Not Available Not Available 09/11/2024 11:58:08 06/24/19 25 06/23/2024 [email or web address] [employer] [facility] 1999 panel - Serum or Plasm a bilirubin.to chente [mass/volume ] in serum or plasma 0.4 mg/dL low: 0.3mg/ dLhigh : 1mg/dL Not Available Not Available 09/11/2024 11:58:08 06/24/19 25 06/23/2024 [email or web address] [employer] [facility] 1999 panel - Serum or Plasm a alkaline phosphatase [enzymatic activity/vol ume] in serum or plasma 40 U/L low: 34U/Lh igh: 104U/L Not Available Not Available 09/11/2024 11:58:08 06/24/19 25 06/23/2024 [email or web address] [employer] ic [facility] panel - Serum or Plasm a aspartate aminotransfe rase [enzymatic activity/vol ume] in serum or plasma 13 U/L low: 13U/Lh igh: 39U/L Not Available Not Available 09/11/2024 11:58:08 06/24/19 25 06/23/2024 [email or web address] [employer] ic 2000 panel - Serum or Plasm a alanine aminotransfe rase [enzymatic activity/vol ume] in serum or plasma 7 U/L low: 7U/Lhi gh: 52U/L Not Available Not Available 09/11/2024 11:58:08 06/24/19 25 06/23/[address] [facility] [email or web address] jameel [employer] olic 2000 panel - Serum or Plasm a protein [mass/volume ] in serum or plasma 6.6 g/dL low: 6.4g/d Lhigh: 8.9g/d L Not Available Not Available 09/11/2024 11:58:08 06/24/19 25 06/23/2024 [facility] jameel [employer] [facility] 1999 panel - Serum or Plasm a albumin [mass/volume ] in serum or plasma by bromocresol green (bcg) dye binding method 4.1 g/dL low: 3.5g/d Lhigh: 5.7g/d L Not Available Not Available 09/11/2024 11:58:08 06/24/19 25 06/23/2024 [facility] - Serum or Plasm a calcium [mass/volume ] in serum or plasma 9.3 mg/dL low: 8.6mg/ dLhigh : 10.3mg /dL Not Available Not Available 09/11/2024 11:58:08 06/24/19 25 06/23/2024 [facility] jameel [facility] 1999 panel - Serum or Plasm a anion gap in serum or plasma by calculated.4 ions 11.3 text: 7.0 - 15.0 mEq/L Not Available Not Available 09/11/2024 11:58:08 06/24/19 25 06/23/2024 [facility] jameel [facility] 1999 panel - Serum or Plasm a globulin [mass/volume ] in serum by calculation 2.5 g/dL low: 2g/dLh igh: 3.5g/d L Not Available Not Available 09/11/2024 11:58:08 06/24/19 25 06/23/2024 [facility] jameel [facility] 1999 panel - Serum or Plasm a eGFR 83 text: >60 mL/min /1.73m 2 This eGFR is calcu lated using 2020 CKD-E PI Creat inine equat ion witho ut race modif ier based on the NKF-A SN task force recom menda tions Equat ion: eGFR= 142*m in(SC r/k,1 )a*ma x(SCr /k,1) -1.20 0*0.9 938Ag e*1.0 12 (if femal e), where SCr is serum creat inine , k is 0.7 for femal es and 0.9 for males , and a is -0.24 1 for femal es and -0.30 2 for males Not Available Not Available 09/11/2024 11:58:08 06/24/19 25 06/23/2024 Compr ehens jameel metab olic 2000 panel - Serum or Plasm a Unknown Analyte RELEAS E TO PATIEN T->IMM EDIATE IS THE PATIEN T REQUIR ED TO BE FASTIN G FOR 8 HOURS? ->NO Not Available Not Available 11:58:08 06/24/19 25 06/23/2024 Compr ehens jameel metab olic 2000 panel - Serum or Plasm a interpretati on and review of laboratory results ABNORM AL Not Available Not Available 11:58:08 08/05/19 25 08/04/2024 Lacta te dehyd rogen ase [Enzy matic activ ity/v olume ] in Serum or Plasm a by Lacta te to pyruv ate react ion lactate dehydrogenas e [enzymatic activity/vol ume] in serum or plasma by lactate to pyruvate reaction 142 U/L low: 140U/L high: 271U/L Not Available Not Available 09/11/2024 11:58:08 08/05/19 25 08/04/2024 Lacta te dehyd rogen ase [Enzy matic activ ity/v olume ] in Serum or Plasm a by Lacta te to pyruv ate react ion Unknown Analyte RELEAS E TO PATIEN T->IMM EDIATE Not Available Not Available 11:58:08 09/05/19 25 09/04/2024 [employer] rickey ng capac ity panel - Serum or Plasm a iron [mass/volume ] in serum or plasma 53 ug/dL low: 50ug/d Lhigh: 212ug/ dL Not Available Not Available 09/11/2024 11:58:08 09/05/19 25 09/04/2024 [employer] rickey ng capac ity panel - Serum or Plasm a iron binding capacity.uns aturated [mass/volume ] in serum or plasma 234 ug/dL low: 155ug/ dLhigh : 355ug/ dL Not Available Not Available 09/11/2024 11:58:08 09/05/19 25 09/04/2024 [employer] rickey ng capac ity panel - Serum or Plasm a iron binding capacity [mass/volume ] in serum or plasma 287 ug/dL low: 261ug/ dLhigh : 478ug/ dL Not Available Not Available 09/11/2024 11:58:08 09/05/19 25 09/04/2024 [employer] rickey ng capac ity panel - Serum or Plasm a iron saturation [mass fraction] in serum or plasma 18 % low: 20%hig h: 50% low Not Available Not Available 09/11/2024 11:58:08 09/05/19 25 09/04/2024 [employer] rickey ng capac ity panel - Serum or Plasm a Unknown Analyte RELEAS E TO PATIEN T->IMM EDIATE Not Available Not Available 11:58:08 09/05/19 25 09/04/2024 [employer] rickey ng capac ity panel - Serum or Plasm a interpretati on and review of laboratory results ABNORM AL Not Available Not Available 11:58:08 09/05/19 25 09/09/2024 Coppe r [Mass /volu me] in Serum or Plasm a copper [mass/volume ] in serum or plasma 68 text: 80 - 158 ug/dL low DETEC TION LIMIT = 5 Not Available Not Available 09/11/2024 11:58:08 09/05/19 25 09/09/2024 Coppe r [Mass /volu me] in Serum or Plasm a Unknown Analyte TESTIN G PERFOR MED AT: [BN] [facility], [address] [place] [address], [phone], PHONE: [phone] , [facility] JUAN DIRECT OR: FAREED SAENZ RA, MD TEST(S ) [id number] -COPPE R, SERUM OR PLASMA WAS DEVELO PED AND ITS PERFOR TAISHA CHARAC TERIST ICS DETERM INED BY [facility] P. IT HAS NOT BEEN CLEARE D OR APPROV ED BY THE FOOD AND DRUG ADMINI STRATI ON. RELEAS E TO PATIEN T->IMM EDIATE Not Available Not Available 11:58:08 09/05/19 25 09/09/2024 Coppe r [Mass /volu me] in Serum or Plasm a interpretati on and review of laboratory results ABNORM AL Not Available Not Available 11:58:08 09/05/19 25 09/04/2024 Harlan tin [Mass /volu me] in Serum or Plasm a ferritin [mass/volume ] in serum or plasma 49 NG/mL low: 11NG/m Lhigh: 307NG/ mL Not Available Not Available 09/11/2024 11:58:08 09/05/19 25 09/04/2024 Harlan tin [Mass /volu me] in Serum or Plasm a Unknown Analyte RELEAS E TO PATIEN T->IMM EDIATE Not Available Not Available 11:58:08 09/05/19 25 09/04/2024 CBC W Order ed Manua l Diffe eliati al panel - Blood leukocytes [#/volume] in blood by automated count 2.7 10*3/ uL low: 410*3/ uLhigh : 1010*3 /uL low Not Available Not Available 09/11/2024 11:58:08 09/05/19 25 09/04/2024 CBC W Order ed Manua l Diffe eliati al panel - Blood hemoglobin [mass/volume ] in blood 11.6 g/dL low: 11.2g/ dLhigh : 15.7g/ dL Not Available Not Available 09/11/2024 11:58:08 09/05/19 25 09/04/2024 CBC W Order ed Manua l Diffe renti al panel - Blood hematocrit [volume fraction] of blood by automated count 35.9 % low: 34.1%h igh: 44.9% Not Available Not Available 09/11/2024 11:58:08 09/05/19 25 09/04/2024 CBC W Order ed Manua l Diffe eliati al panel - Blood platelets [#/volume] in blood by automated count 103 10*3/ uL low: 77174* 3/uLhi gh: 36903* 3/uL low Not Available Not Available 09/11/2024 11:58:08 09/05/19 25 09/04/2024 CBC W Order ed Manua l Diffe renti al panel - Blood platelet [entitic mean volume] in blood by automated count 9.5 fL low: 9.4fLh igh: 12.4fL Not Available Not Available 09/11/2024 11:58:08 09/05/19 25 09/04/2024 CBC W Order ed Manua l Diffe renti al panel - Blood erythrocytes [#/volume] in blood by automated count 3.83 10*6/ uL low: 3.9310 *6/uLh igh: 5.2210 *6/uL low Not Available Not Available 09/11/2024 11:58:08 09/05/19 25 09/04/2024 CBC W Order ed Manua l Diffe renti al panel - Blood MCV [entitic mean volume] in red blood cells by automated count 94 fL low: 79fLhi gh: 95fL Not Available Not Available 09/11/2024 11:58:08 09/05/19 25 09/04/2024 CBC W Order ed Manua l Diffe renti al panel - Blood MCH [entitic mass] by automated count 30.3 pg low: 25.6pg high: 32.2pg Not Available Not Available 09/11/2024 11:58:08 09/05/19 25 09/04/2024 CBC W Order ed Manua l Diffe renti al panel - Blood MCHC [entitic mass/volume] in red blood cells by automated count 32.3 g/dL low: 32.2g/ dLhigh : 36.5g/ dL Not Available Not Available 09/11/2024 11:58:08 09/05/19 25 09/04/2024 CBC W Order ed Manua l Diffe renti al panel - Blood erythrocyte [distwidth] in red blood cells by automated count 20.1 % low: 11.6%h igh: 14.4% high Not Available Not Available 09/11/2024 11:58:08 09/05/19 25 09/04/2024 CBC W Order ed Manua l Diffe renti al panel - Blood absolute neutrophil count 1543 text: cells/ uL Not Available Not Available 09/11/2024 11:58:08 09/05/19 25 09/04/2024 CBC W Order ed Manua l Diffe renti al panel - Blood neutrophils [#/volume] in blood by manual count 1543 text: 1,440 - 6,600 cells/ uL Not Available Not Available 09/11/2024 11:58:08 09/05/19 25 09/04/2024 CBC W Order ed Manua l Diffe renti al panel - Blood lymphocytes [#/volume] in blood by manual count 904 text: 760 - 4,000 cells/ uL Not Available Not Available 09/11/2024 11:58:08 09/05/19 25 09/04/2024 CBC W Order ed Manua l Diffe renti al panel - Blood monocytes [#/volume] in blood by manual count 160 text: 160 - 1,200 cells/ uL Not Available Not Available 09/11/2024 11:58:08 09/05/19 25 09/04/2024 CBC W Order ed Manua l Diffe renti al panel - Blood eosinophils [#/volume] in blood by manual count 53 text: 0 - 300 cells/ uL Not Available Not Available 09/11/2024 11:58:08 09/05/19 25 09/04/2024 CBC W Order ed Manua l Diffe renti al panel - Blood segmented neutrophils/ leukocytes in blood 58 % low: 36%hig h: 66% Not Available Not Available 09/11/2024 11:58:08 09/05/19 25 09/04/2024 CBC W Order ed Manua l Diffe renti al panel - Blood lymphocytes/ leukocytes in blood by automated count 34 % low: 19%hig h: 40% Not Available Not Available 09/11/2024 11:58:08 09/05/19 25 09/04/2024 CBC W Order ed Manua l Diffe renti al panel - Blood monocytes/le ukocytes in blood by automated count 6 % low: 4%high : 12% Not Available Not Available 09/11/2024 11:58:08 09/05/19 25 09/04/2024 CBC W Order ed Manua l Diffe renti al panel - Blood eosinophils/ leukocytes in blood by automated count 2 % low: 0%high : 3% Not Available Not Available 09/11/2024 11:58:08 09/05/19 25 09/04/2024 CBC W Order ed Manua l Diffe renti al panel - Blood WBC estimate LOW Not Available Not A vailable 09/11/2024 11:58:08 09/05/19 25 09/04/2024 CBC W Order ed Manua l Diffe renti al panel - Blood platelet estimate LOW Not Available Not Available 03/2025 11:58:08 09/05/19 25 09/04/2024 CBC W Order ed Manua l Diffe renti al panel - Blood RBC morphology ABNORM AL Not Available Not Available 11:58:08 09/05/19 25 09/04/2024 CBC W Order ed Manua l Diffe renti al panel - Blood anisocytosis [presence] in blood by light microscopy 2+ Not Available Not Available 0 09/11/2024 11:58:08 09/05/19 25 09/04/2024 CBC W Order ed Manua l Diffe renti al panel - Blood poikilocytos is [presence] in blood by light microscopy 1+ Not Available Not Available 0 09/11/2024 11:58:08 09/05/19 25 09/04/2024 CBC W Order ed Manua l Diffe renti al panel - Blood oval macrocytes [presence] in blood by light microscopy 1+ Not Available Not Available 0 09/11/2024 11:58:08 09/05/19 25 09/04/2024 CBC W Order ed Manua l Diffe renti al panel - Blood Unknown Analyte RELEAS E TO PATIEN T->IMM EDIATE Not Available Not Available 11:58:08 09/05/19 25 09/04/2024 CBC W Order ed Manua l Diffe renti al panel - Blood interpretati on and review of laboratory results ABNORM AL Not Available Not Available 11:58:08 07/06/19 24 06/30/2023 US, liver No observ ation record ed. [email or web address], [place], [address], 07/29/2024 16:48:46 07/09/19 24 05/17/2023 (ANNMARIE) ankle brach ial index * No observ ation record ed. [address], [facility] [address], [place], [address], 07/29/2024 16:48:11 08/06/19 24 08/03/2023 toro metry testi ng* No observ ation record ed. [facility], [facility] [address], [place], [address], 11/07/2023 15:02:05 08/06/19 24 07/09/2023 US, echoc ardio gram No observ ation record ed. [facility] [address], [place], [address], 11/07/2023 15:02:05 08/19/19 24 08/18/2023 XR, thora cic spine , 4 or more view No observ ation record ed. [facility] [address], [place], [address], 11/07/2023 15:02:04 11/07/19 24 11/07/2023 elect rocar diogr am No observ ation record ed. [facility], [facility] [address], [place], [address], 02/04/2024 17:04:22 11/07/19 24 11/07/2023 elect rocar diogr am No observ ation record ed. [facility], [facility] [address], [place], [address], 02/04/2024 17:04:22 01/15/20 24 XR, chest [facility] AL [address] [address] Orderi [facility] er: YESENIA [facility] [place] [address] [facility] [address] [place] [address] Examin ation: Chest 1 view portab le [...] No acute findin gs. Referr ed By: Olive onkyung ly Signed By: Bruce Weber MD on 2023 7:37 PM Interp reted By: Bruce Weber MD, 2023 7:33 PM [email or web address] [facility] 1 [facility], [place], [address], 02/04/2024 17:04:22 01/21/20 24 bone densi ty/de xa [facility] [address] [address] Orderi ng Provid er: ISRAEL FRANCIS [facility] [place] [address] EXAMIN ATION: Bone Densit y Axial ACCESS ION: [id number] EXAM DATE/T ADRIA: 2023 12:48 PM REASON [...] By: Christina Hilario MD, 2023 9:17 PM [email or web address] [facility] 1 [facility], [place], [address], 07/23/2024 11:49:17 01/21/20 24 01/21/2024 bone densi ty No observ ation record ed. [email or web address] [facility] Central Scheduling 1 [facility], [place], [address], 02/04/2024 17:04:22 01/25/20 24 bone densi ty/de xa [facility] HOSP[facility] AL ONE [facility] [place] [address] Orderi ng Provid er: ISRAEL WORRELL DA Addend by: CHRISTINA HILARIO on SunJan 25, 2024 6:00:3 8 PM CDT [facility] [place] [address] 816- Due to increa sed densit y in the lumbar spine, x-ray is recomm ended to assess for possib le etiolo gies of osteoa rthrit is. Referr ed By: ISRAEL FRANCIS Electr onical ly Signed By: Christina Hilario MD on 2023 5:59 PM Interp reted By: Christina Hilario MD, 2023 5:59 PM [facility] #[address] [place] [address] EXAMIN ATION: Bone Densit y Axial ACCESS ION: [id number] EXAM DATE/T ADRIA: 2023 12:48 PM REASON [...] By: Christina Hilario MD, 2023 9:[address], [place], [address], 02/04/2024 17:04:21 01/25/20 24 01/21/2024 bone densi ty No observ ation record ed. [address] Central Scheduling 1 [facility], [place], [address], 07/23/2024 11:48:05 02/17/20 24 02/16/2024 XR, thora cic spine , 2 view No observ ation record ed. [address], [place], [address], 07/23/2024 11:45:28 03/10/20 24 03/09/2024 XR, chest No observ ation record ed. [facility] [address], [place], [address], 06/11/2024 17:59:10 03/12/20 24 03/09/2024 XR, chest , 2 view No observ ation record ed. [facility] [address], [place], [address], 06/11/2024 17:59:10 06/12/19 25 06/11/2024 US, duple x, carot id arter y No observ ation record ed. [facility], [facility] [address], [place], [address], 10/13/2024 12:10:20 08/05/19 25 08/02/2024 CT, chest , w/o contr ast No observ ation record ed. [place] [id number] [facility] [address], [place], [address], 10/13/2024 12:10:19 09/03/19 25 US, abdom en, limit ed [facility] HOSP[facility] AL ONE [facility] [place] [address] Orderi [facility] er: AKIKO Leiva [facility] [place] [address] [facility] [address] [address] US ABD LIMITE D INDICA TION: Iron iron defici ency anemia appear TECHNI QUE: Limite d graysc shantel and color/ spectr al Dopple r ultras ound perfor med of the liver and spleen . COMPAR DANIELLE: None FINDIN GS: The liver demons trates normal echoge nicity measur ing 15.5 cm. Patent flow within the main portal vein in the approp riate direct ion. No focal lesion identi fied. The spleen appear s normal measur ing 8.2 x 3.6 x 2.4 cm. No focal lesion . IMPRES ROSALIA: Unrema rkable sonogr aphic appear ance of the liver and spleen . No hepato spleno megaly . Ordere d By: AKIKO Leiva [facility] onical ly Signed By: Rosa Maria Graf MD on 09/03/19 8:34 AM Interp reted By: Rosa Maria Graf MD, 09/03/19 8:33 AM [facility] [address], [place], [address], 10/13/2024 12:10:19 Result Notes Documentation Provider Name and Address Organization Details Recorded Time Xr, Chest : [facility] [place] [address] Ordering Provider: YESENIA FINN [address] [address] Examination: Chest 1 view portable History: Dizziness DATE/TIME: 01/15/2024 7:22 PM Comparison: September 27, 2021 Technique: AP upright portable view of the chest was obtained. Findings: Heart size, mediastinal contours and pulmonary vasculature are within normal limits. No pulmonary consolidation, pleural effusion or pneumothorax. Bilateral neck calcifications, probably carotid atherosclerotic disease. No acute osseous abnormality. Impression: No acute findings. Referred By: Interpreted By: Bruce Weber MD, 01/15/2024 7:33 PM Israel Dodd MD [address], [place], [address], [facility] 02/04/2024 17:04:22 Problems Name Problem SNOMED Code Status Onset Date Resolution Date Notes Provider Name and Address Organization Details Recorded Time Atrial septal aneurysm 29152919 Active Not Available [facility] 13:59:13 Carotid artery stenosis 52541568 Active Not Available [facility] 13:59:13 Divertic ular disease of colon 326569773 Active Not Available [facility] 13:59:13 Depressi ve disorder 56833194 Completed 03/02/2020 Israel Dodd MD [address], [place], [address] , [facility] 0 16:09:53 Benign hyperten rosalia 06693368 Active Not Available [facility] 13:59:13 Ex-smoke r 7761101 Active Not Available [facility] 13:59:13 Gastroes ophageal reflux disease 963348539 Completed 12/28/2016 Israel Dodd MD [address], [place], [address] , [facility] 7 10:03:00 Hyperlip idemia 35459330 Active Not Available [facility] 13:59:13 Osteoart hritis 696470960 Active Not Available [facility] 13:59:13 Osteopen ia 493408056 Active Not Available [facility] 13:59:13 Peripher al vascular disease 164616291 Active Not Available [facility] 13:59:13 Menopaus e Active Not Available [facility] 13:59:13 Mixed anxiety and depressi ve disorder 342921774 Active 2015 Not Available [facility] 13:59:13 Gastroes ophageal reflux disease without esophagi tis 924423744 Active 2015 Not Available [facility] 1 13:59:13 History of transien t ischemic attack 685501843 Active 2016 Not Available [facility] 13:59:13 Vitamin D deficien cy 77148509 Active 2016 Not Available [facility] 1 13:59:13 Blood glucose outside referenc e range 191819722 Active 2016 glucose intol 12/2016 Not Available [facility] 1 13:59:13 Compress ion fracture Active 2017 T12 , on X ray 12/31/17 Not Available [facility] 13:59:13 Paroxysm al atrial fibrilla tion 050328650 Active 2017 per cardiolo gy note 03/19/17 Had Watchman implanta tion 02/19/20 24 Israel Dodd MD [address], [place], [address] , [facility] 4 19:08:17 Body mass index 25-29 - overweig ht 396902808 Active 2018 Not Available [facility] 1 13:59:13 Left ventricu lar hypertro phy 60915527 Active 2018 Not Available [facility] 1 13:59:13 Anemia 386703195 Active 2018 Not Available [facility] 1 13:59:13 Caleb e 568344259 Completed 201803/02/2020 Israel Dodd MD [address], [place], [address] , [place] [facility] 0 16:09:56 Liver enzymes level above referenc e range 524152821 Active 2019 Not Available [facility] 1 13:59:13 Pulmonar y hyperten rosalia 86053693 Active 2019 on ECHO 10/06/19 Not Available [facility] 1 13:59:13 Cholelit hiasis without obstruct ion 03143331 Active 2019 Not Available [facility] 1 13:59:13 Macrocyt osis 254709349 Active 2020 Israel Dodd MD [address], [place], [address] , [facility] 1 14:29:46 Hypomagn esemia 480984686 Active 2020 Israel Dodd MD [address], [place], [address] , [facility] 1 19:10:38 Kidney stone 19253814 Active 2021 Israel Dodd MD [address], [place], [address] , [facility] 2 11:30:02 Pneumoni a 419756476 Active 2021 Israel Dodd MD [address], [place], [address] , [facility] 2 22:44:15 Solitary nodule of lung 174940082 [address] chest 03/13/22 Israel Dodd MD [address], [place], [address] , [facility] 2 23:05:44 Diarrhea 64112532 Active 2022 Israel Dodd MD [address], [place], [address] , [facility] 3 15:23:52 Compress ion fracture of thoracic spine 930325237 Active 2023 Israel Dodd MD [address], [place], [address] , [facility] 4 21:28:54 Cirrhosi s of liver 63166393 Active 2023 Israel Dodd MD [address], [place], [address] , [facility] 4 21:29:12 Restrict jameel lung disease 55505559 Active 2023 Israel Dodd MD [address], [place], [address] , [facility] 4 12:42:27 Iron deficien cy anemia 17122730 Active 2023 Israel Dodd MD [address], [place], [address] , [facility] 4 21:46:24 Long-ter m drug therapy Active 2023 Israel Dodd MD [address], [place], [address] , [facility] 4 17:10:25 Problem Notes None recorded. Procedures Surgical History Date Name Laterality Status Provider Name and Address Organization Details Recorded Time 0 Most Recent Bone Density completed BRYCE PATINO [facility] 05/31/2020 16:02:06 9 Date of Last Colonoscopy completed BRYCE PATINO [facility] 05/31/2020 16:02:19 9 Colonoscopy completed Israel Dodd MD [address], [place], [address], [facility] 11/07/2018 12:45:27 8 Colonoscopy completed Renetta Savanahsunny [facility] 09/28/2015 08:33:36 Orthopedic Surgery completed Israel Dodd MD [address], [place], [address], [facility] 09/27/2017 12:02:59 Imaging Results None recorded. Procedure Notes None recorded. Medical Equipment None Reported. Allergies Allergen ID Allergen Name Allergen Category Reaction Reaction Severity Criticality Documentation Date Start Date Code Code System Note Provider Name and Address Organization Details Recorded Time 15478 amlodipin e medicatio n dizziness Not available Not available 04/12/2023 11977 RxNorm Israel Dodd MD [address], [place], [address], [facility] 4 16:43:23 55898 felodipin e medicatio n dizziness Not available Not available 04/25/2023 4316 RxNorm Israel Dodd MD [address] [facility] [address], [place], [address], [facility] 4 19:20:54 36171 gemfibroz il medicatio n other Not available high 09/11/20242018 4719 RxNorm Not Available kirsten - External [employer] - prod 5 11:58:09 93364 magnesium oxide medicatio n diarrhea Not available low 09/11/20242023 6582 RxNorm Not Available kirsten - External Data [employer] - prod 5 11:58:09 2560 Lopid medicatio n Not available Not available Not available 09/28/201548552 9 RxNorm Renetta Pavonsunny [facility], [facility] 6 08:32:29 Medications Name Sig Start Date Stop Date Status Note LastModified by Organization Details LastModified Time nifedipin e ER 30 mg tablet,ex tended release 24 hr Take 1 tablet every day by oral route. 06/05 completed Not Available Not Available Not Available [...] 75 mg tablet 1 tab PO QD 10/13 completed Not Available Not Available Not Available amlodipin e 5 mg tablet TAKE 1 TABLET BY MOUTH EVERY DAY IN THE MORNING active Not Available Not Available No t Available sulfameth oxazole 800 mg-trimet hoprim 160 mg tablet Take 1 tablet every 12 hours by oral route for 4 days. 05/28 completed Not Available Not Available Not Available aspirin 81 mg tablet,de layed release Take 1 tablet every day by oral route. 2024 active Not Available Not Available [...] e 50 mcg/actua tion nasal spray,vashti pension [place] 1 spray every day by intranas al [...] Available Not Available Not Available Fluzone High-Dose 2019-20 (PF) 180 mcg/0.5 mL intramusc ular syringe 03/17 completed Not Available Not Available Not Available Fluad Quad 5904-6351 (65yr up)(PF) 60 mcg (15 mcg x 4)/0.5mL IM syringe 03/02 completed Not Available Not Available Not Available Vitals Date Recorded Systolic And Diastolic Provider Name and Address Organization Details Last Updated DateTime 06/11/2024 133/65 mm[Hg] Israel Dodd MD [address], [place], [address], [facility] 06/11/2024 18:07:57 Date Recorded Body height Respiratory rate Body mass index (BMI) Body weight Heart rate Body temperature Provider Name and Address Organization Details Last Updated DateTime 5 162.56 cm 18 /min 24.5 kg/m2 08761.7 1 g 64 /min 97.6 [degF] Corinna Ibarra [facility] 5 17:16:03 Date Recorded Body height Heart rate Respiratory rate Body temperature Body mass index (BMI) Body weight Systolic And Diastolic Provider Name and Address Organization Details Last Updated DateTime 4 162.56 cm 61 /min 18 /min 97.7 [degF] 25.7 kg/m2 92326.8 6 g 139/74 mm[Hg] Umesh Mclaughlin [facility] 4 12:06:47 Date Recorded Body height Body mass index (BMI) Body weight Body temperature Respiratory rate Heart rate Systolic And Diastolic Provider Name and Address Organization Details Last Updated DateTime 5 162.56 cm 24.9 kg/m2 85415.8 9 g 97.6 [degF] 18 /min 55 /min 136/69 mm[Hg] Corinna Ibarra [facility] 5 12:01:49 Date Recorded Systolic And Diastolic Provider Name and Address Organization Details Last Updated DateTime 11/07/2023 135/59 mm[Hg] Israel Dodd MD [address], [place], [address] 11/07/2023 15:10:15 Date Recorded Body height Body temperature Heart rate Respiratory rate Body mass index (BMI) Body weight Provider Name and Address Organization Details Last Updated DateTime 162.56 cm 97.8 [degF] 64 /min 18 /min 26.1 kg/m2 31479.0 4 g Corinna Stacey [facility] 14:45:59 Date Recorded Systolic And Diastolic Provider Name and Address Organization Details Last Updated DateTime 02/04/2024 133/71 mm[Hg] Israel Dodd MD [address], [place], [address] 02/04/2024 17:13:10 Date Recorded Body height Body temperature Respiratory rate Heart rate Body mass index (BMI) Body weight Provider Name and Address Organization Details Last Updated DateTime 162.56 cm 97.5 [degF] 18 /min 75 /min 25.4 kg/m2 84699.6 7 g Corinna Stacey [facility] 16:50:44 Social History Question Answer Notes LastModified by Organizat ion Details LastModified Time Tobacco Smoking Status Former Smoker Israel Dodd MD [address], [place], [address], [facility] 12/27/2018 11:39:17 Do You Have An Advance Directive? No Information not available 09/27/2017 Live Alone Or With Others? With Others With Doughter Information not available 12/27/2018 Marital Status Information not available 12/27/2018 What Was The Date Of Your Most Recent Tobacco Screening? 06/16/2021 Information not available 06/16/2021 Sex: Unknown Functional Status Question Answer Note LastModified by Organization D etails LastModified Time What is your level of alcohol consumption? None [email or web address] Information not available 09/28/2015 Are you currently employed? No Information not available 12/27/2018 Are you able to care for yourself? Yes Information n ot available 12/27/2018 Mental Status None recorded. Family History Relationship Description Onset Age of this Age Resolved Age Notes LastModified by Organization Details LastModified Time Father Coronary arterioscler osis 80 [email or web address] Not available 2015 08:35:22 Father Myocardial infarction Not available 09/27 08:35:32 Medical History Condition [...] preservative 018 completed Israel Dodd MD [address], [place], [address], [facility] 01/24/2021 12:44:05 pneumococcal polysaccharide PPV23 018 completed Israel Dodd MD [address], [place], [address], [facility] 01/24/2021 12:44:05 Influenza, split virus, quadrivalent, preservative 015 completed Israel Dodd MD [address], [place], [address], [facility] 01/24/2021 12:44:05 Pneumococcal conjugate PCV 13 016 completed Israel Dodd MD [address], [place], [address], [facility] 01/24/2021 12:44:05 Tdap 016 completed sIrael Dodd MD [address], [place], [address], [facility] 01/24/2021 12:44:05 Influenza, split virus, quadrivalent, preservative 019 completed Israel Dodd MD [address], [place], [address], [facility] 01/24/2021 12:44:05 Influenza, split virus, quadrivalent, preservative 020 completed Israel Dodd MD [address], [place], [address], [facility] 01/24/2021 12:44:05 SARS-COV-2 (COVID-19) vaccine, UNSPECIFIED 021 completed Israel Dodd MD [address], [place], [address], [facility] 01/24/2021 12:44:05 SARS-COV-2 (COVID-19) vaccine, UNSPECIFIED 021 completed Israel oDdd MD [address], [place], [address], [facility] 01/24/2021 12:44:05 COVID-19, mRNA, LNP-S, PF, 30 mcg/0.3 mL dose 021 completed Israel Dodd MD [address], [place], [address], [facility] 01/24/2021 12:44:05 Influenza, adjuvanted, quadrivalent, PF 021 completed Israel Dodd MD [address], [place], [address], [facility] 01/24/2021 12:44:05 influenza, unspecified formulation 022 completed Israel Dodd MD [address], [place], [address], [facility] 03/09/2022 13:15:35 Influenza, split virus, trivalent, preservative 016 completed Not Available Formerly [facility] 04/19/2019 02:27:20 influenza, unspecified formulation 023 completed Israel Dodd MD [address], [place], [address], [facility] 04/25/2023 19:35:06 Respiratory syncytial virus (RSV) MAB, unspecified 023 completed Israel Dodd MD [address], [place], [address], [facility] 04/25/2023 19:35:25 zoster recombinant 019 cancelled patient objection Not Available Formerly [facility] 04/19/2019 02:28:11 zoster recombinant 020 cancelled patient objection Israel Dodd MD [address], [place], [address], [facility] 05/28/2019 17:44:58 zoster recombinant 020 cancelled patient objection Israel Dodd MD [address], [place], [address], [facility] 09/01/2019 16:53:46 Past Encounters Encounter ID Performer Location Encounter Start Date Encounter Closed Date Diagnosis/Indication Diagnosis SNOMED-CT Code Diagnosis ICD10 Code Diagnosis Note [id number] Israel Dodd MD [facility], [facility] [address] [place] [address] 08/05/2015 08:50:01 08/19/2015 12:39:43 [id number] Israel Dodd MD [facility], [facility] [address] [place] [address] 09/28/2015 09:28:01 09/28/2015 10:22:39 Gastroesophageal reflux disease without esophagitis 685272880 K21.9 pt still ave symptomes on ranitidine Benign hypertension 1072 5009 I10 Osteopenia 689650420 M85 .80 Hyperlipidemia 84568678 E78.5 Carotid ar nicolás stenosis 52794116 I65.29 Peripheral vascular disease 138038798 I73.9 Active or passive immunization 895250598 Z23 [id number] Israel Dodd MD [facility] [employer], [facility] [address] [place] [address] 12/29/2015 09:11:28 12/29/2015 10:24:33 Seizure 21262903 R56.9 no driving Gastroesop hageal reflux disease without esophagitis 828528971 K21.9 pt still ave symptomes on ranitidine Hyperlipidemia 19463202 E78.5 Osteopenia 609141536 M85 .80 Atrial sep chente aneurysm 52363780 I25.3 Carotid ar nicolás stenosis 96143557 I65.29 Active or passive immunization 768180831 Z23 [id number] Israel Dodd MD [facility], [facility] [address] [place] [address] 03/29/2016 09:28:39 03/29/2016 10:03:23 Benign hypertension 17117286 I10 Osteoarthritis 303736488 M19.90 Hyperlipidemia 67100577 E78.5 Peripheral vascular disease 380725264 I73.9 Atrial sep chente aneurysm 63440416 I25.3 Mixed anxi ety and depressive disorder 034243519 F41.8 Gastroesop hageal reflux disease without esophagitis 843261499 K21.9 pt still ave symptomes on ranitidine [id number] Israel Dodd MD [place] [employer] [facility], [facility] [address] [place] [address] 06/27/2016 09:31:34 06/27/2016 10:26:18 Benign hypertension 87041469 I10 Mixed anxi ety and depressive disorder 943944463 F41.8 Gastroesop hageal reflux disease without esophagitis 136627417 K21.9 pt still ave symptomes on ranitidine but better on omeprazole Osteopenia 660224895 M85 .80 Peripheral vascular disease 168301938 I73.9 Hyperlipidemia 19705242 E78.5 Carotid ar nicolás stenosis 01616902 I65.29 Atrial sep chente aneurysm 53096979 I25.3 Active or passive immunization 001162902 Z23 refuse zoster Screening for malignant neoplasm of colon 783862502 Z12.11 [id number] Israel Dodd MD [employer], [facility] [address] [place] [address] 09/27/2016 09:47:20 09/27/2016 10:35:26 Benign hypertension 08499410 I10 Hyperlipidemia 61692397 E78.5 Atrial sep chente aneurysm 63030131 I25.3 Carotid ar nicolás stenosis 71167858 I65.29 Osteoarthritis 165034051 M19.90 Coronary arteriosclerosis 64822671 I25.10 Vitamin D deficiency 347 88201 E55.9 Screening mammography 24 151232 Z12.31 [id number] Israel Dodd MD [employer] [address] [place] [address] 12/28/2016 09:28:58 12/28/2016 10:16:20 Benign hypertension 27777121 I10 Mixed anxi ety and depressive disorder 079803552 F41.8 Gastroesop hageal reflux disease without esophagitis 655710726 K21.9 pt still ave symptomes on ranitidine but better on omeprazole Hyperlipidemia 23658635 E78.5 last LDL not @ goal ., will increase rosuva to 20 Atrial sep chente aneurysm 66626586 I25.3 Osteopenia 158997799 M85 .80 last DEXA 06/28/15 Carotid ar nicolás stenosis 51165616 I65.29 Restrictiv e lung disease 34355378 J98.4 Ex-smoker 8325266 Z87.89 1 education Screening mammography 24 801854 Z12.31 Pt refuse Osteoarthritis 088941469 M19.90 [id number] Israel Dodd MD [employer] [employer] [address] [place] [address] 03/29/2017 09:46:44 03/29/2017 10:28:49 Benign hypertension 51756760 I10 good control Blood gluc ose outside reference range 614009697 R73.09 Vitamin D deficiency 347 82740 E55.9 Osteopenia 417990287 M85 .80 last DEXA 06/28/15 Peripheral vascular disease 924814377 I73.9 Hyperlipidemia 88786373 E78.5 last LDL not @ goal ., will increase rosuva to 20 [id number] Israel Dodd MD [place] [employer] [facility], [facility] [address] [place] [address] 06/27/2017 10:36:38 06/27/2017 11:25:46 Diarrhea 59988939 R19.7 Benign hypertension 1072 5009 I10 good control Osteopenia 859667977 M85 .80 last DEXA 06/28/15 Hyperlipidemia 57601958 E78.5 last LDL 04/23/17 @ goal Screening mammography 24 518372 Z12.31 Pt refuse Screening for malignant neoplasm of colon 522953365 Z12.11 pt refuse [id number] Israel Dodd MD [employer], [facility] [address] [place] [address] 09/27/2017 11:05:11 09/27/2017 12:06:11 Adult health examination 827333682 Z00.01 Benign hypertension 1072 5009 I10 good control Vitamin D deficiency 347 60733 E55.9 will recheck Menopause 583587992 Z78. 0 asymptomat ic Mixed anxi ety and depressive disorder 597068269 F41.8 No SI, No HI , sleeping Gastroesop hageal reflux disease without esophagitis 218905392 K21.9 pt still have symptomes on ranitidine but better on omeprazole Osteopenia 167534072 M85 .80 last DEXA 06/28/15 History of transient ischemic attack 845229159 Z86.73 last carotid U/S 01/30/17 Osteoarthritis 211446193 M19.90 just had Lt TKR Diverticul ar disease of colon 176937657 K57.30 asymptomat ic , No bleeding Peripheral vascular disease 199542012 I73.9 Hyperlipidemia 75954628 E78.5 last LDL 04/23/17 @ goal Carotid ar nicolás stenosis 99130963 I65.29 last U/S 01/12/17 Ex-smoker 1876228 Z87.89 1 education Atrial sep chente aneurysm 57816486 I25.3 Restrictiv e lung disease 78222227 J98.4 on PFT 12/28/16 Screening mammography 24 889275 Z12.31 Pt refuse Screening for malignant neoplasm of cervix 919086717 Z12.4 pt refuse Screening for malignant neoplasm of colon 859525267 Z12.11 pt refuse Active or passive immunization 549012249 Z23 refuse zoster [id number] Israel Dodd MD [employer], [facility] [address] [place] [address] 12/28/2017 11:09:23 12/28/2017 11:58:52 Benign hypertension 44790511 I10 good control Mixed anxi ety and depressive disorder 387019609 F41.8 No SI, No HI , sleeping OK Osteopenia 308153496 M85 .80 last DEXA 06/28/15 Peripheral vascular disease 508984725 I73.9 last ANNMARIE 04/2017 Hyperlipidemia 14175533 E78.5 last LDL 04/23/17 @ goal Carotid ar nicolás stenosis 58144622 I65.29 last U/S 01/12/17 Lumbar radiculopathy 128 963053 M54.16 Active or passive immunization 400156912 Z23 refuse zoster [id number] Israel Dodd MD [employer] [employer], [employer] [address] [place] [address] 03/29/2018 11:54:57 03/29/2018 13:02:48 Paroxysmal atrial fibrillation 281020405 I48.0 stopped blood ozing from kneerestar t [employer] Anemia 731117714 D64.9 Benign hypertension 1072 5009 I10 on the lower side today , will decrease lisinopril to 20 , BP 3 weeks Compression fracture 219 50225 T14.8XXD T12 , on 12/31/16 , with osteopenia on last DEXA 12/2017 Osteopenia 793711045 M85 .80 last DEXA 12/2017 Active or passive immunization 888725863 Z23 refuse zoster Screening for malignant neoplasm of colon 117792434 Z12.11 pt refuse C scope [id number] Israel Dodd MD [employer], [facility] [address] [place] [address] 06/27/2018 11:21:58 06/27/2018 12:11:48 Benign hypertension 85177918 I10 good control , BP 3 weeks Hyperlipidemia 31253709 E78.5 last LDL 04/23/17 @ goal Peripheral vascular disease 660307293 I73.9 last ANNMARIE 04/2017 Osteopenia 448035668 M85 .80 with compressio n Fx T spine , on reclastlas t DEXA 12/2017 , Mixed anxi ety and depressive disorder 740699288 F41.8 No SI, No HI , sleeping OK Blood gluc ose outside reference range 048791822 R73.09 Left ventr icular hypertrophy 01604124 I51.7 concentric , mod , on ECHO 01/11/17 Active or passive immunization 754819713 Z23 refuse zoster Paroxysmal atrial fibrillation 925863063 I48.0 stopped blood ozing from kneerestar t eliquis [id number] Israel Dodd MD [employer] [address] [place] [address] 09/26/2018 10:25:17 09/26/2018 11:37:48 Benign hypertension 32858112 I10 good control , BP 3 weeks Mixed anxi ety and depressive disorder 824882351 F41.8 No SI, No HI , sleeping OK Osteopenia 876758185 M85 .80 with compressio n Fx T spine , on reclastlas t DEXA 12/2017 , Peripheral vascular disease 145733691 I73.9 mild on ANNMARIE 07/2018 Hyperlipidemia 09578490 E78.5 last LDL 04/23/17 @ goal Carotid ar nicolás stenosis 51028134 I65.29 last U/S 01/12/17 Insomnia 407421249 G47.0 0 Screening mammography 24 136127 Z12.31 Pt refuse Screening for malignant neoplasm of colon 653054184 Z12.11 pt refuse C scope Active or passive immunization 306611171 Z23 refuse zoster [id number] Israel Dodd MD [employer] [address] [place] [address] 12/27/2018 10:48:06 12/27/2018 11:53:44 Adult health examination 502163757 Z00.01 Benign hypertension 1072 5009 I10 good control , BP 3 weeks Mixed anxi ety and depressive disorder 876405540 F41.8 No SI, No HI , sleeping OK Gastroesop hageal reflux disease without esophagitis 821532041 K21.9 pt still have symptomes on ranitidine but better on omeprazole Osteopenia 219449384 M85 .80 with compressio n Fx T spine , on reclastlas t DEXA 12/2017 , Osteoarthritis 370076687 M19.90 just had Lt TKR Diverticul ar disease of colon 938072073 K57.30 asymptomat ic , No bleeding Peripheral vascular disease 001215663 I73.9 mild on ANNMARIE 07/2018 Hyperlipidemia 92617827 E78.5 last LDL 07/03/18 @ goal Carotid ar nicolás stenosis 81413358 I65.29 last U/S 01/12/17 was good Atrial sep chente aneurysm 85437657 I25.3 last ECHO 09/04/18 Ex-smoker 7473055 Z87.89 1 education Menopause 811846850 Z78. 0 asymptomat ic Vitamin D deficiency 347 61659 E55.9 will recheck History of transient ischemic attack 180482252 Z86.73 last carotid U/S 01/30/17 Blood gluc ose outside reference range 202424276 R73.09 Compression fracture 219 65675 T14.8XXD T12 , on 12/31/16 , with osteopenia on last DEXA 12/2017 Paroxysmal atrial fibrillation 219352912 I48.0 on eliquis Left ventr icular hypertrophy 90491942 I51.7 concentric , mod , on ECHO 08/2018 Body mass index 25-29 - overweight 490862222 Z68.28 education Restrictiv e lung disease 00978438 J98.4 on PFT 12/28/16 Screening mammography 24 354039 Z12.31 Pt refuse Screening for malignant neoplasm of cervix 324084024 Z12.4 pt refuse Screening for malignant neoplasm of colon 315694229 Z12.11 pt refuse C scope Active or passive immunization 290734824 Z23 refuse zoster Anemia 258558611 D64.9 Fecal occu lt blood: positive 833594315 R19.5 seen GI , had C scope [id number] TUYET STEVE APN [facility] [employer] [facility], [facility] [address] [place] [address] 03/03/2019 10:40:46 03/03/2019 11:52:20 Influenza-like illness 30040173 B34.9 resolved Acute urin jayesh tract infection 395415801 N39.0 treated with macrobid - Screening for malignant neoplasm of cervix 332803981 Z12.4 occasional labial bleeding with wiping -on and off x 1 yearno pain - Hypokalemia 11753928 E87 .6 Anemia 702118563 D64.9 stable Benign hypertension 1072 5009 I10 Carotid ar nicolás stenosis 60611870 I65.29 last 12/2016 -- last US Hyperlipidemia 41814384 E78.5 LDL 46 Liver enzy mes level above reference range 979496597 R74.[address] Powers -LIver US complete -- need ov note Screening for malignant neoplasm of colon 728805356 Z12.11 11/04/18 -- C scope completed -- normal Screening mammography 24 937735 Z12.31 Osteopenia 380521080 M85 .80 Compressio n fracture [id number] not covered - Microscopic hematuria 19 5433581 R31.21 [id number] Israel Dodd MD [facility] [address] [place] [address] 05/28/2019 16:51:07 05/28/2019 17:50:13 Benign hypertension 30167265 I10 good control , BP 3 weeks Carotid ar nicolás stenosis 10167803 I65.29 last U/S 03/14/19 was good Anemia 431353241 D64.9 recheck CBC Hyperlipidemia 75341410 E78.5 last LDL 01/24/19 @ goal Mixed anxi ety and depressive disorder 277370685 F41.8 No SI, No HI , sleeping OK Osteopenia 568663722 M85 .80 with compressio n Fx T spine , on reclastlas t DEXA 12/2017 , Paroxysmal atrial fibrillation 575822620 I48.0 on eliquis Peripheral vascular disease 347871999 I73.9 mild on ANNMARIE 07/2018 Vitamin D deficiency 347 70832 E55.9 last level 12/27/18 Dyspnea 262995580 R06.02 Screening mammography 24 611533 Z12.31 Pt refuse Screening for malignant neoplasm of cervix 636393984 Z12.4 pt refuse Screening for malignant neoplasm of colon 551531523 Z12.11 pt refuse C scope Active or passive immunization 118804345 Z23 refuse zoster [id number] Israel Dodd MD [employer], [employer] [address] [place] [address] 09/01/2019 16:36:50 09/01/2019 16:56:27 Benign hypertension 21875045 I10 good control , BP 3 weeks Blood gluc ose outside reference range 868085237 R73.09 Body mass index 25-29 - overweight 892889862 Z68.28 education Carotid ar nicolás stenosis 34660981 I65.29 last U/S 03/14/19 was good Hyperlipidemia 63233607 E78.5 last LDL 01/24/19 @ goal Osteopenia 939449672 M85 .80 with compressio n Fx T spine , on reclastlas t DEXA 12/2017 , Paroxysmal atrial fibrillation 731895347 I48.0 on eliquis Vitamin D deficiency 347 33165 E55.9 last level 12/27/18 Peripheral vascular disease 990886396 I73.9 mild on ANNMARIE 07/2018 Screening mammography 24 025104 Z12.31 Pt refuse Active or passive immunization 127000721 Z23 refuse zoster Mixed anxi ety and depressive disorder 666761490 F41.8 No SI, No HI , sleeping OK Gastroesop hageal reflux disease without esophagitis 235037882 K21.9 pt still have symptomes on ranitidine but better on omeprazole Anemia 209423400 D64.9 recheck CBC Osteoarthritis 293300588 M19.90 just had Lt TKR [id number] Israel Dodd MD [facility], [employer] [address] [place] [address] 10/13/2019 13:53:36 10/13/2019 15:10:33 Cholelithiasis without obstruction 46528597 K80.20 took the stone out of CBD with ERCP Syncope 135132448 R55 Benign hypertension 1072 5009 I10 on the lower side , stop amlodipine , BP 3 weeks Gastroesop hageal reflux disease without esophagitis 225817144 K21.9 omeprazole changed to pantoprazo le 40 [id number] Israel Dodd MD [facility] [employer] [facility], [employer] [address] [place] [address] 12/01/2019 16:26:45 12/01/2019 17:37:49 Anemia 374869098 D64.9 recheck CBC Mixed anxi ety and depressive disorder 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 F41.8 No SI, No HI , sleeping OK Benign hypertension 1072 5009 I10 , BP 3 weeks Carotid ar nicolás stenosis 03494559 I65.29 last U/S 10/06/19 less than 50% Hyperlipidemia 89359611 E78.5 last LDL 01/24/19 @ goal Paroxysmal atrial fibrillation 865591600 I48.0 on eliquis Active or passive immunization 707687161 Z23 refuse zoster Screening mammography 24 866897 Z12.31 Pt refuse Screening for malignant neoplasm of cervix 863514157 Z12.4 pt refuse [id number] Israel Dodd MD [facility] [employer] [facility], [facility] [address] [place] [address] 03/02/2020 15:39:55 03/02/2020 16:30:00 Adult health examination 128701120 Z00.01 Benign hypertension 1072 5009 I10 , BP 3 weekslast EKG 10/06/19 Atrial sep chente aneurysm 26761135 I25.3 last ECHO 10/06/19 Body mass index 25-29 - overweight 843065019 Z68.28 education Carotid ar nicolás stenosis 16551974 I65.29 last U/S 10/06/19 less than 50% Cholelithi asis without obstruction 42100449 K80.20 took the stone out of CBD with ERCP 10/07/19 Compression fracture 219 88293 T14.8XXD T12 , on 12/31/16 , with osteopenia on last DEXA 12/2017 Diverticul ar disease of colon 445210491 K57.30 asymptomat ic , No bleeding Ex-smoker 3046913 Z87.89 1 education Gastroesop hageal reflux disease without esophagitis 489663341 K21.9 omeprazole changed to pantoprazo le 40 Hyperlipidemia 65171771 E78.5 last LDL 01/01/20 @ goal Blood gluc ose outside reference range 706351541 R73.09 last A1c 09/04/19 Anemia 346266623 D64.9 last CBC 01/01/20 was better Left ventr icular hypertrophy 63267058 I51.7 concentric , mod , on ECHO 10/06/19 Mixed anxi ety and depressive disorder 700660392 F41.8 No SI, No HI , sleeping OK Osteoarthritis 705637347 M19.90 had Lt TKR Osteopenia 413548863 M85 .80 with compressio n Fx T spine , on reclastlas t DEXA 12/2017 , Paroxysmal atrial fibrillation 921848768 I48.0 on eliquis Pulmonary hypertension 51831656 I27.20 Vitamin D deficiency 347 52820 E55.9 last level 09/04/19 Peripheral vascular disease 529807297 I73.9 mild on ANNMARIE 09/04/19 Screening mammography 24 176855 Z12.31 Pt refuse Screening for malignant neoplasm of cervix 718496421 Z12.4 pt refuse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 02/11/20 Screening for malignant neoplasm of colon 244960411 Z12.11 pt refuse C scope Active or passive immunization 251216154 Z23 refuse zoster [id number] Israel Dodd MD [facility] [address] [place] [address] 05/31/2020 15:33:45 05/31/2020 16:35:02 Benign hypertension 44168345 I10 , BP 3 weekslast EKG 10/06/19 Body mass index 25-29 - overweight 351609457 Z68.28 education Carotid ar nicolás stenosis 42433448 I65.29 last U/S 10/06/19 less than 50% Gastroesop hageal reflux disease without esophagitis 292579048 K21.9 omeprazole changed to pantoprazo le 40 Hyperlipidemia 51915054 E78.5 last LDL 01/01/20 @ goal Paroxysmal atrial fibrillation 969285544 I48.0 on eliquis Peripheral vascular disease 243288316 I73.9 mild on ANNMARIE 09/04/19 Vitamin D deficiency 347 37433 E55.9 last level 09/04/19 Osteopenia 802856820 M85 .80 with compressio n Fx T spine , on reclastlas t DEXA 03/08/20 Screening mammography 24 375396 Z12.31 Pt refuse Screening for malignant neoplasm of cervix 779756497 Z12.4 pt refuse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 02/11/20 Screening for malignant neoplasm of colon 749386202 Z12.11 pt refuse C scope Active or passive immunization 921683190 Z23 refuse zoster [id number] Israel Dodd MD [employer] [employer] [address] [place] [address] 08/31/2020 15:21:38 08/31/2020 16:21:27 Benign hypertension 84378131 I10 , BP 3 weekslast EKG 10/06/19 Atrial sep chente aneurysm 24340207 I25.3 last ECHO 10/06/19 Body mass index 25-29 - overweight 966318979 Z68.28 education Carotid ar nicolás stenosis 37413119 I65.29 last U/S 10/06/19 less than 50% Mixed anxi ety and depressive disorder 660028711 F41.8 No SI, No HI , sleeping OK Screening mammography 24 388632 Z12.31 Pt refuse Screening for malignant neoplasm of cervix 068475902 Z12.4 pt refuse 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/2020 Screening for malignant neoplasm of colon 818146114 Z12.11 pt refuse C scope Active or passive immunization 535590733 Z23 refuse zoster Hyperlipidemia 54514965 E78.5 last LDL 01/01/20 @ goal [id number] Israel Dodd MD [employer] [employer] [address] [place] [address] 12/02/2020 15:13:25 12/02/2020 15:47:15 Benign hypertension 58027085 I10 , BP 3 weekslast EKG 10/06/19 Body mass index 25-29 - overweight 329156800 Z68.28 educationl ost 6 lbs on diet Carotid ar nicolás stenosis 48484262 I65.29 last U/S 10/06/19 less than 50% Hyperlipidemia 92158499 E78.5 last LDL 10/18/20 @ goal Mixed anxi ety and depressive disorder 917437989 F41.8 No SI, No HI , sleeping OK Osteopenia 035592455 M85 .80 with compressio n Fx T spine , on reclastlas t DEXA 03/08/20 Paroxysmal atrial fibrillation 118671727 I48.0 on eliquis Peripheral vascular disease 597752056 I73.9 mild on ANNMARIE 09/04/19 Vitamin D deficiency 347 88530 E55.9 last level 05/31/20 Gastroesop hageal reflux disease without esophagitis 322325883 K21.9 had symptoms with stopping trial of pantoprazo le 40 Screening mammography 24 367093 Z12.31 Pt refuse Screening for malignant neoplasm of cervix 681244708 Z12.4 pt refuse 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/2020 Screening for malignant neoplasm of colon 826334514 Z12.11 pt refuse C scope Active or passive immunization 583116388 Z23 refuse zoster Diarrhea 67160431 R19.7 [id number] Israel Dodd MD [facility] [employer] [facility], [facility] [address] [place] [address] 03/03/2021 13:53:14 03/03/2021 14:56:27 Adult health examination 197081807 Z00.01 Benign hypertension 1072 5009 I10 , BP 3 weekslast EKG 12/03/20 Atrial sep chente aneurysm 44257093 I25.3 last ECHO 10/06/19 Anemia 140154921 D64.9 last CBC 01/01/20 was better Blood gluc ose outside reference range 539251364 R73.09 last A1c 09/04/19 Body mass index 25-29 - overweight 414840880 Z68.28 education Carotid ar nicolás stenosis 72892883 I65.29 last U/S 12/09/20 less than 50% Cholelithi asis without obstruction 35074370 K80.20 took the stone out of CBD with ERCP 10/07/19 Compression fracture 219 11444 T14.8XXD T12 , on 12/31/16 , with osteopenia on last DEXA 03/08/20 Diverticul ar disease of colon 527242428 K57.30 asymptomat ic , No bleeding Ex-smoker 8864139 Z87.89 1 education Gastroesop hageal reflux disease without esophagitis 671949726 K21.9 had symptoms with stopping trial of pantoprazo le 40 History of transient ischemic attack 516736014 Z86.73 last carotid U/S 01/30/17 Hyperlipidemia 30408853 E78.5 last LDL 10/18/20 @ goal Left ventr icular hypertrophy 61450360 I51.7 concentric , mod , on ECHO 10/06/19 Menopause 306271098 Z78. 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/2020 Screening for malignant neoplasm of colon 944336504 Z12.11 pt refuse C scope Active or passive immunization 180657768 Z23 refuse zoster Macrocytosis 917415278 D 75.89 [id number] Israel Dodd MD [facility], [facility] [address] [place] [address] 06/16/2021 09:36:15 06/16/2021 10:17:53 Hyperlipidemia 78579893 E78.5 last LDL 10/18/20 @ goal Mixed anxi ety and depressive disorder 792549270 F41.8 No SI, No HI , sleeping OK Paroxysmal atrial fibrillation 465352185 I48.0 on eliquis Peripheral vascular disease 375620671 I73.9 mild on ANNMARIE 09/04/19 Vitamin D deficiency 347 59556 E55.9 last level 03/07/21 Hypomagnesemia 298289913 E83.42 not taking mag on reg basis Carotid ar nicolás stenosis 72394926 I65.29 last U/S 12/09/20 less than 50% Body mass index 25-29 - overweight 378485492 Z68.28 education Benign hypertension 1072 5009 I10 , BP 3 weekslast EKG 12/03/20per pt had ophth 01/2021 Neuropathy 151799674 G62 .9 Screening mammography 24 820325 Z12.31 Pt refuse Screening for malignant neoplasm of cervix 809584989 Z12.4 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 06/08/21 Screening for malignant neoplasm of colon 397696672 Z12.11 pt refuse C scope Active or passive immunization 956229986 Z23 refuse zoster Advance di rective discussed with patient 585965487 Z71.89 education [id number] Israel Dodd MD [employer] [address] [place] [address] 08/24/2021 15:31:50 08/24/2021 16:48:59 Benign hypertension 65026452 I10 , BP 3 weekslast EKG 12/03/20per pt had ophth 01/2021 Blood gluc ose outside reference range 089212501 R73.09 last A1c 06/16/21 Body mass index 25-29 - overweight 669543766 Z68.28 education Gastroesop hageal reflux disease without esophagitis 858802515 K21.9 had symptoms with stopping trial of pantoprazo le 40 History of transient ischemic attack 661931975 Z86.73 last carotid U/S 12/09/20 Paroxysmal atrial fibrillation 943781688 I48.0 on eliquis Peripheral vascular disease 075439888 I73.9 mild on ANNMARIE 09/04/19 Vitamin D deficiency 347 12651 E55.9 last level 03/07/21 Pulmonary hypertension 24880907 I27.20 stable Osteopenia 670598474 M85 .80 with compressio n Fx T spine , on reclastlas t DEXA 03/08/20 Hypomagnesemia 390039319 E83.42 last level 06/16/21 Hyperlipidemia 11313192 E78.5 last LDL 06/16/21 @ goal Screening mammography 24 063908 Z12.31 Pt refuse Screening for malignant neoplasm of cervix 608386426 Z12.4 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 06/08/21 Screening for malignant neoplasm of colon 107647516 Z12.11 pt refuse C scope Active or passive immunization 920979580 Z23 refuse zoster Insomnia 669015148 G47.0 0 [id number] Israel Dodd MD [employer] [address] [place] [address] 09/21/2021 13:58:20 09/21/2021 14:41:25 Diarrhea 17135335 R19.7 increase fluids Nausea and vomiting 1692 1999 R11.2 resolved Paroxysmal atrial fibrillation 760789295 I48.0 on [employer] Consult[employer] cardiology next week for stress test [id number] Israel Dodd MD [place] [employer] [facility], [facility] [address] [place] [address] 10/14/2021 10:27:24 10/14/2021 11:44:04 Pneumonia 541402981 J18.9 on ABx Pleural effusion 2726590 8 J90 thoracente sis done , result not in chart , seen pulmF/U with pulm and repeat CT 12/2021 Nausea and vomiting 1692 1999 R11.2 resolved Kidney stone 87527783 N2 [address] abd 09/28/21 Se E Benign hypertension 1072 5009 I10 decrease amlodipine to 5 QAM ,BP 2-3 weekslast EKG 12/03/20per pt had ophth 01/2021 Anemia 454214853 D64.9 last CBC 09/21/21 [id number] Israel Dodd MD [place] [employer] [facility], [facility] [address] [place] [address] 12/07/2021 11:04:58 12/07/2021 12:51:56 Anemia 155102670 D64.9 last CBC 11/02/21 Pneumonia 696425711 J18. 9 with pleural effusion , better on CT 11/04/21 , on ABxneed another CT for documentat ion of resolution 3 months from 11/04/21 Benign hypertension 1072 5009 I10 decrease amlodipine to 5 QAM ,BP 2-3 weekslast EKG 12/03/20per pt had ophth 01/2021 Body mass index 25-29 - overweight 815717321 Z68.28 education Carotid ar nicolás stenosis 55400946 I65.29 last U/S 12/09/20 less than 50% Hyperlipidemia 05830618 E78.5 last LDL 06/16/21 @ goal Hypomagnesemia 179227349 E83.42 last level 06/16/21 Paroxysmal atrial fibrillation 092542260 I48.0 on eliquissee [employer] cardiology next week for stress test Peripheral vascular disease 417423496 I73.9 mild on ANNMARIE 09/04/19 Vitamin D deficiency 347 22748 E55.9 last level 08/24/21 Screening mammography 24 070174 Z12.31 Pt refuse Screening for malignant neoplasm of cervix 202634634 Z12.4 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 06/08/21 Screening for malignant neoplasm of colon 605587809 Z12.11 pt refuse C scope Active or passive immunization 664670850 Z23 refuse zoster [id number] Israel Dodd MD [facility] [address] [place] [address] 03/09/2022 12:05:50 03/09/2022 13:31:18 Adult health examination 587767488 Z00.01 Benign hypertension 1072 5009 I10 , BP 3 weekslast EKG 09/28/21 Atrial sep chente aneurysm 52992287 I25.3 last ECHO 10/06/19 Anemia 477674740 D64.9 last CBC 12/07/21 was better Blood gluc ose outside reference range 701413866 R73.09 last A1c 06/16/21 Body mass index 25-29 - overweight 504940768 Z68.28 education Carotid ar nicolás stenosis 86015757 I65.29 last U/S 02/02/22 Cholelithi asis without obstruction 65317773 K80.20 took the stone out of CBD with ERCP 10/07/19 Compression fracture 219 92413 T14.8XXD T12 , on 12/31/16 , with osteopenia on last DEXA 03/08/20 Diverticul ar disease of colon 108055423 K57.30 asymptomat ic , No bleeding Ex-smoker 3822146 Z87.89 1 education Gastroesop hageal reflux disease without esophagitis 176535660 K21.9 had symptoms with stopping trial of pantoprazo le 40 History of transient ischemic attack 622091317 Z86.73 last carotid U/S 02/02/22 Hyperlipidemia 94033011 E78.5 last LDL 06/16/21 @ goal Left ventr icular hypertrophy 90439387 I51.7 concentric , mod , on ECHO 10/06/19 Menopause 348755445 Z78. 0 asymptomat ic Mixed anxi ety and depressive disorder 636047746 F41.8 No SI, No HI , sleeping OK Osteoarthritis 396065910 M19.90 had Lt TKR Osteopenia 546912359 M85 .80 with compressio n Fx T spine , on reclastlas t DEXA 03/08/20 Paroxysmal atrial fibrillation 479743715 I48.0 on eliquis Peripheral vascular disease 967242187 I73.9 mild on ANNMARIE 02/02/22 Pulmonary hypertension 63490963 I27.20 stable Macrocytosis 178498066 D 75.89 Vitamin D deficiency 347 12676 E55.9 last level 08/24/21 Screening mammography 24 726302 Z12.31 Pt refuse Screening for malignant neoplasm of cervix 948932313 Z12.4 pt refuse 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 9 with pleural effusion , better on CT 11/04/21 , on ABxneed another CT for documentat ion of resolution 3 months from 11/04/21 , had it yesterday [id number] Israel Dodd MD [employer] [address] [place] [address] 07/03/2022 10:15:20 07/03/2022 11:20:32 Benign hypertension 65625022 I10 good controldec reased amlodipine , BP 3 weekslast EKG 09/28/21 Benign par oxysmal positional vertigo 060092754 H81.10 Accidental fall 41006320 2 W19.XXXA Carotid ar nicolás stenosis 87685315 I65.29 last U/S 02/02/22 Hyperlipidemia 71517209 E78.5 last LDL 06/16/21 @ goal Paroxysmal atrial fibrillation 821128641 I48.0 on eliquis Peripheral vascular disease 347725942 I73.9 mild on ANNMARIE 02/02/22 Solitary n odule of lung 738842099 R91.[address] 03/13/22 Active or passive immunization 187526316 Z23 refuse zoster [id number] Israel Dodd MD [employer] [address] [place] [address] 10/02/2022 10:59:10 10/02/2022 11:53:40 Paroxysmal atrial fibrillation 469223903 I48.0 on eliquisant icoagulati on safty education Peripheral vascular disease 970280339 I73.9 mild on ANNMARIE 02/02/22 Solitary n odule of lung 452978777 R91.[address] 03/13/22 Carotid ar nicolás stenosis 95538416 I65.29 last U/S 02/02/22 Body mass index 25-29 - overweight 049031662 Z68.28 education Benign hypertension 1072 5009 I10 on the low side , stop amlodipine , BP 3 weekslast EKG 09/28/21 Screening mammography 24 731345 Z12.31 Pt refuse Screening for malignant neoplasm of cervix 529075768 Z12.4 pt refuse 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/2020 Screening for malignant neoplasm of colon 135059576 Z12.11 pt refuse C scope Active or passive immunization 773601685 Z23 refuse zoster Pain of bi lateral hip joints 9143766280 3111774 M25.551 [id number] Israel Dodd MD [facility] [employer] [address] [place] [address] 01/17/2023 17:47:46 01/17/2023 19:47:50 Congestion of nasal sinus 01558676 R09.81 Benign hypertension 1072 5009 I10 cardiology increased coreg, BP 3 weekslast EKG 09/28/21 Carotid ar nicolás stenosis 43864954 I65.29 last U/S 02/02/22 Hyperlipidemia 45442569 E78.5 last LDL 06/16/21 @ goal Mixed anxi ety and depressive disorder 748378339 F41.8 No SI, No HI , sleeping OK Screening mammography 24 426436 Z12.31 Pt refuse Active or passive immunization 956291560 Z23 refuse zoster [id number] Israel Dodd MD [place] [employer] [address] [place] [address] 03/05/2023 14:53:31 03/05/2023 15:41:26 Syncope 270545162 R55 ER if any [place] vision problemNo driving Contusion of face 593963 004 S00.83XA better Diarrhea 28298939 R19.7 increase fluids Benign hypertension 1072 5009 I10 cardiology increased coreg, BP 1 weeklast EKG 10/02/22 [id number] Israel Dodd MD [facility] [address] [place] [address] 04/25/2023 18:41:48 04/25/2023 19:51:38 Benign hypertension 90192712 I10 Pt stopped felodipine 2ry to dizzinessa dd doxazosine 1 mg qhsBP 1 weeklast EKG 10/02/22 Syncope 487249583 R55 ER if any [place] vision problemNo drivingwen t to ER 01/2023had cardiac monitorF/U with cardiology [facility] th examination 874228210 Z00.01 Blood gluc ose outside reference range 788824819 R73.09 last A1c 06/16/21 Body mass index 25-29 - overweight 215088821 Z68.28 education Carotid ar nicolás stenosis 76690837 I65.29 last U/S 02/02/22 Cholelithi asis without obstruction 54901441 K80.20 took the stone out of CBD with ERCP 10/07/19 Compression fracture 219 60816 T14.8XXD T12 , on 12/31/16 , with osteopenia on last DEXA 03/08/20 Gastroesop hageal reflux disease without esophagitis 574738463 K21.9 had symptoms with stopping trial of pantoprazo le 40 Ex-smoker 3272203 Z87.89 1 education History of transient ischemic attack 791244041 Z86.73 last carotid U/S 02/02/22 Hyperlipidemia 00750804 E78.5 last LDL 01/22/23 @ goal Hypomagnesemia 992393895 E83.42 last level 06/16/21 Kidney stone 98967853 N2 [address] abd 09/28/21 Se E Macrocytosis 981522933 D 75.89 Mixed anxi ety and depressive disorder 153101924 F41.8 No SI, No HI , sleeping OK Osteoarthritis 374534446 M19.90 had Lt TKR Paroxysmal atrial fibrillation 260741285 I48.0 on eliquisant icoagulati on safty education Peripheral vascular disease 410573019 I73.9 mild on ANNMARIE 02/02/22 Pulmonary hypertension 07801155 I27.20 stable Solitary n odule of lung 329645229 R91.[address] 03/13/22 Vitamin D deficiency 347 22882 E55.9 last level 08/24/21 Screening mammography 24 542423 Z12.31 Pt refuse Screening for malignant neoplasm of cervix 358393743 Z12.4 pt refuse 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/2020 Screening for malignant neoplasm of colon 878541411 Z12.11 pt refuse C scope Active or passive immunization 663946650 Z23 refuse zoster Advance di rective discussed with patient 465783429 Z71.89 education [id number] Israel Dodd MD [place] [employer] [address] [place] [address] 08/03/2023 11:58:19 08/03/2023 13:18:52 Benign hypertension 69804864 I10 Pt stopped felodipine 2ry to dizzinessw ill try isosorbide BP 1 weeklast EKG 10/02/22 Body mass index 25-29 - overweight 272443488 Z68.28 education Compression fracture 219 66771 T14.8XXD T12 and T11, with osteopenia on last DEXA 03/08/20 Carotid ar nicolás stenosis 29271184 I65.29 last U/S 05/17/23 Hyperlipidemia 48081793 E78.5 last LDL 01/22/23 @ goal Paroxysmal atrial fibrillation 778104964 I48.0 on eliquisant icoagulati on safty education Peripheral vascular disease 602785611 I73.9 mild on ANNMARIE 02/02/22 Solitary n odule of lung 572868911 R91.[address] 06/16/23 Screening mammography 24 429566 Z12.31 Pt refuse Screening for malignant neoplasm of cervix 926899012 Z12.4 pt refuse 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/2020 Screening for malignant neoplasm of colon 694519865 Z12.11 pt refuse C scope Active or passive immunization 781774068 Z23 refuse zoster Restrictiv e lung disease 66272911 J98.4 on PFT 12/28/16 [id number] Israel Dodd MD [facility] [address] [place] [address] 11/07/2023 14:28:15 11/07/2023 15:42:37 Anemia 199777725 D64.9 last CBC 10/03/23 , seen GI , having EGD ,will recheck 8 weeks Benign hypertension 1072 5009 I10 Pt stopped felodipine 2ry to dizzinessw ill try isosorbide BP 1 weeklast EKG 10/02/22 Body mass index 25-29 - overweight 862998558 Z68.28 education Carotid ar nicolás stenosis 44345378 I65.29 last U/S 05/17/23 Cirrhosis of liver 86178 007 K74.60 last liver US 06/30/23 Compressio n fracture of thoracic spine 115100334 S22.000A stable Hyperlipidemia 99415442 E78.5 last LDL 10/03/23 @ goal Hypomagnesemia 752507241 E83.42 last level 05/17/23 Macrocytosis 820224379 D 75.89 last B12 10/15/23 Mixed anxi ety and depressive disorder 314161212 F41.8 No SI, No HI , sleeping OK Osteoarthritis 124362545 M19.90 had Lt TKR Peripheral vascular disease 096419197 I73.9 mild on ANNMARIE 05/17/23 Paroxysmal atrial fibrillation 857914765 I48.0 on eliquisant icoagulati on safty education Solitary n odule of lung 376590581 R91.[address] 06/16/23 Screening mammography 24 042439 Z12.31 Pt refuse Screening for malignant neoplasm of cervix 373857057 Z12.4 pt refuse 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/2020 Screening for malignant neoplasm of colon 833913728 Z12.11 pt refuse C scope Active or passive immunization 469213431 Z23 refuse zoster [id number] Israel Dodd MD [facility] [address] [place] [address] 02/04/2024 16:28:19 02/04/2024 17:28:08 Compression fracture of thoracic spine 826333240 S22.000A stable Benign hypertension 1072 5009 I10 Pt stopped felodipine 2ry to dizzinessw ill try isosorbide BP 1 weeklast EKG 11/07/23 Paroxysmal atrial fibrillation 658435585 I48.0 on eliquisant icoagulati on safty educations een cardiology , workup for watchman procedure on progress Solitary n odule of lung 757439963 R91.[address] 06/16/23 Peripheral vascular disease 544756714 I73.9 mild on ANNMARIE 05/17/23 Long-term drug therapy 504213179 Z79.891 statin Active or passive immunization 075942262 Z23 refuse zoster [id number] Israel Dodd MD [place] [employer] [facility] [address] [place] [address] 06/11/2024 16:45:20 06/11/2024 18:26:13 Adult health examination 466682314 Z00.01 Benign hypertension 1072 5009 I10 better controlBP 1 weeklast EKG 11/07/23 Body mass index 25-29 - overweight 884871238 Z68.28 education Atrial sep chente aneurysm 41677185 I25.3 last ECHO 10/06/19 Carotid ar nicolás stenosis 42211660 I65.29 last U/S 05/17/23 Cholelithi asis without obstruction 76832680 K80.20 took the stone out of CBD with ERCP 10/07/19 Cirrhosis of liver 02411 007 K74.60 last liver US 06/30/23 Compressio n fracture of thoracic spine 008352742 S22.000A stable Diverticul ar disease of colon 373408137 K57.30 asymptomat ic , No bleeding Gastroesop hageal reflux disease without esophagitis 848509716 K21.9 had symptoms with stopping trial of pantoprazo le 40 History of transient ischemic attack 149071828 Z86.73 last carotid U/S 02/02/22 Hyperlipidemia 09263864 E78.5 last LDL 10/03/23 @ goal Hypomagnesemia 309180890 E83.42 last level 05/17/23 Anemia 776985798 D64.9 last CBC 10/03/23 , seen GI , having EGD ,will recheck 8 weeks Ex-smoker 2150358 Z87.89 1 education Kidney stone 64993601 N2 0.[address] abd 09/28/21 Se E Long-term drug therapy 085923686 Z79.891 statin , last A1c 02/04/24 Macrocytosis 252734102 D 75.89 last B12 10/15/23 Menopause 262394164 Z78. 0 asymptomat ic,last DEXA 01/25/24 Mixed anxi ety and depressive disorder 524149708 F41.8 No SI, No HI , sleeping OK Osteoarthritis 031407791 M19.90 had Lt TKR Paroxysmal atrial fibrillation 118104780 I48.0 on eliquisant icoagulati on safty educations een cardiology ,had watchman procedure 02/2024 Peripheral vascular disease 192047069 I73.9 mild on ANNMARIE 05/17/23 Solitary n odule of lung 058544525 R91.[address] 06/16/23 Vitamin D deficiency 347 64441 E55.9 last level 08/24/21 Restrictiv e lung disease 99808683 J98.4 on PFT 12/28/16 ,last 08/03/23 Screening mammography 24 486690 Z12.31 Pt refuse Screening for malignant neoplasm of cervix 080219672 Z12.4 pt refuse 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/2020 Screening for malignant neoplasm of colon 872788662 Z12.11 pt refuse C scope Active or passive immunization 690663390 Z23 refuse zoster Advance di rective discussed with patient 241817760 Z71.89 education [id number] Israel Dodd MD [facility], [facility] [address] [place] [address] 10/13/2024 11:44:26 10/13/2024 12:25:00 Benign hypertension 52765560 I10 better controlBP 1 weeklast EKG 11/07/23last ophth 09/26/24 Paroxysmal atrial fibrillation 613574570 I48.0 on eliquisant icoagulati on safty educations een cardiology ,had watchman procedure 02/2024 Peripheral vascular disease 927762031 I73.9 mild on ANNMARIE 05/17/23 Carotid ar nicolás stenosis 95847102 I65.29 last U/S 05/17/23 Hyperlipidemia 04422744 E78.5 last LDL 10/03/23 @ goal Atrial sep chente aneurysm 45362917 I25.3 last ECHO 10/06/19 Screening mammography 24 831324 Z12.31 Pt refuse Cancer cer vix screening status 408367585 Z12.4 pt refuse 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/2020 Screening for malignant neoplasm of colon 062443913 Z12.11 pt refuse C scope Immunization due 5503021 08 Z23 refuse zoster Blood gluc ose outside reference range 658279412 R73.09 last A1c 06/16/21 Cirrhosis of liver 44081 007 K74.60 last liver US 06/30/23 Health Concerns Section Related Observation LastModified by Organization Detai ls LastModified Time None Recorded Concern Status LastModified by Organization Details LastModified Time None Recorded Advance Directives Directive N: Payers Insurance Date Sequence Insurance Name Policy Number Policy Healy Covered Member ID Healy Member ID Guarantor Name 10/10/2024 1 [place] Martina Campa [id number] Martina Campa 10/10/2024 2 [place] 104 Martina Campa [id number] Martina Campa Notes Date Note Type Note Provider Name and Address Organization Details Recorded Time 08/03/2023 text/html Hypertension F/UReported bypatient.Medications: taking medications [...] visit; no dizziness/vertigo Israel Dodd MD [address] [facility], [place], [address], [facility] 08/03/2023 12:44:40 11/07/2023 text/html Hypertension F/UReported bypatient.Medications: taking medications as directed; no side effects from medication Lifestyle:regular exercise; limiting/avoiding salt; compliant with low salt diet Associated Symptoms:no dizziness; no lightheadedness; no chest pain; no shortness of breath; no palpitations; no edema; no calf pain with exertion; no headache Israel Dodd MD [address], [place], [address], [facility] 11/07/2023 15:14:19 02/04/2024 text/html Hypertension F/UReported bypatient.Medications: taking medications as directed; no side effects from medication Lifestyle:regular exercise; limiting/avoiding salt; compliant with low salt diet Associated Symptoms:no dizziness; no lightheadedness; no chest pain; no shortness of breath; no palpitations; no edema; no calf pain with exertion; no headache Israel Dodd MD [address] [facility] [address], [place], [address], [facility] 02/04/2024 17:23:42 06/11/2024 text/html Hypertension F/UReported [...] hearing loss while driving Israel Dodd MD [address], [place], [address], [facility] 06/11/2024 18:11:27 10/13/2024 text/html Hypertension F/UReported bypatient.Medications: taking medications as [...] visit; no dizziness/vertigo Israel Dodd MD [address], [place], [address], [facility] 10/13/2024 12:19:39 OBGyn Episode No OBEpisode recorded.
[2024-10-18 11:13] LABS: Alanine Aminotransferase 15 U/L (6-35); Albumin Level 4.2 g/dL (3.5-5.1); Alkaline Phosphatase 43 U/L (38-126); Anion Gap 6 mmol/L (4-12); Aspartate Amino Transferase 30 U/L (14-36); Bilirubin,Total 0.5 mg/dL (0.2-1.3); Blood Urea Nitrogen 19 mg/dL (7-17); Calcium 9.5 mg/dL (8.4-10.2); Carbon Dioxide 28 mmol/L (22-30); Chloride 105 mmol/L (98-107); Cholesterol 131 mg/dL (0-200); Estimated Glomerular Filt Rate > 60; Glucose 92 mg/dL (65-110); HDL Direct 70 mg/dL; Magnesium 1.7 mg/dL (1.6-2.3); Potassium 4.3 mmol/L (3.4-5.0); Sodium 139 mmol/L (137-145); Total Protein 7.4 g/dL (6.3-8.2); Triglycerides 104 mg/dL (<150)
[2024-10-18 11:21] LABS: Hemoglobin A1C 6.1 % (<5.7)
[2024-10-18 11:42] LABS: Thyroid Stimulating Hormone 1.840 uIU/mL (0.465-4.680)
== END 2024-10-18 10:16 | disposition home or self-care (01) ==
PROVIDERS: PCP Internal Medicine; Visit Provider Internal Medicine
DX: E78.5 Hyperlipidemia, unspecified (principal); I10 Essential (primary) hypertension; I48.0 Paroxysmal atrial fibrillation; R73.09 Other abnormal glucose
CPT/HCPCS: 36415; 80053; 80061; 83036; 83735; 84443; 84681

== ENCOUNTER 2024-12-01 11:13 | Emergency (ER) | payer MEDICARE, BC, SELFPAY ==
--- OUTSIDE RECORDS SUMMARY | 2005-04-07 05:15 | XMS_ITS | Continuity of Care Document ---
Author Organization [facility] Address [id number] [place] [address] [address] [place] [address] Phone Care Team Providers Care Lead Massage Therapist Name Role Phone Monika Felder Unavailable Unavailable Advance Directives Directive Yes / No Effective Date File Name No Information Encounters Encounter Description Practice Location Reason(s) For Visit Diagnoses Date Provider Providers Copied on Encounter [facility], [id number] [place] [address] [address], [place], [place], [id number], [place] tel:[phone] [facility] No Information 6-[address] Emerita Frank. [address] , [address], [place], [address], [place]. tel:[phone] Family History Family Member Type Diagnosis Age At Onset No Information Payers Payer name Insurance type Covered republican ID Authoriza tion(s) Medicare [facility] [id number] Social History Type Description Quantity Date Captured [...]
--- NOTE | ~2024-12-01 | CT_ITS ---
EXAMINATION: CT abdomen pelvis w con DATE: 12/01/2024 13:17 INDICATION: Chronic constipation presenting with diarrhea. TECHNIQUE: Computed tomography (CT) of the abdomen and pelvis was performed with 100 mL Omnipaque-350 intravenous contrast. Automated exposure control and iterative reconstruction technique were employed. The dose-length product was 484.69 mGy-cm. COMPARISON: Chest CT dated 08/02/2024 FINDINGS: Mild atelectasis/scarring along the anteromedial basilar left lower lobe. Heart size is normal. No pericardial or pleural effusion. Left atrial appendage occlusion device. Small sliding-type hiatal hernia. Subtle liver surface nodularity consistent with cirrhosis. Calcified gallstones within the gallbl adder which may remains small and decompressed. Spleen, pancreas, bilateral adrenal glands and right kidney are normal. 1.4 similar left renal cyst. Small fat-containing umbilical hernia. Small bowel and appendix are normal. Fluid throughout the colon consistent with given history of diarrhea. There is wall thickening in the sigmoid colon consistent with a distal colitis which could be infectious, inflammatory or ischemic in etiology. There are perirectal collateral collateral vessels extending to the inferior mesenteric vein which may be related to portal venous hypertension secondary to cirrhosis. Bladder is normal. The uterus is not identified and has likely been surgically resected. 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 No free intraperitoneal gas or fluid. No pathologically enlarged abdominal or pelvic lymphadenopathy. There is calci fied atherosclerosis of the aorta and many of the other arteries. Severe lumbar spondylosis. IMPRESSION: 1. Mesenteric diarrhea with wall thickening in the sigmoid colon consistent with a distal colitis which could be infectious, inflammatory or ischemic in etiology. 2. 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 3. Cholelithiasis with an unchanged small decompressed gallbladder suggesting sequela of chronic cholecystitis. 4. 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 Reviewed, dictated and finalized at location A. IMPRESSION: 1. Mesenteric diarrhea with wall thickening in the sigmoid colon consistent wit h a distal colitis which could be infectious, inflammatory or ischemic in etiol ogy. 2. Nodular cirrhotic liver with perirectal collaterals suggesting secondary por chente venous hypertension. 3. Cholelithiasis with an unchanged small decompressed gallbladder suggesting s equela of chronic cholecystitis. 4. 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
[2024-12-01 11:19] VITALS: BP 171/70; PULSE 66; RESP 16; TEMP 36.6; O2SAT 95
[2024-12-01 11:30] VITALS: BP 117/72; PULSE 65; RESP 16; O2SAT 100
[2024-12-01 11:32] LABS: Hematocrit 38.1 % (37.0-47.0); Hemoglobin 12.2 g/dL (12.0-15.0); Immature Granulocyte Percent A 0.0 % (0-0.5); Lymphocytes Absolute Auto 0.73 K/mm3 (0.9-3.2); Mean Corpuscular HGB Conc 32.0 g/dl (32-36); Mean Corpuscular Hemoglobin 31.7 pg (26-34); Mean Corpuscular Volume 99.0 fl (80-100); Nucleated Red Blood Cells Absolute Auto 0.000 K/mm3 (0.0-0.012); Nucleated Red Blood Cells Perc 0.0 % (0.0-0.2); Platelet Count Result 104 k/mm3 (150-375); Red Blood Count 3.85 M/mm3 (4.2-5.4); White Blood Count 3.5 K/mm3 (4.5-10.0)
--- OUTSIDE RECORDS SUMMARY | 2024-12-01 11:41 | XMS_ITS | Encounter Summary ---
Author Organization [facility] [employer] [facility] [employer] [facility] Address [address] [place] [address] Phone Care Team Providers Care Warehouse Trainer Name Role Phone Israel Sood MD Primary Care Provider [phone] Andreea Raphael RN Unavailable [phone] Britney Bolton MD Unavailable [phone] Aniket Link MD Unavailable [phone] Michele Link MD Unavailable [phone] Andreea Raphael RN Unavailable [phone] Encounter Details Date Type Department Care Team (Late st Contact Info) Description 05/15/2017 Orders Only [facility] [phone] Scanning, Provider Social History Tobacco Use Types Packs/Day Years Used Date Smoking Tobacco: Every Day Comments Unknown Sex and Gender Information Value Date Recorded Sex Assigned at Not on file Legal 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 Gender Identity Not on file Sexual Orientation [...] on filedocumented in this encounter Care Teams Warehouse Trainer Relationship Specialty Start Date End Date Israel Sood MD [address] [place] [address] PCP - General 09/08/16 Andreea Raphael RN [address] [place] [address] [facility] Outpatient Logging Tractor Operator Swamp 09/06/17 11/28/17 Britney Bolton MD [address] [place] [address] Anode Crew Supervisor Obstetrics and Gynecology 09/02/19 Aniket Link MD [phone] [place] [address] Surgeon Colon and Rectal Surgery 12/01/21 Michele Link MD [id number] [place] [address] Consulting Physician Gynecologic Oncology 12/01/21 Andreea Raphael RN [address] [facility] [place], [place] [id number] [facility] Outpatient Logging Tractor Operator Swamp 02/21/24 03/19/24 documented as of this encounter
--- OUTSIDE RECORDS SUMMARY | 2024-12-01 11:42 | XMS_ITS | Clinical Summary ---
Author Organization [facility] Address [address] [place] [address] Care Team Providers Care Senior Python Developer Name Role Phone Israel Sood MD Primary Care Provider [phone] Allergies Active Allergy Reactions Criticality Noted Date [...] 03/08/2021 Macrocytosis 03/03/2021 Choledocholithiasis 10/08/2019 Pulmonary hypertension ([facility]) 020 Syncope 10/05/2019 Elevated liver enzymes 09/10/2019 Endometrial cancer ([facility]) 09/03/2019 Overview (10/05/2019): Added automatically from request for surgery [id number] Osteopenia 09/02/2019 Carotid artery stenosis 09/02/2019 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 Ex-smoker 09/02/2019 Menopause present 09/02/2019 Osteoarthrosis 09/02/2019 Peripheral vascular disease 09/02/2019 Gallstone 02/11/2019 Anemia 12/27/2018 Left ventricular hypertrophy 06/27/2018 Overweight with body mass index (BMI) 25.0-29.9 06/27/2018 Paroxysmal atrial fibrillation ([facility]) 03/14/2018 Compression fracture of pelvis with routine heal ing 01/01/2018 History of transient ischemic attack 09/27/2016 Vitamin D deficiency 09/27/2016 Gastroesophageal reflux disease without esophagi tis 03/29/2016 Mixed anxiety and depressive disorder 03/29/2016 Two-vessel coronary artery disease 07/27/2015 Temporary cerebral vascular dysfunction 05/05/19 15 Knee pain 11/21/2013 Patent foramen ovale ([facility]) 07/30/2012 Essential hypertension 07/30/2012 Hyperlipidemia 07/30/2012 Hematuria 06/13/2012 Encounters Date Type Department Care Team Description 09/02/2024 7:50 AM CDT - 09/02/2024 11:59 PM CDT Hospital Encounter [facility] [place] [address] Bharath Jones MD Discharge Disposition: Home or [...] 01/15/2024 6:35 PM CDT Plan of Treatment Upcoming Encounters Date Type Department Care Team (Late st Contact Info) Description 12/12/2024 11:00 AM CDT Appointment [facility] [place] [address] Israel Sood MD [address] [place] [address] 12/12/2024 1:00 PM CDT Appointment [facility] [address] Israel Sood MD [address] [place] [address] 12/12/2024 2:15 PM CDT Appointment [facility] [address] [place], [place] [id number] Israel Sood MD [address] [place] [address] Health Maintenance Due Date Last Done Comments ASCVD LDL 1935 Zoster Vaccines (1 of 2) 1986 Annual Medicare Wellness Visit 2001 RSV Immunization or 60+ Years (1 - 1-dose 75+ series) 11/25/2011 COVID-19 Vaccine (4 - 2023-2 5 season) 2023 01/20/2021, 06/20/2020, 05/30/2020 PHQ-2 (Physician [place]) 04/02/2024 DTaP, Tdap and Td Vaccines ( [...] independent in ADLs upon discharge from hospital [facility] Deneen Cristina RN Procedures Procedure Name Priority Date/Time Associated Diagnosis [...] 8:33 AM Narrative 09/02/2024 8:34 AM CDT [address] [address] [place] ABD LIMITED INDICATION: Iron iron deficiency [...] Procedure Note Marlo Graf MD - 09/02/[address] [place] [address] US ABD LIMITED INDICATION: Iron iron deficiency [...] Result from Last 3 Months Insurance MEDICARE [facility] [place] [address] MEDICARE [facility] Advance Directives * Full Code (Latest Code Status on File) Date Activated Date Inactivated Comments 09/28/2021 3:13 AM 10/05/2021 9:07 PM * Full Code Date Activated Date Inactivated Comments 10/05/2019 4:36 AM 10/08/2019 9:37 PM Care Teams Senior Python Developer Relationship Specialty Start Date End Date Israel Sood MD PCP - General INTERNAL MEDICINE 10/04/19
--- OUTSIDE RECORDS SUMMARY | 2024-12-01 11:42 | XMS_ITS | Encounter Summary ---
Author Organization [facility] Address [address] [place] [address] Phone Care Team Providers Care Press Worker Helper Name Role Phone Israel Sood MD Primary Care Provider [phone] Britney Bolton MD Unavailable [phone] Aniket Link MD Unavailable [phone] Michele Link MD Unavailable [phone] Andreea Raphael RN Unavailable [phone] Encounter Details Date Type Department Care Team (Latest Contact Info) Description 05/17/2023 Orders Only [facility] Evon Calvillo, DINA [address] [facility] [address] [facility] [address] [place] [address] Social History Tobacco Use Types [...] on file Legal Sex Female 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 Gender Identity Not on file Sexual [...] on filedocumented in this encounter Care Teams Press Worker Helper Relationship Specialty Start Date End Date Israel Sood MD [address] [place] [address] PCP - General 09/08/16 Britney Bolton MD [address] [place] [address] Residential Solar Sales Consultant Obstetrics and Gynecology 09/02/19 Aniket Link MD [phone] [place] [address] Surgeon Colon and Rectal Surgery 12/01/21 Michele Link MD [id number] [place] [address] Consulting Physician Gynecologic Oncology 12/01/21 Andreea Raphael, RN [address] [place] [address] SHOP Outpatient Chief Nuclear Medicine Technologist 02/21/24 03/19/24 documented as of this encounter
--- OUTSIDE RECORDS SUMMARY | 2024-12-01 11:42 | XMS_ITS | Clinical Summary ---
Author Organization [facility] Address [address] [place] [address] Care Team Providers Care Project Scientist Name Role Phone Israel Sood MD Primary Care Provider [phone] Britney Bolton MD Unavailable [phone] Aniket Link MD Unavailable [phone] Michele Link MD Unavailable [phone] Allergies Active Allergy Reactions Criticality Noted [...] 1 tablet (40 mg total) by mouth reception specialist before breakfast 1 Active cyanocobalamin (Vitamin B-12) [...] (11/03/2020): Added automatically from request for surgery [id number] Added automatically from request for surgery [id number] Menopause 09/02/2019 Atrial septal aneurysm 09/02/2019 Benign [...] Description 09/04/2024 11:30 AM CDT Office Visit [facility] Medicine Cardiology [address] [facility] Advanced Medicine [address]th [place] [address] [place] [address] Isabel Gamez, ENRIQUE Paroxysmal atrial fibrillation (HCC) [...] KNEE ARTHROPLASTY 08/29/2017 Left CARDIAC CATHETERIZATION 09/28/2013 [facility] 09/28/2013-- Mild two vessel coronary artery [...] 09/2019 s/p hysterectomy Syncope Coronary artery disease [facility] 09/28-- Mild two vessel coronary artery [...] drink = 0.6 oz pur e alcohol) [facility] Utilities Answer Date Recorded In the past 12 months has e electric, gas, oil, or water company threatened to shut off services in your home? No 02/22/2024 Social Connection and Isolation Panel Answer Date Recorded In a typical week, how many times do you talk on the phone with family, friends, or neighbors? More than three times a week 02/22/2024 How often do you get togethe r with friends or relatives? More than three times a week 02/22/2024 How often do you attend chur ch or catholic services? 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 Gender Identity Not on file Sexual [...] CDT Respiratory Rate 17 04/04/2024 11:55 AM WORKSHOP MANAGER Oxygen Saturation 98% 09/04/2024 11:44 AM CDT [...] 06/20/2020, 06/20/2020, Additional history exists Influenza Vaccine (#1) 2024 , 03/02/2022, 01/19/2021, Additional history exists Fall Risk Assessment 04/04/2025 04/04/2024 Osteoporosis Screening-Bone Density Scan 01/20/2026 01/21/2024, 03/02/2020, 12/28/2017, Additional history exists DTaP/Tdap/Td Vaccine (4 - Td or Tdap) 01/07/2029 01/07/2019, 09/28/2015, 09/27/2015 Pneumococcal vaccine 65+ Completed 018, 01/27/2018, 09/28/2015, Additional history exists Medical Devices Implanted Type Area Recruitment Advertising Manager Device Identifier Shelf Expiration Date Model / Serial / Lot [employer] Occluder Cvasc Cyndi Flexible Braided Amplatzer Amulet 25mm Nitinol [id number] - [id number] - [id number] Implanted:Qty: 1 on 02/19/2024 by Mateusz Knight MD PhD at [facility] Left Atrial Appendage Occluder N/A: Atrial Appendage [employer] 08/30/2028 9-[id number] / [id number] / [id number] [employer] System Closure Repair Femoral Artery Suture Mediated Perclose Prostyle 14752-33 - [id number] - [id number] Implanted:Qty: 1 on 02/19/2024 by Mateusz Knight MD PhD at [facility] Vascular Closure Device Right: Femoral Vein [employer] 11/30/2025 24233-08 / [id number] / [id number] [employer] System Closure Repair Femoral Artery Suture Mediated Perclose Prostyle 36656-89 - [id number] - [id number] Implanted:Qty: 1 on 02/19/2024 by Mateusz Knight MD PhD at [facility] Vascular Closure Device Left: Femoral Vein [employer] 11/30/2025 02609-09 / [id number] / [id number] L Knee Replacement Left: Knee Insurance MEDICARE [facility] MEDICARE PSYCHIATRIC MEDICARE PSYCHIATRIC MEDICARE [facility] * Guarantor: Cynthia Campa Account Type Relation to Patient Date of Phone Billing Address Third Republican Liability Self 1935 [address] [facility] [place] [address] Advance Directives For more information, please contact: [phone] * Full Code (Latest Code Status on File) Date Activated Date Inactivated Comments 02/19/2024 3:13 PM 02/20/2024 9:18 PM * Full Code Date Activated Date Inactivated Comments 09/05/2017 4:09 PM 09/22/2019 5:42 AM Care Teams Project Scientist Relationship Specialty Start Date End Date Israel Sood MD [address] [place] [address] PCP - General 09/08/16 Britney Bolton MD [address] [place] [address] Company Laundry Worker Obstetrics and Gynecology 09/02/19 Aniket Link MD [phone] [place] [address] Surgeon Colon and Rectal Surgery 12/01/21 Michele Link MD [phone] [place] [address] Consulting Physician Gynecologic Oncology 12/01/21
--- OUTSIDE RECORDS SUMMARY | 2024-12-01 11:42 | XMS_ITS | Encounter Summary ---
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 Gender Identity Not on file Sexual Orientation [...] on filedocumented in this encounter Care Teams Design Drafter Chief Relationship Specialty Start Date End Date Israel Sood MD [address] [place] [address] PCP - General 09/08/16 Britney Bolton MD [address] [place] [address] Title Curator Obstetrics and Gynecology 09/02/19 Aniket Link MD [phone] [place] [address] Surgeon Colon and Rectal Surgery 12/01/21 Michele Link MD [phone] [place] [address] Consulting Physician Gynecologic Oncology 12/01/21 Andreea Raphael, RN [address] [facility] [address] [place] [address] SHOP Outpatient Logging Shovel Operator 02/21/24 03/19/24 documented as of this encounter
--- OUTSIDE RECORDS SUMMARY | 2024-12-01 11:42 | XMS_ITS ---
Author Organization [facility] Address [address] [place] [address] Care Team Providers Care Non Destructive Testing Engineer Name Role Phone Israel Sood MD Primary Care Provider [phone] Britney Bolton MD Unavailable [phone] Aniket Link MD Unavailable [phone] Michele Link MD Unavailable [phone] Active Problems Problem Noted Date Diagnosed Date Presence of Amulet left atrial appendage closure device 02/19/2024 Grade I hemorrhoids 12/01/2021 Kidney stone 10/14/2021 Lung mass 09/28/2021 Hypomagnesemia 03/08/2021 Macrocytosis 03/03/2021 Choledocholithiasis 10/08/2019 Pulmonary hypertension 10/06/2019 Elevated liver enzymes 09/10/2019 Endometrial cancer (CMS/HCC) 09/03/2019 Overview (11/03/2020): Added automatically from request for surgery [id number] Added automatically from request for surgery [id number] Menopause 09/02/2019 Atrial septal aneurysm 09/02/2019 Benign [...] Lifetime Dose Automatic Entry Manual Entr y Fluoro Time 26 minutes 0 minutes 26 minutes Air kerma at the reference point (Ka,r) 108 mGy 0 mGy 108 mGy DLP 1,611 mGycm 1,611 mGycm 0 mGycm DAP 300.068 Gy-cm2 0 Gy-cm2 300.068 Gy-cm 2
--- OUTSIDE RECORDS SUMMARY | 2024-12-01 11:42 | XMS_ITS | Clinical Summary ---
Author Organization [facility] Address [address], [facility] [address] [place] [address] Phone Care Team Providers Care Die Assembler Name Role Phone Israel Sood MD Primary Care Provider [phone] Bharath Jones MD Unavailable [phone] Allergies Active Allergy Reactions Criticality Noted Date Comments Amlodipine Other (see Comments) Low 02/05/2024 Felodipine Other (see Comments) Low 02/05/2024 Gemfibrozil Other (see Comments) Medium 06/27/2018 Magnesium Oxide Diarrhea Low 06/19/2023 Medications aspirin 81 MG Chewable Tablet Take 81 mg by mouth daily. 04/15/19 25 026 Active carvedilol (COREG) 25 MG Tablet Take 25 mg by mouth 2 times daily. 06/30/19 22 Active cholestyramine (QUESTRAN) 4 GM Pack Take 4 g by mouth. 09/22/19 22 Active citalopram (CeleXA) 20 MG Tablet Take 20 mg by mouth nightly. Active Cyanocobalamin 1000 MCG SL Tablet Take 1,000 mcg by mouth every 12 hours. Active lisinopril (PRINIVIL, ZESTRIL) 40 MG Tablet Take 40 mg by mouth nightly. Active pantoprazole (PROTONIX) 40 MG Tablet Delayed Response Take 40 mg by mouth daily. 10/09/19 20 Active rosuvastatin (CRESTOR) 20 MG Tablet Take 20 mg by mouth nightly. Active iron polysaccharides (NIFEREX) 150 MG Capsule Take 150 mg by mouth every other day. 10/16/19 Active Cholecalciferol (Vitamin D) 2000 UNIT Tablet Take 2,000 Units by mouth 2 times daily. Active fluticasone (FLONASE) 50 MCG/ACT Suspension 1 [place] by Nasal route daily. Use in each nostril as directed. Active isosorbide mononitrate (IMDUR) 30 MG TABLET SR 24 HR Take 30 mg by mouth every morning. Active Multiple Vitamins-Minerals (Super I-Yuee-Jhrwnirl-Oracle Applications Analyst per) Tablet Take 1 Tablet by mouth daily. 30 Tablet 07/10/19 Active Additional Information Patient not taking.Reported on 11/06/2024 Copper Gluconate 2 MG Tablet Take 2 mg by mouth daily. 14 Tablet 09/25/19 Active Additional Information Patient not taking.Reported on 11/06/2024 [place]-3 Fatty Acids (FISH OIL PO) Take 1,200 mg by mouth daily. Active Active Problems Problem Noted Date Diagnosed Date Iron deficiency 07/15/2024 Iron adverse reaction 07/15/2024 Anemia due to unknown mechanism 06/23/2024 Pancytopenia 06/23/2024 Iron deficiency anemia, unspecified 06/23/2024 Encounters Date Type Department Care Team Description 11/06/2024 11:15 AM CDT Office Visit [facility] [address] [phone] Mary Khanna, WASTE COLLECTION DRIVER, EVENT PROMOTER Iron deficiency anemia due to chronic blood loss (Primary Dx); Pancytopenia; Anemia due to unknown mechanism 11/06/2024 11:05 AM CDT Lab [facility] [address] [phone] Lab[facility]; Iron deficiency anemia due to chronic blood loss; Anemia due to unknown mechanism 11/06/2024 Travel 09/24/2024 Results Follow-Up [facility] [place] [address], [facility] 2 [place] [address] Bharath Jones MD [place], [place] 15[address], FERRITIN, IRON W/ IRON BINDING CAPACITY [place], COMPLETE BLOOD COUNT (CBC) WITH DIFF 09/04/2024 9:00 AM CDT Office Visit [facility] [address] [address] Bharath Jones MD Pancytopenia (Primary Dx); Iron deficiency anemia due to chronic blood loss; Anemia due to unknown mechanism 09/04/2024 8:45 AM CDT Lab [facility] [address] [address] Freddie, Bryanna Wright Iron deficiency anemia due to chronic blood loss; Pancytopenia 09/04/2024 Travel from Last 3 Months Family History Medical History Relation Name Comments Diabetes Child 1 Relation Name Status Comments Child 1 Alive Child 2 Alive Child 3 Alive Child 4 Alive Child 5 Alive Father Mother Sister Alive Social History Tobacco Use Types Packs/Day Years Used Date Smoking Tobacco: Former Cigarettes Q uit: 2016 Smokeless Tobacco: Never Tobacco Cessation:Counseling Given: Not [...] Sign Reading Time Taken Comments Blood Pressure 138/80 11/06/2024 11:02 AM CDT Pulse 67 11/06/2024 11:02 AM CDT Temperature 36.6 C (97.9 F) 11/06/2024 11:02 AM CDT Respiratory Rate 16 11/06/2024 11:02 AM CDT Oxygen Saturation 95% 11/06/2024 11:02 AM CDT Inhaled Oxygen Concentration - - Weight 67.1 kg (148 lb) 11/06/2024 11:02 AM CDT Height 159.4 cm (5' 2.75) 11/06/2024 11:02 AM C DT Body Mass Index 26.43 11/06/2024 11:02 AM CDT Plan of Treatment Upcoming Encounters Date Type Department Care Team (Late st Contact Info) Description 01/08/2025 11:00 AM CDT Lab [facility] [address] [address] Bryanna Frazier [place] 01/08/2025 11:15 AM CDT Office Visit [facility] [address] [phone] Bharath Jones MD [address] [place] [address] [place], [place] [id number] Health Maintenance Due Date Last Done Comments Hepatitis C Virus (HCV) Screening 1935 Zoster Immunization (1 of 2) 1986 SARS-COV-2 Immunization ( season) 2023 01/20/2021, 06/20/2020, 05/30/2020 Influenza Immunization (#1) 12/01/202403/03, 02/18/2023, 12/31/2022, Additional history exists DEXA Bone Density 01/20/2026 01/21/2024 Pneumococcal Immunization (50+ years) Completed 03/27/2018, 01/27/2018, 09/27/2015 TdaP Immunization Completed 01/07/2019, , 09/27/2015 Respiratory Syncytial Virus (RSV) Immunization (Adult) Completed 02/18/2023, 12/31/2022 Hepatitis B Immunization Aged Out No longer [...] COMPLETE BLOOD COUNT (CBC) WITH DIFF Routine 11/06/2024 10:50 AM CDT Pancytopenia Iron deficiency anemia due to chronic blood loss Anemia due to unknown mechanism CMP (COMPREHENSIVE METABOLIC PANEL) Routine 11/06/2024 10:50 AM CDT Pancytopenia Iron deficiency anemia due to chronic blood loss Anemia due to unknown mechanism LACTATE DEHYDROGENASE (LD) Routine 11/06/2024 10:50 AM CDT Pancytopenia Iron deficiency anemia due to chronic blood loss Anemia due to unknown mechanism IRON W/ IRON BINDING CAPACITY [place] Routine 11/06/2024 10:50 AM CDT Pancytopenia Iron deficiency anemia due to chronic blood loss Anemia due to unknown mechanism FERRITIN Routine 11/06/2024 10:50 AM CDT Pancytopenia Iron deficiency anemia due to chronic blood loss Anemia due to unknown mechanism COMPLETE BLOOD COUNT (CBC) WITH DIFF Routine [...] anemia due to chronic blood loss Pancytopenia from Last 3 Months Results * IRON W/ IRON BINDING CAPACITY [place] (11/06/2024 10:50 AM CDT) Only the most recent of2 resultswithin the time period is included. IRON 70 50 - 212 ug/dL [facility] UIBC 225 155 - 355 ug/dL [facility] TIBC 295 261 - 478 ug/dl [facility] % Saturation 24 20 - 50 % [facility] Blood 11/06/2024 10:5 0 AM CDT Narrative [facility] - 11/06/2024 11:54 AM CDT Release to patient->Immediate us Bharath Jones MD LAB SEND OUTS Final Result [facility] [place] [address], * LACTATE DEHYDROGENASE (LD) (11/06/2024 10:50 AM CDT) LDH 149 140 - 271 U/L [facility] Blood 11/06/2024 10:5 0 AM CDT [facility] - 11/06/2024 11:54 AM CDT Release to patient->Immediate Bharath Jones MD CHEMISTRY ORDERABLES Final R esult Performing Organization Address City/[facility] Co de Phone Number [facility] [place] [address], [place] [phone] * FERRITIN (11/06/2024 10:50 AM CDT) Only the most recent of2 resultswithin the time period is included. Ferritin 44 11 - 307 ng/mL [facility] Blood 11/06/2024 10:5 0 AM CDT [facility] - 11/07/2024 2:11 PM CDT Release to patient->Immediate Bharath Jones MD CHEMISTRY ORDERABLES Final R esult Performing Organization Address City/[facility] Co de Phone Number [facility] [place] [address], [place] [phone] * (ABNORMAL) CMP (COMPREHENSIVE METABOLIC PANEL) (11/06/2024 10:50 AM CDT) Glucose 179(H) 70 - 105 mg/dL [facility] Blood Urea Nitrogen 22 7 - 25 mg/dL [facility] Creatinine 0.9 0.6 - 1.2 mg/dL [facility] Sodium 140 136 - 145 mEq/L [facility] Potassium 4.0 3.5 - 5.1 mEq/L [facility] Chloride 103 98 - 107 mEq/L [facility] Bicarbonate 29 21 - 31 mEq/L [facility] Total Bilirubin 0.6 0.3 - 1.0 mg/dL [facility] Alk. Phosphatase 42 34 - 104 U/L [facility] Aspartate Aminotransferase 15 13 - 39 U/L [facility] Alanine Aminotransferase 12 7 - 52 U/L [facility] Total Protein 6.7 6.4 - 8.9 g/dL [facility] Albumin 4.2 3.5 - 5.7 g/dL [facility] Calcium 9.2 8.6 - 10.3 mg/dL [facility] Anion Gap 12.0 7.0 - 15.0 mEq/L [facility] Globulin 2.5 2.0 - 3.5 g/dL [facility] EGFR 62 >60 ml/min/1. 73m2 [facility] Comment: This eGFR is calculated using 2020 CKD-EPI Creatinine equation without race modifier based on the NKF-ASN task force recommendations Equation: oEUQ=430*min(SCr/k,1)a*max(SCr/k,1)-1.200*0.9938Age*1.012 (if female), where SCr is serum creatinine, k is 0.7 for females and 0.9 for males, and a is -0.241 for females and -0.302 for males Blood 11/06/2024 10:5 0 AM CDT Narrative [facility] - 11/06/2024 11:54 AM CDT Release to patient->Immediate IS THE PATIENT REQUIRED TO BE FASTING FOR 8 HOURS?->No us Bharath Jones MD CHEMISTRY ORDERABLES Final R esult [facility] [place] [address], * (ABNORMAL) COMPLETE BLOOD COUNT (CBC) WITH DIFF (11/06/2024 10:50 AM CDT) Only the most recent of2 resultswithin the time period is included. WBC 2.6(L) 4.0 - 10.0 10*3/uL [facility] HGB 12.1 11.2 - 15.7 g/dL [facility] HCT 37.5 34.1 - 44.9 % [facility] PLT 112(L) 163 - 369 10*3/uL [facility] MPV 9.5 9.4 - 12.4 fL [facility] RBC 3.80(L) 3.93 - 5.22 10*6/uL [facility] MCV 99(H) 79 - 95 fL [facility] MCH 31.8 25.6 - 32.2 pg [facility] MCHC 32.3 32.2 - 36.5 g/dL [facility] RDW 13.8 11.6 - 14.4 % [facility] Absolute Neutrophil Count 1,393 cells/uL [facility] Absolute Seg Count 1,393(L) 1,440 - 6,600 cells/uL [facility] Absolute Lymph Count 980 760 - 4,000 cells/uL [facility] Absolute [place] Count 77(L) 160 - 1,200 cells/uL [facility] Absolute Eos Count 103 0 - 300 cells/uL [facility] Absolute Baso Count 26 0 - 100 cells/uL [facility] Segmented Neutrophils 54 36 - 66 % [facility] Lymphocytes 38 19 - 40 % [facility] Monocytes 3(L) 4 - 12 % [facility] Eosinophils 4(H) 0 - 3 % [facility] Basophils 1 0 - 1 % [facility] WBC Estimate Low [facility] Platelet Estimate Low [facility] RBC Morphology Abnormal [facility] Macrocytosis 1+ [facility] Blood 11/06/2024 10:5 0 AM CDT Narrative [facility] - 11/06/2024 2:16 PM CDT Release to patient->Immediate us Bharath Jones MD HEMATOLOGY ORDERABLES Final Result [facility] [place] [address], [place] [phone] * (ABNORMAL) [place], [place] 1586 (09/04/2024 8:40 AM CDT) COPPER, SERUM 68(L) 80 - 158 UG/DL [facility] Comment:DETECTION LIMIT = 5 09/04/2024 8:40 AM CDT Narrative [facility] - 09/09/2024 3:08 PM CDT TESTING PERFORMED AT: [] [address], [place], [address], PHONE: [phone], SNOW REMOVAL SUPERVISOR: FAREED WIGGINS MD TEST(S) [id number], SERUM OR PLASMA WAS DEVELOPED AND ITS PERFORMANCE CHARACTERISTICS DETERMINED BY [facility]. IT HAS NOT BEEN CLEARED OR APPROVED BY THE FOOD AND DRUG [facility]MINISTRATION. Release to patient->Immediate Bharath Jones MD LAB SEND OUTS Final Result [facility] [place] [address], [place] [phone] from Last [address] [facility] Care Teams Die Assembler Relationship Specialty Start Date End Date Israel Sood MD [address] [place] [address] PCP - General Internal Medicine 06/13/24 Bharath Jones MD [address] [place] [phone] Consulting Physician Oncology 07/07/24
--- OUTSIDE RECORDS SUMMARY | 2024-12-01 11:42 | XMS_ITS | Encounter Summary ---
Author Organization [facility] Address [address] [place] [address] Phone Care Team Providers Care Traffic Control Flagger Name Role Phone Israel Sood MD Primary Care Provider [phone] Britney Bolton MD Unavailable [phone] Aniket Link MD Unavailable [phone] Michele Link MD Unavailable [phone] Andreea Raphael RN Unavailable [phone] Encounter Details Date Type Department Care Team (Latest Contact Info) Description 05/20/2023 Orders Only [facility] Evon Calvillo, DINA [address] [facility] [address] [facility] [address] [place] [address] Social History Tobacco Use Types [...] on file Legal 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 Gender Identity Not on file Sexual Orientation [...] on filedocumented in this encounter Care Teams Traffic Control Flagger Relationship Specialty Start Date End Date Israel Sood MD [address] [place] [address] PCP - General 09/08/16 Britney Bloton MD [address] [place] [address] Nozzle Worker Obstetrics and Gynecology 09/02/19 Aniket Link MD [phone] [place] [address] Surgeon Colon and Rectal Surgery 12/01/21 Michele Link MD [phone] [place] [address] Consulting Physician Gynecologic Oncology 12/01/21 Andreea Raphael, RN [address] [place] [address] SHOP Outpatient Member Certification Manager 02/21/24 03/19/24 documented as of this encounter
[2024-12-01 11:43] LABS: Alanine Aminotransferase 16 U/L (6-35); Albumin Level 4.1 g/dL (3.5-5.1); Alkaline Phosphatase 50 U/L (38-126); Anion Gap 8 mmol/L (4-12); Aspartate Amino Transferase 30 U/L (14-36); Bilirubin,Total 0.6 mg/dL (0.2-1.3); Blood Urea Nitrogen 17 mg/dL (7-17); Calcium 9.1 mg/dL (8.4-10.2); Carbon Dioxide 28 mmol/L (22-30); Chloride 104 mmol/L (98-107); Estimated CRCL calculation 35 ml/min; Estimated Glomerular Filt Rate > 60; Glucose 90 mg/dL (65-110); Lipase 37 U/L (23-300); Potassium 3.9 mmol/L (3.4-5.0); Sodium 140 mmol/L (137-145); Total Protein 7.3 g/dL (6.3-8.2)
[2024-12-01 11:48] LABS: INR 1.1; Prothrombin Time 14.0 Seconds (11.1-14.7)
[2024-12-01 11:49] LABS: Partial Thromboplastin Time 28.6 Seconds (22.3-36.8)
[2024-12-01 12:00] VITALS: BP 119/76; PULSE 66; RESP 16; O2SAT 98
[2024-12-01 12:30] VITALS: BP 116/80; PULSE 70; RESP 16; O2SAT 100
[2024-12-01 13:00] LABS: Add Urine Microscopic? YES; Appearance Urine Clear (Clear); Glucose Urine UA Negative (Negative); Leukocyte Esterase Ur 2+ LEU/UL (Negative); Nitrate Urine Negative (Negative); Non Pathogenic Casts 0-2; Specific Grav Ur 1.021 (1.001-1.035)
--- NOTE | 2024-12-01 13:03 | ED.GENADULT ---
HPI - General Adult General Chief complaint: Abdominal Pain Stated complaint: diarrhea for a week, Time Seen by Provider: 12/01/24 11:15 History of Present Illness HPI narrative: 89-year-old female presenting to the emergency department for evaluation for multiple days of diarrhea and worsening diarrhea and nausea and bloating last night. Patient reports symptoms started on night after going out to dinner. Patient states that she had some abdominal cramping and increased gas on night but was able to ambulate and get the gas to pass. Patient states afterwards she that began having worsening nausea bloating and diarrhea. Patient states she is passing some a little balls of hard stool along with liquid stool. Patient does report prior history of constipation. Related Data Home Medications ?Medication ?Instructions ?Recorded ?Confirmed ?Last Taken ?Type acetaminophen 500 mg tablet 500 mg PO Q4H PRN Pain 02/17/19 11/12/23 Unknown History (Tylenol Extra Strength) carvedilol 12.5 mg tablet 12.5 mg PO BID 02/17/19 11/12/23 Unknown History lisinopril 40 mg tablet 20 mg PO DAILY 02/17/19 11/12/23 Unknown History rosuvastatin 20 mg tablet 20 mg PO DAILY 02/17/19 11/12/23 Unknown History citalopram 20 mg tablet 20 mg PO DAILY 03/09/21 11/12/23 Unknown History cyanocobalamin (vitamin B-12) 1,000 mcg PO DAILY 03/29/22 11/12/23 Unknown History 1,000 mcg tablet pantoprazole 40 mg tablet,delayed 40 mg PO DAILY 03/29/22 11/12/23 Unknown History release albuterol sulfate 90 mcg/actuation 2 puff inhalation Q8H PRN 11/12/23 11/12/23 Unknown History aerosol inhaler Shortness Of Breath Or Wheezing cholecalciferol (vitamin D3) 50 50 mcg PO DAILY 11/12/23 11/12/23 Unknown History mcg (2,000 unit) capsule (Vitamin D3) nifedipine 30 mg tablet,extended 30 mg PO DAILY 11/12/23 11/12/23 Unknown History release 24 hr polysaccharide iron complex 150 mg 150 mg PO USEASDIRECTD 11/12/23 11/12/23 Unknown History iron capsule (Ferrex) aspirin 81 mg tablet,delayed mg 03/09/24 Unknown History release (Adult Low Dose Aspirin) clopidogrel 75 mg tablet (Plavix) 75 mg PO DAILY 03/09/24 03/09/24 Unknown History iilhq-6w-prh-epa-fish oil 120 cap PO 03/09/24 Unknown History mg-180 mg-60 mg-1,200 mg capsule, (Fish Oil) Allergies Allergy/AdvReac Type Severity Reaction Status Date / Time No Known Drug Allergies Allergy Unknown Verified 03/09/24 09:28 Review of Systems Review of Systems: All systems reviewed & are unremarkable except as noted in HPI and below PMFSH Past Medical History Medical History Arthritis Depression GERD (gastroesophageal reflux disease) Hypertension Right knee DJD Right knee pain Surgical History Surgical History H/O: hysterectomy [address] Link Hx of left knee surgery 2018 No history of previous surgery Social History Social History Smoking packs per day: 1 Smoking cigarettes per day: 20.0 Years smoked: 40 Smoking pack-years: 40.00 Smoking status: Former smoker Alcohol intake: never Gender identity (if verbalized by the patient): Female Exam Narrative: APPEARANCE: Well appearing, no pain, no distress, well-nourished. HEAD: normocephalic, atraumatic. EYES: PERRLA/EOMI, conjunctivae clear. NOSE: Normal no drainage EARS:TMS clear with good light reflex. THROAT: Pharynx clear, no exudate. NECK: Supple. No adenopathy, no masses. RESPIRATORY: Airway patent, respirations nonlabored. Clear to auscultation bilaterally, no rales, rhonchi, wheezing. CARDIOVASCULAR: Regular rate and rhythm without murmurs rubs or gallops. ABDOMINAL: Soft, nontender, nondistended, normal bowel sounds MUSCULOSKELETAL: Moves all extremities. Strength/ROM intact, No edema, No calf tenderness. NEURO: Alert. Cranial nerves II through XII intact. Grossly intact SKIN: Warm, dry. Normal Color Course Vital Signs Vital signs: Vital Signs Temperature 97.9 F 12/01/24 11:19 Pulse Rate 66 12/01/24 11:19 Respiratory Rate 16 12/01/24 11:19 Blood Pressure 171/70 H 12/01/24 11:19 Pulse Oximetry 95 12/01/24 11:19 Oxygen Delivery Room Air 12/01/24 11:19 Temperature 97.9 F 12/01/24 11:19 Pulse Rate 64 12/01/24 14:00 Respiratory Rate 16 12/01/24 14:00 Blood Pressure 140/76 12/01/24 14:00 Pulse Oximetry 97 12/01/24 14:00 Oxygen Delivery Room Air 12/01/24 11:19 Medical Decision Making MDM Narrative Medical decision making narrative: 81-year-old female presented to the emergency department for evaluation for nausea vomiting and diarrhea. Patient does currently afebrile with no leukocytosis hemoglobin of 12.2. Patient has INR of 1.1. Patient has no acute abnormalities on her CMP. UA was nitrate negative did have leukocyte esterase white blood cells no bacteria no squamous. Patient denies any urinary symptoms. Urine culture was ordered. CT scan showed Mesenteric diarrhea with wall thickening in the sigmoid colon consistent with a distal colitis which could be infectious, inflammatory or ischemic in etiology. C diff was negative. Patient was recommended to follow a clear liquid diet for the next few days. Patient family updated on the results of the workup. All questions concerns were addressed. Differential Diagnosis Differential Diagnosis: Colitis, diverticulitis, enteritis, gastritis, bowel obstruction, intractable nausea and vomiting. Vital Signs Vital Signs: Vital Signs Temperature 97.9 F 12/01/24 11:19 Pulse Rate 66 12/01/24 11:19 Respiratory Rate 16 12/01/24 11:19 Blood Pressure 171/70 H 12/01/24 11:19 Pulse Oximetry 95 12/01/24 11:19 Oxygen Delivery Room Air 12/01/24 11:19 Temperature 97.9 F 12/01/24 11:19 Pulse Rate 64 12/01/24 14:00 Respiratory Rate 16 12/01/24 14:00 Blood Pressure 140/76 12/01/24 14:00 Pulse Oximetry 97 12/01/24 14:00 Oxygen Delivery Room Air 12/01/24 11:19 Lab Data Lab results reviewed: Yes I reviewed the patient's lab results. 12/01/24 11:23 12/01/24 11:23 Labs: Lab Results 12/01/24 12/01/24 12/01/24 Range/Units 11:23 12:49 13:45 WBC 3.5 L (4.5-10.0) K/mm3 RBC 3.85 L (4.2-5.4) M/mm3 Hgb 12.2 (12.0-15.0) g/dL Hct 38.1 (37.0-47.0) % MCV 99.0 (80-100) fl MCH 31.7 (26-34) pg MCHC 32.0 (32-36) g/dl RDW 12.9 (11.5-14.5) % Plt Count 104 L (150-375) k/mm3 MPV 9.3 (7.4-10.4) fl Immature Gran % (Auto) 0.0 (0-0.5) % Neut % (Auto) 59.2 (45.5-73.1) % Lymph % (Auto) 20.8 (18.3-44.2) % [place] % (Auto) 15.1 H (2.6-8.5) % Eos % (Auto) 4.0 (0-4.4) % Baso % (Auto) 0.9 (0.2-1.2) % Lymph # (Auto) 0.73 L (0.9-3.2) K/mm3 [place] # (Auto) 0.5 (0.1-0.6) K/mm3 Eos # (Auto) 0.1 (0-0.3) K/mm3 Baso # (Auto) 0.0 (0.0-0.1) K/mm3 Abs Immat Gran (auto) 0.00 (0.00-0.031) K/mm3 Absolute Neuts (auto) 2.1 (1.3-6.7) K/mm3 Absolute Nucleated RBC 0.000 (0.0-0.012) K/mm3 Nucleated RBC % 0.0 (0.0-0.2) % PT 14.0 (11.1-14.7) Seconds INR 1.1 APTT 28.6 (22.3-36.8) Seconds Sodium 140 (137-145) mmol/L Potassium 3.9 (3.4-5.0) mmol/L Chloride 104 (98-107) mmol/L Carbon Dioxide 28 (22-30) mmol/L Anion Gap 8 (4-12) mmol/L BUN 17 (7-17) mg/dL Creatinine 0.80 (0.7-1.0) mg/dL Estim Creat Clear Calc 35 ml/min Estimated GFR > 60 (59 - ) Glucose 90 (65-110) mg/dL Lactic Acid 0.9 (0.7-2.0) mmol/L Calcium 9.1 (8.4-10.2) mg/dL Total Bilirubin 0.6 (0.2-1.3) mg/dL AST 30 (14-36) U/L ALT 16 (6-35) U/L Alkaline Phosphatase 50 (38-126) U/L Total Protein 7.3 (6.3-8.2) g/dL Albumin 4.1 (3.5-5.1) g/dL Lipase 37 (23-300) U/L Urine Color Yellow (Yellow) Urine Appearance Clear (Clear) Urine pH 5.0 (5.0-9.0) Ur Specific [place] 1.021 (1.001-1.035) Urine Protein Negative (Negative) mg/dL Urine Glucose (UA) Negative (Negative) mg/dL Urine Ketones Negative (Negative) mg/dL Ur Blood (Man) Negative (Negative) Urine Nitrate Negative (Negative) Urine Bilirubin Negative (Negative) Urine Urobilinogen 0.2 (<2.0) mg/dL Leukocyte Esterase Rfl 2+ H (Negative) RICCARDO/UL Urine RBC 0-2 (0-2) /hpf Urine WBC 11-20 H (0-3) /hpf Ur Squamous Epith Cells None seen (Few) /hpf Urine Bacteria None seen /hpf Urine Casts 0-2 C. difficile (PCR) Negative (NEGATIVE) Imaging Data Radiologist's impression: Impressions Abdomen/Pelvis CT 12/01/24 13:21 IMPRESSION: 1. Mesenteric diarrhea with wall thickening in the sigmoid colon consistent with a distal colitis which could be infectious, inflammatory or ischemic in etiology. 2. 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 3. Cholelithiasis with an unchanged small decompressed gallbladder suggesting sequela of chronic cholecystitis. 4. 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 Discharge Plan Discharge Clinical Impression: Diarrhea Patient Disposition: Home Condition: Stable Instructions: Antibiotic Form, Clear Liquid Diet (ED), Acute Diarrhea (ED), Abdominal Pain (ED) Additional Instructions: Clear liquid diet for the next 1-3 days. Zofran as needed for nausea control. Have close follow-up with your primary care physician. Patient Language: Citizen Of [place] Prescriptions: New ondansetron 4 mg tablet,disintegrating 4 mg PO Q8H PRN (Reason: nausea and vomiting) Qty: 14 0RF No Action cyanocobalamin (vitamin B-12) 1,000 mcg Tablet 1,000 mcg PO DAILY pantoprazole 40 mg tablet,delayed release (DR/EC) 40 mg PO DAILY clopidogrel [Plavix] 75 mg Tablet 75 mg PO DAILY aspirin [Adult Low Dose Aspirin] 81 mg Tablet,Delayed Release (Dr/Ec) Fish Oil 120 mg-180 mg- 60 mg-1,200 mg Capsule,Delayed Release(Dr/Ec) PO nifedipine 30 mg tablet extended release 24hr 30 mg PO DAILY polysaccharide iron complex [Ferrex 150] 150 mg iron Capsule 150 mg PO USEASDIRECTD albuterol sulfate 90 mcg/actuation HFA aerosol inhaler 2 puff INHALATION Q8H PRN (Reason: Shortness Of Breath Or Wheezing) cholecalciferol (vitamin D3) [Vitamin D3] 50 mcg (2,000 unit) Capsule 50 mcg PO DAILY carvedilol 12.5 mg Tablet 12.5 mg PO BID acetaminophen [Tylenol Extra Strength] 500 mg Tablet 500 mg PO Q4H PRN (Reason: Pain) lisinopril 40 mg Tablet 20 mg PO DAILY rosuvastatin 20 mg Tablet 20 mg PO DAILY citalopram 20 mg Tablet 20 mg PO DAILY Follow-up/Referrals: Indigo,MD Israel [Primary Care Provider]
[2024-12-01 14:00] VITALS: BP 140/76; PULSE 64; RESP 16; O2SAT 97
[2024-12-01 14:41] LABS: Toxigenic C. Diff NEGATIVE (NEGATIVE)
== END 2024-12-01 15:25 | disposition home or self-care (01) ==
PROVIDERS: Emergency Provider Emergency Medicine; PCP Internal Medicine
DX: R19.7 Diarrhea, unspecified (principal); I10 Essential (primary) hypertension; M19.90 Unspecified osteoarthritis, unspecified site; F32.A Depression, unspecified; K21.9 Gastro-esophageal reflux disease without esophagitis; Z87.891 Personal history of nicotine dependence; Z90.710 Acquired absence of both cervix and uterus; K80.20 Calculus of gallbladder without cholecystitis without obstruction; K74.60 Unspecified cirrhosis of liver; Z79.82 Long term (current) use of aspirin; Z79.899 Other long term (current) drug therapy
CPT/HCPCS: 36415; 74177; 80053; 81001; 83605; 83690; 85025; 85610; 85730; 87045; 87046; 87077; 87086; 87186; 87427; 87493; 99284; Q9967

== ENCOUNTER 2025-01-24 11:51 | Outpatient (CLI) | payer MEDICARE, BC, SELFPAY ==
--- OUTSIDE RECORDS SUMMARY | 2005-04-07 05:15 | XMS_ITS | Continuity of Care Document ---
Author Organization [facility] Address [id number] [place] [address] [address] [place] [address] Phone Care Team Providers Care Station Installer Name Role Phone Monika Felder Unavailable Unavailable Advance Directives Directive Yes / No Effective Date File Name No Information Encounters Encounter Description Practice Location Reason(s) For Visit Diagnoses Date Provider Providers Copied on Encounter [facility], [id number] [place] [address] [address], [place], [place], [id number], [place] tel:[phone] [facility] No Information 6-[address] Emerita Frank. [address] , [address], [place], [address], [place]. tel:[phone] Family History Family Member Type Diagnosis Age At Onset No Information Payers Payer name Insurance type Covered constitution party ID Authoriza tion(s) Medicare [facility] [id number] Social History Type Description Quantity Date Captured Comments Sex Female Smoking Status No Information Chief Complaint And Reason For Visit No Information Reason For Referral Reason For Referral No Information History Of Present Illness Encounter Date Complaint History Of Prese nt Illness No Information Functional Status Date Functional Assessmen t No Information Instructions Date Instruction Additional Infor mation No Information Assessments Type Assessment Date No Information Patient Care Teams Name Effective Dates (start - stop) Status Members No Information
--- OUTSIDE RECORDS SUMMARY | 2025-01-24 11:56 | XMS_ITS | Encounter Summary ---
Author Organization [facility] Address [address] [place] [address] Phone Care Team Providers Care Traffic Representative Name Role Phone Israel Sood MD Primary Care Provider [phone] Andreea Raphael RN Unavailable Britney Bolton MD Unavailable [phone] Aniket Link MD Unavailable [phone] Mcihele Link MD Unavailable [phone] Andreea Raphael RN Unavailable [phone] Encounter Details Date Type Department Care Team (Late st Contact Info) Description 05/15/2017 Orders Only [facility] PMR [phone] Scanning, Provider Social History Tobacco Use Types Packs/Day Years Used Date Smoking Tobacco: Every Day Comments Unknown Sex and Gender Information Value Date Recorded Sex Assigned at Not on file 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 Gender Identity Not on file Sexual [...] filedocumented in this encounter Care Teams Traffic Representative Relationship Specialty Start Date End Date Israel Sood MD [address] [place] [address] PCP - General 09/08/16 Andreea Raphael RN [address] [place] [address] [facility] Outpatient Clinical Orthoptist 09/06/17 11/28/17 Britney Bolton MD [address] [place] [address] Healthcare Management Consultant Obstetrics and Gynecology 09/02/19 Aniket Link MD [phone] [place] [address] Surgeon Colon and Rectal Surgery 12/01/21 Michele Link MD [phone] [place] [address] Consulting Physician Gynecologic Oncology 12/01/2112/31/24 Andreea Raphael RN [address] [place], [place] [id number] [facility] Outpatient Clinical Orthoptist 02/21/24 03/19/24 documented as of this encounter
--- OUTSIDE RECORDS SUMMARY | 2025-01-24 11:56 | XMS_ITS | Encounter Summary ---
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 Gender Identity Not on file Sexual Orientation [...] filedocumented in this encounter Care Teams Air Lift Operator Relationship Specialty Start Date End Date Israel Sood MD [address] [place] [address] PCP - General 09/08/16 Britney Bolton MD [address] [place] [address] College [employer] Obstetrics and Gynecology 09/02/19 Aniket Link MD [phone] [place] [address] Surgeon Colon and Rectal Surgery 12/01/21 Michele Link MD [phone] [place] [address] Consulting Physician Gynecologic Oncology 12/01/2112/31/24 Andreea Raphael, RN [address] [facility] [facility] [address] [place] [address] [facility] Outpatient Installer Interior Assemblies 02/21/24 03/19/24 documented as of this encounter
--- OUTSIDE RECORDS SUMMARY | 2025-01-24 11:56 | XMS_ITS | Clinical Summary ---
Author Organization [facility] Address [address] [place] [address] Care Team Providers Care Data Warehousing Manager Name Role Phone Israel Sood MD Primary Care Provider [phone] Britney Bolton MD Unavailable [phone] Aniket Link MD Unavailable [phone] Allergies Active Allergy Reactions Criticality Noted Date [...] 1 tablet (40 mg total) by mouth marketing and outreach coordinator before breakfast 1 Active cyanocobalamin (Vitamin B-12) [...] 90 tablet 3 5 04/10/19 26 Active hydroCHLOROthia zide 12.5 mg tablet Take 1 tablet/capsule (12.5 mg total) by mouth every morning 30 tablet/capsul e 11 5 12/18/19 26 Active Active Problems Problem Noted Date Diagnosed Date Presence of Amulet left atrial appendage closure device 02/19/2024 Grade I hemorrhoids 12/01/2021 Kidney stone 10/14/2021 Lung mass 09/28/2021 Hypomagnesemia 03/08/2021 Macrocytosis 03/03/2021 Choledocholithiasis 10/08/2019 Pulmonary hypertension 10/06/2019 Elevated liver enzymes 09/10/2019 Endometrial cancer (CMS/HCC) 09/03/2019 Overview (11/03/2020): Added automatically from request for surgery [id number] Added automatically from request for surgery [id number] Menopause 09/02/2019 Atrial septal aneurysm 09/02/2019 Benign [...] Encounters Date Type Department Care Team Description 12/17/2024 11:30 AM CDT Office Visit [facility] Medicine Cardiology [address] [facility] [address] [facility] [address] [facility] [address] [place] [address] Jim Costa MD Two-vessel coronary artery disease [...] KNEE ARTHROPLASTY 08/29/2017 Left CARDIAC CATHETERIZATION 09/28/2013 [facility] 09/28/2013-- Mild two vessel coronary artery [...] 09/2019 s/p hysterectomy Syncope Coronary artery disease [facility] 09/28-- Mild two vessel coronary artery [...] Cigarettes 1 42 1 972 - 2013 Passive Smoke Exposure: Past Smokeless Tobacco: Never Alcohol Use Standard Drinks/Week Comments Never 0 (1 standard drink = 0.6 oz pur e alcohol) [facility] Utilities Answer Date Recorded In the [...] often do you attend chur ch or taoism services? More than 4 times per year 02/22/2024 Do you belong to any clubs o r organizations such as bahai groups, unions, fraternal or athletic groups, or [...] any time in the past 12 m [facility], were you homeless or living in a alf (including now)? No 02/22/2024 Personal Safety Answer Date Recorded Have you ever been in or are you currently in a harmful physical or emotional relationship or is someone making you feel afraid or unsafe? 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 Gender Identity Not on file Sexual Orientation [...] Sign Reading Time Taken Comments Blood Pressure 207/77 12/17/2024 11:51 AM CDT Pulse 63 12/17/2024 11:51 AM CDT Temperature 36.8 C (98.2 F) 12/17/2024 11:51 AM CDT Respiratory Rate 17 04/04/2024 11:55 AM FUTURES TRADER Oxygen Saturation 97% 12/17/2024 11:51 AM CDT Inhaled Oxygen Concentration - - Weight 66.8 kg (147 lb 3.2 oz) 12/17/2024 11:51 AM CDT Height 158.8 cm (5' 2.52) 12/17/2024 11:51 AM C DT Body Mass Index 26.48 12/17/2024 11:51 AM CDT Plan of Treatment Health Maintenance Due Date Last Done Comments Depression Screening 1935 Hepatitis B Screening 1953 Zoster Vaccine (1 of 2) 1986 Well Visit 65+ 2001 Covid-19 Vaccine (6 - 2024-2 6 season) 2024 01/20/2021, 06/20/2020, 06/20/2020, Additional history exists Influenza Vaccine (#1) 2024 , 03/02/2022, 01/19/2021, Additional history exists Fall Risk Assessment 04/04/2025 04/04/2024 Osteoporosis Screening-Bone Density Scan 01/20/2026 01/21/2024, 03/02/2020, 12/28/2017, Additional history exists DTaP/Tdap/Td Vaccine (4 - Td or Tdap) 01/07/2029 01/07/2019, 09/28/2015, 09/27/2015 Pneumococcal vaccine 65+ Completed 018, 01/27/2018, 09/28/2015, Additional history exists Medical Devices Implanted Type Area Cullet Crusher And Washer Device Identifier Shelf Expiration Date Model / Serial / Lot [employer] Occluder Cvasc Cyndi Flexible Braided Amplatzer Amulet 25mm Nitinol [id number] - [id number] - [id number] Implanted:Qty: 1 on 02/19/2024 by Mateusz Knight MD PhD at [facility] Left Atrial Appendage Occluder N/A: Atrial Appendage [employer] 08/30/2028 [id number] / [id number] / [id number] [employer] System Closure Repair Femoral Artery Suture Mediated Perclose Prostyle 05978-60 - [id number] - [id number] Implanted:Qty: 1 on 02/19/2024 by Mateusz Knight MD PhD at [facility] Vascular Closure Device Right: Femoral Vein [employer] 11/30/2025 [id number] / [id number] / [id number] [employer] System Closure Repair Femoral Artery Suture Mediated Perclose Prostyle 91456-89 - [id number] - [id number] Implanted:Qty: 1 on 02/19/2024 by Mateusz Knight MD PhD at [facility] Vascular Closure Device Left: Femoral Vein [employer] 11/30/2025 [id number] / [id number] / [id number] Knee Replacement Left: Knee Insurance MEDICARE [place] MEDICARE [facility] MEDICARE [facility] MEDICARE BCBS FEDERAL * Guarantor: Cynthia Campa Account Type Relation to Patient Date of Phone Billing Address [employer] Party Liability Self 1935 [address] [place] [address] [place] [address] Advance Directives For more information, please contact: [phone] * Full Code (Latest Code Status on File) Date Activated Date Inactivated Comments 02/19/2024 3:13 PM 02/20/2024 9:18 PM * Full Code Date Activated Date Inactivated Comments 09/05/2017 4:09 PM 09/22/2019 5:42 AM Care Teams Data Warehousing Manager Relationship Specialty Start Date End Date Israel Sood MD [address] [place] [address] PCP - General 09/08/16 Britney Bolton MD [address] [place] [address] Wet Inspector Optical Glass Obstetrics and Gynecology 09/02/19 Aniket Link MD [phone] [place] [address] Surgeon Colon and Rectal Surgery 12/01/21
--- OUTSIDE RECORDS SUMMARY | 2025-01-24 11:56 | XMS_ITS | Data Portability ---
Author Organization [facility] Address [address] [place] [address] Assessment No assessment recorded. Plan of Treatment [...] provi ded by [facility] [employer] [facility], [address] [facility] [address] [place] [address] Derrick Pelletier MD, Labor atory Dire tor. Case revie wed and diagn osis rende red at [facility] [employer] [facility], [address], [place] [address] Jus Luis MD, [facility] atory Dire tor. CONFI DENTI AL Not Available [facility] ([facility]) [address], [place], [address], 08/13/2019 09:06:07 Result Notes None recorded. Problems Name Problem SNOMED Code Status Onset Date Resolution Date Notes Provider Name and Address Organization Details Recorded Time Evaluatio n finding Active 2018 Hematuria, unspecifie d;Recorded Elsewhere: No Locatio n: [facility] Brittany rce: EHR Chroni c: N Practice ID: [id number] Billa ble Time: 03:30:00 PM Not Available [facility] 0 18:46:[address] Concept Active 2018 Encntr for obgyn specialist exam (general) (routine) w/o abn findings;P ractice ID: [id number] Not Available [facility] 0 18:46:33 Postmenop ausal bleeding 23333532 Active 2019 Postmenopa usal bleeding;R ecorded Elsewhere: No Locatio n: [facility] rce: EHR Chroni c: N Practice ID: [id number] Billa ble Time: 09:15:00 AM Not Available [facility] 0 18:46:33 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 Procedures Surgical History Date Name Laterality Status Provider Name and Address Organization Details Recorded Time 0 Endometrial Biopsy completed S [facility] 08/11/2019 11:20:37 Imaging Results None recorded. [...] Prescrib ed Elsewher e: Yes Loca tion: [facility] odify By: mcaie jamil DateTime : 04/03/19 11:37:05 AM Not Available Not Available Not Available ondansetr on HCl 4 mg tablet active Not Available Not Available No t Available amlodipin e 2.5 mg tablet take 1 tablet by oral route every day active Prescrib ed Elsewher e: Yes Loca tion: [facility] odify By: macie Guido ter DateTime : 04/03/19 11:37:05 AM Not Available Not Available Not Available Aygestin 5 mg tablet take 2 tablet by oral route daily for 3 months 2019 active Prescrib ed Elsewher e: No Locat ion: [facility] odify By: vahid blackman DateTime : 05/05/19 08:15:00 AM Not Available Not Available Not Available sulfameth oxazole 800 mg-trimet hoprim 160 mg tablet active Not Available Not Available Not Available carvedilo l 3.125 mg tablet take 1 tablet by oral route 2 times every day with food active Prescrib ed Elsewher e: Yes Loca tion: [facility] odify By: macie Guido ter DateTime : 04/03/19 11:37:05 AM Not Available Not Available Not Available citalopra m 20 mg tablet active Not Available Not Available Not Available omeprazol e 10 mg capsule,d elayed release take 2 capsule by oral route every day before a meal active Prescrib ed Elsewher e: Yes [facility] odify By: macie Guido ter DateTime : 04/03/19 11:37:05 AM Not Available Not Available Not Available omeprazol e 20 mg capsule,d elayed release active Not Available Not Available Not Available aspirin 81 mg chewable tablet chew 1 tablet by oral route every day active Prescrib ed Elsewher e: Yes [facility] By: macie Guido ter DateTime : 04/03/19 11:37:05 AM Not Available Not Available Not Available lisinopri l 10 mg-hydroc hlorothia zide 12.5 mg tablet take 1 tablet by oral route every day active Prescrib ed Elsewher e: Yes Loca tion: [facility] odify By: macie Guido ter DateTime [...] active Not Available Not Available Not Available Sebewaing-3 active Prescrib ed Elsewher e: Yes [facility] odify By: macie Guido ter DateTime : 04/03/19 11:37:05 AM Not Available Not Available Not Available Vitamin D3 10 mcg (400 unit) capsule active Prescrib ed Elsewher e: Yes [facility]ify By: macie Guido ter DateTime : 04/03/19 11:37:05 AM Not Available Not Available Not Available Eliquis 5 mg tablet active Not Available Not Available No t Available Eliquis 2.5 mg tablet take 1 tablet by oral route 2 times every day active Prescrib ed Elsewher e: Yes [facility] odify By: macie Guido ter DateTime : 04/03/19 11:37:05 AM Not Available Not Available Not Available Tylenol 325 mg capsule take 2 capsule by oral route every 4 hours active Prescrib ed Elsewher e: Yes Loca tion: [facility] odify By: macie Guido ter DateTime : 04/03/19 11:37:05 AM Not Available Not Available Not Available Ezallor Sprinkle 5 mg capsule 04/14 completed Prescrib ed Elsewher e: Yes Loca tion: [facility] odify By: Encount er DateTime : 04/03/19 11:37:05 AM Not Available Not Available Not Available Fluzone High-Dose (PF) 180 mcg/0.5 mL intramusc ular syringe active Not Available Not Available Not Available Vitals Date Recorded Body weight Body mass index (BMI) Body height Systolic And Diastolic Provider Name and Address Organization Details Last Updated DateTime 08/11/2019 57471.15 g 0.3 kg/m2 1645.92 cm 131/75 mm[Hg] [facility] 08/11/2019 10:47:31 Social History None [...] Diagnosis SNOMED-CT Code Diagnosis ICD10 Code Diagnosis IMO Codes Diagnosis Note [id number] Britney Bolton MD [facility] [address] [address] 08/11/2019 10:38:50 08/11/2019 11:27:34 Postmenopausal bleeding 70916416 N95.0 Endoemtria l biopsy done. Endometria l hyperplasia 164402637 N85.00 If hyperplasi a not resolved, hysterecto my may be next step. If malignancy , will need referral to obgyn specialist oncology. If resolved, may watch and wait. [...] 08/11/2019 2 [place] 104 Anai Campa [id number] 12/11/2019 1 [place] Martina Campa [id number] 4 Notes Date Note Type Note Provider Name and Address Organization Details Recorded Time 08/11/2019 text/html She has been taking Aygestin the last 3 months. She had about 1 day of moderate bleeding per week and occasional spotting in between. No pain. No new complaints Clinton webber [place] - [facility] 08/11/2019 12:36:49 OBGyn Episode No OBEpisode recorded.
--- OUTSIDE RECORDS SUMMARY | 2025-01-24 11:56 | XMS_ITS ---
Author Organization [facility] Address [address] [place] [address] Care Team Providers Care Sergeant At [employer] Name Role Phone Israel Sood MD Primary Care Provider [phone] Britney Bolton MD Unavailable [phone] Aniket Link MD Unavailable [phone] Active Problems Problem Noted Date Diagnosed Date Presence of Amulet left atrial appendage closure device 02/19/2024 Grade I hemorrhoids 12/01/2021 Kidney stone 10/14/2021 Lung mass 09/28/2021 Hypomagnesemia 03/08/2021 Macrocytosis 03/03/2021 Choledocholithiasis 10/08/2019 Pulmonary hypertension 10/06/2019 Elevated liver enzymes 09/10/2019 Endometrial cancer (CMS/HCC) 09/03/2019 Overview (11/03/2020): Added automatically from request for surgery [id number] Added automatically from request for surgery [id number] Menopause 09/02/2019 Atrial septal aneurysm 09/02/2019 Benign [...]
--- OUTSIDE RECORDS SUMMARY | 2025-01-24 11:57 | XMS_ITS | Data Portability ---
Author Organization [facility], [employer] Address [address] [address] Care Team Providers Care Angle Bender Name Role Phone TOM DODD Primary Care Provider [phone] ISAI MEDINA Computer Operations Technician SHAD NAPIER Lesson Instructor Assessment Encounter Date Assessment Date Assessment LastModified by Organization Details LastModified Time 11/07/2023 11/07/2023 Patient presented for follow up. [...] as noted below. Not available 10/13/2024 11:55:30 01/15/2025 01/15/2025 Patient presented for follow up. Studies ordered as below. Discussed plan with patient/careg iver, who expressed understanding . Follow up as noted below. Not available 01/15/2025 11:31:15 Plan of Treatment Reminders Order Date Submit Date Provider Last Modified By Organization Details Last Modified Time Details Appointments ESTABLISH ED PATIENT 15 2025 11:30A Lacey Dodd MD Not available Not available Not available Lab copper, serum or plasma - 6 weeks from 01/14/252024 025 [facility], [address], [place], [address], 01/15/2025 12:28:40 hemoglobi n A1c, QN, blood 2024 025 [facility], [address], [place], [address], 01/22/2025 04:08:41 CMP, serum or plasma 2024 025 [facility], [address], [place], [address], 10/20/2024 12:15:09 CBC w/ auto diff 2024 025 [facility], [address], [place], [address], 10/20/2024 04:04:37 C-peptide , serum 2024 025 [facility] [employer] [facility], [address], [place], [address], 10/20/2024 12:15:09 hemoglobi n A1c, QN, blood 2024 025 [facility], [address], [place], [address], 10/20/2024 12:15:09 lipid panel w/ direct LDL, serum 2024 025 [facility], [address], [place], [address], 10/20/2024 12:15:09 TSH, serum or plasma 2024 025 [facility], [address], [place], [address], 10/20/2024 12:15:09 magnesium , QN, serum or plasma 2024 025 [facility], [address], [place], [address], 01/11/2025 04:02:32 magnesium , QN, serum or plasma 2024 025 [facility], [address], [place], [address], 09/09/2024 04:04:12 vitamin B12 + folate, serum or blood 2024 025 [facility], [address], [place], [address], 09/09/2024 04:04:13 CMP, serum or plasma 2024 025 [facility], [address], [place], [address], 06/12/2024 13:04:43 CBC w/ auto diff 2024 025 [facility], [address], [place], [address], 06/12/2024 13:04:42 lipid panel w/ direct LDL, serum 2024 025 [facility], [address], [place], [address], 07/01/2024 16:55:10 CMP, serum or plasma 2023 024 [facility], [address], [place], [address], 02/05/2024 13:00:07 CBC 2023 024 [facility], [address], [place], [address], 02/11/2024 04:03:36 hemoglobi n A1c, QN, blood 2023 024 [facility], [address], [place], [address], 02/11/2024 04:03:36 CBC w/ auto diff - 8 weeks from 11/07/232023 024 [facility], [address], [place], [address], 02/05/2024 13:00:06 iron panel, serum or plasma - 8 weeks 11/07/232023 024 [facility], [address], [place], [address], 02/05/2024 04:11:57 Referral gastroent erologist referral 2024 snealmari Medina MD, [address], [place], [address], 01/15/2025 12:42:[address] referral 2023 024 KIRSTEN Matt, [address], [place], [address], 09/29/2024 13:51:[address] referral 2023 024 [facility] [employer], [address], [place], [address], 12/05/2023 04:11:07 Procedures None recorded. Surgeries None recorded. Imaging electroca rdiogram 2024 025 [facility], [address] , [address], [place], [address], 01/16/2025 09:57:30 US, duplex, arterial, lower extremity 2024 025 [facility], [address] [facility] [address], [place], [address], 12/15/2024 13:29:14 US, liver [address] [facility], [address], [place], [address], 12/12/2024 15:26:30 US, carotid artery 2024 025 [facility], [address] [facility] [address], [place], [address], 12/15/2024 13:29:15 XR, kidney + ureter + bladder 2024 025 [facility], [address], [address], [place], [address], 07/01/2024 15:49:53 US, duplex, carotid artery 2024 025 [facility] [employer], [facility], [facility] , [address], [place], [address], 06/11/2024 20:29:28 CT, chest, w/o contrast 2024 025 [facility], [address], [address], [place], [address], 07/01/2024 15:49:53 XR, thoracic spine, 2 view 2023 024 [facility], [address], [address], [place], [address], 02/17/2024 13:49:29 electroca rdiogram 2023 024 [facility], [address] [facility], [place], [address], 11/07/2023 16:11:33 Medication Orders aspirin 81 mg tablet,de layed release 202414 [address] [id number], [address], [place], [place], [id number], 10/13/2024 12:17:45 Patient TargetsNo targets recorded. Patient Instructions Encounter Date Encounter Id Patient Instructions Last Modified By Organization Details Last Modified Time 11/07/2023 [id number] Peripheral Arterial Disease (PAD): Care Instructions mshenouda [...] weight mshenouda Not available 11/07/2023 15:14:01 02/04/2024 [id number] Peripheral Arterial Disease (PAD): Care Instructions mshenouda Not available 02/04/2024 17:21:11 06/11/2024 [id number] Peripheral Arterial Disease (PAD): Care Instructions mshenouda [...] will mshenouda Not available 05/31 18:10:45 10/13/2024 [id number] Peripheral Arterial Disease (PAD): Care Instructions mshenouda Not available 10/13/2024 12:17:32 mammogram: about this test mshenouda Not available 10/13/2024 12:17:32 cirrhosis: care instructions mshenouda Not available 10/13/2024 12:17:32 liver disease diet: care instructions mshenouda Not available 10/13/2024 12:17:32 high cholesterol : care instructions mshenouda Not available 10/13/2024 12:17:32 carotid stenosis : care instructions mshenouda Not available 10/13/2024 12:17:33 01/15/2025 [id number] mammogram: about this test mshenouda Not available 01/15/2025 12:28:35 cirrhosis: care instructions mshenouda Not available 01/15/2025 12:28:35 liver disease diet: care instructions mshenouda Not available 01/15/2025 12:28:35 anemia: care instructions mshenouda Not available 01/15/2025 12:28:35 high cholesterol : care instructions mshenouda Not available 01/15/2025 12:28:35 Reason for Referral Emission Specialist Referral for Juanito ign hypertension Referring Physician: Tom Dodd, Internal Medicine, Encounter Date: 11/07/2023 Emission Specialist Referral for Juanito ign hypertension Referring Physician: Tom Dodd, Internal Medicine, Encounter Date: 02/04/2024 Computer Operations Technician Referral for Cirrhosis of liver Referring Physician: Tom Dodd, Internal Medicine, Encounter Date: 01/15/2025 Results Created Date Observation Date Name Description Value Unit Range Abnormal Flag Note LastModifiedBy Organization Detail LastModifiedTime 10/15/19 24 10/15/2023 IRON PANEL iron 30 mcg/d L 27-139 Not Available [facility] [address], [place], [address], 10/16/2023 14:37:25 10/15/19 24 10/15/2023 IRON PANEL UIBC 327 ug/dL 111-34 3 Not Available [facility] [address], [place], [address], 10/16/2023 14:37:25 10/15/19 24 10/15/2023 IRON PANEL total iron binding capacity 357.0 mcg/d L 250.0- 450.0 Not Available [facility] [address], [place], [address], 10/16/2023 14:37:25 10/15/19 24 10/15/2023 IRON PANEL iron saturation (calculated) 8.4 % 15.0-5 5.0 low Not Available [facility] [address], [place], [address], 10/16/2023 14:37:25 10/15/19 24 10/15/2023 VITAM IN B12 vitamin B12 2000 pg/mL 232-12 45 high Not Available [facility] [address], [place], [address], 10/16/2023 14:37:26 10/23/19 24 10/23/2023 OCCUL T BLOOD , FECAL , IA occult blood POSITI VE negati ve abnormal Not Available [facility] [address], [place], [address], 10/24/2023 15:08:12 01/15/2001/15/2024 Magne sium [Mass /volu me] in Serum or Plasm a magnesium [mass/volume ] in serum or plasma 1.6 text: 1.8 - 2.4 mg/dL low MAGNE SIUM 1.6 (L) 1.8 - 2.4 MG/DL 01/14 8:33 PM CDT [facility] Not Available Not Available 07/17/2024 13:29:31 01/15/2001/15/2024 Magne sium [Mass /volu me] in Serum or Plasm a interpretati on and review of laboratory results ABNORM AL Not Available Not Available 13:29:31 01/15/2001/15/2024 Natri ureti c pepti de.B proho rmone N-Ter abena [Mass /volu me] in Serum or Plasm a natriuretic peptide.B prohormone N-terminal [mass/volume ] in serum or plasma 774 pg/mL high: 450pg/ mL high PRO-B TYPE NATRI URETI C PEPTI DE 774 (H) <450 PG/ML 01/14 8:33 PM CDT [facility] Not Available Not Available 07/17/2024 13:29:30 01/15/20 24 01/15/2024 Natri ureti c pepti de.B proho rmone N-Ter abena [Mass /volu me] in Serum or Plasm a interpretati on and review of laboratory results ABNORM AL Not Available Not Available 13:29:30 01/15/2001/15/2024 Compr ehens jameel metab olic 2000 panel - Serum or Plasm a glucose [mass/volume ] in serum or plasma 86 text: 70 - 99 mg/dL GLUCO SE 86 70 - 99 MG/DL 01/14 8:33 PM CDT [facility] Not Available Not Available 07/17/2024 13:29:30 01/15/20 24 01/15/2024 Compr ehens jameel metab olic 1999 panel - Serum or Plasm a urea nitrogen [mass/volume ] in serum or plasma 18 text: 7 - 18 mg/dL BUN 18 7 - 18 MG/DL 01/14 8:33 PM CDT [facility] Not Available Not Available 07/17/2024 13:29:30 01/15/20 24 01/15/2024 Compr ehens jameel metab olic 1999 panel - Serum or Plasm a creatinine [mass/volume ] in serum or plasma 1.06 text: 0.55 - 1.02 mg/dL high CREAT ININE S/P/B 1.06 (H) 0.55 - 1.02 MG/DL 01/14 8:33 PM CDT [facility] Not Available Not Available 07/17/2024 13:29:30 01/15/20 24 01/15/2024 Compr ehens jameel metab olic 1999 panel - Serum or Plasm a sodium [moles/volum e] in serum or plasma 137 text: 136 - 145 mmol/L SODIU M S/P/B 137 136 - 145 MMOL/ L 01/14 8:33 PM CDT [facility] Not Available Not Available 07/17/2024 13:29:30 01/15/20 24 01/15/2024 Compr ehens jameel metab olic 1999 panel - Serum or Plasm a potassium [moles/volum e] in serum or plasma 4.2 text: 3.5 - 5.1 mmol/L POTAS SIUM S/P/B 4.2 3.5 - 5.1 MMOL/ L 01/14 8:33 PM CDT [facility] Not Available Not Available 07/17/2024 13:29:30 01/15/20 24 01/15/2024 Compr ehens jameel metab olic 2000 panel - Serum or Plasm a chloride [moles/volum e] in serum or plasma 103 text: 97 - 115 mmol/L CHLOR RENZO S/P/B 103 97 - 115 MMOL/ L 01/14 8:33 PM CDT [facility] Not Available Not Available 07/17/2024 13:29:30 01/15/20 24 01/15/2024 Compr ehens jameel metab olic 2000 panel - Serum or Plasm a carbon dioxide, total [moles/volum e] in serum or plasma 29.8 text: 21 - 32 mmol/L CO2 29.8 21 - 32 MMOL/ L 01/14 8:33 PM CDT [facility] Not Available Not Available 07/17/2024 13:29:30 01/15/20 24 01/15/2024 Compr ehens jameel metab olic 2000 panel - Serum or Plasm a calcium [mass/volume ] in serum or plasma 8.9 text: 8.5 - 10.1 mg/dL CALCI UM S/P/B 8.9 8.5 - 10.1 MG/DL 01/14 8:33 PM CDT [facility] Not Available Not Available 07/17/2024 13:29:30 01/15/20 24 01/15/2024 Compr ehens jameel metab olic 2000 panel - Serum or Plasm a bilirubin.to jenn [mass/volume ] in serum or plasma 0.4 text: 0.2 - 1.2 mg/dL BILIR UBIN TOTAL S/P/B 0.4 0.2 - 1.2 MG/DL 01/14 8:33 PM CDT [facility] Not Available Not Available 07/17/2024 13:29:30 01/15/20 24 01/15/2024 Compr ehens jameel metab olic 2000 panel - Serum or Plasm a protein [mass/volume ] in serum or plasma 7.4 text: 6.4 - 8.2 g/dL TOTAL PROTE IN S/P/B 7.4 6.4 - 8.2 G/DL 01/14 8:33 PM CDT [facility] Not Available Not Available 07/17/2024 13:29:30 01/15/20 24 01/15/2024 Compr ehens jameel metab olic 1999 panel - Serum or Plasm a albumin [mass/volume ] in serum or plasma 3.5 text: 3.4 - 5.0 g/dL ALBUM IN S/P/B 3.5 3.4 - 5.0 G/DL 01/14 8:33 PM CDT [facility] Not Available Not Available 07/17/2024 13:29:30 01/15/20 24 01/15/2024 Compr ens jameel metab olic 1999 panel - Serum or Plasm a aspartate aminotransfe rase [enzymatic activity/vol ume] in serum or plasma 15 U/L low: 15U/Lh igh: 37U/L AST 15 15 - 37 U/L 01/14 8:33 PM CDT [facility] Not Available Not Available 07/17/2024 13:29:30 01/15/20 24 01/15/2024 Compr ens jameel metab olic 1999 panel - Serum or Plasm a alanine aminotransfe rase [enzymatic activity/vol ume] in serum or plasma 15 U/L low: 14U/Lh igh: 55U/L ALT 15 14 - 55 U/L 01/14 8:33 PM CDT [facility] Not Available Not Available 07/17/2024 13:29:30 01/15/20 24 01/15/2024 Compr ehens jameel metab olic 1999 panel - Serum or Plasm a alkaline phosphatase [enzymatic activity/vol ume] in serum or plasma 50 U/L low: 50U/Lh igh: 136U/L ALKAL INE PHOSP HATAS E S/P/B 50 50 - 136 U/L 01/14 8:33 PM CDT [facility] Not Available Not Available 07/17/2024 13:29:30 01/15/20 24 01/15/2024 Compr ens jameel metab olic 1999 panel - Serum or Plasm a anion gap in serum or plasma by calculation 4.2 text: 2 - 10 mmol/L ANION GAP 4.2 2 - 10 MMOL/ L 01/14 8:33 PM CDT [facility] Not Available Not Available 07/17/2024 13:29:30 01/15/20 24 01/15/2024 Compr ehens jameel metab olic 1999 panel - Serum or Plasm a urea nitrogen/cre atinine [mass ratio] in serum or plasma 17 low: 6high: 26 BUN CREAT ININE RATIO 17.0 6 - 26 01/14 8:33 PM CDT [facility] Not Available Not Available 07/17/2024 13:29:30 01/15/20 24 01/15/2024 Compr ehens jameel metab olic 2000 panel - Serum or Plasm a albumin/glob ulin [mass ratio] in serum or plasma 0.9 text: 1.0 - 2.0 ratio low A/G RATIO 0.9 (L) 1.0 - 2.0 RATIO 01/14 8:33 PM CDT [facility] Not Available Not Available 07/17/2024 13:29:30 01/15/20 24 01/15/2024 Compr ehens jameel metab olic 2000 panel - Serum or Plasm a glomerular filtration rate [volume rate/area] in serum, plasma or blood by creatinine-b ased formula (CKD-epi 2020)/1.73 sq M 51 text: >90 mL/min /1.73 M2 low GFR ESTIM ATE 51 (L) >90 ML/IA N/1.7 3 M2 01/14 8:33 PM CDT [facility] Not Available Not Available 07/17/2024 13:29:30 [...] - 12.9 SEC 01/14 8:18 PM CDT [facility] Not Available Not Available 07/17/2024 13:29:30 01/15/20 24 01/15/2024 Proth rombi n time (PT) INR in platelet poor plasma by coagulation assay 1.1 INR 1.1 01/14 8:18 PM CDT [facility] Not Available Not Available 07/17/2024 13:29:30 01/15/20 24 01/15/2024 CBC W Auto Diffe renti al panel - Blood leukocytes [#/volume] in blood by automated count 3.73 text: 4.5 - 11.0 x10'3/ uL low WBC 3.73 (L) 4.5 - 11.0 x10'3 /uL 01/14 8:05 PM CDT [facility] Not Available Not Available 07/17/2024 13:29:30 01/15/20 24 01/15/2024 CBC W Auto Diffe renti al panel - Blood erythrocytes [#/volume] in blood by automated count 3.53 text: 4.20 - 5.40 x10'6/ uL low RBC 3.53 (L) 4.20 - 5.40 x10'6 /uL 01/14 8:05 PM CDT [facility] Not Available Not Available 07/17/2024 13:29:30 01/15/20 24 01/15/2024 CBC W Auto Diffe renti al panel - Blood hemoglobin [mass/volume ] in blood 8.6 text: 12.0 - 16.0 g/dL low HGB 8.6 (L) 12.0 - 16.0 G/DL 01/14 8:05 PM CDT [facility] Not Available Not Available 07/17/2024 13:29:30 01/15/20 24 01/15/2024 CBC W Auto Diffe renti al panel - Blood hematocrit [volume fraction] of blood by calculation 29.5 % low: 38%hig h: 48% low HCT 29.5 (L) 38.0 - 48.0 % 01/14 8:05 PM CDT [facility] Not Available Not Available 07/17/2024 13:29:30 01/15/20 24 01/15/2024 CBC W Auto Diffe renti al panel - Blood MCV [entitic mean volume] in red blood cells 83.6 text: 81.0 - 99.0 fL MCV 83.6 81.0 - 99.0 FL 01/14 8:05 PM CDT [facility] Not Available Not Available 07/17/2024 13:29:30 01/15/2001/15/2024 CBC W Auto Diffe renti al panel - Blood MCH [entitic mass] 24.4 pg low: 27pghi gh: 31pg low MCH 24.4 (L) 27.0 - 31.0 PG 01/14 8:05 PM CDT [facility] Not Available Not Available 07/17/2024 13:29:30 01/15/20 24 01/15/2024 CBC W Auto Diffe renti al panel - Blood MCHC [entitic mass/volume] in red blood cells 29.2 text: 32.0 - 36.0 g/dL low MCHC 29.2 (L) 32.0 - 36.0 G/DL 01/14 8:05 PM CDT [facility] Not Available Not Available 07/17/2024 13:29:30 01/15/2001/15/2024 CBC W Auto Diffe renti al panel - Blood RDW 14.4 % low: 11.5%h igh: 14.5% RDW 14.4 11.5 - 14.5 % 01/14 8:05 PM CDT [facility] Not Available Not Available 07/17/2024 13:29:30 01/15/20 24 01/15/2024 CBC W Auto Diffe renti al panel - Blood platelets [#/volume] in blood 157 text: 130 - 400 x10'3/ uL PLT 157 130 - 400 x10'3 /uL 01/14 8:05 PM CDT [facility] Not Available Not Available 07/17/2024 13:29:30 01/15/20 24 01/15/2024 CBC W Auto Diffe renti al panel - Blood platelet [entitic mean volume] in blood 10.5 text: 9.3 - 12.2 fL MPV 10.5 9.3 - 12.2 FL 01/14 8:05 PM CDT [facility] Not Available Not Available 07/17/2024 13:29:30 01/15/20 24 01/15/2024 CBC W Auto Diffe renti al panel - Blood differential cell count method - blood AUTOMA ARLETH DIFFER ENTIAL DIFFE RENTI AL TYPE AUTOM ATED DIFFE RENTI AL 01/14 8:05 PM CDT [facility] Not Available Not Available 07/17/2024 13:29:30 01/15/20 24 01/15/2024 CBC W Auto Diffe renti al panel - Blood neutrophils/ leukocytes in blood by automated count 47.7 % NEUTR OPHIL S % 47.7 % 01/14 8:05 PM CDT [facility] Not Available Not Available 07/17/2024 13:29:30 01/15/20 24 01/15/2024 CBC W Auto Diffe renti al panel - Blood lymphocytes/ leukocytes in blood by automated count 34.9 % LYMPH OCYTE S % 34.9 % 01/14 8:05 PM CDT [facility] Not Available Not Available 07/17/2024 13:29:30 01/15/20 24 01/15/2024 CBC W Auto Diffe renti al panel - Blood monocytes/le ukocytes in blood by automated count 13.1 % MONOC YTES % 13.1 % 01/14 8:05 PM CDT [facility] Not Available Not Available 07/17/2024 13:29:30 01/15/20 24 01/15/2024 CBC W Auto Diffe renti al panel - Blood eosinophils/ leukocytes in blood by automated count 3.2 % EOSIN OPHIL S 3.2 % 01/14 8:05 PM CDT [facility] Not Available Not Available 07/17/2024 13:29:30 01/15/20 24 01/15/2024 CBC W Auto Diffe renti al panel - Blood basophils/le ukocytes in blood by automated count 0.8 % BASOP HILS 0.8 % 01/14 8:05 PM CDT [facility] Not Available Not Available 07/17/2024 13:29:30 01/15/20 24 01/15/2024 CBC W Auto Diffe renti al panel - Blood immature granulocytes /leukocytes in blood by automated count 0.3 % IMMAT URE GRANS % 0.3 % 01/14 8:05 PM CDT [facility] Not Available Not Available 07/17/2024 13:29:30 01/15/20 24 01/15/2024 CBC W Auto Diffe renti al panel - Blood neutrophils [#/volume] in blood 1.78 text: 1.80 - 7.70 x10'3/ uL low ABS. NEUTR OPHIL S 1.78 (L) 1.80 - 7.70 x10'3 /uL 01/14 8:05 PM CDT [facility] Not Available Not Available 07/17/2024 13:29:30 01/15/20 24 01/15/2024 CBC W Auto Diffe renti al panel - Blood lymphocytes [#/volume] in blood 1.3 text: 1.00 - 4.80 x10'3/ uL ABS. LYMPH OCYTE S 1.30 1.00 - 4.80 x10'3 /uL 01/14 8:05 PM CDT [facility] Not Available Not Available 07/17/2024 13:29:30 01/15/20 24 01/15/2024 CBC W Auto Diffe renti al panel - Blood monocytes [#/volume] in blood 0.49 text: 0.24 - 0.86 x10'3/ uL ABS. MONOC YTES 0.49 0.24 - 0.86 x10'3 /uL 01/14 8:05 PM CDT [facility] Not Available Not Available 07/17/2024 13:29:30 01/15/20 24 01/15/2024 CBC W Auto Diffe renti al panel - Blood eosinophils [#/volume] in blood 0.12 text: 0.04 - 0.36 x10'3/ uL ABS. EOSIN OPHIL S 0.12 0.04 - 0.36 x10'3 /uL 01/14 8:05 PM CDT [facility] Not Available Not Available 07/17/2024 13:29:30 01/15/20 24 01/15/2024 CBC W Auto Diffe renti al panel - Blood basophils [#/volume] in blood 0.03 text: 0.01 - 0.08 x10'3/ uL ABS. BASOP HILS 0.03 0.01 - 0.08 x10'3 /uL 01/14 8:05 PM CDT [facility] Not Available Not Available 07/17/2024 13:29:30 01/15/20 24 01/15/2024 CBC W Auto Diffe renti al panel - Blood immature granulocytes [#/volume] in blood 0.01 text: 0.00 - 0.49 x10'3/ uL ABS. IMMAT URE GRANU LOCYT ES 0.01 0.00 - 0.49 x10'3 /uL 01/14 8:05 PM CDT [facility] Not Available Not Available 07/17/2024 13:29:30 01/15/20 24 01/15/2024 CBC W Auto Diffe renti al panel - Blood interpretati on and review of laboratory results ABNORM AL Not Available Not Available 13:29:30 02/04/20 24 02/04/2024 HEMOG LOBIN A1C hemoglobin A1C 5.5 % 4.8-5. 6 DORITA L RANGE BASED ON CYNTHIA COL 2 (DCCT /NGSP ): Non-D iabet ic: < 5.7% Pre-D iabet es: 5.7 - 6.4% Diabe kana: => 6.5% GLYCE SOL CONTR OL: < 7.0% Not Available [facility] [address] [facility] [address], [place], [address], 02/05/2024 13:00:05 02/04/2002/04/2024 HEMOG LOBIN A1C estimated average glucose 110 Not Available [facility] [address], [place], [address], 02/05/2024 13:00:05 02/04/2002/04/2024 CBC WITH AUTO- DIFFE RENTI AL WBC 3.1 10*3/ uL 3.4-10 .8 low Not Available [facility] [address], [place], [address], 02/05/2024 13:00:06 02/04/2002/04/2024 CBC WITH AUTO- DIFFE RENTI AL RBC 3.46 10*6/ uL 3.80-5 .30 low Not Available [facility] [address] [facility] [address], [place], [address], 02/05/2024 13:00:06 02/04/2002/04/2024 CBC WITH AUTO- DIFFE RENTI AL HGB 8.3 g/dL 11.1-1 5.9 low Not Available [facility] [address], [place], [address], 02/05/2024 13:00:06 02/04/2002/04/2024 CBC WITH AUTO- DIFFE RENTI AL HCT 28.4 % 34.0-4 6.6 low Not Available [facility] [address] [facility] [address], [place], [address], 02/05/2024 13:00:06 02/04/20 24 02/04/2024 CBC WITH AUTO- DIFFE RENTI AL MCV 82 fL 79-97 Not Available [facility] [address], [place], [address], 02/05/2024 13:00:06 02/04/20 24 02/04/2024 CBC WITH AUTO- DIFFE RENTI AL MCH 24.0 pg 26.6-3 3.0 low Not Available [facility] [address], [place], [address], 02/05/2024 13:00:06 02/04/20 24 02/04/2024 CBC WITH AUTO- DIFFE RENTI AL MCHC 29.2 g/dL 31.5-3 5.7 low Not Available [facility] [address], [place], [address], 02/05/2024 13:00:06 02/04/20 24 02/04/2024 CBC WITH AUTO- DIFFE RENTI AL RDW 15.5 % 11.5-1 4.5 high Not Available [facility] [address], [place], [address], 02/05/2024 13:00:06 02/04/20 24 02/04/2024 CBC WITH AUTO- DIFFE RENTI AL platelets 148 10*3/ uL 150-40 0 low Not Available [facility] [address], [place], [address], 02/05/2024 13:00:06 02/04/20 24 02/04/2024 CBC WITH AUTO- DIFFE RENTI AL MPV 11 fL 9-13 Not Available [facility] [address], [place], [address], 02/05/2024 13:00:06 02/04/20 24 02/04/2024 CBC WITH AUTO- DIFFE RENTI AL neutrophils 44.6 % 40.0-7 4.0 Not Available [facility] [address] [facility] [address], [place], [address], 02/05/2024 13:00:06 02/04/20 24 02/04/2024 CBC WITH AUTO- DIFFE RENTI AL absolute neutrophils 1.40 10*3/ uL 1.40-7 .00 Not Available [facility] [address] [facility] [address], [place], [address], 02/05/2024 13:00:06 02/04/20 24 02/04/2024 CBC WITH AUTO- DIFFE RENTI AL lymphocytes 38.5 % 14.0-4 6.0 Not Available [facility] [address] [facility] [address], [place], [address], 02/05/2024 13:00:06 02/04/20 24 02/04/2024 CBC WITH AUTO- DIFFE RENTI AL absolute lymphocytes 1.21 10*3/ uL 0.70-3 .10 Not Available [facility] [address] [facility] [address], [place], [address], 02/05/2024 13:00:06 02/04/20 24 02/04/2024 CBC WITH AUTO- DIFFE RENTI AL monocytes 12.1 % 4.0-12 .0 high Not Available [facility] [address] [facility] [address], [place], [address], 02/05/2024 13:00:06 02/04/20 24 02/04/2024 CBC WITH AUTO- DIFFE RENTI AL absolute monocytes 0.38 10*3/ uL 0.10-0 .90 Not Available [facility] [address] [facility] [address], [place], [address], 02/05/2024 13:00:06 02/04/20 24 02/04/2024 CBC WITH AUTO- DIFFE RENTI AL eosinophils 3.5 % 0.0-5. 0 Not Available [facility] [address], [place], [address], 02/05/2024 13:00:06 02/04/20 24 02/04/2024 CBC WITH AUTO- DIFFE RENTI AL absolute eosinophils 0.11 10*3/ uL 0.00-0 .40 Not Available [facility] [address] [facility] [address], [place], [address], 02/05/2024 13:00:06 02/04/20 24 02/04/2024 CBC WITH AUTO- DIFFE RENTI AL basophils 1.0 % 0.0-3. 0 Not Available [facility] [address] [facility] [address], [place], [address], 02/05/2024 13:00:06 02/04/20 24 02/04/2024 CBC WITH AUTO- DIFFE RENTI AL absolute basophils 0.03 10*3/ uL 0.00-0 .20 Not Available [facility] [address] [facility] [address], [place], [address], 02/05/2024 13:00:06 02/04/20 24 02/04/2024 CBC WITH AUTO- DIFFE RENTI AL imm. gran. 0.3 % 0.0-2. 0 Not Available [facility] [address] [facility] [address], [place], [address], 02/05/2024 13:00:06 02/04/20 24 02/04/2024 CBC WITH AUTO- DIFFE RENTI AL abs. imm. gran. 0.01 10*3/ uL 0.00-0 .10 Not Available [facility] [address] [facility] [address], [place], [address], 02/05/2024 13:00:06 02/04/20 24 02/04/2024 COMPR EHENS JAMEEL METAB OLIC PANEL sodium 141 mmol/ L 134-14 4 Not Available [facility] [address] [facility] [address], [place], [address], 02/05/2024 13:00:07 02/04/20 24 02/04/2024 COMPR EHENS JAMEEL METAB OLIC PANEL potassium 4.4 mmol/ L 3.5-5. 2 Not Available [facility] [address] [facility] [address], [place], [address], 02/05/2024 13:00:07 02/04/20 24 02/04/2024 COMPR EHENS JAMEEL METAB OLIC PANEL chloride 103 mmol/ L 98-107 Not Available [facility] [address] [facility] [address], [place], [address], 02/05/2024 13:00:07 02/04/20 24 02/04/2024 COMPR EHENS JAMEEL METAB OLIC PANEL carbon dioxide (co2) 27.0 mmol/ L 18.0-2 9.0 Not Available [facility] [address] [facility] [address], [place], [address], 02/05/2024 13:00:07 02/04/20 24 02/04/2024 COMPR EHENS JAMEEL METAB OLIC PANEL glucose 106 mg/dL 65-99 high Dorita l Fasti n - 99 mg/dL Impai red Fasti n - 125 mg/dL Diagn ostic of Diabe kana: => 126 mg/dL Ameri can Diabe kana Ass[facility] iatio n, 2007 Not Available [facility] [address] [facility] [address], [place], [address], 02/05/2024 13:00:07 02/04/20 24 02/04/2024 COMPR EHENS JAMEEL METAB OLIC PANEL urea nitrogen (BUN) 17 mg/dL 8-23 Not Available [facility] [address] [facility] [address], [place], [address], 02/05/2024 13:00:07 02/04/20 24 02/04/2024 COMPR EHENS JAMEEL METAB OLIC PANEL creatinine 0.83 mg/dL 0.57-1 .00 Not Available [facility] [address] [facility] [address], [place], [address], 02/05/2024 13:00:07 02/04/20 24 02/04/2024 COMPR EHENS JAMEEL METAB OLIC PANEL eGFR 68 mL/mi nute/ 1.73_ m2 >59 MDRD Study Equat ion: The calcu lated GFR is NOT appli cable for pedia tric (< 18 years old) and > 70 year old patie nts and patie nts that are NOT of stead [place] state . Not Available [facility] [address] [facility] [address], [place], [address], 02/05/2024 13:00:07 02/04/20 24 02/04/2024 COMPR EHENS JAMEEL METAB OLIC PANEL calcium 8.9 mg/dL 8.7-10 .3 Not Available [facility] [address] [facility] [address], [place], [address], 02/05/2024 13:00:07 02/04/20 24 02/04/2024 COMPR EHENS JAMEEL METAB OLIC PANEL protein, total 6.6 gm/dL 6.4-8. 3 Not Available [facility] [address] [facility] [address], [place], [address], 02/05/2024 13:00:07 02/04/20 24 02/04/2024 COMPR EHENS JAMEEL METAB OLIC PANEL albumin 4.1 gm/dL 3.5-5. 2 Not Available [facility] [address] [facility] [address], [place], [address], 02/05/2024 13:00:07 02/04/20 24 02/04/2024 COMPR EHENS JAMEEL METAB OLIC PANEL bilirubin, total 0.30 mg/dL 0.00-1 .20 Not Available [facility] [address] [facility] [address], [place], [address], 02/05/2024 13:00:07 02/04/20 24 02/04/2024 COMPR EHENS JAMEEL METAB OLIC PANEL alkaline phosphatase (ALP) 48 U/L 39-117 Not Available [facility] [address] [facility] [address], [place], [address], 02/05/2024 13:00:07 02/04/20 24 02/04/2024 COMPR EHENS JAMEEL METAB OLIC PANEL aspartate aminotransfe rase (AST) 13 U/L 0-32 Not Available [facility] [address] [facility] [address], [place], [address], 02/05/2024 13:00:07 02/04/20 24 02/04/2024 COMPR EHENS JAMEEL METAB OLIC PANEL alanine aminotransfe rase (ALT) 6 U/L 0-33 Not Available [facility] [address] [facility] [address], [place], [address], 02/05/2024 13:00:07 02/04/20 24 02/04/2024 COMPR EHENS JAMEEL METAB OLIC PANEL A/G ratio (calculated) 1.6 ratio 1.0-2. 7 Not Available [facility] [address] [facility] [address], [place], [address], 02/05/2024 13:00:07 02/04/20 24 02/04/2024 COMPR EHENS JAMEEL METAB OLIC PANEL globulin (calculated) 2.5 gm/dL 1.5-3. 8 Not Available [place] [address] [facility] [address], [place], [address], 02/05/2024 13:00:07 02/04/20 24 02/04/2024 COMPR EHENS JAMEEL METAB OLIC PANEL BUN/creatini ne ratio (calculated) 20.5 ratio 8.0-20 .0 high Not Available [address], [place], [address], 02/05/2024 13:00:07 02/04/20 24 02/04/2024 COMPR EHENS JAMEEL METAB OLIC PANEL serum hemolysis index NORMAL index normal Not Available [facility] [address], [place], [address], 02/05/2024 13:00:07 06/12/19 25 06/11/2024 CBC WITH AUTO- DIFFE RENTI AL WBC 3.1 10*3/ uL 3.4-10 .8 low Not Available [facility] [address], [place], [address], 06/12/2024 13:04:42 06/12/19 25 06/11/2024 CBC WITH AUTO- DIFFE RENTI AL RBC 3.53 10*6/ uL 3.80-5 .30 low Not Available [facility] [address], [place], [address], 06/12/2024 13:04:42 06/12/19 25 06/11/2024 CBC WITH AUTO- DIFFE RENTI AL HGB 8.7 g/dL 11.1-1 5.9 low Not Available [facility] [address], [place], [address], 06/12/2024 13:04:42 06/12/19 25 06/11/2024 CBC WITH AUTO- DIFFE RENTI AL HCT 29.3 % 34.0-4 6.6 low Not Available [facility] [address], [place], [address], 06/12/2024 13:04:42 06/12/19 25 06/11/2024 CBC WITH AUTO- DIFFE RENTI AL MCV 83 fL 79-97 Not Available [facility] [address], [place], [address], 06/12/2024 13:04:42 06/12/19 25 06/11/2024 CBC WITH AUTO- DIFFE RENTI AL MCH 24.6 pg 26.6-3 3.0 low Not Available [facility] [address], [place], [address], 06/12/2024 13:04:42 06/12/19 25 06/11/2024 CBC WITH AUTO- DIFFE RENTI AL MCHC 29.7 g/dL 31.5-3 5.7 low Not Available [facility] [address], [place], [address], 06/12/2024 13:04:42 06/12/19 25 06/11/2024 CBC WITH AUTO- DIFFE RENTI AL RDW 16.8 % 11.5-1 4.5 high Not Available [facility] [address] [facility] [address], [place], [address], 06/12/2024 13:04:42 06/12/19 25 06/11/2024 CBC WITH AUTO- DIFFE RENTI AL platelets 136 10*3/ uL 150-40 0 low Not Available [facility] [address], [place], [address], 06/12/2024 13:04:42 06/12/19 25 06/11/2024 CBC WITH AUTO- DIFFE RENTI AL MPV 11 fL 9-13 Not Available [facility] [address] [facility] [address], [place], [address], 06/12/2024 13:04:42 06/12/19 25 06/11/2024 CBC WITH AUTO- DIFFE RENTI AL neutrophils 43.2 % 40.0-7 4.0 Not Available [facility] [address], [place], [address], 06/12/2024 13:04:42 06/12/19 25 06/11/2024 CBC WITH AUTO- DIFFE RENTI AL absolute neutrophils 1.33 10*3/ uL 1.40-7 .00 low Not Available [facility] [address] [facility] [address], [place], [address], 06/12/2024 13:04:42 06/12/19 25 06/11/2024 CBC WITH AUTO- DIFFE RENTI AL lymphocytes 36.4 % 14.0-4 6.0 Not Available [facility] [address] [facility] [address], [place], [address], 06/12/2024 13:04:42 06/12/19 25 06/11/2024 CBC WITH AUTO- DIFFE RENTI AL absolute lymphocytes 1.12 10*3/ uL 0.70-3 .10 Not Available [facility] [address] [facility] [address], [place], [address], 06/12/2024 13:04:42 06/12/19 25 06/11/2024 CBC WITH AUTO- DIFFE RENTI AL monocytes 14.9 % 4.0-12 .0 high Not Available [facility] [address] [facility] [address], [place], [address], 06/12/2024 13:04:42 06/12/19 25 06/11/2024 CBC WITH AUTO- DIFFE RENTI AL absolute monocytes 0.46 10*3/ uL 0.10-0 .90 Not Available [facility] [address] [facility] [address], [place], [address], 06/12/2024 13:04:42 06/12/19 25 06/11/2024 CBC WITH AUTO- DIFFE RENTI AL eosinophils 4.2 % 0.0-5. 0 Not Available [facility] [address] [facility] [address], [place], [address], 06/12/2024 13:04:42 06/12/19 25 06/11/2024 CBC WITH AUTO- DIFFE RENTI AL absolute eosinophils 0.13 10*3/ uL 0.00-0 .40 Not Available [facility] [address] [facility] [address], [place], [address], 06/12/2024 13:04:42 06/12/19 25 06/11/2024 CBC WITH AUTO- DIFFE RENTI AL basophils 1.0 % 0.0-3. 0 Not Available [facility] [address] [facility] [address], [place], [address], 06/12/2024 13:04:42 06/12/19 25 06/11/2024 CBC WITH AUTO- DIFFE RENTI AL absolute basophils 0.03 10*3/ uL 0.00-0 .20 Not Available [facility] [address] [facility] [address], [place], [address], 06/12/2024 13:04:42 06/12/19 25 06/11/2024 CBC WITH AUTO- DIFFE RENTI AL imm. gran. 0.3 % 0.0-2. 0 Not Available [facility] [address] [facility] [address], [place], [address], 06/12/2024 13:04:42 06/12/19 25 06/11/2024 CBC WITH AUTO- DIFFE RENTI AL abs. imm. gran. 0.01 10*3/ uL 0.00-0 .10 Not Available [facility] [address] [facility] [address], [place], [address], 06/12/2024 13:04:42 06/12/19 25 06/11/2024 COMPR EHENS JAMEEL METAB OLIC PANEL sodium 140 mmol/ L 134-14 4 Not Available [facility] [address] [facility] [address], [place], [address], 06/12/2024 13:04:43 06/12/19 25 06/11/2024 COMPR EHENS JAMEEL METAB OLIC PANEL potassium 4.2 mmol/ L 3.5-5. 2 Not Available [facility] [address] [facility] [address], [place], [address], 06/12/2024 13:04:43 06/12/19 25 06/11/2024 COMPR EHENS JAMEEL METAB OLIC PANEL chloride 101 mmol/ L 98-107 Not Available [facility] [address], [place], [address], 06/12/2024 13:04:43 06/12/19 25 06/11/2024 COMPR EHENS JAMEEL METAB OLIC PANEL carbon dioxide (co2) 31.0 mmol/ L 18.0-2 9.0 high Not Available [facility] [address], [place], [address], 06/12/2024 13:04:43 06/12/19 25 06/11/2024 COMPR EHENS JAMEEL METAB OLIC PANEL glucose 117 mg/dL 65-99 high Dorita l Fasti n - 99 mg/dL Impai red Fasti n - 125 mg/dL Diagn ostic of Diabe kana: => 126 mg/dL Ameri can [facility] kana [employer] iatio n, 2008 Not Available [facility] [address], [place], [address], 06/12/2024 13:04:43 06/12/19 25 06/11/2024 COMPR EHENS JAMEEL METAB OLIC PANEL urea nitrogen (BUN) 24 mg/dL 8-23 high Not Available [facility] [address] [facility] [address], [place], [address], 06/12/2024 13:04:43 06/12/19 25 06/11/2024 COMPR EHENS JAMEEL METAB OLIC PANEL creatinine 0.89 mg/dL 0.57-1 .00 Not Available [facility] [address] [facility] [address], [place], [address], 06/12/2024 13:04:43 06/12/19 25 06/11/2024 COMPR EHENS JAMEEL METAB OLIC PANEL eGFR 62 mL/mi nute/ 1.73_ m2 >59 MDRD Study Equat ion: The calcu lated GFR is NOT appli cable for pedia tric (< 18 years old) and > 70 year old patie nts and patie nts that are NOT of stead [place] state . Not Available [facility] [address] [facility] [address], [place], [address], 06/12/2024 13:04:43 06/12/19 25 06/11/2024 COMPR EHENS JAMEEL METAB OLIC PANEL calcium 8.7 mg/dL 8.7-10 .3 Not Available [facility] [address] [facility] [address], [place], [address], 06/12/2024 13:04:43 06/12/19 25 06/11/2024 COMPR EHENS JAMEEL METAB OLIC PANEL protein, total 6.9 gm/dL 6.4-8. 3 Not Available [facility] [address] [facility] [address], [place], [address], 06/12/2024 13:04:43 06/12/19 25 06/11/2024 COMPR EHENS JAMEEL METAB OLIC PANEL albumin 4.2 gm/dL 3.5-5. 2 Not Available [facility] [address] [facility] [address], [place], [address], 06/12/2024 13:04:43 06/12/19 25 06/11/2024 COMPR EHENS JAMEEL METAB OLIC PANEL bilirubin, total 0.30 mg/dL 0.00-1 .20 Not Available [facility] [address] [facility] [address], [place], [address], 06/12/2024 13:04:43 06/12/19 25 06/11/2024 COMPR EHENS JAMEEL METAB OLIC PANEL alkaline phosphatase (ALP) 48 U/L 39-117 Not Available [facility] [address] [facility] [address], [place], [address], 06/12/2024 13:04:43 06/12/19 25 06/11/2024 COMPR EHENS JAMEEL METAB OLIC PANEL aspartate aminotransfe rase (AST) 13 U/L 0-32 Not Available [facility] [address] [facility] [address], [place], [address], 06/12/2024 13:04:43 06/12/19 25 06/11/2024 COMPR EHENS JAMEEL METAB OLIC PANEL alanine aminotransfe rase (ALT) 6 U/L 0-33 Not Available [facility] [address] [facility] [address], [place], [address], 06/12/2024 13:04:43 06/12/19 25 06/11/2024 COMPR EHENS JAMEEL METAB OLIC PANEL A/G ratio (calculated) 1.6 ratio 1.0-2. 7 Not Available [facility] [address] [facility] [address], [place], [address], 06/12/2024 13:04:43 06/12/19 25 06/11/2024 COMPR EHENS JAMEEL METAB OLIC PANEL globulin (calculated) 2.7 gm/dL 1.5-3. 8 Not Available [facility] [address] [facility] [address], [place], [address], 06/12/2024 13:04:43 06/12/19 25 06/11/2024 COMPR EHENS JAMEEL METAB OLIC PANEL BUN/creatini ne ratio (calculated) 27.0 ratio 8.0-20 .0 high Not Available [facility] [address] [facility] [address], [place], [address], 06/12/2024 13:04:43 06/12/19 25 06/11/2024 COMPR EHENS JAMEEL METAB OLIC PANEL serum index hemolysis NORMAL index normal Not Available [facility] [address] [facility] [address], [place], [address], 06/12/2024 13:04:43 06/12/19 25 06/11/2024 FOLAT E, SERUM folate 20.0 NG/mL 3.1-20 .0 REFER ENCE RANGE : Dorita l: > 3.0 ng/mL Inter media te: 2.2 - 3.0 ng/mL Defic ient: < 2.2 ng/mL Not Available [facility] [address], [place], [address], 06/12/2024 13:04:43 06/12/19 25 06/11/2024 LIPID PANEL W/ LDL MARIBELL STERO L DIREC T cholesterol, total 111 mg/dL 100-19 9 Not Available [facility] [address] [facility] [address], [place], [address], 06/12/2024 13:04:44 06/12/19 25 06/11/2024 LIPID PANEL W/ LDL MARIBELL STERO L DIREC T HDL cholesterol 63 mg/dL =>40 Not Available [facility] [address] [facility] [address], [place], [address], 06/12/2024 13:04:44 06/12/19 25 06/11/2024 LIPID PANEL W/ LDL MARIBELL STERO L DIREC T LDL cholesterol (direct) 33 mg/dL 0-99 Not Available [facility] [address] [facility] [address], [place], [address], 06/12/2024 13:04:44 06/12/19 25 06/11/2024 LIPID PANEL W/ LDL MARIBELL STERO L DIREC T triglyceride s 86 mg/dL 50-149 Not Available [facility] [address] [facility] [address], [place], [address], 06/12/2024 13:04:44 06/12/19 25 06/11/2024 LIPID PANEL W/ LDL MARIBELL STERO L DIREC T VLDL cholesterol (calculated) 17 mg/dL 5-40 Not Available [facility] [address] [facility] [address], [place], [address], 06/12/2024 13:04:44 06/12/19 25 06/11/2024 LIPID PANEL W/ LDL MARIBELL STERO L DIREC T chol/HDL ratio (calculated) 1.76 ratio 0.00-5 .00 Not Available [facility] [address], [place], [address], 06/12/2024 13:04:44 06/12/19 25 06/11/2024 LIPID PANEL W/ LDL MARIBELL STERO L DIREC T LDL/HDL ratio (calculated) 0.52 ratio 0.00-3 .60 LDL/H DL Ratio Male Femal e 1/2 Avg. Risk 1.0 1.5 Avg. Risk 3.6 3.2 2x Avg. Risk 6.2 5.0 3x Avg. Risk 8.0 6.1 Not Available [facility] [address], [place], [address], 06/12/2024 13:04:44 06/12/19 25 06/11/2024 MAGNE SIUM magnesium 1.6 mg/dL 1.6-2. 6 Not Available [facility] [address] [facility] [address], [place], [address], 06/12/2024 13:04:44 06/12/19 25 06/11/2024 VITAM IN B12 vitamin B12 >2000 pg/mL 232-12 45 high Not Available [facility] [address] [facility] [address], [place], [address], 06/12/2024 13:04:45 06/24/19 25 06/24/2024 Immun oglob [...] Not Available 11:58:08 06/24/19 25 06/23/2024 Compr [employer] 1999 panel - Serum or Plasm a glucose [mass/volume ] in serum or plasma 128 mg/dL low: 70mg/d Lhigh: 105mg/ dL high Not Available Not Available 09/11/2024 11:58:08 06/24/19 25 06/23/2024 Compr [employer] 1999 panel - Serum or Plasm a urea nitrogen [mass/volume ] in serum or plasma 20 mg/dL low: 7mg/dL high: 25mg/d L Not Available Not Available 09/11/2024 11:58:08 06/24/19 25 06/23/2024 Compr [employer] olic 2000 panel - Serum or Plasm a creatinine [mass/volume ] in serum or plasma 0.7 mg/dL low: 0.6mg/ dLhigh : 1.2mg/ dL Not Available Not Available 09/11/2024 11:58:08 06/24/19 25 06/23/2024 Compr [employer] 1999 panel - Serum or Plasm a sodium [moles/volum e] in serum or plasma 141 text: 136 - 145 mEq/L Not Available Not Available 09/11/2024 11:58:08 06/24/19 25 06/23/2024 Compr [employer] jameel [employer] olic 2000 panel - Serum or Plasm a potassium [moles/volum e] in serum or plasma 4.3 text: 3.5 - 5.1 mEq/L Not Available Not Available 09/11/2024 11:58:08 06/24/19 25 06/23/2024 [facility] panel - Serum or Plasm a chloride [moles/volum e] in serum or plasma 103 text: 98 - 107 mEq/L Not Available Not Available 09/11/2024 11:58:08 06/24/19 25 06/23/2024 [facility] 1999 panel - Serum or Plasm a bicarbonate [moles/volum e] in serum or plasma 31 text: 21 - 31 mEq/L Not Available Not Available 09/11/2024 11:58:08 06/24/19 25 06/23/2024 [facility] 1999 panel - Serum or Plasm a bilirubin.to jenn [mass/volume ] in serum or plasma 0.4 mg/dL low: 0.3mg/ dLhigh : 1mg/dL Not Available Not Available 09/11/2024 11:58:08 06/24/19 25 06/23/2024 [facility] 1999 panel - Serum or Plasm a alkaline phosphatase [enzymatic activity/vol ume] in serum or plasma 40 U/L low: 34U/Lh igh: 104U/L Not Available Not Available 09/11/2024 11:58:08 06/24/19 25 06/23/2024 [facility] 1999 panel - Serum or Plasm a aspartate aminotransfe rase [enzymatic activity/vol ume] in serum or plasma 13 U/L low: 13U/Lh igh: 39U/L Not Available Not Available 09/11/2024 11:58:08 06/24/19 25 06/23/2024 [facility] 1999 panel - Serum or Plasm a alanine aminotransfe rase [enzymatic activity/vol ume] in serum or plasma 7 U/L low: 7U/Lhi gh: 52U/L Not Available Not Available 09/11/2024 11:58:08 06/24/19 25 06/23/2024 [facility] 1999 panel - Serum or Plasm a protein [mass/volume ] in serum or plasma 6.6 g/dL low: 6.4g/d Lhigh: 8.9g/d L Not Available Not Available 09/11/2024 11:58:08 06/24/19 25 06/23/2024 [facility] 1999 panel - Serum or Plasm a albumin [mass/volume ] in serum or plasma by bromocresol green (bcg) dye binding method 4.1 g/dL low: 3.5g/d Lhigh: 5.7g/d L Not Available Not Available 09/11/2024 11:58:08 06/24/19 25 06/23/2024 [facility] 1999 panel - Serum or Plasm a calcium [mass/volume ] in serum or plasma 9.3 mg/dL low: 8.6mg/ dLhigh : 10.3mg /dL Not Available Not Available 09/11/2024 11:58:08 06/24/19 25 06/23/2024 [facility] 1999 panel - Serum or Plasm a anion gap in serum or plasma by calculated.4 ions 11.3 text: 7.0 - 15.0 mEq/L Not Available Not Available 09/11/2024 11:58:08 06/24/19 25 06/23/2024 [facility] 1999 panel - Serum or Plasm a globulin [mass/volume ] in serum by calculation 2.5 g/dL low: 2g/dLh igh: 3.5g/d L Not Available Not Available 09/11/2024 11:58:08 06/24/19 25 06/23/2024 [place] [id number] panel - Serum or Plasm a eGFR [...] Analyte TESTIN G PERFOR MED AT: [BN] GLENNA Berumen [facility], [address] [place] [address], [phone], PHONE: , [facility] DIRECT OR: FAREED SAENZ RA, MD TEST(S ) [id number] -COPPE R, SERUM OR PLASMA WAS DEVELO [...] Available Not Available 11:58:08 09/05/19 25 09/04/2024 Shiloh tin [Mass /volu me] in Serum or Plasm a ferritin [mass/volume ] in serum or plasma 49 NG/mL low: 11NG/m Lhigh: 307NG/ mL Not Available Not Available 09/11/2024 11:58:08 09/05/19 25 09/04/2024 Shiloh tin [Mass /volu me] in Serum or [...] l Diffe renti al panel - Blood platelets [#/volume] in blood by automated count 103 10*3/ uL low: 77274* 3/uLhi gh: 25589* 3/uL low Not Available Not Available 09/11/2024 [...] ABNORM AL Not Available Not Available 11:58:08 11/07/19 25 11/07/2024 Shiloh tin [Mass /volu me] in Serum or Plasm a ferritin [mass/volume ] in serum or plasma 44 NG/mL low: 11NG/m Lhigh: 307NG/ mL Not Available Not Available 11/12/2024 19:45:28 11/07/19 25 11/07/2024 Shiloh tin [Mass /volu me] in Serum or Plasm a no coding or coding display name was found RELEAS E TO PATIEN T->IMM EDIATE Not Available Not Available 19:45:28 11/07/19 25 11/06/2024 Iron and Iron rickey ng capac ity panel - Serum or Plasm a iron [mass/volume ] in serum or plasma 70 ug/dL low: 50ug/d Lhigh: 212ug/ dL Not Available Not Available 11/12/2024 19:45:28 11/07/19 25 11/06/2024 Iron and Iron rickey ng capac ity panel - Serum or Plasm a iron binding capacity.uns aturated [mass/volume ] in serum or plasma 225 ug/dL low: 155ug/ dLhigh : 355ug/ dL Not Available Not Available 11/12/2024 19:45:28 11/07/19 25 11/06/2024 Iron and Iron rickey ng capac ity panel - Serum or Plasm a iron binding capacity [mass/volume ] in serum or plasma 295 ug/dL low: 261ug/ dLhigh : 478ug/ dL Not Available Not Available 11/12/2024 19:45:28 11/07/1911/06/2024 Iron and Iron rickey ng capac ity panel - Serum or Plasm a iron saturation [mass fraction] in serum or plasma 24 % low: 20%hig h: 50% Not Available Not Available 11/12/2024 19:45:28 11/07/1911/06/2024 Iron and Iron rickey ng capac ity panel - Serum or Plasm a no coding or coding display name was found RELEAS E TO PATIEN T->IMM EDIATE Not Available Not Available 19:45:28 11/07/1911/06/2024 Lacta te dehyd rogen ase [Enzy matic activ ity/v olume ] in Serum or Plasm a by Lacta te to pyruv ate react ion lactate dehydrogenas e [enzymatic activity/vol ume] in serum or plasma by lactate to pyruvate reaction 149 U/L low: 140U/L high: 271U/L Not Available Not Available 11/12/2024 19:45:28 11/07/19 25 11/06/2024 Lacta te dehyd rogen ase [Enzy matic activ ity/v olume ] in Serum or Plasm a by Lacta te to pyruv ate react ion no coding or coding display name was found RELEAS E TO PATIEN T->IMM EDIATE Not Available Not Available 19:45:28 11/07/19 25 11/06/2024 Compr ehens jameel metab olic 2000 panel - Serum or Plasm a glucose [mass/volume ] in serum or plasma 179 mg/dL low: 70mg/d Lhigh: 105mg/ dL high Not Available Not Available 11/12/2024 19:45:28 11/07/19 25 11/06/2024 Compr ehens jameel metab olic 2000 panel - Serum or Plasm a urea nitrogen [mass/volume ] in serum or plasma 22 mg/dL low: 7mg/dL high: 25mg/d L Not Available Not Available 11/12/2024 19:45:28 11/07/19 25 11/06/2024 Compr ehens jameel metab olic 2000 panel - Serum or Plasm a creatinine [mass/volume ] in serum or plasma 0.9 mg/dL low: 0.6mg/ dLhigh : 1.2mg/ dL Not Available Not Available 11/12/2024 19:45:28 11/07/19 25 11/06/2024 Compr ehens jameel metab olic 2000 panel - Serum or Plasm a sodium [moles/volum e] in serum or plasma 140 text: 136 - 145 mEq/L Not Available Not Available 11/12/2024 19:45:28 11/07/19 25 11/06/2024 Compr ehens jameel metab olic 2000 panel - Serum or Plasm a potassium [moles/volum e] in serum or plasma 4 text: 3.5 - 5.1 mEq/L Not Available Not Available 11/12/2024 19:45:28 11/07/19 25 11/06/2024 Compr ehens jameel metab olic 2000 panel - Serum or Plasm a chloride [moles/volum e] in serum or plasma 103 text: 98 - 107 mEq/L Not Available Not Available 11/12/2024 19:45:28 11/07/19 25 11/06/2024 Compr ehens jameel metab olic 2000 panel - Serum or Plasm a bicarbonate [moles/volum e] in serum or plasma 29 text: 21 - 31 mEq/L Not Available Not Available 11/12/2024 19:45:28 11/07/19 25 11/06/2024 Compr ehens jameel metab olic 2000 panel - Serum or Plasm a bilirubin.to jenn [mass/volume ] in serum or plasma 0.6 mg/dL low: 0.3mg/ dLhigh : 1mg/dL Not Available Not Available 11/12/2024 19:45:28 11/07/19 25 11/06/2024 [facility] panel - Serum or Plasm a alkaline phosphatase [enzymatic activity/vol ume] in serum or plasma 42 U/L low: 34U/Lh igh: 104U/L Not Available Not Available 11/12/2024 19:45:28 11/07/19 25 11/06/2024 [facility] 1999 panel - Serum or Plasm a aspartate aminotransfe rase [enzymatic activity/vol ume] in serum or plasma 15 U/L low: 13U/Lh igh: 39U/L Not Available Not Available 11/12/2024 19:45:28 11/07/19 25 11/06/2024 [facility] panel - Serum or Plasm a alanine aminotransfe rase [enzymatic activity/vol ume] in serum or plasma 12 U/L low: 7U/Lhi gh: 52U/L Not Available Not Available 11/12/2024 19:45:28 11/07/19 25 11/06/2024 [facility] 1999 panel - Serum or Plasm a protein [mass/volume ] in serum or plasma 6.7 g/dL low: 6.4g/d Lhigh: 8.9g/d L Not Available Not Available 11/12/2024 19:45:28 11/07/19 25 11/06/2024 [facility] 1999 panel - Serum or Plasm a albumin [mass/volume ] in serum or plasma by bromocresol green (bcg) dye binding method 4.2 g/dL low: 3.5g/d Lhigh: 5.7g/d L Not Available Not Available 11/12/2024 19:45:28 11/07/19 25 11/06/2024 [facility] 1999 panel - Serum or Plasm a calcium [mass/volume ] in serum or plasma 9.2 mg/dL low: 8.6mg/ dLhigh : 10.3mg /dL Not Available Not Available 11/12/2024 19:45:28 11/07/19 25 11/06/2024 [facility] 1999 panel - Serum or Plasm a anion gap in serum or plasma by calculated.4 ions 12 text: 7.0 - 15.0 mEq/L Not Available Not Available 11/12/2024 19:45:28 11/07/1911/06/2024 Compr ehens jameel metab olic 2000 panel - Serum or Plasm a globulin [mass/volume ] in serum by calculation 2.5 g/dL low: 2g/dLh igh: 3.5g/d L Not Available Not Available 11/12/2024 19:45:28 11/07/19 25 11/06/2024 Compr ehens jameel metab olic 2000 panel - Serum or Plasm a eGFR 62 text: >60 mL/min /1.73m 2 This eGFR [...] 2 for males Not Available Not Available 11/12/2024 19:45:28 11/07/1911/06/2024 Compr ehens jameel metab olic 2000 panel - Serum or Plasm a no coding or coding display name was found RELEAS E TO PATIEN T->IMM EDIATE IS THE PATIEN T REQUIR ED TO BE FASTIN G FOR 8 HOURS? ->NO Not Available Not Available 19:45:28 11/07/19 25 11/06/2024 Compr ehens jameel metab olic 2000 panel - Serum or Plasm a interpretati on and review of laboratory results ABNORM AL Not Available Not Available 19:45:28 11/07/19 25 11/06/2024 CBC W Order ed Mary light al panel - Blood leukocytes [#/volume] in blood by automated count 2.6 10*3/ uL low: 410*3/ uLhigh : 1010*3 /uL low Not Available Not Available 11/12/2024 19:45:28 11/07/19 25 11/06/2024 CBC W Order ed Manua l Diffe renti al panel - Blood hemoglobin [mass/volume ] in blood 12.1 g/dL low: 11.2g/ dLhigh : 15.7g/ dL Not Available Not Available 11/12/2024 19:45:28 11/07/19 25 11/06/2024 CBC W Order ed Manua l Diffe renti al panel - Blood hematocrit [volume fraction] of blood by automated count 37.5 % low: 34.1%h igh: 44.9% Not Available Not Available 11/12/2024 19:45:28 11/07/19 25 11/06/2024 CBC W Order ed Manua l Diffe renti al panel - Blood platelets [#/volume] in blood by automated count 112 10*3/ uL low: 38466* 3/uLhi gh: 34540* 3/uL low Not Available Not Available 11/12/2024 19:45:28 11/07/19 25 11/06/2024 CBC W Order ed Manua l Diffe renti al panel - Blood platelet [entitic mean volume] in blood by automated count 9.5 fL low: 9.4fLh igh: 12.4fL Not Available Not Available 11/12/2024 19:45:28 11/07/19 25 11/06/2024 CBC W Order ed Manua l Diffe renti al panel - Blood erythrocytes [#/volume] in blood by automated count 3.8 10*6/ uL low: 3.9310 *6/uLh igh: 5.2210 *6/uL low Not Available Not Available 11/12/2024 19:45:28 11/07/19 25 11/06/2024 CBC W Order ed Manua l Diffe renti al panel - Blood MCV [entitic mean volume] in red blood cells by automated count 99 fL low: 79fLhi gh: 95fL high Not Available Not Available 11/12/2024 19:45:28 11/07/19 25 11/06/2024 CBC W Order ed Manua l Diffe renti al panel - Blood MCH [entitic mass] by automated count 31.8 pg low: 25.6pg high: 32.2pg Not Available Not Available 11/12/2024 19:45:28 11/07/19 25 11/06/2024 CBC W Order ed Manua l Diffe renti al panel - Blood MCHC [entitic mass/volume] in red blood cells by automated count 32.3 g/dL low: 32.2g/ dLhigh : 36.5g/ dL Not Available Not Available 11/12/2024 19:45:28 11/07/19 25 11/06/2024 CBC W Order ed Manua l Diffe renti al panel - Blood erythrocyte [distwidth] in red blood cells by automated count 13.8 % low: 11.6%h igh: 14.4% Not Available Not Available 11/12/2024 19:45:28 11/07/1911/06/2024 CBC W Order ed Manua l Diffe renti al panel - Blood absolute neutrophil count 1393 text: cells/ uL Not Available Not Available 11/12/2024 19:45:28 11/07/19 25 11/06/2024 CBC W Order ed Manua l Diffe renti al panel - Blood neutrophils [#/volume] in blood by manual count 1393 text: 1,440 - 6,600 cells/ uL low Not Available Not Available 11/12/2024 19:45:28 11/07/1911/06/2024 CBC W Order ed Manua l Diffe renti al panel - Blood lymphocytes [#/volume] in blood by manual count 980 text: 760 - 4,000 cells/ uL Not Available Not Available 11/12/2024 19:45:28 11/07/19 25 11/06/2024 CBC W Order ed Manua l Diffe renti al panel - Blood monocytes [#/volume] in blood by manual count 77 text: 160 - 1,200 cells/ uL low Not Available Not Available 11/12/2024 19:45:28 11/07/19 25 11/06/2024 CBC W Order ed Manua l Diffe renti al panel - Blood eosinophils [#/volume] in blood by manual count 103 text: 0 - 300 cells/ uL Not Available Not Available 11/12/2024 19:45:28 11/07/19 25 11/06/2024 CBC W Order ed Manua l Diffe renti al panel - Blood basophils [#/volume] in blood by manual count 26 text: 0 - 100 cells/ uL Not Available Not Available 11/12/2024 19:45:28 11/07/19 25 11/06/2024 CBC W Order ed Manua l Diffe renti al panel - Blood segmented neutrophils/ leukocytes in blood 54 % low: 36%hig h: 66% Not Available Not Available 11/12/2024 19:45:28 11/07/19 25 11/06/2024 CBC W Order ed Manua l Diffe renti al panel - Blood lymphocytes/ leukocytes in blood by automated count 38 % low: 19%hig h: 40% Not Available Not Available 11/12/2024 19:45:28 11/07/19 25 11/06/2024 CBC W Order ed Manua l Diffe renti al panel - Blood monocytes/le ukocytes in blood by automated count 3 % low: 4%high : 12% low Not Available Not Available 11/12/2024 19:45:28 11/07/19 25 11/06/2024 CBC W Order ed Manua l Diffe renti al panel - Blood eosinophils/ leukocytes in blood by automated count 4 % low: 0%high : 3% high Not Available Not Available 11/12/2024 19:45:28 11/07/19 25 11/06/2024 CBC W Order ed Manua l Diffe renti al panel - Blood basophils/le ukocytes in blood by automated count 1 % low: 0%high : 1% Not Available Not Available 11/12/2024 19:45:28 11/07/19 25 11/06/2024 CBC W Order ed Manua l Diffe renti al panel - Blood WBC estimate LOW Not Available Not A vailable 11/12/2024 19:45:28 11/07/19 25 11/06/2024 CBC W Order ed Manua l Diffe renti al panel - Blood platelet estimate LOW Not Available Not Available 19:45:28 11/07/19 25 11/06/2024 CBC W Order ed Manua l Diffe renti al panel - Blood RBC morphology ABNORM AL Not Available Not Available 19:45:28 11/07/19 11/06/2024 CBC W Order ed Tiburcioa l Diffe eliati al panel - Blood macrocytes [presence] in blood by light microscopy 1+ Not Available Not Available 0 11/12/2024 19:45:28 11/07/1911/06/2024 CBC W Order ed Tiburcioa l Diffe renti al panel - Blood no coding or coding display name was found KELLEE E TO PATIEN T->IMM EDIATE Not Available Not Available 19:45:28 11/07/1911/06/2024 CBC W Order ed Manua l Diffe renti al panel - Blood interpretati on and review of laboratory results ABNORM AL Not Available Not Available 19:45:28 01/09/2001/13/2025 coppe r, serum or plasm a copper, serum or plasma 64 text: 80 - 158 ug/dL low DETEC TION LIMIT = 5 Not Available Not Available 01/15/2025 05:07:41 01/09/2001/13/2025 coppe r, serum or plasm a no coding or coding display name was found TESTIN G PERFOR MED AT: [BN] [facility], [address] [place] [address], [place], [address], PHONE: , [facility] DIRECT OR: FAREED SAENZ RA, MD TEST(S ) [id number] -COPPE R, SERUM OR PLASMA WAS DEVELO PED AND ITS PERFOR TAISHA CHARAC TERIST ICS DETERM INED BY [facility]. IT HAS NOT BEEN CLEARE D OR APPROV ED BY THE FOOD AND DRUG ADMINI STRATI ON. MEDARDOAS E TO PATIEN T->IMM EDIATE Not Available Not Available 05:07:41 01/09/2001/13/2025 coppe r, serum or plasm a lab interpretati on ABNORM AL Not Available Not Available 05:07:41 01/09/2001/08/2025 iron + total iron- rickey ng capac ity (TIBC ), serum iron, serum 86 ug/dL low: 50ug/d Lhigh: 212ug/ dL Not Available Not Available 01/15/2025 05:07:41 01/09/2001/08/2025 iron + total iron- rickey ng capac ity (TIBC ), serum iron-binding capacity, unsaturated, serum 219 ug/dL low: 155ug/ dLhigh : 355ug/ dL Not Available Not Available 01/15/2025 05:07:41 01/09/2001/08/2025 iron + total iron- rickey ng capac ity (TIBC ), serum TIBC (total iron-binding capacity), serum 305 ug/dL low: 261ug/ dLhigh : 478ug/ dL Not Available Not Available 01/15/2025 05:07:41 01/09/2001/08/2025 iron + total iron- rickey ng capac ity (TIBC ), serum iron saturation, serum 28 % low: 20%hig h: 50% Not Available Not Available 01/15/2025 05:07:41 01/09/2001/08/2025 iron + total iron- rickey ng capac ity (TIBC ), serum no coding or coding display name was found MEDARDOAS Leticia TO PATIEN T->IMM EDIATE Not Available Not Available 05:07:41 01/09/2001/09/2025 shiloh tin, serum or plasm a ferritin, serum or plasma 60 NG/mL low: 11NG/m Lhigh: 307NG/ mL Not Available Not Available 01/15/2025 05:07:41 01/09/2001/09/2025 shiloh tin, serum or plasm a no coding or coding display name was found RELEAS E TO PATIEN T->IMM EDIATE Not Available Not Available 05:07:41 01/09/2001/08/2025 lacta te dehyd rogen ase, QN, lacta te to pyruv ate react ion, serum or plasm a lactate dehydrogenas e, qn, lactate to pyruvate reaction, serum or plasma 148 U/L low: 140U/L high: 271U/L Not Available Not Available 01/15/2025 05:07:41 01/09/2001/08/2025 lacta te dehyd rogen ase, QN, lacta te to pyruv ate react ion, serum or plasm a no coding or coding display name was found RELEAS E TO [place]IE T->IMM EDIATE Not Available Not Available 05:07:41 01/09/2001/08/2025 CMP, serum or plasm a glucose, qn [mass/volume ], serum or plasma 170 mg/dL low: 70mg/d Lhigh: 105mg/ dL high Not Available Not Available 01/15/2025 05:07:41 01/09/2001/08/2025 CMP, serum or plasm a BUN (blood urea nitrogen), serum or plasma 15 mg/dL low: 7mg/dL high: 25mg/d L Not Available Not Available 01/15/2025 05:07:41 01/09/2001/08/2025 CMP, serum or plasm a creatinine, serum or plasma 0.8 mg/dL low: 0.6mg/ dLhigh : 1.2mg/ dL Not Available Not Available 01/15/2025 05:07:41 01/09/2001/08/2025 CMP, serum or plasm a sodium, serum or plasma 140 text: 136 - 145 mEq/L Not Available Not Available 01/15/2025 05:07:41 01/09/2001/08/2025 CMP, serum or plasm a potassium, serum or plasma 3.9 text: 3.5 - 5.1 mEq/L Not Available Not Available 01/15/2025 05:07:41 01/09/2001/08/2025 CMP, serum or plasm a chloride, serum or plasma 103 text: 98 - 107 mEq/L Not Available Not Available 01/15/2025 05:07:41 01/09/2001/08/2025 CMP, serum or plasm a bicarbonate, quant, serum 29 text: 21 - 31 mEq/L Not Available Not Available 01/15/2025 05:07:41 01/09/2001/08/2025 CMP, serum or plasm a bilirubin, total, serum or plasma 0.6 mg/dL low: 0.3mg/ dLhigh : 1mg/dL Not Available Not Available 01/15/2025 05:07:41 01/09/2001/08/2025 CMP, serum or plasm a alkaline phosphatase, serum or plasma 42 U/L low: 34U/Lh igh: 104U/L Not Available Not Available 01/15/2025 05:07:41 01/09/2001/08/2025 CMP, serum or plasm a AST/SGOT (aspartate aminotransfe rase), serum or plasma 16 U/L low: 13U/Lh igh: 39U/L Not Available Not Available 01/15/2025 05:07:41 01/09/2001/08/2025 CMP, serum or plasm a ALT (alanine aminotransfe rase), serum or plasma 9 U/L low: 7U/Lhi gh: 52U/L Not Available Not Available 01/15/2025 05:07:41 01/09/2001/08/2025 CMP, serum or plasm a protein, total, serum 6.7 g/dL low: 6.4g/d Lhigh: 8.9g/d L Not Available Not Available 01/15/2025 05:07:41 01/09/2001/08/2025 CMP, serum or plasm a albumin, qn, bcg dye, serum or plasma 4.3 g/dL low: 3.5g/d Lhigh: 5.7g/d L Not Available Not Available 01/15/2025 05:07:41 01/09/2001/08/2025 CMP, serum or plasm a calcium, serum or plasma 9.4 mg/dL low: 8.6mg/ dLhigh : 10.3mg /dL Not Available Not Available 01/15/2025 05:07:41 01/09/2001/08/2025 CMP, serum or plasm a anion gap 4, serum or plasma (obs) 11.9 text: 7.0 - 15.0 mEq/L Not Available Not Available 01/15/2025 05:07:41 01/09/2001/08/2025 CMP, serum or plasm a globulin, qn, calculated, serum 2.4 g/dL low: 2g/dLh igh: 3.5g/d L Not Available Not Available 01/15/2025 05:07:41 01/09/20 25 01/08/2025 CMP, serum or plasm a eGFR 71 text: >60 mL/min /1.73m 2 This eGFR [...] 2 for males Not Available Not Available 01/15/2025 05:07:41 01/09/2001/08/2025 CMP, serum or plasm a no coding or coding display name was found RELEAS E TO PATIEN T->IMM EDIATE IS THE PATIEN T REQUIR ED TO BE FASTIN G FOR 8 HOURS? ->NO Not Available Not Available 05:07:41 01/09/2001/08/2025 CMP, serum or plasm a lab interpretati on ABNORM AL Not Available Not Available 05:07:41 01/09/2001/08/2025 CBC w/ manua l diff WBC, auto, blood 2.9 10*3/ uL low: 410*3/ uLhigh : 1010*3 /uL low Not Available Not Available 01/15/2025 05:07:40 01/09/20 25 01/08/2025 CBC w/ manua l diff hemoglobin (Hb), blood 12.4 g/dL low: 11.2g/ dLhigh : 15.7g/ dL Not Available Not Available 01/15/2025 05:07:40 01/09/20 25 01/08/2025 CBC w/ manua l diff hematocrit, automated count, blood 38.1 % low: 34.1%h igh: 44.9% Not Available Not Available 01/15/2025 05:07:40 01/09/20 25 01/08/2025 CBC w/ manua l diff platelets, auto, blood 112 10*3/ uL low: 11058* 3/uLhi gh: 07579* 3/uL low Not Available Not Available 01/15/2025 05:07:40 01/09/2001/08/2025 CBC w/ manua l diff platelet mean volume, qn, automated, blood (obs) 9.7 fL low: 9.4fLh igh: 12.4fL Not Available Not Available 01/15/2025 05:07:40 01/09/20 25 01/08/2025 CBC w/ manua l diff RBC count, blood 3.83 10*6/ uL low: 3.9310 *6/uLh igh: 5.2210 *6/uL low Not Available Not Available 01/15/2025 05:07:40 01/09/2001/08/2025 CBC w/ manua l diff MCV, blood 100 fL low: 79fLhi gh: 95fL high Not Available Not Available 01/15/2025 05:07:40 01/09/2001/08/2025 CBC w/ manua l diff MCH, qn, automated (obs) 32.4 pg low: 25.6pg high: 32.2pg high Not Available Not Available 01/15/2025 05:07:40 01/09/2001/08/2025 CBC w/ manua l diff MCHC, qn, automated (obs) 32.5 g/dL low: 32.2g/ dLhigh : 36.5g/ dL Not Available Not Available 01/15/2025 05:07:40 01/09/2001/08/2025 CBC w/ manua l diff erythrocyte distribution width, ratio, automated (obs) 12.2 % low: 11.6%h igh: 14.4% Not Available Not Available 01/15/2025 05:07:40 01/09/2001/08/2025 CBC w/ manua l diff absolute neutrophil count 1796 text: cells/ uL Not Available Not Available 01/15/2025 05:07:40 01/09/2001/08/2025 CBC w/ manua l diff neutrophils, count, manual, blood (obs) 1767 text: 1,440 - 6,600 cells/ uL Not Available Not Available 01/15/2025 05:07:40 01/09/20 25 01/08/2025 CBC w/ manua l diff band form neutrophils, count, manual, blood (obs) 29 text: 0 - 800 cells/ uL Not Available Not Available 01/15/2025 05:07:40 01/09/20 25 01/08/2025 CBC w/ manua l diff lymphocytes, count, manual, blood (obs) 684 text: 760 - 4,000 cells/ uL low Not Available Not Available 01/15/2025 05:07:40 01/09/20 25 01/08/2025 CBC w/ manua l diff monocytes, count, manual, blood (obs) 257 text: 160 - 1,200 cells/ uL Not Available Not Available 01/15/2025 05:07:40 01/09/20 25 01/08/2025 CBC w/ manua l diff eosinophil count, manual, blood (obs) 86 text: 0 - 300 cells/ uL Not Available Not Available 01/15/2025 05:07:40 01/09/20 25 01/08/2025 CBC w/ manua l diff basophils, count, manual, blood (obs) 29 text: 0 - 100 cells/ uL Not Available Not Available 01/15/2025 05:07:40 01/09/20 25 01/08/2025 CBC w/ manua l diff segmented neutrophils/ 100 leukocytes, blood (obs) 62 % low: 36%hig h: 66% Not Available Not Available 01/15/2025 05:07:40 01/09/20 25 01/08/2025 CBC w/ manua l diff band form neutrophils/ 100 leukocytes, manual, blood (obs) 1 % low: 0%high : 8% Not Available Not Available 01/15/2025 05:07:40 01/09/20 25 01/08/2025 CBC w/ manua l diff lymphocytes/ 100 leukocytes, automated, blood (obs) 24 % low: 19%hig h: 40% Not Available Not Available 01/15/2025 05:07:40 01/09/20 25 01/08/2025 CBC w/ manua l diff monocytes/10 0 leukocytes, automated, blood (obs) 9 % low: 4%high : 12% Not Available Not Available 01/15/2025 05:07:40 01/09/20 25 01/08/2025 CBC w/ manua l diff eosinophils/ 100 leukocytes, automated, blood (obs) 3 % low: 0%high : 3% Not Available Not Available 01/15/2025 05:07:40 01/09/2001/08/2025 CBC w/ manua l diff basophils/10 0 leukocytes, automated, blood (obs) 1 % low: 0%high : 1% Not Available Not Available 01/15/2025 05:07:40 01/09/2001/08/2025 CBC w/ manua l diff WBC estimate LOW Not Available Not A vailable 01/15/2025 05:07:40 01/09/2001/08/2025 CBC w/ manua l diff platelet estimate LOW Not Available Not Available 05:07:40 01/09/2001/08/2025 CBC w/ manua l diff RBC morphology ABNORM AL Not Available Not Available 05:07:40 01/09/2001/08/2025 CBC w/ manua l diff macrocytes, ql, light microscopy, blood (obs) 1+ Not Available Not Available 01/15/2025 05:07:40 01/09/2001/08/2025 CBC w/ manua l diff large platelets PRESEN T Not Available Not Available 05:07:40 01/09/2001/08/2025 CBC w/ manua l diff no coding or coding display name was found RELEAS E TO PATIEN T->IMM EDIATE Not Available Not Available 05:07:40 01/09/2001/08/2025 CBC w/ manua l diff lab interpretati on ABNORM AL Not Available Not Available 05:07:40 01/16/2001/21/2025 COPPE R, WHOLE BLOOD copper, WB 0.72 ug/mL 0.68-1 .19 normal Sonia sis perfo rmed by Paul tifox y-Cou pled Plasm a/Mas s Spect romet ry (ICP/ MS). This test was devel oped and its perfo rmanc e zara cteri stics deter mined by [facility]. It has not been clear ed or appro [place] by the Food and Drug Admin istra tion. Not Available [facility] [address], [place], [address], 01/21/2025 09:14:40 01/16/20 25 01/19/2025 SPECI MEN STATU S REPOR T specimen status report Commen t normal Writt en Autho rizat ion Writt en Autho rizat ion Writt en Autho rizat ion Recei [place]. Autho rizat ion recei [place] from ORIGI NAL ORDER 01-19 Logge d by Suzette Oquendo Not Available [facility] [address], [place], [address], 01/21/2025 09:14:40 11/07/19 24 11/07/2023 elect rocar diogr am No observ ation record ed. [facility], [address], [place], [address], 02/04/2024 17:04:22 11/07/19 24 11/07/2023 elect rocgeraldine arcegr am No observ ation record ed. [address], [place], [address], 02/04/2024 17:04:22 01/15/20 24 XR, chest [facility] [place] [address] Orderi ng Provid er: YESENIA [facility] [place] [address] [facility] [place] [place] [id number] Examin ation: Chest 1 view portab le Histor y: Dizzin ess DATE/T ADRIA: 2023 7:22 PM Compar mara: September 27, 2021 Techni que: AP uprigh [...] No acute osseou s abnorm ality. Impres herber: No acute findin gs. Referr ed By: Olive rich ly Signed By: Bruce Weber MD on 2023 7:37 PM Interp reted By: Bruce Weber MD, 2023 7:[email or web address] [facility] 1 [facility], [place], [address], 02/04/2024 17:04:22 01/21/20 24 bone densi ty/de [facility]a [facility] [place] [address] Orderi ng Provid er: TOM FRANCIS [facility]1 [place] [address] [phone] EXAMIN ATION: Bone Densit y Axial ACCESS ION: [id number] EXAM DATE/T ADRIA: 2023 12:48 PM REASON FOR EXAM: Postme nopaus al status COMPAR MARA: None FINDIN GS: DEXA bone densit ometry [...] Hip fractu re: 5.6 % ===== IMPRES HERBER:= ==== The patien t bone minera l [...] onal risk factor s. Referr ed By: TOM FRANCIS Electr onical ly Signed By: Christina Gordillo MD on 2023 9:19 PM Interp reted By: Christina Gordillo MD, 2023 9:[email or web address] [facility] 1 [facility], [place], [address], 07/23/2024 11:49:17 01/21/20 24 01/21/2024 bone densi ty No observ ation record ed. [facility] Central Scheduling 1 [facility], [place], [address], 02/04/2024 17:04:22 01/25/20 24 bone densi ty/de xa [facility] ONE [facility] [address] Orderi ng Provid er: TOM WORRELL DA Addend by: CHRISTINA GORDILLO on SunJan 25, 2024 6:00:3 8 PM CDT [facility] [place] [address] 456- Due to increa sed densit y in the lumbar spine, x-ray is recomm ended to assess for possib le etiolo gies of osteoa rthrit is. Referr ed By: TOM FRANCIS Electr onical ly Signed By: Christina Gordillo MD on 2023 5:59 PM Interp reted By: Christina Gordillo MD, 2023 5:59 PM [facility] [place] [address] EXAMIN ATION: Bone Densit y Axial ACCESS ION: [id number] EXAM DATE/T ADRIA: 2023 12:48 PM REASON FOR EXAM: Postme nopaus al status COMPAR MARA: None FINDIN GS: DEXA bone densit ometry [...] Hip fractu re: 5.6 % ===== IMPRES HERBER:= ==== The patien t bone minera l [...] onal risk factor s. Referr ed By: TOM WORRELL DA Electr onical ly Signed By: Christina Gordillo MD on 2023 9:19 PM Interp reted By: Christina Gordillo MD, 2023 9:[address], [place], [address], 02/04/2024 17:04:21 01/25/20 24 01/21/2024 bone densi ty No observ ation record ed. [address] Central Scheduling 1 [facility], [place], [address], 07/23/2024 11:48:05 02/17/20 24 02/16/2024 XR, thora cic spine , 2 view No observ ation record ed. [place] [address], [place], [address], 07/23/2024 11:45:28 03/10/20 24 03/09/2024 XR, chest No observ ation record ed. [facility] [address], [place], [address], 06/11/2024 17:59:10 03/12/20 24 03/09/2024 XR, chest , 2 view No observ ation record ed. [facility] [address], [place], [address], 06/11/2024 17:59:10 06/12/19 25 06/11/2024 US, duple x, carot id arter y No observ ation record ed. [facility], [place] [id number] [facility] [address], [place], [address], 10/13/2024 12:10:20 08/05/19 25 08/02/2024 CT, chest , w/o contr ast No observ ation record ed. [facility] [address], [place], [address], 10/13/2024 12:10:19 09/03/19 25 US, abdom en, limit ed [facility] [place] [address] Orderi Provid er: AKIKO Leiva [facility] [place] [address] [place] [address] US ABD LIMITE D INDICA TION: Iron iron defici ency anemia appear TECHNI QUE: Limite d graysc shantel and color/ spectr al Dopple r ultras ound perfor med of the liver and spleen . COMPAR MARA: None FINDIN GS: The liver demons trates normal echoge nicity measur ing 15.5 cm. Patent flow within the main portal vein in the approp riate direct ion. No focal lesion identi fied. The spleen appear s normal measur ing 8.2 x 3.6 x 2.4 cm. No focal lesion . IMPRES HERBER: Unrema rkable sonogr aphic appear ance of the liver and spleen . No hepato spleno megaly . Ordere d By: AKIKO Schaefer onical ly Signed By: Rosa Maria Graf MD on 09/03/19 8:34 AM Interp reted By: Rosa Maria Graf MD, 09/03/19 8:[address], [address], 10/13/2024 12:10:19 12/13/1912/12/2024 US, carot id arter y No observ ation record ed. [address], [address], 01/15/2025 12:05:51 12/13/1912/12/2024 US, duple x, arter ial, lower extre mity No observ ation record ed. [address], [address], 01/15/2025 12:05:51 12/13/19 25 12/12/2024 US, liver No observ ation record ed. [address], [address], 01/15/2025 12:05:50 12/13/19 25 US, abdom en, limit ed [facility] ONE [facility] [address] Orderi ng Provid er: MOUNIR SHENJUANIS DA [facility] [place] [facility] [address] [place] [address] [facility] [place] [facility] [place] [address] EXAMIN ATION: US ABD LIMITE D DATE: 025 11:40 AM HISTOR Y: 89 years Female . Unspec ified cirrho sis of liver COMPAR MARA: 09/03/19 25 ultras onogra m in 022 CT. TECHNI QUE: An ultras ound examin ation of right upper quadra nt was perfor med to assess graysc shantel appear ance, color Dopple r flow charac terist ics, and spectr al wavefo rm analys is. FINDIN GS: Pancre as: Visual ized portio ns of the proxim al pancre as are grossl y unrema rkable . The distal most portio ns of pancre as are not well seen due to overly ing bowel gas. Liver: There are somewh at nodula r contou rs of the liver parenc hyma. No discre te hepati c mass is seen.. The main portal vein is patent with approp riate direct ion of flow. The hepati c veins are patent . Gallbl adder: Not well seen on this examin ation. This could be due to surgic al remova l or gallbl adder contra ction. Biliar y tree: No biliar y ductal dilata tion. Pneumo bilia seen. This is a chroni c findin g. Right kidney : Normal in size measur ing 9.5 cm. No right hydron ephros is, mass, or discre te urolit hiasis . IMPRES HERBER: 1. Mildly nodula r contou rs of the liver. This could be due to early change s of hepati c cirrho sis. 2. No discre te hepati c mass or lesion is seen. 3. Nonvis ualize d gallbl adder. Unclea r if this is due to cholec ystect foster or gallbl adder contra ction. 4. Pneumo bilia. This has been seen on multip le prior examin ations dating back to at least 2021 and may indica te some degree of sphinc ter of Jerry dysfun ction Prelim inary: Blane Doran MD12/12 2:23 PM The attend ing radiol ogist has review ed the image( s) and agrees with the conten t of this report . Referr ed By: TOM FRANCIS Electr onical ly Signed By: Fermin bailon MD on 4:38 PM Interp reted By: Blane Doran MD, 2:[address], [address], 01/15/2025 12:05:50 12/13/19 25 12/12/2024 US, liver No observ ation record ed. [address], [place], [address], 01/15/2025 12:05:50 12/16/19 25 usvar wple [facility] [place] [address] Orderi ng Provid er: TOM FRANCIS ARTERI AL DOPPLE R - ANNMARIE BILATE RAL LOWER EXTREM ITY VASCUL AR LAB Pat.Na me: ANGELICA R, SHARDA IA R Pat.ID : [id number]Dom[address] e: Refer. MD: Tom Rodriguez Exam Time: 11:03: 00 AM Study Type:S EB VS Arteri al Dopple r Legs TONE Age: [birth year]89 Y Sex: F Sonogr phr: Rajesh Hill , RDMS, RVT Histor y / Clinic al:pvd , patel, xtob, pfo, htn Proced ures: Dopple r wavefo meredith, Digit PPG, Systol ic Pressu res w/ANNMARIE Race: W ++++++ ++++++ ++++++ ++++++ ++++++ ++++++ SUMMAR Y: ++++++ ++++++ ++++++ ++++++ ++++++ ++++++ Simón ANNMARIE Criter ia: >1.30 = falsel y elevat ed, calcif ied vessel s; 1.00-1 .29 = no signif ischem ia at rest ; .80-.9 9 = mild PAD, asympt omatic ; .50-.7 9 = modera te PAD, claudi cation ; <.50 = severe PAD, rest pain; <.30 = critic al PAD, necros is, poor healin g (Digit s: DBI >.60 Normal ; <.60 Abnorm al) (Posit jameel Stress eval: ANNMARIE decrea se of >.20 or >20% pressu re drop) Right leg: Common Femora l wavefo rm is biphas ic, medium amplit ude; Poplit eal biphas ic, medium amplit ude; Parole Or Probation Officer ior Tibial biphas ic, medium amplit ude with ANNMARIE 0.947 ; DP/Ant erior Tibial biphas ic, medium amplit ude with ANNMARIE 0 . Digit flow by PPG is high amplit ude with DBI 0.811 . Left leg: Common Femora l wavefo rm is biphas ic, medium amplit ude; Poplit eal biphas ic, medium amplit ude; Parole Or Probation Officer ior Tibial mono-b iphasi c, medium amplit ude with ANNMARIE 0 ; DP/Ant erior Tibial monoph asic, medium amplit ude with ANNMARIE 0 . Digit flow by PPG is high amplit ude with DBI 0.49 . ANNMARIE's were not obtain ed due to non-co mpress ible vessel s, likely due to athero sclero tic diseas e. CONCLU HERBER: ANNMARIE right leg is 0.95 with a toe index of 0.811 and biphas ic wavefo meredith sugges tive of mild PAD. ANNMARIE left leg was not obtain ed due to non-co mpress ible vessel s, a toe index of 0.49 , and monoph asic wavefo meredith sugges tive of mild to modera te PAD. ++++++ ++++++ ++++++ ++++++ ++++++ ++++++ MEASUR EMENTS : ++++++ ++++++ ++++++ ++++++ ++++++ ++++++ PRESSU RES Right Brachi al Brach P 206 mmHg Right Ankle DP AnkleD P P 0 mmHg Right Ankle PT AnkleP T P 195 mmHg Right Great Toe GreatT oe P 167 mmHg Right ANNMARIE PT ANNMARIE PT 0.947 Right ANNMARIE DP ANNMARIE DP 0 Right TBI TBI 0.811 Left Brachi al Brach P 202 mmHg Left Ankle DP AnkleD P P 0 mmHg Left Ankle PT AnkleP T P 0 mmHg Left Great Toe GreatT oe P 101 mmHg Left ANNMARIE PT ANNMARIE PT 0 Left ANNMARIE DP ANNMARIE DP 0 Left TBI TBI 0.49 2024 07:53 AM Aldair Woo M.D. [facility] [address] [facility], [place], [address], 01/15/2025 12:05:50 12/16/19 25 usv carot id duple x tone [facility] [place] [address] Orderi ng Provid er: TOM TAYLOR ARTERY DUPLEX IMAGIN G VASCUL AR LAB Pat.Na me: ANGELICA R, SHARDA IA R Pat.ID : [id number] .Domo e: 025 Refer. PALMER: [id number] ANAID FERRELL Exam Time: 11:02: 00 AM Study Type:S EB VS Duplex Caroti d BI Age: [birth year]89 Y Sex: F Sonogr phr: Rajesh abdullahil Liz , RDMS, RVT Histor y / Clinic al:patel , xtob, pfo, htn Proced ures: May scale, Color Dopple r imagin g, Dopple r Spectr al Analys is Race: W ++++++ ++++++ ++++++ ++++++ ++++++ ++++++ SUMMAR Y: ++++++ ++++++ ++++++ ++++++ ++++++ ++++++ Right side: The right bifurc ation- marketing research intern al caroti d artery has hetero geneou s plaque . Senior Biostatistician al caroti d maximu m veloci ty is 94 cm/s, with a ratio of 1.19 . The common caroti d artery has hetero geneou s plaque presen t. The chief crna al caroti d artery has hetero geneou s plaque proxim ally. Verteb ral artery flow is antegr lindy. No define d ulcera tion noted. Left side: The left bifurc ation- marketing research intern al caroti d artery has hetero geneou s plaque . Senior Biostatistician al caroti d maximu m veloci ty is 102 cm/s , with a ratio of 1.55 . The common caroti d artery has hetero geneou s plaque presen t. The chief crna al caroti d artery has hetero geneou s plaque proxim ally. Verteb ral artery flow is antegr lindy. No define d ulcera tion noted. Limite d exam bilate rally due to tortuo us vessel s. CONCLU HERBER: The right marketing research intern al caroti d shows hetero geneou s plaque and a <50% stenos is. Right verteb ral artery is antegr lindy. No eviden ce of ulcera tion. The left marketing research intern al caroti d shows hetero geneou s plaque and a <50% stenos is. Left verteb ral artery is antegr lindy. No eviden ce of ulcera tion. ++++++ ++++++ ++++++ ++++++ ++++++ ++++++ MEASUR EMENTS : ++++++ ++++++ ++++++ ++++++ ++++++ ++++++ DOPPLE R Right Prox CCA Prox CCA PSV 82.3 cm/s Right Dist CCA Dist CCA PSV 79.3 cm/s Right Prox ICA Prox ICA PSV 65.1 cm/s Prox ICA EDV 18 cm/s Right Mid ICA Mid ICA PSV 73.3 cm/s Mid ICA EDV 23.2 cm/s Right Dist ICA Dist ICA PSV 94.3 cm/s Dist ICA EDV 26.2 cm/s Right Prox ECA Prox ECA PSV 65.2 cm/s Right Verteb ral Verteb ral PSV 63.6 cm/s Right ICA/CC A RATIO ICA/CC A RATIO P 1.19 Left Prox CCA Prox CCA PSV 112 cm/s Left Dist CCA Dist CCA PSV 66 cm/s Left Prox ICA Prox ICA PSV 73.7 cm/s Prox ICA EDV 18 cm/s Left Mid ICA Mid ICA PSV 69.4 cm/s Mid ICA EDV 22.3 cm/s Left Dist ICA Dist ICA PSV 102 cm/s Dist ICA EDV 23.9 cm/s Left Prox ECA Prox ECA PSV 78 cm/s Left Verteb ral Verteb ral PSV 39.4 cm/s Left ICA/CC A RATIO ICA/CC A RATIO P 1.55 2024 10:45 AM Aldair Woo M.D. [address], [place], [address], 01/15/2025 12:05:50 01/16/2001/15/2025 elect rocar diogr am No observ ation record ed. bettie [facility], [address], [place], [address], 01/16/2025 10:02:13 01/17/2001/15/2025 elect rocar diogr am No observ ation record ed. [facility] [place] [address] [facility] [address], [place], [address], 01/16/2025 10:02:30 Result Notes Documentation Provider Name and Address Organization Details Recorded Time Xr, Chest : [facility] [place] [address] Ordering Provider: YESENIA FINN [address] [address] Examination: Chest 1 view portable History: Dizziness [...] By: Bruce Weber MD, 01/15/2024 7:33 PM Tom Dodd MD [address] [facility], [place], [address], [facility] 02/04/2024 17:04:22 Problems Name Problem SNOMED Code Status Onset Date Resolution Date Notes Provider Name and Address Organization Details Recorded Time Atrial septal aneurysm 86117506 Active Not Available [facility] 13:59:13 Carotid artery stenosis 05836094 Active [facility] Available [facility] 13:59:13 Divertic ular disease of colon 617856297 Active Not Available [facility] 13:59:13 Depressi ve disorder 19038990 Completed 03/02/2020 Tom Dodd MD [address] [facility] [address], [place], [address] , [facility] 0 16:09:53 Benign hyperten herber 83238451 Active Not Available [facility] 13:59:13 Ex-smoke r 0007614 Active Not Available [facility] 13:59:13 Gastroes ophageal reflux disease 815679149 Completed 12/28/2016 Tom Dodd MD [address] [facility] [address], [place], [address] , [facility] 7 10:03:00 Hyperlip idemia 90101459 Active Not Available [facility] 13:59:13 Osteoart hritis 975811768 Active Not Available [facility] 13:59:13 Osteopen ia 187426925 Active Not Available [facility] 13:59:13 Peripher al vascular disease 707431219 Active Not Available [facility] 13:59:13 Menopaus e Active Not Available [facility] 13:59:13 Mixed anxiety and depressi ve disorder 959787674 Active 2015 Not Available [facility] 13:59:13 Gastroes ophageal reflux disease without esophagi tis 948343957 Active 2015 Not Available [facility] 13:59:13 History of transien t ischemic attack 697548134 Active 2016 Not Available [facility] 13:59:13 Vitamin D deficien cy 04403548 Active 2016 Not Available [facility] 13:59:13 Blood glucose outside referenc e range 890312259 Active 2016 glucose intol 12/2016 Not Available [facility] 13:59:13 Compress ion fracture Active 2017 T12 , on X ray 12/31/17 Not Available [facility] 13:59:13 Paroxysm al atrial fibrilla tion 796735989 Active 2017 per cardiolo gy note 03/19/17 Had Watchman implanta tion 02/19/20 24 Tom Dodd MD [address], [place], [address] , [facility] 4 19:08:17 Body mass index 25-29 - overweig ht 028010522 Active 2018 Not Available [facility] 13:59:13 Left ventricu lar hypertro phy 63635268 Active 2018 Not Available [facility] 13:59:13 Anemia 632487856 Active 2018 Not Available [facility] 1 13:59:13 Gallnayeli e 237900625 Completed 201803/02/2020 Tom Dodd MD [address], [place], [address] , [facility] 0 16:09:56 Liver enzymes level above referenc e range 625910333 Active 2019 Not Available [facility] 1 13:59:13 Pulmonar y hyperten herber 54271702 Active 2019 on ECHO 10/06/19 Not Available [facility] 1 13:59:13 Cholelit hiasis without obstruct ion 81614386 Active 2019 Not Available [facility] 1 13:59:13 Macrocyt osis 267019845 Active 2020 Tom Dodd MD [address], [place], [address] , [facility] 1 14:29:46 Hypomagn esemia 135272409 Active 2020 Tom Dodd MD [address], [place], [address] , [facility] 1 19:10:38 Kidney stone 73030913 Active 2021 Tom Dodd MD [address], [place], [address] , [facility] 2 11:30:02 Pneumoni a 057002970 Active 2021 Tom Dodd MD [address], [place], [address] , [facility] 2 22:44:15 Solitary nodule of lung 562768330 [address] chest 03/13/22 Tom Dodd MD [address], [place], [address] , [facility] 2 23:05:44 Diarrhea 46998115 Active 2022 Tom Dodd MD [address], [place], [address] , [facility] 3 15:23:52 Compress ion fracture of thoracic spine 180613622 Active 2023 MD Nancy Price[address], [place], [address] , [facility] 4 21:28:54 Cirrhosi s of liver 17302296 Active 2023 Tom Dodd MD [address], [place], [address] , [facility] 4 21:29:12 Restrict jameel lung disease 62238051 Active 2023 Tom Dodd MD [address], [place], [address] , [facility] 4 12:42:27 Iron deficien cy anemia 51002941 Active 2023 Tom Dodd MD [address], [place], [address] , [facility] 4 21:46:24 Long-ter m drug therapy Active 2023 Tom Dodd MD [address], [place], [address] , [facility] 4 17:10:25 Hypocupr emia 15294475 Active 2024 MD Bubba Price [address], [place], [address] , [facility] 5 12:13:37 Problem Notes None recorded. Procedures Surgical History Date Name Laterality Status Provider Name and Address Organization Details Recorded Time 03/08/20 20 Most Recent Bone Density completed BRYCE PATINO [facility] 05/31/2020 16:02:06 11/05/19 Date of Last Colonoscopy completed BRYCE PATINO [facility] 05/31/2020 16:02:19 08/05/20 19 Colonoscopy completed MD Bubba Price [facility] [address], [place], [address], [facility] 11/07/2018 12:45:27 09/18/19 08 Colonoscopy completed Renetta Blandon [facility] 09/28/2015 08:33:36 Orthopedic Surgery completed MD Bubba Price [facility] [address], [place], [address], [facility] 09/27/2017 12:02:59 Imaging Results None recorded. Procedure Notes None recorded. Medical Equipment None Reported. Allergies Allergen ID Allergen Name Allergen Category Reaction Reaction Severity Criticality Documentation Date Start Date Code Code System Note Provider Name and Address Organization Details Recorded Time 83664 amlodipin e medicatio n dizziness Not available Not available 04/12/2023 33590 RxNorm MD Bubba Price [facility] [address], [place], [address], [facility] 4 16:43:23 28419 felodipin e medicatio n dizziness Not available Not available 04/25/2023 4316 RxNorm MD Bubba Price [facility] [address], [place], [address], [facility] 4 19:20:54 59464 gemfibroz il medicatio n other Not available high 09/11/20242018 4719 RxNorm Not Available kirsten - External Data Service - prod 5 11:58:09 57246 magnesium oxide medicatio n diarrhea Not available low 09/11/20242023 6582 RxNorm Not Available kirsten - External Data Service - prod 5 11:58:09 2560 Lopid medicatio n Not available Not available Not available 09/28/201527284 9 RxNorm Renetta Blandon [facility] 6 08:32:29 Medications Name Sig [...] completed prescrib ed by dentist for periodon jenn disease Not Available Not Available Not Available [...] e 50 mcg/actua tion nasal spray,vashti pension [place] 1 spray every day by intranas al [...] Available Not Available Not Available Fluzone High-Dose 3751-8757 (PF) 180 mcg/0.5 mL intramusc ular syringe 03/29 completed Not Available Not Available Not Available Fluzone High-Dose 2018- (PF) 180 mcg/0.5 mL intramusc ular syringe 03/17 completed Not Available Not Available Not Available Fluad Quad 1442-7403 (65yr up)(PF) 60 mcg (15 mcg x 4)/0.5mL IM syringe 03/02 completed Not Available Not Available Not Available Vitals Date Recorded Systolic And Diastolic Provider Name and Address Organization Details Last Updated DateTime 06/11/2024 133/65 mm[Hg] Tom Dodd MD [address] [facility] [address], [place], [address], [facility] 06/11/2024 18:07:57 Date Recorded Body height Respiratory rate Body mass index (BMI) Body weight Heart rate Body temperature Provider Name and Address Organization Details Last Updated DateTime 162.56 cm 18 /min 24.5 kg/m2 55271.7 1 g 64 /min 97.6 [degF] Corinna Ibarra [facility] 17:16:03 Date Recorded Body height Body mass index (BMI) Body weight Body temperature Respiratory rate Heart rate Systolic And Diastolic Provider Name and Address Organization Details Last Updated DateTime 5 162.56 cm 24.9 kg/m2 65249.8 9 g 97.6 [degF] 18 /min 55 /min 136/69 mm[Hg] Corinna Ibarra [facility] 5 12:01:49 Date Recorded Systolic And Diastolic Provider Name and Address Organization Details Last Updated DateTime 11/07/2023 135/59 mm[Hg] MD Bubba Price [address], [place], [address] 11/07/2023 15:10:15 Date Recorded Body height Body temperature Heart rate Respiratory rate Body mass index (BMI) Body weight Provider Name and Address Organization Details Last Updated DateTime 162.56 cm 97.8 [degF] 64 /min 18 /min 26.1 kg/m2 23307.0 4 g Corinna Ibarra [facility] 14:45:59 Date Recorded Heart rate Systolic And Diastolic Provider Name and Address Organization Details Last Updated DateTime 01/15/2025 76 /min 133/72 mm[Hg] MD Bubba Price [address], [place], [address] 01/15/2025 12:27:22 Date Recorded Body height Respiratory rate Body temperature Body mass index (BMI) Body weight Provider Name and Address Organization Details Last Updated DateTime 5 162.56 cm 18 /min 97.8 [degF] 25.4 kg/m2 89264.6 7 g Corinna Ibarra [facility] 5 11:34:30 Date Recorded Systolic And Diastolic Provider Name and Address Organization Details Last Updated DateTime 02/04/2024 133/71 mm[Hg] MD Bubba Price [address], [place], [address] 02/04/2024 17:13:10 Date Recorded Body height Body temperature Respiratory rate Heart rate Body mass index (BMI) Body weight Provider Name and Address Organization Details Last Updated DateTime 4 162.56 cm 97.5 [degF] 18 /min 75 /min 25.4 kg/m2 75711.6 7 g Corinna Ibarra [facility] 4 16:50:44 Social History Question Answer Notes LastModified by Organizat ion Details LastModified Time Tobacco Smoking Status Former Smoker Tom Dodd MD [address] [facility] [address], [place], [address], [facility] 12/27/2018 11:39:17 Do You Have An Advance Directive? No Information not available 09/27/2017 Live Alone Or With Others? With Others With Aspener Information not available 12/27/2018 Marital Status Information not available 12/27/2018 What Was The Date Of Your Most Recent Tobacco Screening? 06/16/2021 Information not available 06/16/2021 Sex: Unknown Functional Status Question Answer Note LastModified by Organization D etails LastModified Time What is your level of alcohol consumption? None Information not available 09/28/2015 Are you currently employed? No Information not available 12/27/2018 Are you able to care for yourself independently? Yes Information not available 12/27/2018 Mental Status None recorded. Family History Relationship Description Onset Age of this Age Resolved Age Notes LastModified by Organization Details LastModified Time Father Coronary arterioscler osis 80 [email or web address] Not available 2015 08:35:22 Father Myocardial infarction [email or web address] Not available 09/27 08:35:32 Medical History Condition Response Coronary Artery Disease N Other N Gout N Blood Diseases N Kidney Stones N Hyperthyroidism N Blood Transfusion N Breast Cancer N Lung Disease N Hypothyroidism N Depression N COPD N Defects or Inherited Disease N Developmental or Behavioral Disorders N Breast Problem N Difficulty Swallowing N Anesthesia Complications N Anxiety Disorder N Meniere's disease N Muscle, Joint, or Bone Problems N Obesity N Vision or Eye Problems N Arthritis N Infertility N Polyps N Mental Disorder N Cancer N Varicosities N Stroke N Endometriosis N Bladder or Kidney Problems N High Cholesterol N Liver Disease N Headaches N Fibromyalgia N Kidney Disease N Allergies/Hayfever N Heart Problems N Ear or Hearing Problems N Hospitalizations N Thyroid Problems N GI Problems N ADD/ADHD N Eating Disorder N Skin Problems N Anemia N MRSA exposure N Constipation N Mental Illness N Diabetes N Ovarian Cancer N Bedwetting N Seizures/Epilepsy N Tuberculosis N AIDS/HIV N Congestive Heart Failure (CHF) N Eczema N Abuse/Domestic Violence N Diverticulitis N Asthma N Reflux/GERD N Hepatitis N [...] Influenza, split virus, quadrivalent, preservative 018 completed MD Bubba Price [address], [place], [address], [facility] 01/24/2021 12:44:05 pneumococcal polysaccharide PPV23 018 completed MD Bubba Price [address], [place], [address], [facility] 01/24/2021 12:44:05 Influenza, split virus, quadrivalent, preservative 015 completed MD Bubba Price [address], [place], [address], [facility] 01/24/2021 12:44:05 Pneumococcal conjugate PCV 13 016 completed MD Bubba Price [address], [place], [address], [facility] 01/24/2021 12:44:05 Tdap 016 completed MD Bubba Price [address], [place], [address], [facility] 01/24/2021 12:44:05 Influenza, split virus, quadrivalent, preservative 019 completed MD Bubba Price [address], [place], [address], [facility] 01/24/2021 12:44:05 Influenza, split virus, quadrivalent, preservative 020 completed MD Bubba Price [address], [place], [address], [facility] 01/24/2021 12:44:05 SARS-COV-2 (COVID-19) vaccine, UNSPECIFIED 021 completed MD Bubba Price [address], [place], [address], [facility] 01/24/2021 12:44:05 SARS-COV-2 (COVID-19) vaccine, UNSPECIFIED 021 completed MD Bubba Price [address], [place], [address], [facility] 01/24/2021 12:44:05 COVID-19, mRNA, LNP-S, PF, 30 mcg/0.3 mL dose 021 completed MD Bubba Price [address], [place], [address], [facility] 01/24/2021 12:44:05 Influenza, adjuvanted, quadrivalent, PF 021 completed MD Bubba Price [address], [place], [address], [facility] 01/24/2021 12:44:05 influenza, unspecified formulation 022 completed MD Bubba Price [address], [place], [address], [facility] 03/09/2022 13:15:35 Influenza, split virus, trivalent, preservative 016 completed Not Available [facility] 04/19/2019 02:27:20 influenza, unspecified formulation 023 completed MD Bubba Price [address], [place], [address], [facility] 04/25/2023 19:35:06 Respiratory syncytial virus (RSV) MAB, unspecified 023 completed MD Bubba Price [address], [place], [address], [facility] 04/25/2023 19:35:25 zoster recombinant 019 cancelled patient objection Not Available [facility] 04/19/2019 02:28:11 zoster recombinant 020 cancelled patient objection MD Bubba Price [facility] [address], [place], [address], [facility] 05/28/2019 17:44:58 zoster recombinant 020 cancelled patient objection MD Bubba Price [facility] [address], [place], [address], [facility] 09/01/2019 16:53:46 Past Encounters Encounter ID Performer Location Encounter Start Date Encounter Closed Date Diagnosis/Indication Diagnosis SNOMED-CT Code Diagnosis ICD10 Code Diagnosis IMO Codes Diagnosis Note [id number] Tom Dodd MD [facility], [address] [place] [address] 08/05/2015 08:50:01 08/19/2015 12:39:43 [id number] Tom Dodd MD [facility], [address] [place] [address] 09/28/2015 09:28:01 09/28/2015 10:22:39 Gastroesophageal reflux disease without esophagitis 951363858 K21.9 pt still ave symptomes on ranitidine Benign hypertension 1072 5009 I10 Osteopenia 226134146 M85 .80 Hyperlipidemia 19573551 E78.5 Carotid ar nicolás stenosis 75331860 I65.29 Peripheral vascular disease 080401963 I73.9 Active or passive immunization 280087274 Z23 [id number] Tom Dodd MD [facility], [place] [address] [place] [address] 12/29/2015 09:11:28 12/29/2015 10:24:33 Seizure 57831966 R56.9 [address] Gastroesop hageal reflux disease without esophagitis 363723905 K21.9 pt still ave symptomes on ranitidine Hyperlipidemia 07821355 E78.5 Osteopenia 114655092 M85 .80 Atrial sep jenn aneurysm 77304801 I25.3 Carotid ar nicolás stenosis 39105946 I65.29 Active or passive immunization 156782357 Z23 [id number] Tom Dodd MD [place] [facility], [place] [address] [address] [place] [address] 03/29/2016 09:28:39 03/29/2016 10:03:23 Benign hypertension 86114757 I10 Osteoarthritis 420569998 M19.90 Hyperlipidemia 93740772 E78.5 Peripheral vascular disease 650738123 I73.9 Atrial sep jenn aneurysm 39810287 I25.3 Mixed anxi ety and depressive disorder 340930326 F41.8 Gastroesop hageal reflux disease without esophagitis 777204721 K21.9 pt still ave symptomes on ranitidine [id number] Tom Dodd MD [place] [facility], [place] [address] [place] [address] 06/27/2016 09:31:34 06/27/2016 10:26:18 Benign hypertension 49905580 I10 Mixed anxi ety and depressive disorder 903914879 F41.8 Gastroesop hageal reflux disease without esophagitis 822359419 K21.9 pt still ave symptomes on ranitidine but better on omeprazole Osteopenia 150012540 M85 .80 Peripheral vascular disease 049673044 I73.9 Hyperlipidemia 02132776 E78.5 Carotid ar nicolás stenosis 46482847 I65.29 Atrial sep jenn aneurysm 79565866 I25.3 Active or passive immunization 047823738 Z23 refuse zoster Screening for malignant neoplasm of colon 742806246 Z12.11 [id number] Tom Dodd MD [place] [facility], [place] [address] [address] [place] [address] 09/27/2016 09:47:20 09/27/2016 10:35:26 Benign hypertension 79672691 I10 Hyperlipidemia 89657197 E78.5 Atrial sep jenn aneurysm 56925104 I25.3 Carotid ar nicolás stenosis 20108817 I65.29 Osteoarthritis 966069846 M19.90 Coronary arteriosclerosis 13196150 I25.10 Vitamin D deficiency 347 63445 E55.9 Screening mammography 24 764649 Z12.31 [id number] Tom Dodd MD [employer], [facility] [address] [place] [address] 12/28/2016 09:28:58 12/28/2016 10:16:20 Benign hypertension 02433825 I10 Mixed anxi ety and depressive disorder 346325012 F41.8 Gastroesop hageal reflux disease without esophagitis 852656227 K21.9 pt still ave symptomes on ranitidine but better on omeprazole Hyperlipidemia 52811727 E78.5 last LDL not @ goal ., will increase rosuva to 20 Atrial sep jenn aneurysm 99349986 I25.3 Osteopenia 725886946 M85 .80 last DEXA 06/28/15 Carotid ar nicolás stenosis 39159865 I65.29 Restrictiv e lung disease 30827893 J98.4 Ex-smoker 3085016 Z87.89 1 education Screening mammography 24 333877 Z12.31 Pt refuse Osteoarthritis 230958064 M19.90 [id number] Tom Dodd MD [place], [place] [address] [place] [address] 03/29/2017 09:46:44 03/29/2017 10:28:49 Benign hypertension 91224419 I10 good control Blood gluc ose outside reference range 865585806 R73.09 Vitamin D deficiency 347 70817 E55.9 Osteopenia 294631986 M85 .80 last DEXA 06/28/15 Peripheral vascular disease 546017176 I73.9 Hyperlipidemia 60686376 E78.5 last LDL not @ goal ., will increase rosuva to 20 [id number] Tom Dodd MD [employer], [place] [address] [address] [place] [address] 06/27/2017 10:36:38 06/27/2017 11:25:46 Diarrhea 77664764 R19.7 Benign hypertension 1072 5009 I10 good control Osteopenia 997966987 M85 .80 last DEXA 06/28/15 Hyperlipidemia 96507452 E78.5 last LDL 04/23/17 @ goal Screening mammography 24 470819 Z12.31 Pt refuse Screening for malignant neoplasm of colon 808844890 Z12.11 pt refuse [id number] Tom Dodd MD [employer], [employer] [address] [facility] [address] [place] [address] 09/27/2017 11:05:11 09/27/2017 12:06:11 Adult health examination 588699646 Z00.01 Benign hypertension 1072 5009 I10 good control Vitamin D deficiency 347 34926 E55.9 will recheck Menopause 373793544 Z78. 0 asymptomat ic Mixed anxi ety and depressive disorder 438336526 F41.8 No SI, No HI , sleeping Gastroesop hageal reflux disease without esophagitis 244779260 K21.9 pt still have symptomes on ranitidine but better on omeprazole Osteopenia 948709171 M85 .80 last DEXA 06/28/15 History of transient ischemic attack 414610598 Z86.73 last carotid U/S 01/30/17 Osteoarthritis 792955296 M19.90 just had Lt TKR Diverticul ar disease of colon 837140064 K57.30 asymptomat ic , No bleeding Peripheral vascular disease 902076981 I73.9 Hyperlipidemia 76649586 E78.5 last LDL 04/23/17 @ goal Carotid ar nicolás stenosis 91895275 I65.29 last U/S 01/12/17 Ex-smoker 6744185 Z87.89 1 education Atrial sep jenn aneurysm 71328160 I25.3 Restrictiv e lung disease 50578838 J98.4 on PFT 12/28/16 Screening mammography 24 414746 Z12.31 Pt refuse Screening for malignant neoplasm of cervix 179007966 Z12.4 pt refuse Screening for malignant neoplasm of colon 429551740 Z12.11 pt refuse Active or passive immunization 025603719 Z23 refuse zoster [id number] Tom Dodd MD [employer], [employer] [address] [facility] [address] [place] [address] 12/28/2017 11:09:23 12/28/2017 11:58:52 Benign hypertension 64030718 I10 good control Mixed anxi ety and depressive disorder 557204773 F41.8 No SI, No HI , sleeping OK Osteopenia 049377940 M85 .80 last DEXA 06/28/15 Peripheral vascular disease 368035249 I73.9 last ANNMARIE 04/2017 Hyperlipidemia 10896887 E78.5 last LDL 04/23/17 @ goal Carotid ar nicolás stenosis 28615310 I65.29 last U/S 01/12/17 Lumbar radiculopathy 128 811279 M54.16 Active or passive immunization 022647595 Z23 refuse zoster [id number] Tom Dodd MD [employer], [employer] [address] [place] [address] 03/29/2018 11:54:57 03/29/2018 13:02:48 Paroxysmal atrial fibrillation 454327330 I48.0 stopped blood ozing from kneerestar t eliquis Anemia 917943915 D64.9 Benign hypertension 1072 5009 I10 on the lower side today , will decrease lisinopril to 20 , BP 3 weeks Compression fracture 219 37321 T14.8XXD T12 , on 12/31/16 , with osteopenia on last DEXA 12/2017 Osteopenia 529637456 M85 .80 last DEXA 12/2017 Active or passive immunization 144595380 Z23 refuse zoster Screening for malignant neoplasm of colon 346658804 Z12.11 pt refuse C scope [id number] Tom Dodd MD [employer], [employer] [facility] [place] [address] 06/27/2018 11:21:58 06/27/2018 12:11:48 Benign hypertension 34005218 I10 good control , BP 3 weeks Hyperlipidemia 66563367 E78.5 last LDL 04/23/17 @ goal Peripheral vascular disease 349642351 I73.9 last ANNMARIE 04/2017 Osteopenia 130544119 M85 .80 with compressio n Fx T spine , on reclastlas t DEXA 12/2017 , 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 No SI, No HI , sleeping OK Blood gluc ose outside reference range 508984053 R73.09 Left ventr icular hypertrophy 29274080 I51.7 concentric , mod , on ECHO 01/11/17 Active or passive immunization 041399669 Z23 refuse zoster Paroxysmal atrial fibrillation 631269638 I48.0 stopped blood ozing from kneerestar t eliquis [id number] Tom Dodd MD [employer], [facility] [address] [facility] [address] [place] [address] 09/26/2018 10:25:17 09/26/2018 11:37:48 Benign hypertension 92489664 I10 good control , BP 3 weeks Mixed anxi ety and depressive disorder 901194499 F41.8 No SI, No HI , sleeping OK Osteopenia 100490132 M85 .80 with compressio n Fx T spine , on reclastlas t DEXA 12/2017 , Peripheral vascular disease 479270269 I73.9 mild on ANNMARIE 07/2018 Hyperlipidemia 04232908 E78.5 last LDL 04/23/17 @ goal Carotid ar nicolás stenosis 85142209 I65.29 last U/S 01/12/17 Insomnia 723446422 G47.0 0 Screening mammography 24 370163 Z12.31 Pt refuse Screening for malignant neoplasm of colon 657851642 Z12.11 pt refuse C scope Active or passive immunization 138865831 Z23 refuse zoster [id number] Tom Dodd MD [employer], [facility] [address] [facility] [address] [place] [address] 12/27/2018 10:48:06 12/27/2018 11:53:44 Adult health examination 351592190 Z00.01 Benign hypertension 1072 5009 I10 good control , BP 3 weeks Mixed anxi ety and depressive disorder 667691352 F41.8 No SI, No HI , sleeping OK Gastroesop hageal reflux disease without esophagitis 107524366 K21.9 pt still have symptomes on ranitidine but better on omeprazole Osteopenia 823573029 M85 .80 with compressio n Fx T spine , on reclastlas t DEXA 12/2017 , Osteoarthritis 537255833 M19.90 just had Lt TKR Diverticul ar disease of colon 789081473 K57.30 asymptomat ic , No bleeding Peripheral vascular disease 627041771 I73.9 mild on ANNMARIE 07/2018 Hyperlipidemia 71866810 E78.5 last LDL 07/03/18 @ goal Carotid ar nicolás stenosis 37001979 I65.29 last U/S 01/12/17 was good Atrial sep jenn aneurysm 75610478 I25.3 last ECHO 09/04/18 Ex-smoker 8885375 Z87.89 1 education Menopause 517535987 Z78. 0 asymptomat ic Vitamin D deficiency 347 06965 E55.9 will recheck History of transient ischemic attack 564239932 Z86.73 last carotid U/S 01/30/17 Blood gluc ose outside reference range 797562781 R73.09 Compression fracture 219 33511 T14.8XXD T12 , on 12/31/16 , with osteopenia on last DEXA 12/2017 Paroxysmal atrial fibrillation 461562782 I48.0 on eliquis Left ventr icular hypertrophy 72793251 I51.7 concentric , mod , on ECHO 08/2018 Body mass index 25-29 - overweight 242382471 Z68.28 education Restrictiv e lung disease 07275596 J98.4 on PFT 12/28/16 Screening mammography 24 372143 Z12.31 Pt refuse Screening for malignant neoplasm of cervix 235811179 Z12.4 pt refuse Screening for malignant neoplasm of colon 031396852 Z12.11 pt refuse C scope Active or passive immunization 619058392 Z23 refuse zoster Anemia 166350383 D64.9 Fecal occu lt blood: positive 859978602 R19.5 seen GI , had C scope [id number] TUYET STEVE APN [facility], [place] [address] [facility] [address] ,[address] [address] 03/03/2019 10:40:46 03/03/2019 11:52:20 Influenza-like illness 42660749 B34.9 resolved Acute urin jayesh tract infection 336344168 N39.0 treated with macrobid - Screening for malignant neoplasm of cervix 146065069 Z12.4 occasional labial bleeding with wiping -on and off x 1 yearno pain - Hypokalemia 93374001 E87 .6 Anemia 169814201 D64.9 stable Benign hypertension 1072 5009 I10 Carotid ar nicolás stenosis 16628888 I65.29 last 12/2016 -- last US Hyperlipidemia 61175575 E78.5 LDL 46 Liver enzy mes level above reference range 909613981 R74.[address] Powers -LIver US complete -- need ov note Screening for malignant neoplasm of colon 792277215 Z12.11 11/04/18 -- C scope completed -- normal Screening mammography 24 758377 Z12.31 Osteopenia 717882425 M85 .80 Compressio n fracture [id number] not covered - Microscopic hematuria 19 0999325 R31.21 [id number] Tom Dodd MD [employer], [employer] [facility] [place] [address] 05/28/2019 16:51:07 05/28/2019 17:50:13 Benign hypertension 04784419 I10 good control , BP 3 weeks Carotid ar nicolás stenosis 39749876 I65.29 last U/S 03/14/19 was good Anemia 839643431 D64.9 recheck CBC Hyperlipidemia 06493328 E78.5 last LDL 01/24/19 @ goal Mixed anxi ety and depressive disorder 129865244 F41.8 No SI, No HI , sleeping OK Osteopenia 817720068 M85 .80 with compressio n Fx T spine , on reclastlas t DEXA 12/2017 , Paroxysmal atrial fibrillation 395854637 I48.0 on eliquis Peripheral vascular disease 452084715 I73.9 mild on ANNMARIE 07/2018 Vitamin D deficiency 347 67983 E55.9 last level 12/27/18 Dyspnea 455852807 R06.02 Screening mammography 24 130362 Z12.31 Pt refuse Screening for malignant neoplasm of cervix 214700504 Z12.4 pt refuse Screening for malignant neoplasm of colon 299636392 Z12.11 pt refuse C scope Active or passive immunization 198425542 Z23 refuse zoster [id number] Tom Dodd MD [employer], [employer] [facility] [address] [place] [address] 09/01/2019 16:36:50 09/01/2019 16:56:27 Benign hypertension 51248219 I10 good control , BP 3 weeks Blood gluc ose outside reference range 037362235 R73.09 Body mass index 25-29 - overweight 107665258 Z68.28 education Carotid ar nicolás stenosis 59845534 I65.29 last U/S 03/14/19 was good Hyperlipidemia 99064811 E78.5 last LDL 01/24/19 @ goal Osteopenia 826257646 M85 .80 with compressio n Fx T spine , on reclastlas t DEXA 12/2017 , Paroxysmal atrial fibrillation 734987330 I48.0 on eliquis Vitamin D deficiency 347 23058 E55.9 last level 12/27/18 Peripheral vascular disease 770253293 I73.9 mild on ANNMARIE 07/2018 Screening mammography 24 124682 Z12.31 Pt refuse Active or passive immunization 153059029 Z23 refuse zoster Mixed anxi ety and depressive disorder 818776101 F41.8 No SI, No HI , sleeping OK Gastroesop hageal reflux disease without esophagitis 719445350 K21.9 pt still have symptomes on ranitidine but better on omeprazole Anemia 156903335 D64.9 recheck CBC Osteoarthritis 704008934 M19.90 just had Lt TKR [id number] oTm Dodd MD [facility] [address] [place] [address] 10/13/2019 13:53:36 10/13/2019 15:10:33 Cholelithiasis without obstruction 94067313 K80.20 took the stone out of CBD with ERCP Syncope 332625906 R55 Benign hypertension 1072 5009 I10 on the lower side , stop amlodipine , BP 3 weeks Gastroesop hageal reflux disease without esophagitis 232795691 K21.9 omeprazole changed to pantoprazo le 40 [id number] Tom Dodd MD [facility] [address] [place] [address] 12/01/2019 16:26:45 12/01/2019 17:37:49 Anemia 022647663 D64.9 recheck CBC Mixed anxi ety and depressive disorder 978765813 F41.8 No SI, No HI , sleeping OK Benign hypertension 1072 5009 I10 , BP 3 weeks Carotid ar nicolás stenosis 54715689 I65.29 last U/S 10/06/19 less than 50% Hyperlipidemia 91589154 E78.5 last LDL 01/24/19 @ goal Paroxysmal atrial fibrillation 167680255 I48.0 on eliquis Active or passive immunization 671945053 Z23 refuse zoster Screening mammography 24 364774 Z12.31 Pt refuse Screening for malignant neoplasm of cervix 004506210 Z12.4 pt refuse [id number] Tom Dodd MD [employer], [employer] [address] [facility] [address] [place] [address] 03/02/2020 15:39:55 03/02/2020 16:30:00 Adult health examination 235924937 Z00.01 Benign hypertension 1072 5009 I10 , BP 3 weekslast EKG 10/06/19 Atrial sep jenn aneurysm 26241123 I25.3 last ECHO 10/06/19 Body mass index 25-29 - overweight 473677965 Z68.28 education Carotid ar nicolás stenosis 23979557 I65.29 last U/S 10/06/19 less than 50% Cholelithi asis without obstruction 37553715 K80.20 took the stone out of CBD with ERCP 10/07/19 Compression fracture 219 42848 T14.8XXD T12 , on 12/31/16 , with osteopenia on last DEXA 12/2017 Diverticul ar disease of colon 997013450 K57.30 asymptomat ic , No bleeding Ex-smoker 5666156 Z87.89 1 education Gastroesop hageal reflux disease without esophagitis 426947341 K21.9 omeprazole changed to pantoprazo le 40 Hyperlipidemia 33658549 E78.5 last LDL 01/01/20 @ goal Blood gluc ose outside reference range 270854180 R73.09 last A1c 09/04/19 Anemia 559325885 D64.9 last CBC 01/01/20 was better Left ventr icular hypertrophy 55673791 I51.7 concentric , mod , on ECHO 10/06/19 Mixed anxi ety and depressive disorder 430601213 F41.8 No SI, No HI , sleeping OK Osteoarthritis 018330060 M19.90 had Lt TKR Osteopenia 040741600 M85 .80 with compressio n Fx T spine , on reclastlas t DEXA 12/2017 , Paroxysmal atrial fibrillation 171407602 I48.0 on eliquis Pulmonary hypertension 28070202 I27.20 Vitamin D deficiency 347 62382 E55.9 last level 09/04/19 Peripheral vascular disease 211048252 I73.9 mild on ANNMARIE 09/04/19 Screening mammography 24 294141 Z12.31 Pt refuse Screening for malignant neoplasm of cervix 426604958 Z12.4 pt refuseseen BRAKE ADJUSTER for pelvic ex 02/11/20 Screening for malignant neoplasm of colon 726062947 Z12.11 pt refuse C scope Active or passive immunization 915362927 Z23 refuse zoster [id number] Tom Dodd MD [place] [facility] [address] [place] [address] 05/31/2020 15:33:45 05/31/2020 16:35:02 Benign hypertension 23995326 I10 , BP 3 weekslast EKG 10/06/19 Body mass index 25-29 - overweight 299428835 Z68.28 education Carotid ar nicolás stenosis 38773826 I65.29 last U/S 10/06/19 less than 50% Gastroesop hageal reflux disease without esophagitis 209339466 K21.9 omeprazole changed to pantoprazo le 40 Hyperlipidemia 78613464 E78.5 last LDL 01/01/20 @ goal Paroxysmal atrial fibrillation 560166954 I48.0 on eliquis Peripheral vascular disease 111751775 I73.9 mild on ANNMARIE 09/04/19 Vitamin D deficiency 347 98192 E55.9 last level 09/04/19 Osteopenia 459840763 M85 .80 with compressio n Fx T spine , on reclastlas t DEXA 03/08/20 Screening mammography 24 212426 Z12.31 Pt refuse Screening for malignant neoplasm of cervix 703833426 Z12.4 pt refuseseen BRAKE ADJUSTER for pelvic ex 02/11/20 Screening for malignant neoplasm of colon 795376764 Z12.11 pt refuse C scope Active or passive immunization 759804152 Z23 refuse zoster [id number] Tom Dodd MD [place] [address] [place] [address] 08/31/2020 15:21:38 08/31/2020 16:21:27 Benign hypertension 62958641 I10 , BP 3 weekslast EKG 10/06/19 Atrial sep jenn aneurysm 63508452 I25.3 last ECHO 10/06/19 Body mass index 25-29 - overweight 601903539 Z68.28 education Carotid ar nicolás stenosis 52037530 I65.29 last U/S 10/06/19 less than 50% Mixed anxi ety and depressive disorder 454992246 F41.8 No SI, No HI , sleeping OK Screening mammography 24 048985 Z12.31 Pt refuse Screening for malignant neoplasm of cervix 465570229 Z12.4 pt refuse seen BRAKE ADJUSTER for pelvic ex 07/2020 Screening for malignant neoplasm of colon 670361899 Z12.11 pt refuse C scope Active or passive immunization 903921551 Z23 refuse zoster Hyperlipidemia 68871523 E78.5 last LDL 01/01/20 @ goal [id number] Tom Dodd MD [employer], [address] ,[address] [address] 12/02/2020 15:13:25 12/02/2020 15:47:15 Benign hypertension 71786448 I10 , BP 3 weekslast EKG 10/06/19 Body mass index 25-29 - overweight 237078816 Z68.28 educationl ost 6 lbs on diet Carotid ar nicolás stenosis 87760883 I65.29 last U/S 10/06/19 less than 50% Hyperlipidemia 25397513 E78.5 last LDL 10/18/20 @ goal Mixed anxi ety and depressive disorder 951516059 F41.8 No SI, No HI , sleeping OK Osteopenia 209706650 M85 .80 with compressio n Fx T spine , on reclastlas t DEXA 03/08/20 Paroxysmal atrial fibrillation 040145788 I48.0 on eliquis Peripheral vascular disease 306314623 I73.9 mild on ANNMARIE 09/04/19 Vitamin D deficiency 347 26331 E55.9 last level 05/31/20 Gastroesop hageal reflux disease without esophagitis 352305249 K21.9 had symptoms with stopping trial of pantoprazo le 40 Screening mammography 24 356746 Z12.31 Pt refuse Screening for malignant neoplasm of cervix 814711583 Z12.4 pt refuse seen BRAKE ADJUSTER for pelvic ex 07/2020 Screening for malignant neoplasm of colon 358066841 Z12.11 pt refuse C scope Active or passive immunization 683545933 Z23 refuse zoster Diarrhea 71685059 R19.7 [id number] Tom Dodd MD [employer] [address] [facility] [place] ,[address] [place] [address] 03/03/2021 13:53:14 03/03/2021 14:56:27 Adult health examination 408773882 Z00.01 Benign hypertension 1072 5009 I10 , BP 3 weekslast EKG 12/03/20 Atrial sep jenn aneurysm 93604498 I25.3 last ECHO 10/06/19 Anemia 565789720 D64.9 last CBC 01/01/20 was better Blood gluc ose outside reference range 781882863 R73.09 last A1c 09/04/19 Body mass index 25-29 - overweight 976968902 Z68.28 education Carotid ar nicolás stenosis 10740762 I65.29 last U/S 12/09/20 less than 50% Cholelithi asis without obstruction 10809715 K80.20 took the stone out of CBD with ERCP 10/07/19 Compression fracture 219 54529 T14.8XXD T12 , on 12/31/16 , with osteopenia on last DEXA 03/08/20 Diverticul ar disease of colon 622038119 K57.30 asymptomat ic , No bleeding Ex-smoker 4033164 Z87.89 1 education Gastroesop hageal reflux disease without esophagitis 339440359 K21.9 had symptoms with stopping trial of pantoprazo le 40 History of transient ischemic attack 761587918 Z86.73 last carotid U/S 01/30/17 Hyperlipidemia 28300755 E78.5 last LDL 10/18/20 @ goal Left ventr icular hypertrophy 62047845 I51.7 concentric , mod , on ECHO 10/06/19 Menopause 237373239 Z78. 0 asymptomat ic Mixed anxi ety and depressive disorder 377763368 F41.8 No SI, No HI , sleeping OK Osteoarthritis 128516781 M19.90 had Lt TKR Osteopenia 591293306 M85 .80 with compressio n Fx T spine , on reclastlas t DEXA 12/7/20 Paroxysmal atrial fibrillation 625971804 I48.0 on eliquis Peripheral vascular disease 409246222 I73.9 mild on ANNMARIE 09/04/19 Pulmonary hypertension 98028338 I27.20 Vitamin D deficiency 347 55854 E55.9 last level 05/31/20 Screening mammography 24 277841 Z12.31 Pt refuse Screening for malignant neoplasm of cervix 683896362 Z12.4 pt refuse seen BRAKE ADJUSTER for pelvic ex 07/2020 Screening for malignant neoplasm of colon 518681482 Z12.11 pt refuse C scope Active or passive immunization 516397318 Z23 refuse zoster Macrocytosis 586305118 D 75.89 [id number] Tom Dodd MD [employer] [address] [place] [address] [place] ,[address] [place] [address] 06/16/2021 09:36:15 06/16/2021 10:17:53 Hyperlipidemia 82914187 E78.5 last LDL 10/18/20 @ goal Mixed anxi ety and depressive disorder 485514620 F41.8 No SI, No HI , sleeping OK Paroxysmal atrial fibrillation 158408202 I48.0 on eliquis Peripheral vascular disease 573696344 I73.9 mild on ANNMARIE 20 Vitamin D deficiency 347 76362 E55.9 last level 03/07/21 Hypomagnesemia 839150095 E83.42 not taking mag on reg basis Carotid ar nicolás stenosis 32581100 I65.29 last U/S 12/09/20 less than 50% Body mass index 25-29 - overweight 193993382 Z68.28 education Benign hypertension 1072 5009 I10 , BP 3 weekslast EKG 12/03/20per pt had ophth 01/2021 Neuropathy 972707749 G62 .9 Screening mammography 24 395684 Z12.31 Pt refuse Screening for malignant neoplasm of cervix 522523183 Z12.4 seen BRAKE ADJUSTER for pelvic ex 06/08/21 Screening for malignant neoplasm of colon 150743634 Z12.11 pt refuse C scope Active or passive immunization 662559004 Z23 refuse zoster Advance di rective discussed with patient 059267968 Z71.89 education [id number] Tom Dodd MD [employer] [address] [place] [address] [place] [address] [place] [address] 08/24/2021 15:31:50 08/24/2021 16:48:59 Benign hypertension 04594498 I10 , BP 3 weekslast EKG 12/03/20per pt had ophth 01/2021 Blood gluc ose outside reference range 440756117 R73.09 last A1c 06/16/21 Body mass index 25-29 - overweight 285593841 Z68.28 education Gastroesop hageal reflux disease without esophagitis 352216878 K21.9 had symptoms with stopping trial of pantoprazo le 40 History of transient ischemic attack 323673439 Z86.73 last carotid U/S 12/09/20 Paroxysmal atrial fibrillation 434805634 I48.0 on eliquis Peripheral vascular disease 513694541 I73.9 mild on ANNMARIE 09/04/19 Vitamin D deficiency 347 74114 E55.9 last level 03/07/21 Pulmonary hypertension 06781119 I27.20 stable Osteopenia 654650935 M85 .80 with compressio n Fx T spine , on reclastlas t DEXA 03/08/20 Hypomagnesemia 233105618 E83.42 last level 06/16/21 Hyperlipidemia 33713173 E78.5 last LDL 06/16/21 @ goal Screening mammography 24 619344 Z12.31 Pt refuse Screening for malignant neoplasm of cervix 693040263 Z12.4 seen BRAKE ADJUSTER for pelvic ex 06/08/21 Screening for malignant neoplasm of colon 627065104 Z12.11 pt refuse C scope Active or passive immunization 988188807 Z23 refuse zoster Insomnia 114853856 G47.0 0 [id number] Tom Dodd MD [employer], [address] [place] ,[address] [place] [address] 09/21/2021 13:58:20 09/21/2021 14:41:25 Diarrhea 82220426 R19.7 increase fluids Nausea and vomiting 1693 1999 R11.2 resolved Paroxysmal atrial fibrillation 301495690 I48.0 on eliquissee ing cardiology next week for stress test [id number] Tom Dodd MD [employer] [place] [address] [facility] ,[address] [place] [address] 10/14/2021 10:27:24 10/14/2021 11:44:04 Pneumonia 628855483 J18.9 on ABx Pleural effusion 8799811 8 J90 thoracente sis done , result not in chart , seen pulmF/U with pulm and repeat CT 12/2021 Nausea and vomiting 1693 2000 R11.2 resolved Kidney stone 07260838 N2 [address] abd 09/28/21 Se E Benign hypertension 1072 5009 I10 decrease amlodipine to 5 QAM ,BP 2-3 weekslast EKG 12/03/20per pt had ophth 01/2021 Anemia 033543424 D64.9 last CBC 09/21/21 [id number] Tom Dodd MD [employer], [place] [address] [facility] [address] [address] 12/07/2021 11:04:58 12/07/2021 12:51:56 Anemia 032718777 D64.9 last CBC 11/02/21 Pneumonia 136384583 J18. 9 with pleural effusion , better on CT 11/04/21 , on ABxneed another CT for documentat ion of resolution 3 months from 11/04/21 Benign hypertension 1072 5009 I10 decrease amlodipine to 5 QAM ,BP 2-3 weekslast EKG 12/03/20per pt had ophth 01/2021 Body mass index 25-29 - overweight 748250032 Z68.28 education Carotid ar nicolás stenosis 61428358 I65.29 last U/S 12/09/20 less than 50% Hyperlipidemia 08739256 E78.5 last LDL 06/16/21 @ goal Hypomagnesemia 027089319 E83.42 last level 06/16/21 Paroxysmal atrial [facility]3085629 [facility] [place] next week for stress test Peripheral vascular disease 133679561 I73.9 mild on ANNMARIE 09/04/19 Vitamin D deficiency 347 69197 E55.9 last level 08/24/21 Screening mammography 24 595296 Z12.31 Pt refuse Screening for malignant neoplasm of cervix 581963248 Z12.4 seen BRAKE ADJUSTER for pelvic ex 06/08/21 Screening for malignant neoplasm of colon 060131621 Z12.11 pt refuse C scope Active or passive immunization 556658248 Z23 refuse zoster [id number] Tom Dodd MD [facility] [employer] [address] [facility] [address] [place] [address] 03/09/2022 12:05:50 03/09/2022 13:31:18 Adult health examination 260866040 Z00.01 Benign hypertension 1072 5009 I10 , BP 3 weekslast EKG 09/28/21 Atrial sep jenn aneurysm 09827479 I25.3 last ECHO 10/06/19 Anemia 971846681 D64.9 last CBC 12/07/21 was better Blood gluc ose outside reference range 934919491 R73.09 last A1c 06/16/21 Body mass index 25-29 - overweight 859505774 Z68.28 education Carotid ar nicolás stenosis 59240863 I65.29 last U/S 02/02/22 Cholelithi asis without obstruction 06736724 K80.20 took the stone out of CBD with ERCP 10/07/19 Compression fracture 219 04355 T14.8XXD T12 , on 12/31/16 , with osteopenia on last DEXA 03/08/20 Diverticul ar disease of colon 483690963 K57.30 asymptomat ic , No bleeding Ex-smoker 5439470 Z87.89 1 education Gastroesop hageal reflux disease without esophagitis 339419367 K21.9 had symptoms with stopping trial of pantoprazo le 40 History of transient ischemic attack 082407121 Z86.73 last carotid U/S 02/02/22 Hyperlipidemia 36922346 E78.5 last LDL 06/16/21 @ goal Left ventr icular hypertrophy 48619564 I51.7 concentric , mod , on ECHO 10/06/19 Menopause 713143272 Z78. 0 asymptomat ic Mixed anxi ety and depressive disorder 898850526 F41.8 No SI, No HI , sleeping OK Osteoarthritis 747076986 M19.90 had Lt TKR Osteopenia 851823194 M85 .80 with compressio n Fx T spine , on reclastlas t DEXA 03/08/20 Paroxysmal atrial fibrillation 609301234 I48.0 on eliquis Peripheral vascular disease 617962305 I73.9 mild on ANNMARIE 02/02/22 Pulmonary hypertension 29450600 I27.20 stable Macrocytosis 172253190 D 75.89 Vitamin D deficiency 347 12412 E55.9 last level 08/24/21 Screening mammography 24 698781 Z12.31 Pt refuse Screening for malignant neoplasm of cervix 648097748 Z12.4 pt refuse seen BRAKE ADJUSTER for pelvic ex 07/2020 Screening for malignant neoplasm of colon 769696644 Z12.11 pt refuse C scope Active or passive immunization 930825619 Z23 refuse zoster Pneumonia 845361816 J18. 9 with pleural effusion , better on CT 11/04/21 , on ABxneed another CT for documentat ion of resolution 3 months from 11/04/21 , had it yesterday [id number] Tom Dodd MD [facility] [facility] [place] ,[address] [place] [address] 07/03/2022 10:15:20 07/03/2022 11:20:32 Benign hypertension 31743198 I10 good controldec reased amlodipine , BP 3 weekslast EKG 09/28/21 Benign par oxysmal positional vertigo 377508947 H81.10 Accidental fall 56524866 2 W19.XXXA Carotid ar nicolás stenosis 37925519 I65.29 last U/S 02/02/22 Hyperlipidemia 38519866 E78.5 last LDL 06/16/21 @ goal Paroxysmal atrial fibrillation 669157301 I48.0 on eliquis Peripheral vascular disease 401129384 I73.9 mild on ANNMARIE 02/02/22 Solitary n odule of lung 884824924 R91.[address] 03/13/22 Active or passive immunization 189071819 Z23 refuse zoster [id number] Tom Dodd MD [employer] [address] [place] ,[address] [place] [address] 10/02/2022 10:59:10 10/02/2022 11:53:40 Paroxysmal atrial fibrillation 703263511 I48.0 on eliquisant icoagulati on safty education Peripheral vascular disease 168120253 I73.9 mild on ANNMARIE 02/02/22 Solitary n odule of lung 632957572 R91.[address] 03/13/22 Carotid ar nicolás stenosis 43102724 I65.29 last U/S 02/02/22 Body mass index 25-29 - overweight 231400169 Z68.28 education Benign hypertension 1072 5009 I10 on the low side , stop amlodipine , BP 3 weekslast EKG 09/28/21 Screening mammography 24 268272 Z12.31 Pt refuse Screening for malignant neoplasm of cervix 860002324 Z12.4 pt refuse seen BRAKE ADJUSTER for pelvic ex 07/2020 Screening for malignant neoplasm of colon 436039517 Z12.11 pt refuse C scope Active or passive immunization 050159544 Z23 refuse zoster Pain of bi lateral hip joints 8091626896 4537661 M25.551 [id number] Tom Dodd MD [employer], [place] [address] [facility] [place] ,[address] [place] [address] 01/17/2023 17:47:46 01/17/2023 19:47:50 Congestion of nasal sinus 50813754 R09.81 Benign hypertension 1072 5009 I10 cardiology increased coreg, BP 3 weekslast EKG 09/28/21 Carotid ar nciolás stenosis 64080028 I65.29 last U/S 02/02/22 Hyperlipidemia 57548974 E78.5 last LDL 06/16/21 @ goal Mixed anxi ety and depressive disorder 350566827 F41.8 No SI, No HI , sleeping OK Screening mammography 24 136144 Z12.31 Pt refuse Active or passive immunization 397449098 Z23 refuse zoster [id number] Tom Dodd MD [employer], [place] [address] [address] [place] ,[address] [place] [address] 03/05/2023 14:53:31 03/05/2023 15:41:26 Syncope 208690543 R55 ER if any [place] vision problemNo driving Contusion of face 288537 004 S00.83XA better Diarrhea 38896600 R19.7 increase fluids Benign hypertension 1072 5009 I10 cardiology increased coreg, BP 1 weeklast EKG 10/02/22 [id number] Tom Dodd MD [employer], [place] [address] [address] [place] ,[address] [place] [address] 04/25/2023 18:41:48 04/25/2023 19:51:38 Benign hypertension 58841634 I10 Pt stopped felodipine 2ry to dizzinessa dd doxazosine 1 mg qhsBP 1 weeklast EKG 10/02/22 Syncope 727392152 R55 ER if any [place] vision problemNo drivingwen t to ER 01/2023had cardiac monitorF/U with cardiology [facility] th examination 511206134 Z00.01 Blood gluc ose outside reference range 715308833 R73.09 last A1c 06/16/21 Body mass index 25-29 - overweight 676567749 Z68.28 education Carotid ar nicolás stenosis 58227573 I65.29 last U/S 02/02/22 Cholelithi asis without obstruction 25727599 K80.20 took the stone out of CBD with ERCP 10/07/19 Compression fracture 219 36744 T14.8XXD T12 , on 12/31/16 , with osteopenia on last DEXA 03/08/20 Gastroesop hageal reflux disease without esophagitis 840771675 K21.9 had symptoms with stopping trial of pantoprazo le 40 Ex-smoker 3410388 Z87.89 1 education History of transient ischemic attack 540700223 Z86.73 last carotid U/S 02/02/22 Hyperlipidemia 18834816 E78.5 last LDL 01/22/23 @ goal Hypomagnesemia 334800198 E83.42 last level 06/16/21 Kidney stone 52657630 N2 0.[address] abd 09/28/21 Se E Macrocytosis 089212231 D 75.89 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 No SI, No HI , sleeping OK Osteoarthritis 819143970 M19.90 had Lt TKR Paroxysmal atrial fibrillation 436697310 I48.0 on eliquisant icoagulati on safty education Peripheral vascular disease 542785679 I73.9 mild on ANNMARIE 02/02/22 Pulmonary hypertension 86762450 I27.20 stable Solitary n odule of lung 463162994 R91.[address] 03/13/22 Vitamin D deficiency 347 56469 E55.9 last level 08/24/21 Screening mammography 24 250386 Z12.31 Pt refuse Screening for malignant neoplasm of cervix 374779185 Z12.4 pt refuse seen BRAKE ADJUSTER for pelvic ex 07/2020 Screening for malignant neoplasm of colon 918220655 Z12.11 pt refuse C scope Active or passive immunization 660959392 Z23 refuse zoster Advance di rective discussed with patient 548056552 Z71.89 education [id number] Tom Dodd MD [employer] [facility] [place] ,[address] [place] [address] 08/03/2023 11:58:19 08/03/2023 13:18:52 Benign hypertension 94280263 I10 Pt stopped felodipine 2ry to dizzinessw ill try isosorbide BP 1 weeklast EKG 10/02/22 Body mass index 25-29 - overweight 068141230 Z68.28 education Compression fracture 219 76340 T14.8XXD T12 and T11, with osteopenia on last DEXA 03/08/20 Carotid ar nicolás stenosis 43435327 I65.29 last U/S 05/17/23 Hyperlipidemia 51641377 E78.5 last LDL 01/22/23 @ goal Paroxysmal atrial fibrillation 553881146 I48.0 on eliquisant icoagulati on safty education Peripheral vascular disease 435384532 I73.9 mild on ANNMARIE 02/02/22 Solitary n odule of lung 630984120 R91.[address] 06/16/23 Screening mammography 24 291984 Z12.31 Pt refuse Screening for malignant neoplasm of cervix 795032411 Z12.4 pt refuse seen BRAKE ADJUSTER for pelvic ex 07/2020 Screening for malignant neoplasm of colon 927757890 Z12.11 pt refuse C scope Active or passive immunization 318643577 Z23 refuse zoster Restrictiv e lung disease 62470705 J98.4 on PFT 12/28/16 [id number] Tom Dodd MD [employer] [address] [place] [address] [place] [address] [place] [address] 11/07/2023 14:28:15 11/07/2023 15:42:37 Anemia 798888192 D64.9 last CBC 10/03/23 , seen GI , having EGD ,will recheck 8 weeks Benign hypertension 1072 5009 I10 Pt stopped felodipine 2ry to dizzinessw ill try isosorbide BP 1 weeklast EKG 10/02/22 Body mass index 25-29 - overweight 972209527 Z68.28 education Carotid ar nicolás stenosis 61177582 I65.29 last U/S 05/17/23 Cirrhosis of liver 78681 007 K74.60 last liver US 06/30/23 Compressio n fracture of thoracic spine 442427002 S22.000A stable Hyperlipidemia 94071071 E78.5 last LDL 10/03/23 @ goal Hypomagnesemia 463955241 E83.42 last level 05/17/23 Macrocytosis 716360119 D 75.89 last B12 10/15/23 Mixed anxi ety and depressive disorder 268687843 F41.8 No SI, No HI , sleeping OK Osteoarthritis 983186959 M19.90 had Lt TKR Peripheral vascular disease 913603459 I73.9 mild on ANNMARIE 05/17/23 Paroxysmal atrial fibrillation 478696688 I48.0 on eliquisant icoagulati on safty education Solitary n odule of lung 477443537 R91.[address] 06/16/23 Screening mammography 24 242345 Z12.31 Pt refuse Screening for malignant neoplasm of cervix 552500897 Z12.4 pt refuse seen BRAKE ADJUSTER for pelvic ex 07/2020 Screening for malignant neoplasm of colon 127123412 Z12.11 pt refuse C scope Active or passive immunization 293700493 Z23 refuse zoster [id number] Tom Dodd MD [facility] [employer], [place] [address] [facility] [place] ,[address] [address] 02/04/2024 16:28:19 02/04/2024 17:28:08 Compression fracture of thoracic spine 207280017 S22.000A stable Benign hypertension 1072 5009 I10 Pt stopped felodipine 2ry to dizzinessw ill try isosorbide BP 1 weeklast EKG 11/07/23 Paroxysmal atrial fibrillation 097850827 I48.0 on eliquisant icoagulati on safty educations een cardiology , workup for watchman procedure on progress Solitary n odule of lung 776532106 R91.[address] 06/16/23 Peripheral vascular disease 925667508 I73.9 mild on ANNMARIE 05/17/23 Long-term drug therapy 879524143 Z79.891 statin Active or passive immunization 617481792 Z23 refuse zoster [id number] Tom Dodd MD [employer], [facility] [address] [facility] [address] [place] [address] 06/11/2024 16:45:20 06/11/2024 18:26:13 Adult health examination 235385486 Z00.01 Benign hypertension 1072 5009 I10 better controlBP 1 weeklast EKG 11/07/23 Body mass index 25-29 - overweight 176725132 Z68.28 education Atrial sep jenn aneurysm 02115567 I25.3 last ECHO 10/06/19 Carotid ar nicolás stenosis 28084195 I65.29 last U/S 05/17/23 Cholelithi asis without obstruction 02739486 K80.20 took the stone out of CBD with ERCP 10/07/19 Cirrhosis of liver 31627 007 K74.60 last liver US 06/30/23 Compressio n fracture of thoracic spine 718033303 S22.000A stable Diverticul ar disease of colon 320993331 K57.30 asymptomat ic , No bleeding Gastroesop hageal reflux disease without esophagitis 476822250 K21.9 had symptoms with stopping trial of pantoprazo le 40 History of transient ischemic attack 594697331 Z86.73 last carotid U/S 02/02/22 Hyperlipidemia 75802664 E78.5 last LDL 10/03/23 @ goal Hypomagnesemia 785244154 E83.42 last level 05/17/23 Anemia 836448256 D64.9 last CBC 10/03/23 , seen GI , having EGD ,will recheck 8 weeks Ex-smoker 9394856 Z87.89 1 education Kidney stone 05991401 N2 0.[address] abd 09/28/21 Se E Long-term drug therapy 453704805 Z79.891 statin , last A1c 02/04/24 Macrocytosis 381105680 D 75.89 last B12 10/15/23 Menopause 481416962 Z78. 0 asymptomat ic,last DEXA 01/25/24 Mixed anxi ety and depressive disorder 402787393 F41.8 No SI, No HI , sleeping OK Osteoarthritis 698566548 M19.90 had Lt TKR Paroxysmal atrial fibrillation 120839551 I48.0 on eliquisant icoagulati on safty educations [facility] cardiology ,had watchman procedure 02/2024 Peripheral vascular disease 602420699 I73.9 mild on ANNMARIE 05/17/23 Solitary n odule of lung 879196606 R91.[address] 06/16/23 Vitamin D deficiency 347 88282 E55.9 last level 08/24/21 Restrictiv e lung disease 78834537 J98.4 on PFT 12/28/16 ,last 08/03/23 Screening mammography 24 656222 Z12.31 Pt refuse Screening for malignant neoplasm of cervix 836655946 Z12.4 pt refuse seen BRAKE ADJUSTER for pelvic ex 07/2020 Screening for malignant neoplasm of colon 345085578 Z12.11 pt refuse C scope Active or passive immunization 321907549 Z23 refuse zoster Advance di rective discussed with patient 179019174 Z71.89 education [id number] Tom Dodd MD [employer], [address] ,[address] [address] 10/13/2024 11:44:26 10/13/2024 12:25:00 Benign hypertension 72022133 I10 better controlBP 1 weeklast EKG 11/07/23last ophth 09/26/24 Paroxysmal atrial fibrillation 504361477 I48.0 on eliquisant icoagulati on safty educations [facility] cardiology ,had watchman procedure 02/2024 Peripheral vascular disease 135599297 I73.9 mild on ANNMARIE 05/17/23 Carotid ar nicolás stenosis 71477022 I65.29 last U/S 05/17/23 Hyperlipidemia 92401269 E78.5 last LDL 10/03/23 @ goal Atrial sep jenn aneurysm 63418822 I25.3 last ECHO 10/06/19 Screening mammography 24 533446 Z12.31 7485200812 Pt refuse Cancer cer vix screening status 590143197 Z12.4 643228 pt refuse seen BRAKE ADJUSTER for pelvic ex 07/2020 Screening for malignant neoplasm of colon 483739318 Z12.11 481968 pt refuse C scope Immunization due 4283092 08 Z23 [id number] refuse zoster Blood gluc ose outside reference range 481124945 R73.09 last A1c 06/16/21 Cirrhosis of liver 007 K74.60 last liver US 06/30/23 [id number] Tom Dodd MD [facility], [place] [address] [facility] [place] ,[address] [address] 01/15/2025 11:26:52 01/15/2025 12:42:00 Cirrhosis of liver 97395112 K74.60 - last liver US 12/12/24 Hypocupremia 48552291 E6 1.0 9013209 - last level 12/2024 Anemia 802667523 D64.9 - last CBC 10/03/23 , seen GI , having EGD ,- seen hematology Bilateral stenosis of carotid arteries 558276542 I65.23 705019 - last U/S 12/15/24 Blood gluc ose outside reference range 990057491 R73.09 - last A1c 10/18/24 Hyperlipidemia 07608855 E78.5 - last LDL 10/18/24 @ goal Benign hypertension 1072 5009 I10 - better control- BP 1 week- last EKG 11/07/23- last ophth 09/26/24 Screening mammography 24 573402 Z12.31 0556181766 Pt refuse Immunization due 5440081 08 Z23 [id number] refuse zoster Health Concerns Section Related Observation LastModified by Organization Detai ls LastModified Time None Recorded Concern Status LastModified by Organization Details LastModified Time None Recorded Advance Directives Directive N: Payers Insurance Date Sequence Insurance Name Policy Number Policy Healy Covered Member ID Healy Member ID Guarantor Name 01/10/2025 1 [place] Martina Campa [id number] Martina Campa 01/16/2025 2 [place] 104 Martina Campa [id number] Martina Campa Notes Date Note Type Note Provider Name and Address Organization Details Recorded Time 11/07/2023 text/html Hypertension F/UReported by PatientHPIFor medications, patient reportstaking medications as directedandno side effects from medication. For lifestyle, patient reportsregular exercise,limiting/avoi ding salt, andcompliant with low salt diet. For associated symptoms, patient reportsno dizziness,no lightheadedness,no chest pain,no shortness of breath,no palpitations,no edema,no calf pain with exertion, andno headache. Tom Dodd MD [address] [facility], [place], [address], [facility] 11/07/2023 15:14:19 02/04/2024 text/html Hypertension F/UReported by PatientHPIFor medications, patient reportstaking medications as directedandno side effects from medication. For lifestyle, patient reportsregular exercise,limiting/avoi ding salt, andcompliant with low salt diet. For associated symptoms, patient reportsno dizziness,no lightheadedness,no chest pain,no shortness of breath,no palpitations,no edema,no calf pain with exertion, andno headache. Tom Dodd MD [address] [facility], [place], [address], [facility] 02/04/2024 17:23:42 06/11/2024 text/html Medicare Annual Wellness VisitReported by PatientSocial/Behavior al HistoryFor diet and nutrition, patient reportshealthy diet. For fracture risk, patient reportsno history of fractures,no recent explained fracture,no sudden unexplained fractures, andno previous musculoskeletal injuries. For physical activity, patient reportsrecent increase in physical activity,good physical condition, anddiscussed exercise habits.Mental Status:For depression risk, patient reportsnever feels sad, empty, or tearful,no loss of interest in activities,no significant changes in weight,no sleep disturbances or insomnia,no agitation,no loss of energy,no feelings of worthlessness or guilt,no thoughts of suicide,no history of depression, andno history of mood disorders. For orientation, patient reportsno disorientation to time,no disorientation to date, andno disorientation to place. For concentration and memory, patient reportsno decreased concentrating ability,no memory lapses or loss, anddoes not forget words. For speech/motor difficulties, patient reportsno speech difficulties,no difficulty expressing formulated concepts,no difficulty with fine manipulative tasks,no difficulty writing/copying,no slowed reaction time, anddoes not knock things over when trying to pick them up.Functional AbilityFor hearing, patient reportsno loss of hearing. For vision, patient reportsno vision problems. For activities of daily living, patient reportsable to bathe with limited or no assistance,able to contol urination and bowels,able to dress with limited or no assistance,able to feed self with limited or no assistance,able to get out of chair or bed with limited or no assistance,able to groom with limited or no assistance, andable to toilet with limited or no assistance. For instrumental activities of daily living, patient reportsable to do house work with limited or no assistance,able to grocery shop with limited or no assistance,able to manage medications with limited or no assistance,able to manage money with limited or no assistance,able to prepare meals with limited or no assistance, andable to use the phone with limited or no assistance. For falls risk assessment, patient reportsno frequent falls while walking,no fall in the past year,no fall since last visit, andno dizziness/vertigo. For home safety, patient reportsuse of seatbeltsandno vision or hearing loss while driving. Hypertension F/UReported by PatientHPIFor medications, patient reportstaking medications as directedandno side effects from medication. For lifestyle, patient reportsregular exercise,limiting/avoi ding salt, andcompliant with low salt diet. For associated symptoms, patient reportsno dizziness,no lightheadedness,no chest pain,no shortness of breath,no palpitations,no edema,no calf pain with exertion, andno headache. Tom Dodd MD [address] [facility] [address], [place], [address], [facility] 06/11/2024 18:11:27 10/13/2024 text/html Medicare Annual Wellness VisitReported by PatientFunctional AbilityFor falls risk assessment, patient reportsno frequent falls while walking,no fall in the past year,no fall since last visit, andno dizziness/vertigo. Hypertension F/UReported by PatientHPIFor medications, patient reportstaking medications as directedandno side effects from medication. For lifestyle, patient reportsregular exercise,limiting/avoi ding salt, andcompliant with low salt diet. For associated symptoms, patient reportsno dizziness,no lightheadedness,no chest pain,no shortness of breath,no palpitations,no edema,no calf pain with exertion, andno headache. MD Bubba Price [facility] [address], [place], [address], [facility] 10/13/2024 12:19:39 01/15/2025 text/html Hypertension F/UReported by PatientHPIFor medications, patient reportstaking medications as directedandno side effects from medication. For lifestyle, patient reportsregular exercise,limiting/avoi ding salt, andcompliant with low salt diet. For associated symptoms, patient reportsno dizziness,no lightheadedness,no chest pain,no shortness of breath,no palpitations,no edema,no calf pain with exertion, andno headache. Tom Dodd MD [address], [place], [address], [facility] 01/15/2025 12:29:20 OBGyn Episode No OBEpisode recorded.
--- OUTSIDE RECORDS SUMMARY | 2025-01-24 11:57 | XMS_ITS | Encounter Summary ---
Author Organization [facility] Address [address] [place] [address] Phone Care Team Providers Care Preparatory Technician Name Role Phone Israel Sood MD Primary Care Provider [phone] Britney Bolton MD Unavailable [phone] nAiket Link MD Unavailable Michele Link MD Unavailable [phone] Andreea Raphael RN Unavailable [phone] Encounter Details Date Type Department Care Team (Latest Contact Info) Description 05/20/2023 Orders Only [facility] Evon Calvillo, DINA [address] [facility] [address] [place] [address] Social History Tobacco Use Types [...] on file Legal 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 Gender Identity Not on file Sexual Orientation [...] on filedocumented in this encounter Care Teams Preparatory Technician Relationship Specialty Start Date End Date Israel Sood MD [address] [place] [address] PCP - General 09/08/16 Britney Bolton MD [address] [place] [address] Director Of Event Sales Obstetrics and Gynecology 09/02/19 Aniket Link MD [id number] [place] [address] Surgeon Colon and Rectal Surgery 12/01/21 Michele Link MD [id number] [place] [address] Consulting Physician Gynecologic Oncology 12/01/2112/31/24 Andreea Raphael, RN [address] [place] [address] SHOP Outpatient Foundry Engineer 02/21/24 03/19/24 documented as of this encounter
--- OUTSIDE RECORDS SUMMARY | 2025-01-24 11:57 | XMS_ITS | Encounter Summary ---
Author Organization [facility] Address [address] [place] [address] Phone Care Team Providers Care Food Service Associate Name Role Phone Israel Sood MD Primary Care Provider [phone] Britney Bolton MD Unavailable [phone] Aniket Link MD Unavailable [phone] Michele Link MD Unavailable [phone] Andreea Raphael RN Unavailable Encounter Details Date Type Department Care Team (Latest Contact Info) Description 05/17/2023 Orders Only [facility] Evon Calvillo, DINA [address] [facility] [address] [facility] [facility] [address] [place] [address] Social History Tobacco Use Types [...] on file 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 Gender Identity Not on file Sexual Orientation [...] on filedocumented in this encounter Care Teams Food Service Associate Relationship Specialty Start Date End Date Israel Sood MD [address] [place] [address] PCP - General 09/08/16 Britney Bolton MD [address] [place] [address] Clarification Operator Obstetrics and Gynecology 09/02/19 Aniket Link MD [id number] [place] [address] Surgeon Colon and Rectal Surgery 12/01/21 Michele Link MD [id number] [place] [address] Consulting Physician Gynecologic Oncology 12/01/2112/31/24 Andreea Raphael, RN [address] [place] [address] SHOP Outpatient Building Repair Maintenance Supervisor 02/21/24 03/19/24 documented as of this encounter
[2025-01-24 12:43] LABS: Hematocrit 35.9 % (37.0-47.0); Hemoglobin 11.5 g/dL (12.0-15.0); Mean Corpuscular HGB Conc 32.0 g/dl (32-36); Mean Corpuscular Hemoglobin 32.0 pg (26-34); Mean Corpuscular Volume 100.0 fl (80-100); Platelet Count Result 123 k/mm3 (150-375); Red Blood Count 3.59 M/mm3 (4.2-5.4); White Blood Count 2.8 K/mm3 (4.5-10.0)
[2025-01-24 12:55] LABS: INR 1.0; Prothrombin Time 13.6 Seconds (11.1-14.7)
[2025-01-24 13:06] LABS: Alanine Aminotransferase 16 U/L (6-35); Albumin Level 4.0 g/dL (3.5-5.1); Alkaline Phosphatase 50 U/L (38-126); Anion Gap 6 mmol/L (4-12); Aspartate Amino Transferase 24 U/L (14-36); Bilirubin,Total 0.5 mg/dL (0.2-1.3); Blood Urea Nitrogen 19 mg/dL (7-17); Calcium 9.0 mg/dL (8.4-10.2); Carbon Dioxide 28 mmol/L (22-30); Chloride 102 mmol/L (98-107); Estimated Glomerular Filt Rate > 60; Glucose 169 mg/dL (65-110); Potassium 3.9 mmol/L (3.4-5.0); Sodium 136 mmol/L (137-145); Total Protein 6.8 g/dL (6.3-8.2)
[2025-01-24 13:37] LABS: Hepatitis B Surface Antigen Negative (Negative)
[2025-01-24 13:55] LABS: Hepatitis B Surface Anti Res Negative
[2025-01-25 07:08] LABS: GGT 15 IU/L (0-60); Hep B Core Ab, Total Negative (Negative)
[2025-01-27 14:08] LABS: ANA by IFA Rfx Titer/Pattern Negative (.)
[2025-01-30 15:09] LABS: Anti-Mitochondrial Ab by IFA <1:20 (<1:20)
== END 2025-01-24 11:52 | disposition home or self-care (01) ==
LOC: ANHLAB 11:54
PROVIDERS: PCP Internal Medicine; Visit Provider Internal Medicine Gastroenterology
DX: K74.60 Unspecified cirrhosis of liver (principal)
CPT/HCPCS: 36415; 80053; 82103; 82104; 82105; 82390; 82977; 85027; 85610; 86015; 86038; 86381; 86704; 86706; 86803; 87340